=== PATIENT | male | born 1955 | race Caucasian/White ===

== ENCOUNTER → 2022-02-01 08:05 | Outpatient (BNVA) | payer OTHER, SELFPAY | PROVIDERS: PCP Physician Assistant; Visit Provider Psychiatry & Neurology Neurology | DX: M47.812 Spondylosis without myelopathy or radiculopathy, cervical region (principal); M47.816 Spondylosis without myelopathy or radiculopathy, lumbar region; R20.2 Paresthesia of skin; R26.9 Unspecified abnormalities of gait and mobility | CPT/HCPCS: 99202 ==

== ENCOUNTER 2022-03-09 11:45 | Outpatient (REF) | payer OTHER, SELFPAY ==
--- NOTE | ~2022-03-09 | XR_ITS ---
EXAMINATION: XR LUMBAR SPINE XR HIP BILATERAL WITH PELVIS CLINICAL INFORMATION: Sacroiliitis, spondylosis without myelopathy or radiculopathy, lumbar region. COMPARISON: None TECHNIQUE: Single view pelvis with 2 additional views of each hip. 7 views of the lumbosacral spine including obliques and flexion and extension views. FINDINGS: PELVIS AND HIPS: Mild degenerative changes are present in the hips with some minimal acetabular sclerosis superolaterally with some minimal osteophyte formation. No other hip joint abnormality is seen. The pelvis appears unremarkable aside from some minimal sclerotic change at the SI joints. Patient status post vasectomy. LUMBAR SPINE: Degenerative changes are present from L3 through L5. Posterior pedicular screws are present in L3 as well as L5 with disc spacers present at L3-L4 and L4-L5. There is no instability or subluxations with flexion or extension. No fractures are seen. Hardware appears intact. XR/XR hip BI w PEL1V IMPRESSION: 1. Mild degenerative changes in the hips. 2. Degenerative changes in the lumbosacral spine with postoperative changes as described above. No evidence of hardware failure. 3. Minimal sclerotic change SI joints.
--- NOTE | ~2022-03-09 | XR_ITS ---
EXAMINATION: XR LUMBAR SPINE XR HIP BILATERAL WITH PELVIS CLINICAL INFORMATION: Sacroiliitis, spondylosis without myelopathy or radiculopathy, lumbar region. COMPARISON: None TECHNIQUE: Single view pelvis with 2 additional views of each hip. 7 views of the lumbosacral spine including obliques and flexion and extension views. FINDINGS: PELVIS AND HIPS: Mild degenerative changes are present in the hips with some minimal acetabular sclerosis superolaterally with some minimal osteophyte formation. No other hip joint abnormality is seen. The pelvis appears unremarkable aside from some minimal sclerotic change at the SI joints. Patient status post vasectomy. LUMBAR SPINE: Degenerative changes are present from L3 through L5. Posterior pedicular screws are present in L3 as well as L5 with disc spacers present at L3-L4 and L4-L5. There is no instability or subluxations with flexion or extension. No fractures are seen. Hardware appears intact. XR/XR lumbar spine 6V w bending IMPRESSION: 1. Mild degenerative changes in the hips. 2. Degenerative changes in the lumbosacral spine with postoperative changes as described above. No evidence of hardware failure. 3. Minimal sclerotic change SI joints.
== END 2022-03-09 11:46 | disposition home or self-care (01) ==
LOC: HO.XRAY 11:45
PROVIDERS: Visit Provider Nurse Practitioner Family
DX: M96.1 Postlaminectomy syndrome, not elsewhere classified (principal); M25.551 Pain in right hip; M25.552 Pain in left hip; M46.1 Sacroiliitis, not elsewhere classified; M47.816 Spondylosis without myelopathy or radiculopathy, lumbar region; M54.16 Radiculopathy, lumbar region; M47.12 Other spondylosis with myelopathy, cervical region
CPT/HCPCS: 72114; 73521; 99202

== ENCOUNTER 2022-04-05 09:14 | Outpatient (REF) | payer OTHER, SELFPAY ==
--- NOTE | ~2022-04-05 | MR_ITS ---
EXAMINATION: MR LUMBAR SPINE WITHOUT CONTRAST CLINICAL INFORMATION: Spondylosis without myelopathy or radiculopathy. COMPARISON: Lumbar spine MRI 04/12/2020. TECHNIQUE: MRI of the lumbar spine was obtained using routine sequences without contrast. FINDINGS: There are postoperative findings related to instrumented fusion from L3 to L5 with transpedicular screws at L3 and L5 and paired stabilization rods. There is interbody devices at L3-L4 and L4-L5. The nonsurgical disc heights are preserved. No bone marrow edema is seen. There is a prominent hemangioma in the T11 vertebral body. The distal spinal cord appears normal. The conus medullaris terminates normally at the L1-L2 level. There is aneurysmal dilatation of the abdominal aorta which measures 3.5 cm. SPINAL LEVELS: L1-L2: No posterior disc abnormality. No spinal canal or neural foraminal stenosis. L2-L3: Progressive epidural lipomatosis in combination with disc bulging and facet arthropathy results in progressive moderate spinal canal stenosis with effacement of intrathecal CSF. Mild narrowing of the neural foramina without foraminal nerve root compression. L3-L4: Left hemilaminectomy changes with instrumented fusion. Interbody device extends into the epidural space resulting in deformation of the ventral aspect of the thecal sac and encroaches on the left subarticular zone but the appearance is stable compared with prior. Mild spinal canal stenosis. Osteophytic ridging narrows the bilateral neural foramina resulting in abutment of the bilateral exiting L3 nerve roots, mildly progressed on the right. L4-L5: Posterior decompression with instrumented fusion. No significant spinal canal stenosis. Osteophytic ridging moderately narrows the right neural foramen and abuts the exiting right L4 nerve root. No significant change. L5-S1: Disc bulging with epidural lipomatosis and severe facet arthropathy resulting in progressive moderate spinal canal stenosis. Severe left and moderate right neural foraminal stenosis with compression of the exiting left more than right L5 nerve roots, mildly progressed. MR/MR lumbar spine wo con IMPRESSION: 1. Postoperative findings related to instrumented fusion from L3 to L5. Stable appearance of interbody device at the L3-L4 level which extends into the left subarticular zone and abuts the left L4 nerve root. 2. At L2-L3 there is progressive epidural lipomatosis resulting in progressive moderate spinal canal stenosis with effacement of intrathecal CSF. 3. At L5-S1 there is progressive spondylosis resulting in progressive moderate spinal canal stenosis and severe left and moderate right neural foraminal stenosis with compression of the exiting left more than right L5 nerve roots. 4. Incidentally noted aneurysmal dilatation of the abdominal aorta measuring up to 3.5 cm. Aortic ultrasound recommended.
== END 2022-04-05 09:15 | disposition home or self-care (01) ==
LOC: HO.MRI 09:14
PROVIDERS: Visit Provider Psychiatry & Neurology Neurology
DX: M48.16 Ankylosing hyperostosis [Forestier], lumbar region (principal); M47.812 Spondylosis without myelopathy or radiculopathy, cervical region
CPT/HCPCS: 72148

== ENCOUNTER 2022-04-24 06:15 | Outpatient (REF) | payer OTHER, SELFPAY ==
--- NOTE | ~2022-04-24 | FL_ITS ---
EXAMINATION: XR FLUOROSCOPY WITH IMAGES CLINICAL INFORMATION: Radiculopathy lumbar region. COMPARISON: None. TECHNIQUE: Fluoroscopy Supervised By: Shraddha Blum NP Fluoroscopy Time: 0.3 minutes. Cumulative Dose: 13.0 mGy. DAP: 3.5 Gycm2. Images: 1. FINDINGS: There is a single fluoroscopy image of lateral sacrum revealing needle positioned in this posterior spinal canal at the S4 vertebra. Visualized bones are grossly unremarkable. The presacral and posterior sacral soft tissues are normal. FL/FL guidance in treatment room IMPRESSION: Fluoroscopy guidance was provided to referrer during pain management.
== END 2022-04-24 06:16 | disposition home or self-care (01) ==
LOC: CF 06:15
PROVIDERS: Visit Provider Anesthesiology
DX: M47.816 Spondylosis without myelopathy or radiculopathy, lumbar region (principal); M96.1 Postlaminectomy syndrome, not elsewhere classified; M46.1 Sacroiliitis, not elsewhere classified; M25.552 Pain in left hip; M25.551 Pain in right hip
CPT/HCPCS: 62323; J3301

== ENCOUNTER 2022-05-03 09:00 | Outpatient (RCR) | payer OTHER, MEDICARE, MEDICAID, SELFPAY ==
--- NOTE | 2022-02-21 10:31 | MHC.PT.EP ---
[facility] [place] Office [place] Office [place] Office [address] Mauricio Campos [address] [phone] F: [phone] F: [phone] F: [phone] F: [phone] Physical Therapy Plan of Care Date of Evaluation: Date of Surgery: Diagnosis: Lumbar and cervical spondylosis. Assessment: Pt is a 66 y/o male referred to PT for lumbar and cervical spondylosis who reports his lumbar symptoms are of a greater concern and presents with lumbar dysfunction resulting in decreased tolerance for standing, walking performing heavy HH chores, and lifting objects of weight secondary to decreased B LE strength, decreased core strength, gait abnormality, LE neuropathy, and pain. Pt is deemed an appropriate candidate to receive skilled PT services in order to address his physical impairments in order to improve his functional ability. Frequency and Duration: The patient will be seen 2 x / wk x 4 wks. Short Term Goals: Initiate lumbar stabilization home program. Immprove baseline pain to < 6/10; initial: 8/10. Jail Goals: I with home program. Improve Transverse abdominis strength from fair to at least good. Pt will report his pain limits him from walking long distances; initial: pain prevents him from walking even short distances. Treatment Plan: Modalities to reduce pain, spasms and effusion. Manual therapy to restore motion and function. Therapeutic exercise to improve strength and flexibility. Neuromuscular re-education for posture and balance. Therapeutic activities to return to functional activities of daily living. Electronically signed by: Mohinder Vázquez PT. Please sign and return to therapist. Thank you for your referral.
--- NOTE | 2022-05-03 13:38 | MHC.PT.DC ---
[facility] [place] Office [place] Office [place] Office [address] Mauricio Campos [address] [phone] F: [phone] F: [phone] F: [phone] F: [phone] Physical Therapy Discharge Report Diagnosis: Lumbar and cervical spondylosis. Date of Surgery: Date of Evaluation: 02/15/22 Date of Discharge: 05/03/22 Treatments to Date: 7 Cancellations to Date: No Shows to Date: Discharge Status: Improved Function Independent with HEP Discharge Summary: Jaya requested to attend his last apt after spinal injections and about 1 moth after his last therapy visit in order to review his program and he is obliged today. He reports the injections were painful though felt some initial improvement; reports at this time about a week later he has been sore and feels like he has not made improvement from this at this time; He has met many of his realistic therapeutic goals however. His basic HEP was reviewed and performed with some fatigue though was painless. He encouraged to continue his home program. Electronically signed by: Mohinder Vázquez PT. Please sign and return to therapist. Thank you for your referral.
== END 2022-05-03 13:36 | disposition home or self-care (01) ==
LOC: HO.PTCHIC 09:00
PROVIDERS: Visit Provider Psychiatry & Neurology Neurology
DX: M47.812 Spondylosis without myelopathy or radiculopathy, cervical region (principal); M47.816 Spondylosis without myelopathy or radiculopathy, lumbar region
CPT/HCPCS: 97110; 97112; 97162

== ENCOUNTER → 2022-05-28 08:43 | Outpatient (BNVA) | payer OTHER, SELFPAY | PROVIDERS: PCP Physician Assistant; Visit Provider Nurse Practitioner Family | DX: M46.1 Sacroiliitis, not elsewhere classified (principal); M47.816 Spondylosis without myelopathy or radiculopathy, lumbar region; M54.16 Radiculopathy, lumbar region; M96.1 Postlaminectomy syndrome, not elsewhere classified; M47.12 Other spondylosis with myelopathy, cervical region; R26.9 Unspecified abnormalities of gait and mobility | CPT/HCPCS: 99212 ==

== ENCOUNTER → 2022-07-26 14:47 | Outpatient (BNVA) | payer OTHER, SELFPAY | PROVIDERS: PCP Physician Assistant; Visit Provider Nurse Practitioner Family | DX: M96.1 Postlaminectomy syndrome, not elsewhere classified (principal); M46.1 Sacroiliitis, not elsewhere classified; M47.816 Spondylosis without myelopathy or radiculopathy, lumbar region; M54.16 Radiculopathy, lumbar region; G62.9 Polyneuropathy, unspecified | CPT/HCPCS: 99212 ==

== ENCOUNTER → 2022-08-23 14:36 | Outpatient (BNVA) | payer OTHER, SELFPAY | PROVIDERS: PCP Physician Assistant; Visit Provider Nurse Practitioner Family | DX: Z13.89 Encounter for screening for other disorder (principal) ==

== ENCOUNTER → 2022-09-04 11:06 | Outpatient (BNVA) | payer OTHER, SELFPAY | PROVIDERS: PCP Physician Assistant; Visit Provider Nurse Practitioner Family | DX: G89.4 Chronic pain syndrome (principal); M47.26 Other spondylosis with radiculopathy, lumbar region; M96.1 Postlaminectomy syndrome, not elsewhere classified; M47.812 Spondylosis without myelopathy or radiculopathy, cervical region; M46.1 Sacroiliitis, not elsewhere classified; M62.830 Muscle spasm of back | CPT/HCPCS: 99212 ==

== ENCOUNTER → 2022-10-19 09:24 | Outpatient (BNVA) | payer OTHER, SELFPAY | PROVIDERS: PCP Physician Assistant; Visit Provider Physician Assistant | DX: G89.4 Chronic pain syndrome (principal); M47.12 Other spondylosis with myelopathy, cervical region; M54.16 Radiculopathy, lumbar region | CPT/HCPCS: 99202 ==

== ENCOUNTER 2022-10-24 14:43 | Outpatient (REF) | payer OTHER, SELFPAY ==
--- NOTE | ~2022-10-24 | MR_ITS ---
EXAMINATION: MR CERVICAL SPINE WITHOUT CONTRAST CLINICAL INFORMATION: Spondylosis and myelopathy. COMPARISON: No relevant prior imaging. TECHNIQUE: MRI of the cervical spine was obtained using routine sequences without contrast. FINDINGS: There are chronic postoperative changes of an anterior spinal fusion with hardware extending from C3 to C7. Bridging bone completely fuses the C4-C6 vertebra. There is slight anterolisthesis of C7 on T1 that appears to be related to advanced facet degenerative changes at this level. Alignment is otherwise normal. Vertebral heights are preserved. There is disc degeneration at C2-C3 and C7-T1. There is a short segment of chronic myelomalacia involving the cervical cord at the level of C6-C7. Questionable short segment foci of intramedullary T2 signal intensity is also visualized at C4-C5, C5-C6, and C7-T1. The cervicomedullary junction is normal. Limited visualization of the posterior fossa reveals no abnormal finding. The occipital condyles and lateral C1 masses are intact.. There is degenerative arthrosis of the atlantodental joint. C1-C2 articular facets are unremarkable. At C2-C3 the annular contour is normal. No canal stenosis. Uncovertebral joint spurring and facet degenerative change causes mild left neuroforaminal encroachment. At C3-C4 there is a bulging disc. No canal stenosis. Moderate residual neuroforaminal encroachment. At C4-C5 there is no canal or neuroforaminal compromise. At C5-C6 there is no canal or neuroforaminal compromise. At C6-C7 there is a bulging disc. Mild canal stenosis. Uncovertebral joint spurring in conjunction with facet degenerative change causes moderate to severe residual bilateral neuroforaminal encroachment. At C7-T1 there is a pseudodisc bulge. Advanced bilateral facet degenerative change. Moderate canal stenosis. Moderate to severe bilateral neuroforaminal encroachment. Visualized soft tissues of the neck are normal. Vascular flow voids are maintained. MR/MR cervical spine wo con IMPRESSION: There are chronic postoperative changes of an anterior spinal fusion with hardware extending from C3 to C7. Bridging bone completely fuses the C4-C6 vertebra. There is junctional spondylosis below the fusion at the level of C7-T1 where there is slight anterolisthesis related to advanced facet degenerative changes at this level. Moderate canal stenosis at C7-T1. Mild residual canal stenosis at C6-C7. There is a short segment of chronic myelomalacia involving the cervical cord at the level of C6-C7. Questionable short segment foci of intramedullary signal abnormality at C4-C5, C5-C6, and C7-T1. Although there is no active cord compression at C7-T1, the intramedullary signal changes at this level raise the possibility of segmental instability. Additional flexion-extension radiographs of the cervical spine can be undertaken to better assess C7-T1 and to evaluate osseous union at C3-C4 and C6-C7. There are varying degrees of neuroforaminal encroachment related to uncovertebral joint spurring and facet degenerative change as described above.
== END 2022-10-24 14:44 | disposition home or self-care (01) ==
LOC: HO.MRI 14:43
PROVIDERS: PCP Physician Assistant; Visit Provider Physician Assistant
DX: M47.12 Other spondylosis with myelopathy, cervical region (principal)
CPT/HCPCS: 72141

== ENCOUNTER 2022-11-27 15:06 | Outpatient (AMB) | payer OTHER, SELFPAY ==
--- NOTE | 2022-11-27 16:05 | A.SPINEOV_ITS ---
Intake Intake Visit Reasons: follow up Intake Note: Mr. Julian is here to follow up regarding his MRI done @ [facility] [place]. Manager General Required: No Allergies cyclobenzaprine Allergy (Mild, Verified 09/04/22 11:17) Rash environmental allergies Allergy (Unknown, Verified 09/04/22 11:17) Unknown Assessment & Plan Assessment & Plan (1) Lumbar spondylosis: Code(s): M47.816 - Spondylosis without myelopathy or radiculopathy, lumbar region Plan Dear?colleague, On?11/27/2022?I saw?your patient?Jaya?Chris palacios?to?discuss?the?MRI?findings?of?cervical?spine?and?to?discuss?possible?lumb ar?fusion?surgery. He?was?previously?seen?by?Jose?Isidoro?p.a.?was?still?found?signs?of?cervical ?myelopathy.??I?revie wed?the?MRI?of?the?cervical?spine?that?shows?spinal?cord?damage?but?no?significa nt?ongoing?compression.??We?also?reviewed?his?MRI?of?the?lumbar?spine?in?detail? it?shows?facet?hyperintensity?L5-S1?with ?severe?hypertrophy?and?bilateral?L5?foraminal?stenosis.?The?patient?states?that ?he?suffered?from?severe?back?pain?that?radiates?to?the?outside?of?his?lower?leg s?and?into?his?right?foot.??I?showed?him ?the?imaging?with?the?L5?foraaminal?stenosis?and?told?that?his?radicular?symptom s?may?be?associated?with?this?feature.??The?severe?back?pain?could?be?facet?rela quiana.??From?excessive?stress?from?the?pre vious?fusion?he?underwent.??I?offered?him?an?anterior?lumbar?interbody?fusion?L5 -S1?with?an?anterior?plate?in?order?to?avoid?going?back?in?today?previous?surgic al?site.??He?wants?to?proceed.??He?is?aware?that the?chances?of?success?are?lower?than?normal?due?to?the?amount?of?previous?spine ?surgeries?he?already?underwent.??He?will?see??Vani, the access?surgeon?to?discuss?an?anterior?lumbar?in terbody?fusion.??He?is?going?to?bring?an?MRI?of?the?lumbar?spine?for?him?to?revi ewed?the?vasculature?in?the?L5-S1?region. Thank?you?for letting me take?care?of?your?patient.??I?spent?25?minutes?in?th is?consult?for?preparation,?review?of?imaging?and?discussing?plan?of?care. Bryant?Rosalinda??,?PhD Spine?Fellowship?Trained?Neurosurgeon Director,?[facility]?[place]? [facility]? Coding Level of Care Code Est Pt Level 3 (22357) Diagnoses Lumbar spondylosis M47.816
--- NOTE | 2022-11-27 16:05 | HO.SPINEOV ---
Intake Intake Visit Reasons: follow up Intake Note: Mr. Julian is here to follow up regarding his MRI done @ [facility] – [place]. Assistant Speech Language Pathologist Required: No Allergies cyclobenzaprine Allergy (Mild, Verified 09/04/22 11:17) Rash environmental allergies Allergy (Unknown, Verified 09/04/22 11:17) Unknown Assessment & Plan Assessment & Plan (1) Lumbar spondylosis: Code(s): M47.816 - Spondylosis without myelopathy or radiculopathy, lumbar region Plan Dear?colleague, On?11/27/2022?I saw?your patient?Jaya?Rochelle?to?discuss?the?MRI?findings?of?cervical?spine?and?to?discuss?possible?lumbar?fusion?surgery. He?was?previously?seen?by?Jose?Isidoro?p.a.?was?still?found?signs?of?cervical?myelopathy.??I?reviewed?the?MRI?of?the?cervical?spine?that?shows?spinal?cord?damage?but?no?significant?ongoing?compression.??We?also?reviewed?his?MRI?of?the?lumbar?spine ?in?detail?it?shows?facet?hyperintensity?L5-S1?with?severe?hypertrophy?and?bilateral?L5?foraminal?stenosis.?The?patient?states?that?he?suffered?from?severe?back?pain?that?radiates?to?the?outside?of?his?lower?legs?and?into?his?right?foot.??I?showed?hi m?the?imaging?with?the?L5?foraaminal?stenosis?and?told?that?his?radicular?symptoms?may?be?associated?with?this?feature.??The?severe?back?pain?could?be?facet?related.??From?excessive?stress?from?the?previous?fusion?he?underwent.??I?offered?him?an?ante rior?lumbar?interbody?fusion?L5-S1?with?an?anterior?plate?in?order?to?avoid?going?back?in?today?previous?surgical?site.??He?wants?to?proceed.??He?is?aware?that the?chances?of?success?are?lower?than?normal?due?to?the?amount?of?previous?spine?surgeries?he?already?underwent.??He?will?see??Vani, the access?surgeon?to?discuss?an?anterior?lumbar?interbody?fusion.??He?is?going?to?bring?an?MRI?of?the?lumbar?spine?for?him?to?reviewed?the?vasculature?in?the?L5-S1?region. Thank?you?for letting me take?care?of?your?patient.??I?spent?25?minutes?in?this?consult?for?preparation,?review?of?imaging?and?discussing?plan?of?care. Bryant?Rosalinda??,?PhD Spine?Fellowship?Trained?Neurosurgeon Director,?[facility]?[place]?[facility]? [facility]? Coding Level of Care Code Est Pt Level 3 (26926) Diagnoses Lumbar spondylosis M47.816
== END 2022-11-27 16:24 | disposition home or self-care (01) ==
PROVIDERS: PCP Physician Assistant; Visit Provider Neurological Surgery
DX: M47.816 Spondylosis without myelopathy or radiculopathy, lumbar region (principal)
CPT/HCPCS: 99213

== ENCOUNTER → 2022-11-27 15:06 | Outpatient (BNVA) | payer OTHER, SELFPAY | PROVIDERS: PCP Physician Assistant; Visit Provider Neurological Surgery | DX: M47.816 Spondylosis without myelopathy or radiculopathy, lumbar region (principal) | CPT/HCPCS: 99212 ==

== ENCOUNTER 2023-03-11 06:07 | Inpatient (IN) | payer MEDICARE, MEDICAID, SELFPAY ==
--- NOTE | 2023-02-27 | ECG_ITS ---
Test Reason : preop Blood Pressure : / mmHG Vent. Rate : 072 BPM Atrial Rate : 072 BPM P-R Int : 166 ms QRS Dur : 072 ms QT Int : 390 ms P-R-T Axes : 067 043 005 degrees QTc Int : 427 ms Normal sinus rhythm Normal ECG No previous ECGs available Referred By: Margarita Aragon Electronically Signed By:MACKENZIE REESE MD
[2023-02-27 12:04] VITALS: BP 134/78; PULSE 75; RESP 16; O2SAT 96; BMI 30.1
--- NOTE | 2023-02-27 13:12 | HO.ANESPROP2 ---
Documented by User: Margarita Aragon NP 02/27/23 13:29 HPI - Anesthesia Eval Consult details Narrative: 67yo M for L5-S1 Ant Lumbar Interbody Fusion amd Anterior Plate No recent illness No CP with housework. ANDREWS at baseline COPD at baseline. Albuterol rescue inhaler ~ 2-3 x weekly [facility] Active Problems Active Problems: All Active Problems (Updated 02/27/23 @ 12:39 by Thelma Valencia, RN) Chronic pain syndrome (Acute) Muscle spasm of back (Acute) Peripheral neuropathy (Acute) Aortic aneurysm (Acute) Failed back syndrome (Acute) Lumbar radiculopathy, chronic (Acute) Bilateral hip pain (Acute) Sacroiliitis (Acute) Gait disorder (Acute) Bilateral leg paresthesia (Acute) Cervical spondylosis with myelopathy (Acute) Cervical spondylosis (Acute) Lumbar spondylosis (Acute) Asthma (Acute) COPD (chronic obstructive pulmonary disease) (Acute) HTN (hypertension) (Acute) Heart disease (Acute) Past Medical History Medical History (Updated 02/27/23 @ 12:39 by Thelma Valencia, KATARZYNA) Depression Anxiety AAA (abdominal aortic aneurysm) without rupture Heart attack Hx of hydrocele Cervical spondylosis with myelopathy Cervical spondylosis Lumbar spondylosis Asthma COPD (chronic obstructive pulmonary disease) HTN (hypertension) Heart disease Family History Family History (Updated 02/27/23 @ 12:24 by Thelma Valencia, KATARZYNA) Mother COVID PONV (postoperative nausea and vomiting) Sister No problems noted. Sister No problems noted. Sister No problems noted. Brother Pulmonary fibrosis PONV (postoperative nausea and vomiting) Brother Pulmonary fibrosis PONV (postoperative nausea and vomiting) Daughter PONV (postoperative nausea and vomiting) Father PONV (postoperative nausea and vomiting) Other Dementia Diabetes mellitus, type II Disorder of thyroid Family history of problems with anesthesia: Yes (PONV in parents and brother) Surgical History Surgical History (Updated 02/27/23 @ 12:34 by Thelma Valencia RN) Hx of tonsillectomy Hx of colonoscopy Hx of vasectomy Hx of cervical spine surgery H/O surgical amputation of finger History of testicular surgery Hx of lumbosacral spine surgery History of Problems with Anesthesia: No Social History Social History (Updated 02/27/23 @ 13:05 by Thelma Valencia, KATARZYNA) Household Members: None Housing: House Are you a primary patient care director to a significant other at home: No Do you presently have visiting nurse or other home services: No Alcohol intake: current Alcohol intake frequency: holidays/special occasions only Patient Tobacco Use Status: Former Tobacco user Quit Date: 2016 Tobacco use type: Cigarette Smoked in Last 30 Days: No Patient Interested in Nicotine Replacement: No Patient Given Instructions on How to Stop Smoking: No Second Hand Smoke Exposure: No Use of substances other than those prescribed or required for medical reasons: No Substance Use Type: Marijuana Substance Use Frequency: Weekly Any prior treatment program specific to substance use: No Have you been hit, kicked, punched, or otherwise hurt by someone within the past year? If so, by whom?: No Do you feel safe in your current relationship?: Yes Is there a partner from a previous relationship who is making you feel unsafe now?: No Are you made to feel afraid or neglected: No Are you DNR?: No Advance Directives: No Advance Directives Information Provided: Yes Advance Directives on File: No Do you have thoughts of harming others: None Do you have a plan to hurt others: No Plan Recently lost weight without trying: No Eating poorly because of decreased appetite: No Nutrition Risks: No Nutritional Risk Poor oral hygiene: No Meds Allergies Allergy/AdvReac Type Severity Reaction Status Date / Time cyclobenzaprine Allergy Intermediate Rash, Verified 02/27/23 12:53 palpatations environmental allergies Allergy Intermediate SOB, Verified 02/27/23 12:02 watery eyes Home Medications Medication Instructions Recorded Confirmed Last Taken Type albuterol sulfate 1.25 mg/3 mL 1.25 mg inhalation QID PRN 02/01/22 02/27/23 03/10/23 History solution for nebulization Shortness Of Breath Or Wheezing aspirin 81 mg tablet,delayed 81 mg PO DAILY 02/01/22 02/26/23 03/04/23 History release (Adult Low Dose Aspirin) cetirizine 10 mg tablet 10 mg PO DAILY 02/01/22 02/26/23 Unknown History escitalopram oxalate 10 mg tablet 10 mg PO DAILY 02/01/22 02/26/23 03/11/23 History evolocumab 140 mg/mL subcutaneous 140 mg subcut Q2W 02/01/22 02/26/23 03/02/23 History pen injector (Zarina Marte) fluticasone propionate 50 1 - 2 spray intranasal DAILY PRN 02/01/22 02/27/23 03/11/23 History mcg/actuation nasal Allergy Symptoms spray,suspension hydroxyzine HCl 25 mg tablet 50 mg PO BEDTIME 02/01/22 02/26/23 03/10/23 History icosapent ethyl 1 gram capsule 2 g PO BID 02/01/22 02/26/23 03/10/23 History (Vascepa) metoprolol succinate 25 mg 25 mg PO DAILY 02/01/22 02/26/23 03/11/23 History tablet,extended release 24 hr nitroglycerin 0.4 mg sublingual 0.4 mg sublingual Q5M PRN Chest 02/01/22 02/26/23 Unknown History tablet Pain tamsulosin 0.4 mg capsule 0.4 mg PO DAILY@1700 02/01/22 02/26/23 03/10/23 History fluticasone furoate 100 1 ea inhalation DAILY 08/23/22 02/27/23 Unknown History mcg-vilanterol 25 mcg/dose inhalation powder (Breo Ellipta) montelukast 10 mg tablet 10 mg PO BEDTIME 08/23/22 02/26/23 03/10/23 History cholecalciferol (vitamin D3) 50 50 mcg PO DAILY 09/04/22 02/26/23 03/10/23 History mcg (2,000 unit) capsule albuterol sulfate 90 mcg/actuation 2 puff inhalation Q4-6H PRN 02/27/23 02/27/23 03/11/23 History aerosol inhaler Shortness Of Breath Or Wheezing umeclidinium 62.5 mcg/actuation 1 inh inhalation DAILY 02/27/23 02/27/23 03/10/23 History blister powder for inhalation (Incruse Ellipta) Exam Exam Date and Time: February 27, 2023 1312 Height,Weight and Vital Signs: Height 5 ft 9 in Weight 92.5 kg Last Vital Signs Pulse 75 02/27/23 12:04 Resp 16 02/27/23 12:04 BP 134/78 02/27/23 12:04 Pulse Ox 96 02/27/23 12:04 O2 Del Method Room Air 02/27/23 12:04 Airway Mallampati Class: I TM Dist: >3cm Neck ROM: Limited (s/p fusions x 4) Denture: Upper and Lower Heart: RRR Lungs: CTAB Assessment and Plan Assessment Anesthesia Assessment: Anesthesia Plan Discussed and PAT Visit Final Anesthetic Review Family History of Problems with Anesthesia: Yes (PONV in parents and brother) History of Problems with Anesthesia: No Documented by User: Mick Patel MD 03/11/23 16:21 HPI - Anesthesia Eval Consult details Narrative: 67yo M for L5-S1 Ant Lumbar Interbody Fusion amd Anterior Plate No recent illness No CP with housework. ANDREWS at baseline Aortic Aneurysm being followed by Vascular . CAD bein followed by cardiology ,as per cardiology optimized for the procedure COPD at baseline. Albuterol rescue inhaler ~ 2-3 x weekly [facility] Past Medical History Medical History (Updated 02/27/23 @ 12:39 by Thelma Valencia, KATARZYNA) Depression Anxiety AAA (abdominal aortic aneurysm) without rupture Heart attack Hx of hydrocele Cervical spondylosis with myelopathy Cervical spondylosis Lumbar spondylosis Asthma COPD (chronic obstructive pulmonary disease) HTN (hypertension) Heart disease Functional capacity: uses cane/walker Family History Family History (Updated 02/27/23 @ 12:24 by Thelma Valencia, KATARZYNA) Mother COVID PONV (postoperative nausea and vomiting) Sister No problems noted. Sister No problems noted. Sister No problems noted. Brother Pulmonary fibrosis PONV (postoperative nausea and vomiting) Brother Pulmonary fibrosis PONV (postoperative nausea and vomiting) Daughter PONV (postoperative nausea and vomiting) Father PONV (postoperative nausea and vomiting) Other Dementia Diabetes mellitus, type II Disorder of thyroid Surgical History Surgical History (Updated 02/27/23 @ 12:34 by Thelma Valencia, KATARZYNA) Hx of tonsillectomy Hx of colonoscopy Hx of vasectomy Hx of cervical spine surgery H/O surgical amputation of finger History of testicular surgery Hx of lumbosacral spine surgery Social History Social History (Updated 02/27/23 @ 13:05 by Thelma Valencia, KATARZYNA) Household Members: None Housing: House Are you a primary patient care director to a significant other at home: No Do you presently have visiting nurse or other home services: No Alcohol intake: current Alcohol intake frequency: holidays/special occasions only Patient Tobacco Use Status: Former Tobacco user Quit Date: 2016 Tobacco use type: Cigarette Smoked in Last 30 Days: No Patient Interested in Nicotine Replacement: No Patient Given Instructions on How to Stop Smoking: No Second Hand Smoke Exposure: No Use of substances other than those prescribed or required for medical reasons: No Substance Use Type: Marijuana Substance Use Frequency: Weekly Any prior treatment program specific to substance use: No Have you been hit, kicked, punched, or otherwise hurt by someone within the past year? If so, by whom?: No Do you feel safe in your current relationship?: Yes Is there a partner from a previous relationship who is making you feel unsafe now?: No Are you made to feel afraid or neglected: No Are you DNR?: No Advance Directives: No Advance Directives Information Provided: Yes Advance Directives on File: No Do you have thoughts of harming others: None Do you have a plan to hurt others: No Plan Recently lost weight without trying: No Eating poorly because of decreased appetite: No Nutrition Risks: No Nutritional Risk Poor oral hygiene: No Meds Allergies Allergy/AdvReac Type Severity Reaction Status Date / Time cyclobenzaprine Allergy Intermediate Rash, Verified 02/27/23 12:53 palpatations environmental allergies Allergy Intermediate SOB, Verified 02/27/23 12:02 watery eyes Home Medications Medication Instructions Recorded Confirmed Last Taken Type albuterol sulfate 1.25 mg/3 mL 1.25 mg inhalation QID PRN 02/01/22 02/27/23 03/10/23 History solution for nebulization Shortness Of Breath Or Wheezing aspirin 81 mg tablet,delayed 81 mg PO DAILY 02/01/22 02/26/23 03/04/23 History release (Adult Low Dose Aspirin) cetirizine 10 mg tablet 10 mg PO DAILY 02/01/22 02/26/23 Unknown History escitalopram oxalate 10 mg tablet 10 mg PO DAILY 02/01/22 02/26/23 03/11/23 History evolocumab 140 mg/mL subcutaneous 140 mg subcut Q2W 02/01/22 02/26/23 03/02/23 History pen injector (Repatha SureClick) fluticasone propionate 50 1 - 2 spray intranasal DAILY PRN 02/01/22 02/27/23 03/11/23 History mcg/actuation nasal Allergy Symptoms spray,suspension hydroxyzine HCl 25 mg tablet 50 mg PO BEDTIME 02/01/22 02/26/23 03/10/23 History icosapent ethyl 1 gram capsule 2 g PO BID 02/01/22 02/26/23 03/10/23 History (Vascepa) metoprolol succinate 25 mg 25 mg PO DAILY 02/01/22 02/26/23 03/11/23 History tablet,extended release 24 hr nitroglycerin 0.4 mg sublingual 0.4 mg sublingual Q5M PRN Chest 02/01/22 02/26/23 Unknown History tablet Pain tamsulosin 0.4 mg capsule 0.4 mg PO DAILY@1700 02/01/22 02/26/23 03/10/23 History fluticasone furoate 100 1 ea inhalation DAILY 08/23/22 02/27/23 Unknown History mcg-vilanterol 25 mcg/dose inhalation powder (Breo Ellipta) montelukast 10 mg tablet 10 mg PO BEDTIME 08/23/22 02/26/23 03/10/23 History cholecalciferol (vitamin D3) 50 50 mcg PO DAILY 09/04/22 02/26/23 03/10/23 History mcg (2,000 unit) capsule albuterol sulfate 90 mcg/actuation 2 puff inhalation Q4-6H PRN 02/27/23 02/27/23 03/11/23 History aerosol inhaler Shortness Of Breath Or Wheezing umeclidinium 62.5 mcg/actuation 1 inh inhalation DAILY 02/27/23 02/27/23 03/10/23 History blister powder for inhalation (Incruse Ellipta) Exam Airway Mallampati Class: IV Loose/Missing/Broken Teeth: Yes Assessment and Plan Assessment Anesthesia Assessment: Chart Reviewed Final Anesthetic Review NPO: Yes ASA Class: IV Final Preanesthetic Review: Meds/Allgs Chart Reviewed, Consent Obtained/Reviewed and Anes Risks/Benef Reviewed Patient Risk: Intermediate Procedure Risk: Intermediate Anesthetic Plan Anesthetic Plan: GA and Agree w/ Assess. and Plan Disposition: Standard PACU
[2023-02-27 14:41] LABS: Hematocrit 45.9 % (42.0-52.0); Hemoglobin 15.6 g/dl (14.0-18.0); Mean Corpuscular Hemoglobin 31.8 pg (27.0-33.0); Mean Corpuscular Volume 93.7 fL (80.0-98.0); Mean Platelet Volume 9.2 fL (9.4-12.4); Platelet Count 258 X10*3/uL (160-400); Red Cell Distribution Width 13.4 % (11.0-16.0); White Blood Count 11.9 X10*3/uL (4.8-10.8)
[2023-02-27 15:02] LABS: Anion Gap 17 (12-20); Blood Urea Nitrogen 19 mg/dL (9-16); Carbon Dioxide 24 mmol/L (22-29); Chloride 102 mmol/L (96-108); Creatinine Clr Calc Pharmacy 89.4; Estimated Glomerular Filt Rate > 60; Glucose Random 98 mg/dL (60-115); Potassium 4.2 mmol/L (3.3-5.1); Sodium 139 mmol/L (135-145)
[2023-03-11] VITALS (12 sets, daily range): BP systolic 108–140; BP diastolic 63–83; PULSE 63–77; RESP 13–18; TEMP 36.3–37.1; O2SAT 94–99; BMI 31.3
--- NOTE | ~2023-03-11 | XR_ITS ---
EXAMINATION: XR LUMBAR SPINE CLINICAL INFORMATION: Radiculopathy lumbar region. L5-S1 anterior lumbar interbody fusion postoperative. COMPARISON: Fluoroscopy in OR 03/11/2023. XR lumbar spine 03/09/2022. MRI lumbar spine 04/05/2022. TECHNIQUE: Single AP postoperative supine view of the lumbar spine. FINDINGS: Degenerative changes at the upper lumbar spine. Mild degenerative changes in the bilateral hips. Mild degenerative changes in the bilateral sacroiliac joints. Redemonstration posterior pedicular screws at L3 and L5 with disc spacers at L3-L4 and L4-L5. Hardware at L5-S1 compatible with given history of L5-S1 interbody fusion. XR/XR lumbar spine 1V IMPRESSION: Redemonstration posterior pedicular screws at L3 and L5 with disc spacers at L3-L4 and L4-L5. Hardware at L5-S1 compatible with given history of L5-S1 interbody fusion.
--- NOTE | ~2023-03-11 | FL_ITS ---
EXAMINATION: XR LUMBAR SPINE CLINICAL INFORMATION: Radiculopathy lumbar region. L5-S1 anterior lumbar interbody fusion postoperative. COMPARISON: Fluoroscopy in OR 03/11/2023. XR lumbar spine 03/09/2022. MRI lumbar spine 04/05/2022. TECHNIQUE: Single AP postoperative supine view of the lumbar spine. FINDINGS: Degenerative changes at the upper lumbar spine. Mild degenerative changes in the bilateral hips. Mild degenerative changes in the bilateral sacroiliac joints. Redemonstration posterior pedicular screws at L3 and L5 with disc spacers at L3-L4 and L4-L5. Hardware at L5-S1 compatible with given history of L5-S1 interbody fusion. FL/FL guidance in OR IMPRESSION: Redemonstration posterior pedicular screws at L3 and L5 with disc spacers at L3-L4 and L4-L5. Hardware at L5-S1 compatible with given history of L5-S1 interbody fusion.
[2023-03-11] MEDS: methocarbamoL 750 MG TABLET PO (06:40)
[2023-03-11] MEDS: Gabapentin 300 MG CAPSULE PO (06:40)
--- NOTE | 2023-03-11 07:12 | MHC.SHP ---
Pre-Procedural Eval Section A Date of Service: 03/11/23 The patient is an INPATIENT: No Changes since office visit: No Cold of Flu in the past 2 weeks, No New Medical Problems, No Changes in Medication and No Patient answered all questions The History & Physical has been completed within 30 days and I have reviewed it.: No Section B Chief Complaint: S/P 15-s1 ALIF Allergies: Allergies Allergy/AdvReac Type Severity Reaction Status Date / Time cyclobenzaprine Allergy Intermediate Rash, Verified 02/27/23 12:53 palpatations environmental allergies Allergy Intermediate SOB, Verified 02/27/23 12:02 watery eyes Review of Systems Sugical H&P ROS: Negative: Constitution, Cardiovascular, Respiratory, Neurological, Psychiatric, Hem-Onc, Allergic/Immunologic, Gastrointestinal, Genitourinary, Musculoskeletal, Integumentary, Endocrine and Eyes/Ears/Nose/Throat Exam Surgical H&P Exam: Not Evaluated: HEENT, Not Evaluated: Heart, Not Evaluated: Lungs, Not Evaluated: Extremities, Not Evaluated: Abdomen, Not Evaluated: Skin and Not Evaluated: Neurological Plan Diagnosis/Plan: Unchanged I have reviewed the history and physical and performed a pertinent physical examination on my patient. No changes have occurred unless specified. L5-S1 ALIF, with plating Time Spent With Patient Time: Total time managing care of this patient today _15___ minutes.
--- NOTE | 2023-03-11 08:26 | PHA.MEDREC ---
Pharmacy Consult ? Medication Reconciliation Pharmacy has completed the medication reconciliation. Reviewed med rec done by nursing
[2023-03-11] MEDS: 0.9 % Sodium Chloride 1,000 ML 75 ML IVCONT (12:39)
[2023-03-11] MEDS: Baclofen 10 MG TABLET PO ×3 (12:39→20:50)
[2023-03-11] MEDS: Acetaminophen 1,000 MG/100 ML PIGGYBACK 400 MG IV ×2 (13:28→19:38)
[2023-03-11] MEDS: ceFAZolin Sodium/Dextrose,Iso 2 GM/50 ML PIGGYBACK IV ×2 (14:00→20:49)
[2023-03-11] MEDS: oxyCODONE HCl Immed Release 5 MG TABLET 10 MG PO (14:23)
[2023-03-11] MEDS: oxyCODONE HCl Immed Release 5 MG TABLET PO (14:24)
--- NOTE | 2023-03-11 14:24 | P.OP_ITS ---
Operative Note Operative Note Date of Service: 03/11/23 Narrative: Procedure: Anterior exposure for Corpectomy and inter-body fusion L5-S1 The patient was brought to the operating room, positioned on the table supine and general anesthesia was administered. The abdomen was clipped and then prepped and draped in the usual sterile fashion. After timeout was done, incision was made in the infraumbilical area just to the left of the midline 6 cm long. It was brought through subcutaneous tissue and the left anterior rectus sheath in line with the skinincision . The pre- peritoneal plane was entered, peritoneum was bluntly dissected off and iliac artery pulse was felt. Self- retaining retractor with two deep blades was inserted and peritoneum protected with moist gauzes. Left internal iliac vein was identified and dissection was carried along the medial surface of the iliac vein up to the bifurcation. The middle sacral vessels were transected and L5-S1 disc space was bluntly and sharply dissected using bipolar cautery staying directly on the surface of the spine. The midline of the disk space was marked with C-arm image guide. Dr. Tellez then proceeded with the corpectomy and fusion, which will be dictated separately by him. After this was done, hemostasis was checked and was excellent. Left ureter was examined prior to closure and was intact. There was good left external iliac artery pulse. Diluted 0.5% Marcaine and Lidocaine was injected in the fascia and subcutaneous tissue. The incision was irrigated and closed by layers using a 2-0 Vicryl for transverse fascia, 0 Maxone for the external oblique, 3-0 Vicryl for subcutaneous tissue and 4-0 Monocryl for skin. Exo-fin glue was then applied.
--- NOTE | 2023-03-11 14:29 | W.PM.OPN ---
Operative Note Operative Note Date of Service: 03/11/23 Narrative: Preoperative Diagnosis: 1.) Lumbar degenerative disc disease L5-S1; lumbar radiculopathy and back pain Procedure: L5-S1 discectomy, arthrodesis and implantation cage through an anterior lumbar approach (ALIF) ; anterior instrumentation L5-S1; allograft Indication for Surgery Lumbar degenerative disc disease Consent Informed Consent was obtained for this operation. I have explained the nature, purpose and benefits of the operation. I have discussed the risks and benefit of the operation including possible complications or adverse events with patient/family. Alternative(s) were discussed with the patient with their relative benefits and risks as well as the consequences of not accepting the operation were included in obtaining consent. Surgeon: MICHELLE VALDIVIA MD, PHD Procedure Assisted By: FLORIDALMA LUDWIG MD and NEHAL Borja Description of Procedure This 67-year-old male had a previous L3-L5 fusion done at another institution. He presented with progressive low back pain and degenerative disc disease L5-S1. The patient was offered an anterior lumbar interbody fusion with anterior L5-S1 instrumentation. The procedure complications were explained. The patient was consented. The patient was brought to the operating room and endotracheally intubated. The patient was put in a supine position. Prep and drape was done followed by timeout. Dr. Ludwig, co-surgeon, provided the access to the L5-S1 disc space through an anterior approach. He was assisted by physician assistant superintendent for curriculum who performed manual retraction. He will dictate the approach in a separate operative note. When the L5-S1 disc space was exposed I took over the procedure. An annulotomy was done followed by a partial discectomy. Sequential trial implants were inserted and advanced towards the posterior wall of the disc space. I completed the discectomy and prepare the endplates. Then a 27 x 37.5 x 10 and 6 degree lordosis 4 web cage filled with allograft was inserted into the disc space. Anterior instrumentation was added to secure the implant. A 38 mm anterior plate was locked down with 2x30 mm screws in L5 and 2x25 mm screws in S1 The retractor was removed and hemostasis was done by Dr. Brumfield who closed the incision. All sponge and needle counts were correct. The patient was extubated and transported in stable condition to recovery room. Anesthesia: General Estimated Blood Loss (ml): 30 mL Duration of Surgery: 60 minutes Complications: None Postoperative Plan: Admit to inpatient for observation
[2023-03-11] MEDS: Gabapentin 600 MG TABLET PO ×2 (15:09→20:49)
[2023-03-11] MEDS: Ketorolac Tromethamine 15 MG/ML VIAL IVPUSH ×2 (15:45→21:27)
[2023-03-11] MEDS: Tamsulosin HCL 0.4 MG CAPSULE PO (15:46)
[2023-03-11] MEDS: hydrOXYzine HCL 50 MG TABLET PO (20:49)
[2023-03-11] MEDS: Docusate Sodium 100 MG CAPSULE PO (20:50)
[2023-03-11] MEDS: Montelukast Sodium 10 MG TABLET PO (20:50)
[2023-03-12] MEDS: 0.9 % Sodium Chloride 1,000 ML 75 ML IVCONT (01:06)
[2023-03-12] MEDS: oxyCODONE HCl Immed Release 5 MG TABLET 10 MG PO ×2 (01:15→07:06)
[2023-03-12] MEDS: Acetaminophen 1,000 MG/100 ML PIGGYBACK 400 MG IV ×2 (02:14→08:14)
[2023-03-12] MEDS: ceFAZolin Sodium/Dextrose,Iso 2 GM/50 ML PIGGYBACK IV (02:35)
[2023-03-12 03:16] VITALS: BP 110/58; PULSE 66; RESP 14; TEMP 36.1; O2SAT 95
[2023-03-12] MEDS: Ketorolac Tromethamine 15 MG/ML VIAL IVPUSH ×2 (04:00→10:24)
[2023-03-12] MEDS: Baclofen 10 MG TABLET PO ×2 (06:15→08:14)
[2023-03-12 07:09] VITALS: BP 112/69; PULSE 61; RESP 16; TEMP 36.2; O2SAT 96
[2023-03-12 07:33] VITALS: BP 112/69; PULSE 61; O2SAT 96
[2023-03-12] MEDS: Fluticasone/Vilanterol 100/25 BLST.W.DEV 1 PUFF INHALE (07:49)
[2023-03-12 07:53] VITALS: PULSE 73; RESP 18; O2SAT 98
[2023-03-12] MEDS: Docusate Sodium 100 MG CAPSULE PO (08:13)
[2023-03-12] MEDS: Gabapentin 600 MG TABLET PO (08:13)
[2023-03-12] MEDS: Cholecalciferol (Vitamin D3) 25 MCG TABLET 50 MCG PO (08:14)
[2023-03-12] MEDS: Escitalopram Oxalate 10 MG TABLET PO (08:14)
[2023-03-12] MEDS: Metoprolol Succinate ER 25 MG TAB.ER.24H PO (08:14)
[2023-03-12] MEDS: Loratadine 10 MG TABLET PO (08:14)
--- NOTE | 2023-03-12 08:45 | MHC.CM.PN ---
PATIENT IS FULLY INDEPENDENT WITH ADLS. HE USES A CANE AT BASELINE. NO HCP ON FILE AND HE IS WILLING TO COMPLETE ONE HERE NAMING HIS COUSIN, MARYBEL PATIENT FEELS HE IS DC TODAY HE DOES HAVE A RIDE. CM FOLLOWING FOR ANY DC NEEDS IMM 03/12 IN CHART
--- NOTE | 2023-03-12 09:24 | PM.DS ---
DS: Providers Provider Date of Service: 03/12/23 Date of admission: 03/11/23 06:07 Primary care physician: NEHAL Munoz DS: Summary Time Attestation Discharge coordination time: Less than 30 minutes Quality: Safe Use of Opioids Does Pt have an Active Cancer Diagnosis on the Problem List?: No Quality: Stroke Does the patient have a stroke diagnosis?: No Physical Exam Vital Signs: Vital Signs: Last Vital Signs Temp 97.2 F 03/12/23 07:09 Pulse 73 03/12/23 07:53 Resp 18 03/12/23 07:53 BP 112/69 03/12/23 07:33 Pulse Ox 96 03/12/23 07:33 O2 Del Method Room Air 03/12/23 07:09 O2 Flow Rate 2 03/11/23 15:16 BMI result Body Mass Index 31.3 Discharge Plan Discharge Anticipated Discharge Date/Time: 03/12/23 09:25 Patient Disposition: Home, Self-Care Discharge Diagnosis: S/P L5-S1 ALIF Referrals: Mony Pardo PA [Primary Care Provider] - 1 Week Discharge Medications: New oxycodone 5 mg tablet 5 mg PO Q6H PRN (Reason: severe pain) Qty: 40 0RF Rx Instructions: Partial Fill upon patient request. Continued methocarbamol 750 mg tablet 750 mg PO Q8H PRN (Reason: muscle spasm) 30 Days Qty: 90 5RF gabapentin 600 mg tablet 600 mg PO TID 30 Days Qty: 90 3RF baclofen 10 mg tablet 10 mg PO .q5xd Qty: 150 1RF Incruse Ellipta 62.5 mcg/actuation blister with device 1 inh inhalation DAILY albuterol sulfate 90 mcg/actuation HFA aerosol inhaler 2 puff INHALATION Q4-6H PRN (Reason: Shortness Of Breath Or Wheezing) albuterol sulfate 1.25 mg/3 mL solution for nebulization 1.25 mg inhalation QID PRN (Reason: Shortness Of Breath Or Wheezing) Repatha SureClick 140 mg/mL pen injector 140 mg subcut Q2W fluticasone propionate 50 mcg/actuation spray,suspension 1 - 2 spray intranasal DAILY PRN (Reason: Allergy Symptoms) escitalopram oxalate 10 mg tablet 10 mg PO DAILY hydroxyzine HCl 25 mg tablet 50 mg PO BEDTIME metoprolol succinate 25 mg tablet extended release 24 hr 25 mg PO DAILY cetirizine 10 mg tablet 10 mg PO DAILY tamsulosin 0.4 mg capsule 0.4 mg PO DAILY@1700 icosapent ethyl [Vascepa] 1 gram capsule 2 g PO BID aspirin [Adult Low Dose Aspirin] 81 mg tablet,delayed release (DR/EC) 81 mg PO DAILY nitroglycerin 0.4 mg tablet, sublingual 0.4 mg sublingual Q5M PRN (Reason: Chest Pain) Rx Instructions: do not exceed 3 doses per episode montelukast 10 mg tablet 10 mg PO BEDTIME fluticasone furoate-vilanterol [Breo Ellipta] 100-25 mcg/dose blister with device 1 ea inhalation DAILY cholecalciferol (vitamin D3) 50 mcg (2,000 unit) capsule 50 mcg PO DAILY Discharge Orders: Discharge Order (Routine); Ordered 03/12/23 Ordered By: Garrison Dior Diet: Advance to usual diet Activity on Discharge: As tolerated Stand Alone Forms: Patient Portal Discharge page Activity Restrictions/Additional Instructions: After your spinal surgery we ask you to observe the following restrictions/guidelines: Activity: With lumbar fusion surgery it is normal to have days in the first couple of weeks where you have increased leg pain. This usually lasts 1-2 days and self resolves with the continuation of medication. Attempt to stay mobile and continue activity as tolerated. It is normal to feel some discomfort as you increase your activity, but that will improve with time. We ask you avoid heavy lifting or activities that cause pain. As a general rule, 8lbs is a safe limit for lifting right after surgery. Walk as much as you feel comfortable but not to exhaustion. You will feel extra tired the first few days after surgery. Stay well hydrated. It is OK to walk up and down stairs You may return to driving when you are off narcotics (such as vicodin, oxycodone, dilaudid, etc), and you are back to normal functional capacity. If you have any concerns please check with office before driving. Return to work is specific to each patient and each surgery, so please speak with your doctor/PA at first follow up. Please bring paperwork such as FMLA at that time if you need it filled out. Medications: It is recommended that you take Tylenol 500 mg every 4 hours for the 1st week postoperatively, alongside ibuprofen 600 mg every 8 hours. We will give you a short supply of narcotics after surgery (usually one weeks worth). Please use this for breakthrough pain that is refractory to the Tylenol / ibuprofen. If you need more please call the office but do not use more than prescribed. You will need to give our office 48 hours notice if you need narcotics refilled and we do not fill narcotics on weekends or evenings. If you are on a narcotic, it is a good idea to take a stool softener such as colace or senna to avoid constipation If you take blood thinner such as aspirin, Plavix, Coumadin, Effient, Eliquis etc for conditions such as Afib, DVT, Pulmonary embolus, coronary disease, stents etc please speak with your surgeon about specific details as to when you can resume these medications. You can resume NSAIDs on post op day 1 (eg: Motrin, Naproxen, etc). Follow up: Please call the office, , after surgery to arrange a 3 week follow up for wound check. Wound Care: You may remove your dressing on the first day after surgery. You may leave open to air. Please do not remove the steri strips underneath. they will fall off on their own in one week. IT IS NORMAL FOR THE WOUND TO OOZE OR BE BLOODY FOR A FEW DAYS AFTER SURGERY. IF THIS HAPPENS JUST PLACE NEW DRESSING OVER IT TO AVOID STAINING CLOTHES. You may shower on post op day # 1 We ask that you do not let the water soak the wound. If it does get wet, just towel dry lightly. Please do not scrub your incision or place any type of chemical/ointment on the wound. No tub baths, pools or jacuzzis for one month. If you have any leaking or redness from your wound, or fevers, please call office Care Plan Goals: Return to normal activity as tolerated. Health Concerns: None. Plan of Treatment: F/U in clinic in 2-3 weeks. Assessment: POD: 1 Procedure: L5-S1 ALIF Patient reports he is up walking around is otherwise doing well. He feels his symptoms are much better than pre-operatively. He is voiding well, tolerating diet. He reports good pain control with current pain regimen. He feels ready to discharge home. Afebrile, vital signs stable. No neurological deficits. Anterior incision site is closed with single vertical steri-strip without signs of hematoma. No active sanguineous drainage. Area is dry. Plan: Patient meets criteria to be medically discharged home. He was seen at bedside with Dr. Tellez.
--- NOTE | 2023-03-12 09:34 | HO.NEURO.PN ---
Neurosurgery Operative Note Date of Service: 03/12/23 Narrative: POD: 1 Procedure: L5-S1 ALIF Patient reports he is up walking around is otherwise doing well. He feels his symptoms are much better than pre-operatively. He is voiding well, tolerating diet. He reports good pain control with current pain regimen. He feels ready to discharge home. Afebrile, vital signs stable. No neurological deficits. Anterior incision site is closed with single vertical steri-strip without signs of hematoma. No active sanguineous drainage. Area is dry. Plan: Patient meets criteria to be medically discharged home. He was seen at bedside with Dr. Tellez.
--- NOTE | 2023-03-12 10:27 | MHC.CM.PN ---
PATIENT IS DC HOME - NO SERVICES. NEW HCP UPLOADED INTO [facility], COPY PLACED IN CHART, AND ORIGINAL GIVEN TO PATIENT
--- NOTE | 2023-03-12 12:53 | HO.POSTANES ---
Post Anesthesia Evaluation Post Anesthesia Evaluation Date of Service: 03/12/23 Vital Signs: Vital Signs Temp Pulse Resp BP Pulse Ox O2 Del Method 03/12/23 07:53 73 18 03/12/23 07:33 61 112/69 96 03/12/23 07:09 97.2 F 61 16 112/69 96 Room Air 03/12/23 03:16 97 F 66 14 110/58 L 95 Room Air Anesthesia: General Endotracheal-GETA Mental Status: Awake Pain Control: Satisfactory Nausea/Vomiting: None Hydration: Adequate Anesthesia-Related Issues: No Anes. Related Issues
== END 2023-03-12 11:01 | disposition home or self-care (01) | DRG 460 ==
LOC: HO.SSSA 07:06 → HO.S3 10:17
PROVIDERS: Nurse Practitioner; Admitting Provider Neurological Surgery; PCP Physician Assistant; Visit Provider Neurological Surgery
PROC: 0SG30A0 Fusion of Lumbosacral Joint with Interbody Fusion Device, Anterior Approach, Anterior Column, Open Approach (ICD-10-PCS; principal; 2023-03-11 07:30)
DX: M54.16 Radiculopathy, lumbar region (principal); J44.9 Chronic obstructive pulmonary disease, unspecified; I10 Essential (primary) hypertension; Z87.891 Personal history of nicotine dependence; Z79.51 Long term (current) use of inhaled steroids; Z79.899 Other long term (current) drug therapy
CPT/HCPCS: 36415; 72020; 80048; 85027; 86850; 86900; 86901; 93005; 94640; 97162; C1713; J0131; J0690; J1100; J1170; J1885; J2250; J2704; J3010; L8699

== ENCOUNTER → 2023-03-11 06:07 | Outpatient (BNV) | payer MEDICARE, MEDICAID, SELFPAY | PROVIDERS: Admitting Provider Neurological Surgery; PCP Physician Assistant; Visit Provider Neurological Surgery | DX: M54.16 Radiculopathy, lumbar region (principal) | CPT/HCPCS: 20930; 22558; 22845; 22853; 99024; 99499 ==

== ENCOUNTER 2023-03-31 15:18 | Inpatient (IN) | payer MEDICARE, OTHER, SELFPAY ==
--- NOTE | ~2023-03-31 | CT_ITS ---
EXAMINATION: CT HEAD WITHOUT CONTRAST CLINICAL INFORMATION: Altered COMPARISON: None available. TECHNIQUE: Contiguous axial imaging was performed from the skull base to vertex without intravenous administration of contrast. This CT examination was performed using dose optimization techniques as appropriate, variously including the following: *Automated exposure control *Adjustment of mA and/or kV according to patient size (this includes techniques or standardized protocols for targeted exams where dose is matched to indication/reason for exam; i.e. extremities or head) *Use of iterative reconstruction technique DLP: 746 mGy-cm FINDINGS: There is no evidence of acute intracranial hemorrhage or territorial infarction. No abnormal mass-effect or midline shift is seen. Cody to white matter differentiation is well preserved. No extra-axial fluid collections are identified. The ventricles are normal in size. Mild volume loss is noted. The osseous structures and soft tissues are normal. The mastoid air cells and visualized portions of the paranasal sinuses are well-aerated. CT/CT head/brain wo IV con IMPRESSION: No acute intracranial pathology.
--- NOTE | ~2023-03-31 | CT_ITS ---
EXAMINATION: CT ABDOMEN AND PELVIS WITHOUT CONTRAST CLINICAL INFORMATION: Rule out AAA. COMPARISON: None available. TECHNIQUE: Multidetector volumetric imaging was performed from the superior aspect of the liver through the pubic symphysis. Sagittal and coronal reformatted images were obtained on the technologist's workstation. This CT examination was performed using dose optimization techniques as appropriate, variously including the following: *Automated exposure control *Adjustment of mA and/or kV according to patient size (this includes techniques or standardized protocols for targeted exams where dose is matched to indication/reason for exam; i.e. extremities or head) *Use of iterative reconstruction technique DLP: 627 mGy-cm FINDINGS: LUNG BASES: The lung bases are clear. The heart size is normal. Small hiatal hernia is noted. LIVER, GALLBLADDER, AND BILIARY TREE: The liver is normal in size, shape, and attenuation. No focal hepatic lesion or biliary ductal dilatation is present. There are amorphous appearing radiopaque gallstones without wall thickening or pericholecystic fluid collection. PANCREAS: Unremarkable. SPLEEN: Unremarkable. ADRENAL GLANDS: Unremarkable. KIDNEYS AND URETERS: The kidneys are normal in size, shape, and attenuation. No hydronephrosis, hydroureter, or calculi seen. There is mild bilateral perinephric stranding. BLADDER: Unremarkable. GASTROINTESTINAL TRACT: The small and large bowel are unremarkable. The appendix is unremarkable. ABDOMINAL WALL: No significant hernia is appreciated. LYMPH NODES: Normal. VASCULAR: There is a saccular aneurysm distal abdominal aorta measuring 3.5 x 2.9 cm axial image 42/2. Mild arthroscopic calcification is seen throughout abdominal aorta with normal caliber. PELVIC VISCERA: Unremarkable. OSSEOUS STRUCTURES: There is disc prosthesis at L3-L4 and L4-L5 stabilized bilateral pedicle screws and and posterior interconnecting rods. Also noted is L5-S1 disc bulge prosthesis stabilized with ventral plate and screws. No aggressive lytic or sclerotic process seen. CT/CT abdomen pelvis wo IV con IMPRESSION: Saccular aneurysm distal abdominal aorta as described above. Gallstones without wall thickening. Small hiatal hernia. Fleischner guidelines were followed.
--- NOTE | ~2023-03-31 | XR_ITS ---
EXAMINATION: XR CHEST CLINICAL INFORMATION: Weakness COMPARISON: Report of CT 08/06/22 indicates stable bilateral lung nodules TECHNIQUE: Frontal portable view of the chest was obtained. FINDINGS: Devices overlie the patient. Lordotic projection. Slight rotation to the left. There is calcification of the aorta. The cardiac size is within normal limits. No hilar mass. There are large lung volumes. No consolidation or major zone atelectasis. No pleural fluid or pneumothorax. Soft tissue calcifications around the right shoulder. Lower cervical instrumentation. XR/XR chest 1V IMPRESSION: No pneumonia or edema. Follow-up based upon previous CT.
[2023-03-31 15:26] VITALS: BP 141/96; PULSE 82; O2SAT 100
[2023-03-31 15:33] VITALS: BP 146/66; PULSE 78; RESP 22; TEMP 36.8; O2SAT 92; BMI 27.8
[2023-03-31 15:34] LABS: Glucose, Whole Blood 98 mg/dL (60-115)
[2023-03-31 15:45] VITALS: BP 125/105; RESP 22
--- NOTE | 2023-03-31 15:50 | PC.NURSE ---
Patient reports sudden onset mid back pain, patient with confusion unable to state what year it is or what hospital he is at
[2023-03-31] MEDS: fentaNYL citrate/PF 100 MCG/2 ML VIAL IVPUSH (16:29)
[2023-03-31] MEDS: ondansetron HCL 4 MG/2 ML VIAL IVPUSH (16:29)
--- NOTE | 2023-03-31 16:36 | ED_ITS ---
HPI - General Adult General Chief complaint: Altered Mental Status Stated complaint: BACK PAIN,AMS PER EMS Time Seen by Provider: 03/31/23 16:04 Source: patient, RN notes reviewed and old records reviewed Mode of arrival: EMS Limitations: altered mental status History of Present Illness HPI narrative: 67-year-old male with past medical history significant for chronic pain syndrome, history of aortic aneurysm, lumbar radiculopathy COPD, hypertension presents for evaluation of back pain. Of note, on 03/11/2023 the patient had L5-S1 diskectomy, arthrodesis and implantation cage through an anterior lumbar approach with Dr. Tellez He reports that his pain has been well managed up until about 1 hour prior to my evaluation He reports that he was not doing anything when the pain started The pain does not radiate and is located ?in the middle of my back. ? He states the pain is 10/10 He states he took 2 oxycodone earlier this morning that he was prescribed after surgery Denies any fevers or chills Denies any numbness, tingling, bladder or bowel incontinence Related Data Home Medications Medication Instructions Recorded Confirmed aspirin 81 mg tablet,delayed 81 mg PO DAILY 02/01/22 03/31/23 release (Adult Low Dose Aspirin) escitalopram oxalate 10 mg tablet 10 mg PO DAILY 02/01/22 03/31/23 evolocumab 140 mg/mL subcutaneous 140 mg subcut Q2W 02/01/22 03/31/23 pen injector (Zarina Marte) fluticasone propionate 50 1 - 2 spray intranasal DAILY PRN 02/01/22 03/31/23 mcg/actuation nasal Allergy Symptoms spray,suspension hydroxyzine HCl 25 mg tablet 50 mg PO BEDTIME PRN Anxiety 02/01/22 03/31/23 icosapent ethyl 1 gram capsule 2 g PO BID 02/01/22 03/31/23 (Vascepa) metoprolol succinate 25 mg 25 mg PO DAILY 02/01/22 03/31/23 tablet,extended release 24 hr nitroglycerin 0.4 mg sublingual 0.4 mg sublingual Q5M PRN Chest 02/01/22 03/31/23 tablet Pain tamsulosin 0.4 mg capsule 0.4 mg PO DAILY@1700 02/01/22 03/31/23 fluticasone furoate 100 1 ea inhalation DAILY 08/23/22 03/31/23 mcg-vilanterol 25 mcg/dose inhalation powder (Breo Ellipta) montelukast 10 mg tablet 10 mg PO BEDTIME 08/23/22 03/31/23 cholecalciferol (vitamin D3) 50 50 mcg PO DAILY 09/04/22 03/31/23 mcg (2,000 unit) capsule albuterol sulfate 90 mcg/actuation 2 puff inhalation Q6H PRN 02/27/23 03/31/23 aerosol inhaler Shortness Of Breath Or Wheezing umeclidinium 62.5 mcg/actuation 1 inh inhalation DAILY 02/27/23 03/31/23 blister powder for inhalation (Incruse Ellipta) albuterol sulfate 2.5 mg/3 mL 2.5 mg inhalation QID 03/31/23 03/31/23 (0.083 %) solution for nebulization baclofen 10 mg tablet 10 mg PO 5XD 03/31/23 03/31/23 Previous Rx's Medication Instructions Recorded methocarbamol 750 mg tablet 750 mg PO Q8H PRN muscle spasm 30 10/29/22 days #90 tabs gabapentin 600 mg tablet 600 mg PO TID pain 30 days #90 tabs 11/13/22 oxycodone 5 mg tablet 5 mg PO Q8H PRN severe pain (scale 03/28/23 score 7-10) #21 tabs Allergies Allergy/AdvReac Type Severity Reaction Status Date / Time cyclobenzaprine Allergy Intermediate Rash, Verified 03/31/23 15:37 palpatations environmental allergies Allergy Intermediate SOB, Verified 03/31/23 15:37 watery eyes Review of Systems 2 Constitutional: Constitutional: Denies chills and Denies fever(s) ENT: Denies vertigo, Denies dizziness and Denies sore throat Cardiovascular: Cardiovascular: Denies chest pain and Denies dyspnea Respiratory: Respiratory: Denies cough and Denies dyspnea Gastrointestinal: Gastrointestinal: Denies abdominal pain, Denies nausea and Denies vomiting Musculoskeletal: Musculoskeletal: Reports back pain, Denies arthralgias, Denies joint swelling, Denies muscle weakness, Denies numbness, Denies radiating pain into limb, Denies stiffness and Denies tingling Integumentary/Breasts: Skin/Breast: Denies rash Neurologic: Denies vertigo, Denies dizziness, Denies numbness and Denies tingling PMFSH Past Medical History Medical History (Updated 04/01/23 @ 01:48 by London Varghese) Depression Anxiety AAA (abdominal aortic aneurysm) without rupture Heart attack Hx of hydrocele Cervical spondylosis with myelopathy Cervical spondylosis Lumbar spondylosis Asthma COPD (chronic obstructive pulmonary disease) HTN (hypertension) Heart disease Surgical History Hx of tonsillectomy Hx of colonoscopy Hx of vasectomy Hx of cervical spine surgery H/O surgical amputation of finger History of testicular surgery Hx of lumbosacral spine surgery Family History Family History (Updated 02/27/23 @ 12:24 by Thelma Valencia, KATARZYNA) Mother COVID PONV (postoperative nausea and vomiting) Sister No problems noted. Sister No problems noted. Sister No problems noted. Brother Pulmonary fibrosis PONV (postoperative nausea and vomiting) Brother Pulmonary fibrosis PONV (postoperative nausea and vomiting) Daughter PONV (postoperative nausea and vomiting) Father PONV (postoperative nausea and vomiting) Other Dementia Diabetes mellitus, type II Disorder of thyroid Social History Social History (Updated 02/27/23 @ 13:05 by Thelma Valencia RN) Household Members: None Housing: House Are you a primary critical care nurse to a significant other at home: No Do you presently have visiting nurse or other home services: No Alcohol intake: never Comment: final count correct Patient Tobacco Use Status: Former Tobacco user Quit Date: 2016 Tobacco use type: Cigarette Smoked in Last 30 Days: No Second Hand Smoke Exposure: No Substance Use Type: Marijuana Advance Directives: No Advance Directives Information Provided: No service: No Physical Exam ED Vital Signs: Vital Signs - 24 hr 03/31/23 15:33 03/31/23 15:45 03/31/23 18:00 Temperature 98.2 F Pulse Rate 78 84 Respiratory Rate 22 H 22 H 18 Blood Pressure 146/66 H 125/105 H 134/69 Pulse Oximetry 92 Oxygen Delivery Method Room Air 03/31/23 22:07 Temperature 98.1 F Pulse Rate 72 Respiratory Rate 22 H Blood Pressure 105/76 Pulse Oximetry 95 Oxygen Delivery Method Room Air BMI result Body Mass Index 27.8 Const General: healthy appearing, comfortable, no acute distress, alert and awake Nutritional Appearance: well nourished Orientation/consciousness: patient oriented x3 HENMT Head: Yes normocephalic and Yes atraumatic Eyes Eyelids: Yes eyelids normal Conjunctivae: conjunctivae normal Sclerae: sclerae normal Corneas: corneas normal Pupils: Equal, round and reactive pupils present EOM: EOMs intact bilaterally Neck Neck: Yes full ROM Resp Effort & Inspection: normal respiratory effort, able to speak in complete sentences and not labored Cardio Rate: regular rate Rhythm: regular rhythm GI Inspection: No distended Palpation (GI): Soft to palpation, not firm, nontender, no guarding and not rigid Auscultation: normoactive bowel sounds Back/Spine/Pelvis Other: Non tender to palpation across the entire [place] and thoracic spine. Straight leg raise positive on left, negative on right Skin General skin exam: elasticity normal Neuro General: patient oriented x3 Cranial nerves: Yes Equal, round and reactive pupils present and Yes Bilaterally intact EOM present Cognition (Neuro): normal cognition Motor exam (neuro): 5/5 motor strength present throughout Extrem Other: Moving all extremities well without any obvious deformities Course Reevaluation(s) Reevaluation #1: Patient still seems somewhat confused, he complains of severe back pain is unable to lie flat for CT scan of brain. Plan for additional pain meds as well as Ativan 1 mg IV to attempt to get the patient comfortable for CT brain. Will also get a UA to rule out UTI. Time: 21:47 Medications Administered Discontinued Medications Generic Name Dose Route Start Last Admin Trade Name Rayrayq PRN Reason Stop Dose Admin Fentanyl 100 mcg 03/31/23 16:21 03/31/23 16:29 Fentanyl Citrate/Pf 100 Mcg/2 Ml Vial IVPUSH 03/31/23 16:22 100 mcg ONCE ONE Administration Protocol Haloperidol Lactate 2.5 mg 03/31/23 23:35 04/01/23 00:56 Haloperidol Lactate 5 Mg/Ml Vial IVPUSH 03/31/23 23:36 Not Given STAT STA Hydromorphone HCl 1 mg 03/31/23 18:36 03/31/23 18:59 Hydromorphone Hcl 1 Mg/Ml Syringe IVPUSH 03/31/23 18:37 1 mg ONCE ONE Administration Protocol Hydromorphone HCl 1 mg 03/31/23 21:46 03/31/23 22:17 Hydromorphone Hcl 1 Mg/Ml Syringe IVPUSH 03/31/23 21:47 1 mg ONCE ONE Administration Protocol Sodium Chloride 1,000 mls @ 999 mls/hr 03/31/23 18:45 03/31/23 22:01 Ns IV 03/31/23 19:45 Infused .Q1H1M ALICE Infusion Lorazepam 1 mg 03/31/23 21:46 03/31/23 22:17 Lorazepam 2 Mg/Ml Vial IVPUSH 03/31/23 21:47 1 mg STAT STA Administration Morphine Sulfate 4 mg 04/01/23 00:38 04/01/23 01:04 Morphine Sulfate 4 Mg/Ml Cartridge IVPUSH 04/01/23 00:39 4 mg ONCE ONE Administration Protocol Ondansetron HCl 4 mg 03/31/23 16:22 03/31/23 16:29 Ondansetron Hcl 4 Mg/2 Ml Vial IVPUSH 03/31/23 16:23 4 mg ONCE ONE Administration Medical Decision Making Medical Decision Making [facility] Narrative: 67-year-old male presents for evaluation of atraumatic back pain that started just prior to arrival. He is afebrile. His pain does not radiate, he denies any weakness, tingling, saddle paresthesias, no incontinence or retention. The patient did have recent back surgery [address] Tellez at this facility. Patient does have a history of a known AAA. The patient had a CT scan of the abdomen pelvis without contrast ordered prior to my evaluation as nursing staff asked the 1st available provider to evaluate the patient. The patient denies any abdominal pain, has no tenderness on exam. No palpable masses to the abdomen. Plan for labs, chest x-ray, UA, further workup as indicated Differential Diagnosis Differential Diagnoses: The differential diagnosis associated with the presentation includes Chronic back pain Spinal abscess less likely Hardware failure Lumbar radiculopathy AAA Admission/Observation Consideration of admission/observation: Escalation of care including admission/observation considered Patient has intractable back pain in the setting of recent back surgery. Lab Data [facility] Lab Attestation statement: I reviewed the patient's lab results. Mild leukocytosis to 13 point K. no significant left shift. ESR and CRP within normal limits. Therefore negative inflammatory markers. Patient has a mild anemia of 13.6 and hematocrit 39.2. No significant electrolyte abnormalities 03/31/23 16:37 03/31/23 16:37 Labs: Lab Results 03/31/23 03/31/23 Range/Units 15:31 16:37 WBC 13.0 H (4.8-10.8) X10*3/uL RBC 4.44 L (4.60-5.80) X10*6/uL Hgb 13.6 L (14.0-18.0) g/dl Hct 39.2 L (42.0-52.0) % MCV 88.3 (80.0-98.0) fL MCH 30.6 (27.0-33.0) pg MCHC 34.7 (31.0-36.0) g/dl RDW 13.2 (11.0-16.0) % Plt Count 368 D (160-400) X10*3/uL MPV 8.2 L (9.4-12.4) fL Immature Gran % (Auto) 0.5 H (0.0-0.4) % Neut % (Auto) 61.1 (45-73) % Lymph % (Auto) 22.8 (20-40) % [place] % (Auto) 15.0 H (2-11) % Eos % (Auto) 0.2 (0-4) % Baso % (Auto) 0.4 (0-2) % Lymph # (Auto) 3.0 (1.2-4.9) X10*3/uL [place] # (Auto) 2.0 H (0.1-1.2) X10*3/uL Eos # (Auto) 0.0 (0.0-0.4) X10*3/uL Baso # (Auto) 0.1 (0.0-0.2) X10*3/uL Abs Immat Gran (auto) 0.06 H (0.00-0.03) X10*3/uL Absolute Neuts (auto) 8.0 (2.0-8.3) x10*3/uL Absolute Nucleated RBC 0.000 (0.0-0.012) X10*3/uL Nucleated RBC % (auto) 0.0 (0.0-0.2) /100WBC Smear Tech's Comments VERIFIED ESR 10 (0-15) MM/HR Sodium 138 (135-145) mmol/L Potassium 4.2 (3.3-5.1) mmol/L Chloride 104 (96-108) mmol/L Carbon Dioxide 19 L (22-29) mmol/L Anion Gap 19 (12-20) BUN 39 H (9-16) mg/dL Creatinine 0.97 (0.5-1.4) mg/dL Estim Creat Clear Calc 80.0 Estimated GFR > 60 POC Glucose 98 (60-115) mg/dL Random Glucose 90 (60-115) mg/dL Lactic Acid 1.3 (0.5-2.0) mmol/L Calcium 9.7 (8.4-10.2) mg/dL Total Bilirubin 0.7 (0.0-1.0) mg/dL AST 49 H (5-37) U/L ALT 27 (0-40) U/L Alkaline Phosphatase 84 (39-117) U/L C-Reactive Protein 0.43 (< or = 0.50) mg/dL Total Protein 7.1 (6.5-8.0) g/dL Albumin 4.4 (3.5-5.0) g/dL Lipase 11 (8-78) U/L Discharge Plan Discharge Clinical Impression: Intractable back pain Patient Disposition: Admitted As Inpatient Prescriptions: No Action methocarbamol 750 mg tablet 750 mg PO Q8H PRN (Reason: muscle spasm) 30 Days Qty: 90 5RF gabapentin 600 mg tablet 600 mg PO TID 30 Days Qty: 90 3RF oxycodone 5 mg tablet 5 mg PO Q8H PRN (Reason: severe pain (scale score 7-10)) Qty: 21 0RF Rx Instructions: Partial Fill upon patient request. albuterol sulfate 2.5 mg /3 mL (0.083 %) solution for nebulization 2.5 mg inhalation QID baclofen 10 mg tablet 10 mg PO 5XD Incruse Ellipta 62.5 mcg/actuation blister with device 1 inh inhalation DAILY albuterol sulfate 90 mcg/actuation HFA aerosol inhaler 2 puff INHALATION Q6H PRN (Reason: Shortness Of Breath Or Wheezing) Repatha SureClick 140 mg/mL pen injector 140 mg subcut Q2W fluticasone propionate 50 mcg/actuation spray,suspension 1 - 2 spray intranasal DAILY PRN (Reason: Allergy Symptoms) escitalopram oxalate 10 mg tablet 10 mg PO DAILY hydroxyzine HCl 25 mg tablet 50 mg PO BEDTIME PRN (Reason: Anxiety) metoprolol succinate 25 mg tablet extended release 24 hr 25 mg PO DAILY tamsulosin 0.4 mg capsule 0.4 mg PO DAILY@1700 icosapent ethyl [Vascepa] 1 gram capsule 2 g PO BID aspirin [Adult Low Dose Aspirin] 81 mg tablet,delayed release (DR/EC) 81 mg PO DAILY nitroglycerin 0.4 mg tablet, sublingual 0.4 mg sublingual Q5M PRN (Reason: Chest Pain) Rx Instructions: do not exceed 3 doses per episode montelukast 10 mg tablet 10 mg PO BEDTIME fluticasone furoate-vilanterol [Breo Ellipta] 100-25 mcg/dose blister with device 1 ea inhalation DAILY cholecalciferol (vitamin D3) 50 mcg (2,000 unit) capsule 50 mcg PO DAILY
[2023-03-31 16:45] LABS: Basophils Absolute Auto 0.1 X10*3/uL (0.0-0.2); Basophils Percent Auto 0.4 % (0-2); Eosinophils Percent Auto 0.2 % (0-4); Hematocrit 39.2 % (42.0-52.0); Hemoglobin 13.6 g/dl (14.0-18.0); Imm Gran Abs Auto 0.06 X10*3/uL (0.00-0.03); Imm Gran Pct Auto 0.5 % (0.0-0.4); Lymphocytes Percent Auto 22.8 % (20-40); MANUAL DIFF FLAG SCAN; Mean Corpuscular HGB Conc 34.7 g/dl (31.0-36.0); Mean Corpuscular Hemoglobin 30.6 pg (27.0-33.0); Mean Corpuscular Volume 88.3 fL (80.0-98.0); Mean Platelet Volume 8.2 fL (9.4-12.4); Neutrophils Percent Auto 61.1 % (45-73); Platelet Count 368 X10*3/uL (160-400); Red Blood Count 4.44 X10*6/uL (4.60-5.80); Red Cell Distribution Width 13.2 % (11.0-16.0); SCAN SMEAR FLAG 1
--- NOTE | 2023-03-31 16:49 | PHA.MEDREC ---
Pharmacy Consult ? Medication Reconciliation Pharmacy has completed the medication reconciliation. Spoke to patient to confirm meds. Patient is somewhat poor historian, cannot remember when they last took meds and med names, but remembers indications and frequency.
[2023-03-31 16:59] LABS: Lactic Acid 1.3 mmol/L (0.5-2.0)
[2023-03-31 17:04] LABS: Alanine Aminotransferase 27 U/L (0-40); Albumin Level 4.4 g/dL (3.5-5.0); Alkaline Phosphatase 84 U/L (39-117); Anion Gap 19 (12-20); Aspartate Amino Transferase 49 U/L (5-37); Bilirubin Total 0.7 mg/dL (0.0-1.0); Blood Urea Nitrogen 39 mg/dL (9-16); C Reactive Protein 0.43 mg/dL (< or = 0.50); Calcium 9.7 mg/dL (8.4-10.2); Carbon Dioxide 19 mmol/L (22-29); Chloride 104 mmol/L (96-108); Estimated Glomerular Filt Rate > 60; Glucose Random 90 mg/dL (60-115); Lipase 11 U/L (8-78); Potassium 4.2 mmol/L (3.3-5.1); Sodium 138 mmol/L (135-145); Total Protein 7.1 g/dL (6.5-8.0)
[2023-03-31 17:14] LABS: SLIDE REVIEW VERIFIED
[2023-03-31 18:00] VITALS: BP 134/69; PULSE 84; RESP 18
[2023-03-31 18:05] LABS: Erythrocyte Sedimentation Rate 10 MM/HR (0-15)
[2023-03-31] MEDS: 0.9 % Sodium Chloride 1,000 ML 999 ML IV (18:59)
[2023-03-31] MEDS: HYDROmorphone HCl 1 MG/ML SYRINGE IVPUSH ×2 (18:59→22:17)
--- NOTE | 2023-03-31 19:22 | PC.NURSE ---
this rn assumed care of pt. pt a&ox4, respirations even and unlabored. pt reports that he is at [facility], reports that jessica is the president but is unable to state what year it is. pt refusing to put on hospital gown at this time, tele leads in place pt normal sinus on tele 73-. pt reporting 10/10 pain of the middle back, pt medicated per mar approximately 20 minutes ago. pt resting on side comfortably.
[2023-03-31 22:07] VITALS: BP 105/76; PULSE 72; RESP 22; TEMP 36.7; O2SAT 95
[2023-03-31] MEDS: LORazepam 2 MG/ML VIAL 1 MG IVPUSH (22:17)
--- NOTE | 2023-03-31 22:22 | PC.NURSE ---
pt repositioned in bed, medicated per mar.
[2023-04-01] VITALS (10 sets, daily range): BP systolic 115–168; BP diastolic 68–80; PULSE 70–80; RESP 15–20; TEMP 36.4–36.8; O2SAT 97–98
[2023-04-01] MEDS: Morphine Sulfate 4 MG/ML CARTRIDGE IVPUSH ×2 (01:04→18:08)
--- NOTE | 2023-04-01 02:49 | PC.NURSE ---
pt sleeping, respirations even and unlabored.
[2023-04-01] MEDS: Ketorolac Tromethamine 30 MG/ML VIAL IVPUSH ×3 (03:32→19:57)
--- NOTE | 2023-04-01 04:36 | P.HPHOSP_ITS ---
History of Present Illness Date of Service: 04/01/23 Attending physician on admission: Chase Quezada Chief Complaint: Low back pain x1 day Patient is a 67 year old white male with PMH of CAD, COPD, hypertension, chronic pain syndrome, aortic aneurysm, lumbar radiculopathy, s/p recent L5-S1 discectomy, arthrodesis and cage implant (03/11/2023 Dr. Tellez) who presents to the emergency room complaining of severe, 10/10, non-radiating pain in the mid-low back that started spontaneously about an hour prior to presentation. He reported that he was at rest when the pain started. He had mild pain yesterday morning for which he took 2 Oxycodones. He denies any associated numbness or tingling sensation and also denies any bowel incontinence. He states that he called EMS but on arrival to the ED, he was reportedly very confused but this has since resolved. His vital signs have remained stable during his ED stay. A CT-scan of the abdomen and pelvis done was unremarkable while blood work done revealed a mild leucocytosis of 13.1 k/mm3. He received a total of 2.5 mg of IV Hydromorphone, 100 mcg of Fentanyl, 4 mg of IV Morphine sulphate, 30 mg of IV Toradol and 2.5 mg of IV Haldol before he got some relief. When I saw him, he rated his pain at a 6/10 but it was exacerbated with movement. Admission was requested for continued pain control. Review of Systems 2 Review of Systems: Yes all other systems are reviewed and are negative [facility] Medical History Depression Anxiety AAA (abdominal aortic aneurysm) without rupture Heart attack Hx of hydrocele Cervical spondylosis with myelopathy Cervical spondylosis Lumbar spondylosis Asthma COPD (chronic obstructive pulmonary disease) HTN (hypertension) Heart disease Functional capacity: independent ambulation Family History Mother COVID PONV (postoperative nausea and vomiting) Sister No problems noted. Sister No problems noted. Sister No problems noted. Brother Pulmonary fibrosis PONV (postoperative nausea and vomiting) Brother Pulmonary fibrosis PONV (postoperative nausea and vomiting) Daughter PONV (postoperative nausea and vomiting) Father PONV (postoperative nausea and vomiting) Other Dementia Diabetes mellitus, type II Disorder of thyroid Surgical History Hx of tonsillectomy Hx of colonoscopy Hx of vasectomy Hx of cervical spine surgery H/O surgical amputation of finger History of testicular surgery Hx of lumbosacral spine surgery Social History Household Members: None Housing: House Are you a primary post acute care registered nurse to a significant other at home: No Do you presently have visiting nurse or other home services: No Alcohol intake: never Comment: final count correct Patient Tobacco Use Status: Former Tobacco user Quit Date: 2016 Tobacco use type: Cigarette Smoked in Last 30 Days: No Second Hand Smoke Exposure: No Substance Use Type: Marijuana Advance Directives: No Advance Directives Information Provided: No Nutrition Risks: No Nutritional Risk service: No Meds Allergies Allergy/AdvReac Type Severity Reaction Status Date / Time cyclobenzaprine Allergy Intermediate Rash, Verified 03/31/23 15:37 palpatations environmental allergies Allergy Intermediate SOB, Verified 03/31/23 15:37 watery eyes Active Medications: Home Medications Medication Instructions Recorded Confirmed Last Taken Type aspirin 81 mg tablet,delayed 81 mg PO DAILY 02/01/22 03/31/23 03/04/23 History release (Adult Low Dose Aspirin) escitalopram oxalate 10 mg tablet 10 mg PO DAILY 02/01/22 03/31/23 03/11/23 History evolocumab 140 mg/mL subcutaneous 140 mg subcut Q2W 02/01/22 03/31/23 03/02/23 History pen injector (Repdannie Marte) fluticasone propionate 50 1 - 2 spray intranasal DAILY PRN 02/01/22 03/31/23 03/11/23 History mcg/actuation nasal Allergy Symptoms spray,suspension hydroxyzine HCl 25 mg tablet 50 mg PO BEDTIME PRN Anxiety 02/01/22 03/31/23 03/10/23 History icosapent ethyl 1 gram capsule 2 g PO BID 02/01/22 03/31/23 03/10/23 History (Vascepa) metoprolol succinate 25 mg 25 mg PO DAILY 02/01/22 03/31/23 03/11/23 History tablet,extended release 24 hr nitroglycerin 0.4 mg sublingual 0.4 mg sublingual Q5M PRN Chest 02/01/22 03/31/23 Unknown History tablet Pain tamsulosin 0.4 mg capsule 0.4 mg PO DAILY@1700 02/01/22 03/31/23 03/10/23 History fluticasone furoate 100 1 ea inhalation DAILY 08/23/22 03/31/23 Unknown History mcg-vilanterol 25 mcg/dose inhalation powder (Breo Ellipta) montelukast 10 mg tablet 10 mg PO BEDTIME 08/23/22 03/31/23 03/10/23 History cholecalciferol (vitamin D3) 50 50 mcg PO DAILY 09/04/22 03/31/23 03/10/23 History mcg (2,000 unit) capsule albuterol sulfate 90 mcg/actuation 2 puff inhalation Q6H PRN 02/27/23 03/31/23 03/11/23 History aerosol inhaler Shortness Of Breath Or Wheezing umeclidinium 62.5 mcg/actuation 1 inh inhalation DAILY 02/27/23 03/31/23 03/10/23 History blister powder for inhalation (Incruse Ellipta) albuterol sulfate 2.5 mg/3 mL 2.5 mg inhalation QID 03/31/23 03/31/23 Unknown History (0.083 %) solution for nebulization baclofen 10 mg tablet 10 mg PO 5XD 03/31/23 03/31/23 Unknown History Physical Exam 2 Vital Signs and Narrative: Vital Signs: Last Vital Signs Temp 98.1 F 03/31/23 22:07 Pulse 72 03/31/23 22:07 Resp 22 H 03/31/23 22:07 BP 105/76 03/31/23 22:07 Pulse Ox 95 03/31/23 22:07 O2 Del Method Room Air 03/31/23 22:07 BMI result Body Mass Index 27.8 General: Well nourished WM in bed. Awake, alert and oriented x 4. No apparent distress Eyes: No pallor or jaundice. PERRLA, EOMI HENT: Moist oral mucus membranes. No oropharyngeal lesions. Neck: Supple. No cervical adenopathy. No JVD Cardiovascular: Regular rate and rhythm. Normal heart sounds. No murmurs, rubs or gallops. No JVD. No peripheral edema. Respiratory: Normal respiratory effort with no accessory muscle use. CTAB. Gastrointestinal: Abdomen is soft, non-tender, non-distended. NABS. No hepatosplenomegally Extremities: No edema or calf pain. Good peripheral pulses Skin: Warm/Dry. No rashes. No mottling. Capillary refill is < 2 seconds Neurological: AAOx4. Intact speech & cognition. Gait & balance not tested. CN II - XII grossly intact but not individually tested. No obvious motor or sensory deficits Hematologic: No bleeding. No ecchymosis. No swollen or tender lymph nodes. Psychiatric: Cooperative. Appropriate mood and affect . Results Labs 03/31/23 16:37 03/31/23 16:37 Labs: Laboratory Results - last 24 hr 03/31/23 03/31/23 15:31 16:37 MCV 88.3 MCH 30.6 MCHC 34.7 RDW 13.2 Plt Count 368 D MPV 8.2 L Immature Gran % (Auto) 0.5 H Neut % (Auto) 61.1 Lymph % (Auto) 22.8 Branch % (Auto) 15.0 H Eos % (Auto) 0.2 Baso % (Auto) 0.4 Lymph # (Auto) 3.0 Branch # (Auto) 2.0 H Eos # (Auto) 0.0 Baso # (Auto) 0.1 Abs Immat Gran (auto) 0.06 H Absolute Neuts (auto) 8.0 Absolute Nucleated RBC 0.000 Nucleated RBC % (auto) 0.0 Smear Tech's Comments VERIFIED ESR 10 Anion Gap 19 Estim Creat Clear Calc 80.0 Estimated GFR > 60 POC Glucose 98 Random Glucose 90 Lactic Acid 1.3 Calcium 9.7 Total Bilirubin 0.7 AST 49 H ALT 27 Alkaline Phosphatase 84 C-Reactive Protein 0.43 Total Protein 7.1 Albumin 4.4 Lipase 11 Imaging Radiologist's Impressions: Impressions Abdomen/Pelvis CT 03/31/23 16:00 IMPRESSION: Saccular aneurysm distal abdominal aorta as described above. Gallstones without wall thickening. Small hiatal hernia. Fleischner guidelines were followed. Chest X-Ray 03/31/23 17:00 IMPRESSION: No pneumonia or edema. Follow-up based upon previous CT. Head CT 04/01/23 00:40 IMPRESSION: No acute intracranial pathology. Assessment and Plan (1) Intractable back pain: Status: Acute (2) Muscle spasm of back: Status: Acute (3) COPD (chronic obstructive pulmonary disease): Status: Acute (4) HTN (hypertension): Status: Acute (5) Transient confusion: Status: Acute (6) CAD (coronary artery disease): Status: Acute Plan 67 year old white male with PMH of COPD, hypertension, chronic pain syndrome, aortic aneurysm, lumbar radiculopathy, s/p recent L5-S1 disckectomy, arthrodesis and cage implant (03/11/2023 Dr. Tellez) here with 1. Intractable low back pain - likely with muscle spasms - admit for pain control - also resume Baclofen for muscle relaxation - consult PT for evaluation 2. Transient episoe of confusion - he as reportedly confused when he first arrived in the ED - this has however resolved - continue to monitor 3.COPD - resume Breo Ellipta - resume PRN Albuterol Updrafts - resume Montelukast 4. CAD - asymptomatic - resume aspirin - resume PRN Nitroglycerine for CP 5. Hypertension - BP well ontroled - resume Metoprolol Total time managing care of this patient today: 55 minutes. Quality Stroke Does the patient have a stroke diagnosis?: No VTE Prior VTE?: No VTE Risk Level:: Medical - moderate - high VTE Device Contraindication: Treatment Not Indicated VTE Drug Contraindication: N/A - Med Ordered
--- NOTE | 2023-04-01 04:36 | PC.NURSE ---
pt urine obtained and sent to lab at this time.
[2023-04-01 04:41] LABS: Bacteria Urine None Seen (None Seen); Hyaline Casts Urine 0-2 /LPF (0-2); RBC Urine 0-2 /HPF (0-2); Squamous Epithelial Cell Urine 0-2 /HPF (0-2); WBC Urine 0-5 /HPF (0-5)
[2023-04-01 04:43] LABS: Appearance Urine Clear; Color Urine Yellow; Glucose Urine UA Negative (Negative); Leukocyte Esterase Urine Negative (Negative); Nitrite Urine Negative (Negative); Specific Gravity - Urine >= 1.030 (1.005-1.025); Urine Blood Negative (Negative); Urine Ketones 15 mg/dL (Negative); Urine Protein Trace mg/dL (Neg-Trace)
[2023-04-01 04:45] LABS: Amphetamine Screen Urine Not Detected (Not Detect); Barbiturates, Urine Not Detected (Not Detect); Benzodiazepines Screen Urine Not Detected (Not Detect); Cannabinoid Screen Urine POSITIVE (Not Detect); Cocaine Screen Urine Not Detected (Not Detect); Fentanyl, urine POSITIVE (Not Detect); Opiate Screen Urine POSITIVE (Not Detect); Phencyclidine Screen Urine POSITIVE (Not Detect)
[2023-04-01 06:04] LABS: MANUAL DIFF FLAG NO
[2023-04-01 06:22] LABS: Anion Gap 13 (12-20); Blood Urea Nitrogen 35 mg/dL (9-16); Calcium 8.8 mg/dL (8.4-10.2); Carbon Dioxide 23 mmol/L (22-29); Chloride 106 mmol/L (96-108); Creatinine Clr Calc Pharmacy 86.2; Estimated Glomerular Filt Rate > 60; Glucose Random 84 mg/dL (60-115); Potassium 3.9 mmol/L (3.3-5.1); Sodium 138 mmol/L (135-145)
[2023-04-01 06:26] LABS: Basophils Absolute Auto 0.1 X10*3/uL (0.0-0.2); Basophils Percent Auto 0.6 % (0-2); Eosinophils Absolute Auto 0.1 X10*3/uL (0.0-0.4); Eosinophils Percent Auto 1.3 % (0-4); Hematocrit 38.3 % (42.0-52.0); Hemoglobin 12.8 g/dl (14.0-18.0); Imm Gran Abs Auto 0.02 X10*3/uL (0.00-0.03); Imm Gran Pct Auto 0.2 % (0.0-0.4); Lymphocytes Absolute Auto 3.3 X10*3/uL (1.2-4.9); Lymphocytes Percent Auto 38.8 % (20-40); Mean Corpuscular HGB Conc 33.4 g/dl (31.0-36.0); Mean Corpuscular Hemoglobin 30.3 pg (27.0-33.0); Mean Corpuscular Volume 90.8 fL (80.0-98.0); Mean Platelet Volume 8.3 fL (9.4-12.4); Monocytes Absolute Auto 1.2 X10*3/uL (0.1-1.2); Monocytes Percent Auto 14.4 % (2-11); Neutrophils Absolute Auto 3.9 x10*3/uL (2.0-8.3); Neutrophils Percent Auto 44.7 % (45-73); Platelet Count 303 X10*3/uL (160-400); Red Blood Count 4.22 X10*6/uL (4.60-5.80); Red Cell Distribution Width 13.4 % (11.0-16.0); White Blood Count 8.6 X10*3/uL (4.8-10.8)
[2023-04-01] MEDS: oxyCODONE HCl Immed Release 5 MG TABLET PO ×2 (07:18→13:28)
--- NOTE | 2023-04-01 07:24 | PC.NURSE ---
aox4. calm, coop. chronic back pain continues- medicated per MAR. no respiratory distress.
[2023-04-01] MEDS: HYDROmorphone HCl 0.5 MG/0.5 ML SYRINGE IVPUSH ×2 (09:15→15:37)
[2023-04-01] MEDS: Enoxaparin Sodium 40 MG/0.4 ML SYRINGE SUBCUT (09:15)
[2023-04-01] MEDS: Docusate Sodium 100 MG CAPSULE PO ×2 (09:15→19:56)
--- NOTE | 2023-04-01 09:29 | PC.NURSE ---
reports back pain. no distress. readjusted in bed w pillow.
--- NOTE | 2023-04-01 10:00 | PC.NURSE ---
on o2 monitor in [place]jo. +o2 on ra/breathing well. appears to be in less pain- resting
--- NOTE | 2023-04-01 11:20 | PC.NURSE ---
requested inhaler. not in stock. changing to hospital brand- ok w pt as he prefers this instead of bringing from home.
[2023-04-01] MEDS: Acetaminophen 325 MG TABLET 650 MG PO (12:30)
[2023-04-01] MEDS: Baclofen 10 MG TABLET PO ×3 (13:28→19:56)
--- NOTE | 2023-04-01 13:31 | PC.NURSE ---
given lunch. no resp difficulty. breathing well. no confusion
--- NOTE | 2023-04-01 14:30 | HO.NEUROPN_ITS ---
Neurosurgery Operative Note Date of Service: 04/01/23 Narrative: This is a 67-year-old gentleman with history of chronic pain and failed back syndrome who underwent anterior lumbar interbody fusion with Dr. Tellez on 03/11/2023, who was doing well until yesterday morning when he awoke and had pain on the lower part of his right lumbar region, somewhere over the SI joint region. He took a few oxycodone, then ultimately came to the emergency room for evaluation. He does not have any tingling numbness or weakness down his legs. His preoperative symptoms of lumbar radiculopathy and back pain would doing excellent until yesterday morning. He was admitted for pain control by the [facility] team and Neurosurgery was consulted. The patient was due for his follow-up postop in the office tomorrow. On exam, he is lying comfortably in the stretcher in the hallway of the emergency room. He does get some spasm into his back with plantar flexion effort, but has no focal deficits. His lower abdominal incision is healing well with no signs of infection, no discharge or redness. CT scan of the abdomen done yesterday, the hardware from the anterior lumbar interbody fusion is in the same position was in the operating room, no evidence of subsidence or pseudoarthrosis. Impression: 67-year-old gentleman with history of chronic pain and failed back syndrome, status post anterior lumbar interbody fusion with plate at L5-S1 by Dr. Tellez on 03/11/2023, awoke yesterday morning with severe pain on the right side of his low back. He is neurologically intact. His wound looks fine. His postoperative CT looks excellent, the hardware is in the same position it was during surgery. At this time we have ruled out a postoperative complication, we will recommend treating him expectantly with pain medications, muscle relaxers as needed. He is on a baseline dose of baclofen and that may need to be increased. The pain may be coming from spasm, or SI joint irritation. At this time there is nothing surgically that needs to be done, he can follow up in our office in the next few weeks. All the following discuss with Dr. Osmar Chaudhry PA-C [facility]
--- NOTE | 2023-04-01 15:38 | PC.NURSE ---
jean claude lithopone charger bringing pt to overflow and states to this rn will be giving report and notifying last dose of pain med just given now. aox4. calm, coop. normal breathing rate
[2023-04-01] MEDS: 0.9 % Sodium Chloride Flush 3 ML SYRINGE IVFLUSH (18:09)
[2023-04-01] MEDS: Tamsulosin HCL 0.4 MG CAPSULE PO (19:56)
[2023-04-01] MEDS: oxyCODONE HCl Immed Release 5 MG TABLET 10 MG PO (19:56)
[2023-04-01] MEDS: Zolpidem Tartrate 5 MG TABLET PO (20:01)
[2023-04-02] MEDS: oxyCODONE HCl Immed Release 5 MG TABLET 10 MG PO ×3 (00:30→10:09)
[2023-04-02] MEDS: 0.9 % Sodium Chloride Flush 3 ML SYRINGE IVFLUSH ×2 (00:34→09:02)
[2023-04-02 01:40] VITALS: BP 136/78; PULSE 74; RESP 16; TEMP 36.7; O2SAT 97
[2023-04-02] MEDS: Morphine Sulfate 4 MG/ML CARTRIDGE IVPUSH ×2 (02:51→07:44)
--- NOTE | 2023-04-02 05:27 | PC.NURSE ---
Addendum entered by Jo Ann Lebronarnacion 04/02/23 05:46: Assumed care at 2300, not 1900. Original Note: assumed care of pt at 1900. Upon taking assignment, pt was noted to be sleeping. PT up periodically throughout shift requesting pain medications, crackers and gingerale. VSS, safety precautions in place. Plan of care on going
[2023-04-02] MEDS: Acetaminophen 325 MG TABLET 650 MG PO (05:38)
[2023-04-02] MEDS: Baclofen 10 MG TABLET PO ×2 (05:39→10:09)
--- NOTE | 2023-04-02 05:46 | PC.NURSE ---
PT medicated as per MAR
[2023-04-02] MEDS: Enoxaparin Sodium 40 MG/0.4 ML SYRINGE SUBCUT (07:45)
[2023-04-02] MEDS: Docusate Sodium 100 MG CAPSULE PO (07:45)
--- NOTE | 2023-04-02 07:50 | PC.NURSE ---
patients a&ox3, lungs diminished throughout, pt c/o nasal congestion due to it being dry in the unit, c/o 11/05 back pain- pt medicated per order, call barcenas within reach, will continue to monitor
[2023-04-02 07:55] VITALS: BP 132/88; PULSE 102; RESP 19; TEMP 36.2; O2SAT 99
[2023-04-02 08:44] VITALS: PULSE 83; RESP 18; O2SAT 97
[2023-04-02] MEDS: Albuterol Sulfate (0.083%) 2.5 MG/3 ML VIAL.NEB INHALE ×2 (08:44→11:15)
[2023-04-02] MEDS: Tiotropium Bromide 2.5 mcg 1 PUFF/2.5 MCG MIST.INHAL 2 PUFF INHALE (08:46)
--- NOTE | 2023-04-02 10:44 | PC.NURSE ---
patient a&ox3, pt oob sitting in chair per his request, dr hines spoke with the patient about discharging today at some point, pt aware, pt was medicated for pain, call barcenas within reach, will continue to monitor
[2023-04-02 11:15] VITALS: PULSE 77; RESP 18; O2SAT 98
--- NOTE | 2023-04-02 12:37 | MHC.CM.PN ---
pt lives alone and is indepedent he has a ride home when dcd dc plan home no servies
--- NOTE | 2023-04-02 13:50 | PM.DS ---
DS: Providers Provider Date of Service: 04/02/23 Date of admission: 04/01/23 02:05 Date of discharge: 04/02/23 Primary care physician: NEHAL Munoz Consults: 04/01/23 11:39 Consult to Neurosurgery Stat Consulting Provider: Bryant Tellez Reason for consultation: Procedure 03/12/23....intractable pain Has provider been notified: No DS: Diagnosis Discharge Diagnosis (1) Intractable back pain: Status: Resolved (2) Muscle spasm of back: Status: Resolved (3) COPD (chronic obstructive pulmonary disease): Status: Inactive (4) HTN (hypertension): Status: Inactive (5) Transient confusion: Status: Resolved (6) CAD (coronary artery disease): Status: Inactive DS: Summary Hospital Course Hospital Course: 67 year old white male with PMH of CAD, COPD, hypertension, chronic pain syndrome, aortic aneurysm, lumbar radiculopathy, s/p recent L5-S1 discectomy, arthrodesis and cage implant (03/11/2023 Dr. Tellez) who presents to the emergency room complaining of severe, 10/10, non-radiating pain in the mid-low back that started spontaneously about an hour prior to presentation. He reported that he was at rest when the pain started. He had mild pain yesterday morning for which he took 2 Oxycodones. He denies any associated numbness or tingling sensation and also denies any bowel incontinence. He states that he called EMS but on arrival to the ED, he was reportedly very confused but this has since resolved. His vital signs have remained stable during his ED stay. A CT-scan of the abdomen and pelvis done was unremarkable while blood work done revealed a mild leucocytosis of 13.1 k/mm3. He received a total of 2.5 mg of IV Hydromorphone, 100 mcg of Fentanyl, 4 mg of IV Morphine sulphate, 30 mg of IV Toradol and 2.5 mg of IV Haldol before he got some relief. When I saw him, he rated his pain at a 6/10 but it was exacerbated with movement. Admission was requested for continued pain control. Hospital course Patient was admitted and maintained on IV morphine for pain control. He was seen in consult by Neurosurgery and imaging was reviewed. Per neurosurgery all hardware was intact and there were no acute issues and they recommended patient be discharged home with pain meds. He will be discharged home with follow-up with neurosurgery as scheduled Time Attestation Discharge coordination time: Greater than 30 minutes Quality: Safe Use of Opioids Does Pt have an Active Cancer Diagnosis on the Problem List?: No Quality: Stroke Does the patient have a stroke diagnosis?: No Physical Exam Vital Signs: Vital Signs: Last Vital Signs Temp 97.1 F 04/02/23 07:55 Pulse 77 04/02/23 11:15 Resp 18 04/02/23 11:15 BP 132/88 04/02/23 07:55 Pulse Ox 99 04/02/23 07:55 O2 Del Method Room Air 04/02/23 07:55 BMI result Body Mass Index 27.8 Const: Other: Awake alert no acute distress Resp: Other: Clear to auscultation bilaterally no rales rhonchi or wheezes Cardio: Other: No S4; positive S1-S2; no S3 murmurs rubs or gallops Neuro: Other: Cranial nerves 2-12 grossly intact as tested. Motor is 5/5 all extremities. Sensation is intact. Extrem: Other: No edema bilaterally DS: Data Data Completed and Pending Completed studies during hospitalization [Text1]: Procedures Excision of Lumbosacral Disc, Open Approach (03/11/23) Fusion of Lumbosacral Joint with Interbody Fusion Device, Anterior Approach, Anterior Column, Open Approach (03/11/23) Insertion of Interspinous Process Spinal Stabilization Device into Lumbosacral Joint, Open Approach (03/11/23) Discharge Plan Discharge Anticipated Discharge Date/Time: 04/02/23 09:53 Patient Disposition: Home, Self-Care Discharge Diagnosis: For intractable back pain Referrals: Mony Pardo PA [Primary Care Provider] - 1 Week Discharge Medications: New oxycodone 10 mg tablet 10 mg PO Q6H MDD 30 PRN (Reason: pain) Qty: 20 0RF Rx Instructions: Partial Fill upon patient request. Continued methocarbamol 750 mg tablet 750 mg PO Q8H PRN (Reason: muscle spasm) 30 Days Qty: 90 5RF gabapentin 600 mg tablet 600 mg PO TID 30 Days Qty: 90 3RF oxycodone 5 mg tablet 5 mg PO Q8H PRN (Reason: severe pain (scale score 7-10)) Qty: 21 0RF Rx Instructions: Partial Fill upon patient request. albuterol sulfate 2.5 mg /3 mL (0.083 %) solution for nebulization 2.5 mg inhalation QID Incruse Ellipta 62.5 mcg/actuation blister with device 1 inh inhalation DAILY albuterol sulfate 90 mcg/actuation HFA aerosol inhaler 2 puff INHALATION Q6H PRN (Reason: Shortness Of Breath Or Wheezing) Repatha SureClick 140 mg/mL pen injector 140 mg subcut Q2W fluticasone propionate 50 mcg/actuation spray,suspension 1 - 2 spray intranasal DAILY PRN (Reason: Allergy Symptoms) escitalopram oxalate 10 mg tablet 10 mg PO DAILY hydroxyzine HCl 25 mg tablet 50 mg PO BEDTIME PRN (Reason: Anxiety) metoprolol succinate 25 mg tablet extended release 24 hr 25 mg PO DAILY tamsulosin 0.4 mg capsule 0.4 mg PO DAILY@1700 icosapent ethyl [Vascepa] 1 gram capsule 2 g PO BID aspirin [Adult Low Dose Aspirin] 81 mg tablet,delayed release (DR/EC) 81 mg PO DAILY nitroglycerin 0.4 mg tablet, sublingual 0.4 mg sublingual Q5M PRN (Reason: Chest Pain) Rx Instructions: do not exceed 3 doses per episode montelukast 10 mg tablet 10 mg PO BEDTIME fluticasone furoate-vilanterol [Breo Ellipta] 100-25 mcg/dose blister with device 1 ea inhalation DAILY cholecalciferol (vitamin D3) 50 mcg (2,000 unit) capsule 50 mcg PO DAILY No Action baclofen 10 mg tablet 10 mg PO 5XD 30 Days Qty: 150 3RF Tums PRN (Reason: Gastric Reflux) prednisone Patient Comments: I had a tele-visit with my PCP and she put me on prednisone, last dose was last week Discharge Orders: Discharge Order (Routine); Ordered 04/02/23 Ordered By: Lazaro Tyler Diet: Advance to usual diet Activity on Discharge: As tolerated Stand Alone Forms: Patient Portal Discharge page Care Plan Goals: Resume all previous meds Health Concerns: Oxycodone as ordered Plan of Treatment: Follow up with surgery as scheduled Assessment: see discharge summary Discharge Date/Time: 04/02/23 12:11
== END 2023-04-02 12:11 | disposition home or self-care (01) | DRG 552 ==
LOC: HO.ED 04-01 01:48 → HO.EDOVER 04-01 02:32
PROVIDERS: Physician Assistant; Admitting Provider Internal Medicine; Emergency Provider Internal Medicine; PCP Physician Assistant; Visit Provider Hospitalist
DX: M62.830 Muscle spasm of back (principal); J44.9 Chronic obstructive pulmonary disease, unspecified; I10 Essential (primary) hypertension; I25.10 Atherosclerotic heart disease of native coronary artery without angina pectoris; R41.82 Altered mental status, unspecified; Z98.1 Arthrodesis status; Z79.82 Long term (current) use of aspirin; Z79.51 Long term (current) use of inhaled steroids; Z79.899 Other long term (current) drug therapy
CPT/HCPCS: 36415; 70450; 71045; 74176; 80048; 80053; 80307; 81001; 82947; 83605; 83690; 85025; 85652; 86140; 94640; 97162; 99024; 99285; J1170; J1650; J1885; J2060; J2270; J2405; J3010

== ENCOUNTER → 2023-04-01 02:05 | Outpatient (BNV) | payer MEDICARE, OTHER, SELFPAY | PROVIDERS: Admitting Provider Internal Medicine; Emergency Provider Internal Medicine; PCP Physician Assistant; Visit Provider Physician Assistant | DX: Z48.89 Encounter for other specified surgical aftercare (principal) | CPT/HCPCS: 99024 ==

== ENCOUNTER → 2023-04-01 02:05 | Outpatient (BNV) | payer MEDICARE, MEDICAID, SELFPAY | PROVIDERS: Admitting Provider Internal Medicine; Emergency Provider Internal Medicine; Visit Provider Internal Medicine | DX: M54.9 Dorsalgia, unspecified (principal); M62.830 Muscle spasm of back; J44.9 Chronic obstructive pulmonary disease, unspecified; I10 Essential (primary) hypertension; R41.0 Disorientation, unspecified; I25.10 Atherosclerotic heart disease of native coronary artery without angina pectoris | CPT/HCPCS: 99223; 99239 ==

== ENCOUNTER 2023-04-07 21:18 | Emergency (ER) | payer MEDICARE, MEDICAID, SELFPAY ==
[2023-04-07 21:31] VITALS: BP 126/76; BP 130/80; PULSE 68; PULSE 74; RESP 16; TEMP 36.9; O2SAT 94; O2SAT 99; BMI 28.1
[2023-04-07 21:35] VITALS: BP 126/76; PULSE 68; RESP 16; TEMP 36.9; O2SAT 94
--- NOTE | 2023-04-07 21:42 | ED.BACK ---
HPI - Back Pain/Injury General Chief Complaint: Back Pain/Injury Stated Complaint: Pt states back surg month ago now having back pain Time Seen by Provider: 04/07/23 21:39 Source: patient Mode of arrival: EMS History of Present Illness HPI Narrative: 67-year-old male brought in by EMS he states that patient was able to walk to the stretcher, patient has complaints of pain on his left buttock/hip today. He denies any falls or traumatic injuries. Patient reports he has chronic numbness down his right leg. Patient reports he has been having difficulty ambulating but denies any incontinence problems. Related Data Home Medications Medication Instructions Recorded Confirmed aspirin 81 mg tablet,delayed 81 mg PO DAILY 02/01/22 03/31/23 release (Adult Low Dose Aspirin) escitalopram oxalate 10 mg tablet 10 mg PO DAILY 02/01/22 03/31/23 evolocumab 140 mg/mL subcutaneous 140 mg subcut Q2W 02/01/22 03/31/23 pen injector (Zarina Marte) fluticasone propionate 50 1 - 2 spray intranasal DAILY PRN 02/01/22 03/31/23 mcg/actuation nasal Allergy Symptoms spray,suspension hydroxyzine HCl 25 mg tablet 50 mg PO BEDTIME PRN Anxiety 02/01/22 03/31/23 icosapent ethyl 1 gram capsule 2 g PO BID 02/01/22 03/31/23 (Vascepa) metoprolol succinate 25 mg 25 mg PO DAILY 02/01/22 03/31/23 tablet,extended release 24 hr nitroglycerin 0.4 mg sublingual 0.4 mg sublingual Q5M PRN Chest 02/01/22 03/31/23 tablet Pain tamsulosin 0.4 mg capsule 0.4 mg PO DAILY@1700 02/01/22 03/31/23 fluticasone furoate 100 1 ea inhalation DAILY 08/23/22 03/31/23 mcg-vilanterol 25 mcg/dose inhalation powder (Breo Ellipta) montelukast 10 mg tablet 10 mg PO BEDTIME 08/23/22 03/31/23 cholecalciferol (vitamin D3) 50 50 mcg PO DAILY 09/04/22 03/31/23 mcg (2,000 unit) capsule albuterol sulfate 90 mcg/actuation 2 puff inhalation Q6H PRN 02/27/23 03/31/23 aerosol inhaler Shortness Of Breath Or Wheezing umeclidinium 62.5 mcg/actuation 1 inh inhalation DAILY 02/27/23 03/31/23 blister powder for inhalation (Incruse Ellipta) albuterol sulfate 2.5 mg/3 mL 2.5 mg inhalation QID 03/31/23 03/31/23 (0.083 %) solution for nebulization baclofen 10 mg tablet 10 mg PO 5XD 03/31/23 03/31/23 Previous Rx's Medication Instructions Recorded methocarbamol 750 mg tablet 750 mg PO Q8H PRN muscle spasm 30 10/29/22 days #90 tabs gabapentin 600 mg tablet 600 mg PO TID pain 30 days #90 tabs 11/13/22 oxycodone 5 mg tablet 5 mg PO Q8H PRN severe pain (scale 03/28/23 score 7-10) #21 tabs oxycodone 10 mg tablet 10 mg PO Q6H PRN pain #20 tabs 04/02/23 Allergies Allergy/AdvReac Type Severity Reaction Status Date / Time cyclobenzaprine Allergy Intermediate Rash, Verified 03/31/23 15:37 palpatations environmental allergies Allergy Intermediate SOB, Verified 03/31/23 15:37 watery eyes Review of Systems Review of Systems: Pertinent positives and negatives as stated in HPI [facility] Past Medical History Source: nursing notes reviewed Medical History Depression Anxiety AAA (abdominal aortic aneurysm) without rupture Heart attack Hx of hydrocele Cervical spondylosis with myelopathy Cervical spondylosis Lumbar spondylosis Asthma COPD (chronic obstructive pulmonary disease) HTN (hypertension) Heart disease Surgical History Hx of tonsillectomy Hx of colonoscopy Hx of vasectomy Hx of cervical spine surgery H/O surgical amputation of finger History of testicular surgery Hx of lumbosacral spine surgery Family History Family History Mother COVID PONV (postoperative nausea and vomiting) Sister No problems noted. Sister No problems noted. Sister No problems noted. Brother Pulmonary fibrosis PONV (postoperative nausea and vomiting) Brother Pulmonary fibrosis PONV (postoperative nausea and vomiting) Daughter PONV (postoperative nausea and vomiting) Father PONV (postoperative nausea and vomiting) Other Dementia Diabetes mellitus, type II Disorder of thyroid Social History Social History Household Members: None Housing: House Are you a primary behavioral health care manager to a significant other at home: No Do you presently have visiting nurse or other home services: No Alcohol intake: never Comment: final count correct Patient Tobacco Use Status: Former Tobacco user Quit Date: 2016 Tobacco use type: Cigarette Smoked in Last 30 Days: No Second Hand Smoke Exposure: No Use of substances other than those prescribed or required for medical reasons: Yes Substance Use Type: Marijuana Substance Use Frequency: Daily Advance Directives: Yes Advance Directives on File: Yes Advance Directives Date on File: 03/13/23 service: No Physical Exam Vital Signs: Vital Signs: Last Vital Signs Temp 98.4 F 04/07/23 21:35 Pulse 68 04/07/23 21:35 Resp 16 04/07/23 21:35 BP 126/76 04/07/23 21:35 Pulse Ox 94 04/07/23 21:35 O2 Del Method Room Air 04/07/23 21:35 BMI result Body Mass Index 28.1 VITAL SIGNS: Reviewed. GENERAL: Well developed, well nourished, in no acute distress. HEAD: Normocephalic/atraumatic EYES: PERRLA, EOMI EARS: Ext canals without abnormality NOSE: Nares patent bilateral OROPHARYNX: no oral lesions noted, posterior pharynx clear NECK: Supple, no adenopathy LUNGS: Normal breath sounds. No adventitious sounds or accessory muscle use. SpO2<94> CARDIOVASCULAR: Regular rate and rhythm without noted murmurs ABDOMEN: Soft, non-tender, non-distended with bowel sounds. BACK: no erythema or induration, suspect a component of muscle spasm MUSCULOSKELETAL: No tenderness, deformities, or effusions noted on gross inspection. EXTREMITIES: No cyanosis, clubbing or edema. SKIN: Inspection of the skin reveals no rashes NEUROLOGIC: Alert and oriented x 4. Strength and sensation to light touch were grossly intact x 4. Medications Administered Discontinued Medications Generic Name Dose Route Start Last Admin Trade Name Freq PRN Reason Stop Dose Admin Acetaminophen 975 mg 04/07/23 22:01 04/07/23 22:09 Acetaminophen 325 Mg Tablet PO 04/07/23 22:02 975 mg ONCE ONE Administration Ketorolac Tromethamine 15 mg 04/07/23 22:01 04/07/23 22:09 Ketorolac Tromethamine 15 Mg/Ml Vial IM 04/07/23 22:02 15 mg ONCE ONE Administration Lidocaine 1 patch 04/07/23 22:01 04/07/23 22:09 Lidocaine 4 % Patch Adh..Patch TRANSDERMA 04/07/23 22:02 1 patch ONCE ONE Administration Protocol Oxycodone HCl 5 mg 04/07/23 22:01 04/07/23 22:09 Oxycodone Hcl Immed Release 5 Mg Tablet PO 04/07/23 22:02 5 mg ONCE ONE Administration Medical Decision Making Medical Decision Making MDM Narrative: 67-year-old male with history and clinical presentation of presenting to the emergency room after his supply of oxycodone has run out. This is been ongoing since the end of February, patient was discharged on the 02 of April with a 5 day supply of oxycodone and is now returned on the . He was recently admitted, evaluated by Neurosurgery the time of his admission and noted that there were no acute findings to suggest hardware failure or acute difficulties secondary to the surgical intervention for his back. There is no evidence to suggest acute infectious etiology, cauda equina, there is no traumatic event, will need to speak to the patient regarding his opioid use. Will obtain basic labs but I do not find that this is a likely acute event. 0: I had a lengthy discussion with the patient regarding the risk associated with continue use of the oxycodone and no involvement in physical therapy, I reassured the patient that this was not an implication that he is a drug addict , but that it was my concern that he could not on to a dependence if we did not pursue other avenues. He states that he understands and agrees that he does not want this either. He also endorses that his neurologist is no longer available so I have offered a referral to our neurology department. I reviewed all investigations and hematologic indices are grossly stable and do not demonstrate a leukocytosis or left shift, there is a stable normocytic anemia and no thrombocytopenia. Chemistry indices are grossly within normal limits without demonstrated [place] and there is no electrolyte or liver enzyme derangements.Bladder scan is >200 but last void was several hours previously. At this time my interpretation is that patient is medically stable for discharge to home with instructions to follow-up with his primary care doctor to discuss referral for physical therapy, he has been provided with a referral for Neurology. Differential Diagnosis Differential Diagnoses: The differential diagnosis associated with the presentation includes Please see the discussion above Admission/Observation Consideration of admission/observation: Escalation of care including admission/observation considered Please see the discussion above Lab Data MDM Lab Attestation statement: I reviewed the patient's lab results. Please see the discussion above 04/07/23 21:53 04/07/23 21:53 Labs: Lab Results 04/07/23 Range/Units 21:53 WBC 6.2 (4.8-10.8) X10*3/uL RBC 4.43 L (4.60-5.80) X10*6/uL Hgb 13.5 L (14.0-18.0) g/dl Hct 39.3 L (42.0-52.0) % MCV 88.7 (80.0-98.0) fL MCH 30.5 (27.0-33.0) pg MCHC 34.4 (31.0-36.0) g/dl RDW 13.2 (11.0-16.0) % Plt Count 234 (160-400) X10*3/uL MPV 8.7 L (9.4-12.4) fL Immature Gran % (Auto) 0.3 (0.0-0.4) % Neut % (Auto) 39.4 L (45-73) % Lymph % (Auto) 38.3 (20-40) % Crawford % (Auto) 20.8 H (2-11) % Eos % (Auto) 1.0 (0-4) % Baso % (Auto) 0.2 (0-2) % Lymph # (Auto) 2.4 (1.2-4.9) X10*3/uL Crawford # (Auto) 1.3 H (0.1-1.2) X10*3/uL Eos # (Auto) 0.1 (0.0-0.4) X10*3/uL Baso # (Auto) 0.0 (0.0-0.2) X10*3/uL Abs Immat Gran (auto) 0.02 (0.00-0.03) X10*3/uL Absolute Neuts (auto) 2.5 (2.0-8.3) x10*3/uL Absolute Nucleated RBC 0.000 (0.0-0.012) X10*3/uL Nucleated RBC % (auto) 0.0 (0.0-0.2) /100WBC Smear Tech's Comments VERIFIED Sodium 139 (135-145) mmol/L Potassium 4.0 (3.3-5.1) mmol/L Chloride 103 (96-108) mmol/L Carbon Dioxide 22 (22-29) mmol/L Anion Gap 18 (12-20) BUN 18 H (9-16) mg/dL Creatinine 0.82 (0.5-1.4) mg/dL Estim Creat Clear Calc 95.0 Estimated GFR > 60 Random Glucose 93 (60-115) mg/dL Calcium 9.5 D (8.4-10.2) mg/dL Total Bilirubin 0.3 (0.0-1.0) mg/dL AST 34 (5-37) U/L ALT 31 (0-40) U/L Alkaline Phosphatase 74 (39-117) U/L Total Protein 6.9 (6.5-8.0) g/dL Albumin 4.2 (3.5-5.0) g/dL External Record Review External record reviewed: Inpatient record, Office record, Outpatient record and Prior outpatient labs Chronic Conditions Patient?s care impacted by: Hypertension and Other COPD, CAD Critical Care Time Critical Care Time Critical Care Time: Yes Total Critical Care Time: 30 Attestation: I personally attest to this time spent taking care of the patient. Discharge Plan Discharge Clinical Impression: Chronic back pain, Muscle spasm of back Patient Disposition: Home, Self-Care Instructions: Back Pain (ED), Muscle Spasm (ED) Additional Instructions: 1. Resume all home medications as prescribed. 2. Recommend a combination of [id number] analgesics to include ointments such as icy Hot, utilizing heat such as ThermaCare or heating pad. 3. We will be absolutely necessary for you to contact your primary care doctor in the morning to set up physical therapy. 4. You have been provided with a referral to our neurology group, the information is located below. Return to the ER for any acute worsening of your symptoms or change. Prescriptions: No Action methocarbamol 750 mg tablet 750 mg PO Q8H PRN (Reason: muscle spasm) 30 Days Qty: 90 5RF gabapentin 600 mg tablet 600 mg PO TID 30 Days Qty: 90 3RF oxycodone 5 mg tablet 5 mg PO Q8H PRN (Reason: severe pain (scale score 7-10)) Qty: 21 0RF Rx Instructions: Partial Fill upon patient request. albuterol sulfate 2.5 mg /3 mL (0.083 %) solution for nebulization 2.5 mg inhalation QID baclofen 10 mg tablet 10 mg PO 5XD oxycodone 10 mg tablet 10 mg PO Q6H MDD 30 PRN (Reason: pain) Qty: 20 0RF Rx Instructions: Partial Fill upon patient request. Incruse Ellipta 62.5 mcg/actuation blister with device 1 inh inhalation DAILY albuterol sulfate 90 mcg/actuation HFA aerosol inhaler 2 puff INHALATION Q6H PRN (Reason: Shortness Of Breath Or Wheezing) Repatha SureClick 140 mg/mL pen injector 140 mg subcut Q2W fluticasone propionate 50 mcg/actuation spray,suspension 1 - 2 spray intranasal DAILY PRN (Reason: Allergy Symptoms) escitalopram oxalate 10 mg tablet 10 mg PO DAILY hydroxyzine HCl 25 mg tablet 50 mg PO BEDTIME PRN (Reason: Anxiety) metoprolol succinate 25 mg tablet extended release 24 hr 25 mg PO DAILY tamsulosin 0.4 mg capsule 0.4 mg PO DAILY@1700 icosapent ethyl [Vascepa] 1 gram capsule 2 g PO BID aspirin [Adult Low Dose Aspirin] 81 mg tablet,delayed release (DR/EC) 81 mg PO DAILY nitroglycerin 0.4 mg tablet, sublingual 0.4 mg sublingual Q5M PRN (Reason: Chest Pain) Rx Instructions: do not exceed 3 doses per episode montelukast 10 mg tablet 10 mg PO BEDTIME fluticasone furoate-vilanterol [Breo Ellipta] 100-25 mcg/dose blister with device 1 ea inhalation DAILY cholecalciferol (vitamin D3) 50 mcg (2,000 unit) capsule 50 mcg PO DAILY Referrals: Mony Pardo PA [Physician Farm Owner Operator] - Lizeth Garvey MD [Physician] - Bryant Tellez MD, PhD [Physician] - Shraddha Blum FNP [Nurse Practitioner] -
[2023-04-07] MEDS: oxyCODONE HCl Immed Release 5 MG TABLET PO (22:09)
[2023-04-07] MEDS: Acetaminophen 325 MG TABLET 975 MG PO (22:09)
[2023-04-07] MEDS: Ketorolac Tromethamine 15 MG/ML VIAL IM (22:09)
[2023-04-07] MEDS: Lidocaine 4 % Patch ADH..PATCH 1 PATCH TRANSDERMA (22:09)
[2023-04-07 22:40] LABS: Alanine Aminotransferase 31 U/L (0-40); Albumin Level 4.2 g/dL (3.5-5.0); Alkaline Phosphatase 74 U/L (39-117); Anion Gap 18 (12-20); Aspartate Amino Transferase 34 U/L (5-37); Bilirubin Total 0.3 mg/dL (0.0-1.0); Blood Urea Nitrogen 18 mg/dL (9-16); Calcium 9.5 mg/dL (8.4-10.2); Carbon Dioxide 22 mmol/L (22-29); Chloride 103 mmol/L (96-108); Estimated Glomerular Filt Rate > 60; Glucose Random 93 mg/dL (60-115); Sodium 139 mmol/L (135-145); Total Protein 6.9 g/dL (6.5-8.0)
[2023-04-07 22:47] LABS: Basophils Percent Auto 0.2 % (0-2); Eosinophils Absolute Auto 0.1 X10*3/uL (0.0-0.4); Hematocrit 39.3 % (42.0-52.0); Hemoglobin 13.5 g/dl (14.0-18.0); Imm Gran Abs Auto 0.02 X10*3/uL (0.00-0.03); Imm Gran Pct Auto 0.3 % (0.0-0.4); Lymphocytes Absolute Auto 2.4 X10*3/uL (1.2-4.9); Lymphocytes Percent Auto 38.3 % (20-40); MANUAL DIFF FLAG SCAN; Mean Corpuscular HGB Conc 34.4 g/dl (31.0-36.0); Mean Corpuscular Hemoglobin 30.5 pg (27.0-33.0); Mean Corpuscular Volume 88.7 fL (80.0-98.0); Mean Platelet Volume 8.7 fL (9.4-12.4); Monocytes Absolute Auto 1.3 X10*3/uL (0.1-1.2); Monocytes Percent Auto 20.8 % (2-11); Neutrophils Absolute Auto 2.5 x10*3/uL (2.0-8.3); Neutrophils Percent Auto 39.4 % (45-73); Platelet Count 234 X10*3/uL (160-400); Red Blood Count 4.43 X10*6/uL (4.60-5.80); Red Cell Distribution Width 13.2 % (11.0-16.0); SCAN SMEAR FLAG 1; White Blood Count 6.2 X10*3/uL (4.8-10.8)
[2023-04-07 23:04] LABS: SLIDE REVIEW VERIFIED
== END 2023-04-08 00:24 | disposition home or self-care (01) ==
PROVIDERS: Emergency Provider Student in an Organized Health Care Education/Training Program
DX: G89.29 Other chronic pain (principal); M54.9 Dorsalgia, unspecified; M62.830 Muscle spasm of back; Z79.899 Other long term (current) drug therapy
CPT/HCPCS: 36415; 51798; 80053; 85025; 96372; 99284; 99285; J1885

== ENCOUNTER 2023-04-12 11:05 | Outpatient (REF) | payer MEDICARE, OTHER, SELFPAY | END 2023-04-12 11:06 | disposition home or self-care (01) | LOC: HO.HOSX 11:05 | PROVIDERS: Visit Provider Physician Assistant | DX: M96.1 Postlaminectomy syndrome, not elsewhere classified (principal) | CPT/HCPCS: 99212 ==

== ENCOUNTER 2023-04-12 11:05 | Outpatient (AMB) | payer MEDICARE, OTHER, SELFPAY ==
--- NOTE | 2023-04-12 11:27 | MHC.OFFVIS ---
Intake Intake Visit Reasons: ED follow up Emergency Manager Required: No Allergies cyclobenzaprine Allergy (Intermediate, Verified 03/31/23 15:37) Rash, palpatations environmental allergies Allergy (Intermediate, Verified 03/31/23 15:37) SOB, watery eyes PFSH Medical History Depression Anxiety AAA (abdominal aortic aneurysm) without rupture Heart attack Hx of hydrocele Cervical spondylosis with myelopathy Cervical spondylosis Lumbar spondylosis Asthma COPD (chronic obstructive pulmonary disease) HTN (hypertension) Heart disease Surgical History Hx of tonsillectomy Hx of colonoscopy Hx of vasectomy Hx of cervical spine surgery H/O surgical amputation of finger History of testicular surgery Hx of lumbosacral spine surgery Family History Mother COVID PONV (postoperative nausea and vomiting) Sister No problems noted. Sister No problems noted. Sister No problems noted. Brother Pulmonary fibrosis PONV (postoperative nausea and vomiting) Brother Pulmonary fibrosis PONV (postoperative nausea and vomiting) Daughter PONV (postoperative nausea and vomiting) Father PONV (postoperative nausea and vomiting) Other Dementia Diabetes mellitus, type II Disorder of thyroid Social History Household Members: None Housing: House Are you a primary home care assistant to a significant other at home: No Do you presently have visiting nurse or other home services: No Alcohol intake: never Comment: final count correct Patient Tobacco Use Status: Former Tobacco user Quit Date: 2016 Tobacco use type: Cigarette Second Hand Smoke Exposure: No Substance Use Type: Marijuana Advance Directives Date on File: 03/13/23 service: No Assessment & Plan Assessment & Plan (1) Failed back syndrome: Code(s): M96.1 - Postlaminectomy syndrome, not elsewhere classified Plan Mr Byrd is one month out from his ALIF with plating at L5-S1. He was recently in ED for flare up of radiculopathy in left leg. He was kept there for few days in the emergency room treated with pain medicines and ultimately went home. He tells me that the pain in his left leg seems to have calmed down a bit. I had placed a referral for an L5 block and consultation for possible spinal cord stimulator and right now he wants to just see how things go and let the dust settle more from surgery. I think this is a completely reasonable option but I think at some point he is going to have to have the discussion about spinal cord stimulator. We discussed expectations, and I told him it may take up to 3-4 months to know how he is going to feel after surgery. I would like to see him back in 4-6 weeks with a set of x-rays. Jose Tellez MD, PhD [facility] Orders: Orders XR lumbar spine 4V min Today M96.1 - Postlaminectomy syndrome, not elsewhere classified Coding Level of Care Code Global (94578) Diagnoses Failed back syndrome M96.1
== END 2023-04-12 12:47 | disposition home or self-care (01) ==
PROVIDERS: Visit Provider Physician Assistant
DX: M96.1 Postlaminectomy syndrome, not elsewhere classified (principal)
CPT/HCPCS: 99024

== ENCOUNTER 2023-05-07 13:12 | Outpatient (REF) | payer OTHER, SELFPAY ==
--- NOTE | ~2023-05-07 | CT_ITS ---
CT LUMBAR SPINE WITHOUT CONTRAST CLINICAL INFORMATION: Lumbar region radiculopathy. COMPARISON: Abdominal CT 03/31/2023. TECHNIQUE: Multidetector CT acquisition of the lumbar spine is obtained without contrast. This CT examination was performed using dose optimization techniques as appropriate, variously including the following: *Automated exposure control *Adjustment of mA and/or kV according to patient size (this includes techniques or standardized protocols for targeted exams where dose is matched to indication/reason for exam; i.e. extremities or head) *Use of iterative reconstruction technique FINDINGS: here is new significant lucency surrounding the S1 vertebral body screws and to a lesser extent the L5 vertebral body screws compatible with hardware loosening associated with anterior displacement of the inferior aspect of the L5-S1 vertebral body plate and screw construct. There is an associated displaced fracture of the S1 endplate anteriorly that is newly displaced when compared to 03/31/[address] There is partial anterior displacement of the L5-S1 interbody cage when compared to the prior CT study. Bilateral transpedicular screws with vertical connecting rods and interbody graft at the L2-L5 levels. The posterior construct is intact and there is no evidence of loosening at these levels. Solid posterolateral bone fusion mass at the L2-L5 levels. Leftward convex scoliotic curvature of the lower lumbar spine with the apex at L4. Nonsurgical disc volumes are preserved. There is bilateral perinephric stranding. There is extensive aortoiliac atherosclerotic calcification. Infrarenal abdominal aortic aneurysm measuring 3.4 cm in size just proximal to the iliac bifurcation. At L1-L2, there is a slight annular disc bulge and there is mild bilateral facet arthropathy without central canal stenosis nor significant foraminal stenosis. At L2-L3, there is a diffuse annular disc bulge and there is bilateral facet arthropathy, ligamentum flavum thickening, and epidural lipomatosis likely resulting in moderate thecal sac effacement. Left subarticular zone stenosis with probable mass effect on the traversing left L3 nerve root. There is mild bilateral foraminal encroachment at this level. At L3-L4, there are postoperative changes following posterior instrumented lumbar interbody fusion and left hemilaminectomy. The central canal is not well assessed due to artifact from the surgical hardware. Osteophytic ridging and facet arthropathy result in narrowing of the subarticular zones bilaterally as well as moderate thecal sac effacement. Osteophytic ridging and facet arthropathy also result in moderate to severe right and moderate left foraminal stenosis. At L4-L5, there are postoperative changes following laminectomy and posterior instrumented lumbar interbody fusion. Central canal not diagnostically assessed due to artifact from the surgical hardware. Osteophytic ridging and facet arthropathy result in moderate right and mild left foraminal stenosis. At L5-S1, there are postoperative changes following anterior instrumented lumbar interbody fusion. Hardware failure findings discussed above. There is new paravertebral swelling at L5-S1 that can be correlated for clinical signs of infection. There are right hemilaminectomy changes. Epidural lipomatosis moderately effaces the thecal sac. Disc osteophyte and facet arthropathy result in severe bilateral foraminal stenosis with compression of the exiting L5 nerve roots bilaterally. CT/CT lumbar spine wo IV con IMPRESSION: - There are redemonstrated postoperative changes following anterior instrumented lumbar interbody fusion at L5-S1 with evidence of new hardware failure. There is new significant lucency surrounding the S1 vertebral body screws and to a lesser extent the L5 vertebral body screws compatible with hardware loosening which is associated with anterior displacement of the inferior aspect of the L5-S1 vertebral body plate and screw construct. There is an associated displaced fracture of the S1 endplate anteriorly that is newly displaced when compared to 03/31/[address] There is partial anterior displacement of the L5-S1 interbody cage when compared to the prior CT study. There is new paravertebral swelling at L5-S1 that can be correlated for clinical signs of infection. - There are also postoperative changes following posterior instrumented lumbar interbody fusion at L2-L5. There is solid interbody bone fusion mass and there is solid posterolateral bone fusion mass at the L2-L5 levels. - At L5-S1, spondylitic changes result in severe bilateral foraminal stenosis with compression of the exiting L5 nerve roots bilaterally. - At the postoperative L3-L4 level, osteophytic ridging and facet arthropathy result in narrowing of the subarticular zones bilaterally, moderate central canal stenosis, as well as moderate to severe right and moderate left foraminal stenosis. - At the junctional L2-L3 level, spondylitic changes and epidural lipomatosis results in suspected moderate thecal sac effacement and left subarticular zone stenosis with potential mass effect on the traversing left L3 nerve root. - Infrarenal abdominal aortic aneurysm measuring 3.4 cm in size just proximal to the iliac bifurcation. Recommend followup every 3 years. Reference: J Am Leo Radiol 2013; 10 (10): 789-794.
== END 2023-05-07 13:13 | disposition home or self-care (01) ==
LOC: HO.CT 13:12
PROVIDERS: Visit Provider Physician Assistant
DX: M54.16 Radiculopathy, lumbar region (principal)
CPT/HCPCS: 72131

== ENCOUNTER 2023-05-31 11:30 | Outpatient (AMB) | payer OTHER, SELFPAY ==
[2023-05-31 11:30] VITALS: BMI 28.1
--- NOTE | 2023-05-31 11:30 | A.OFFVIS_ITS ---
Intake Vital Signs 05/31/23 11:30 Height 5 ft 9 in Weight 190 lb BMI 28.1 Intake Visit Reasons: Follow up medication Telephone Information Clerk Required: No Allergies cyclobenzaprine Allergy (Intermediate, Verified 05/31/23 11:31) Rash, palpatations environmental allergies Allergy (Intermediate, Verified 05/31/23 11:31) SOB, watery eyes HPI HPI Comments History of Present Illness Details Patient presents today via telehealth encounter for follow up and medication refill for baclofen and gabapentin. Patient reports he underwent L5- S1 ALIF on 03/11/[address] Tellez. He also had previous L3-L5 fusion done at another institution. Patient reports ongoing post-op pain since back surgery in February. Patient reports progressive and worsening walking instability and has been holding his breath while walking due to significant pain. He reports being prescribed oxycodone post-operatively that only allowed him to sleep through the night. However, his pain during the day has been unbearable. He reports using a walker since back surgery and feels unsteady. Reports bilateral leg pain with associated numbness, tingling and significant cramping. Patient reports he has been taking baclofen, alternating it with methocarbamol at times and gabapentin with continued symptoms. He went to ER in March 2023 for significant low back pain. Patient reports he completed lumbar spine CT scan last month and is s cheduled to undergo revision of lumbar fusion on 07/08/23. CT scan lumbar spine results are noted below. Patient denies any fever, weight loss, dizziness, shortness of breaths, bladder or bowel dysfunction or saddle anesthesia. Past Procedures: 04/24/22: Caudal ABDULLAHI with catheter-10% p ain relief PRIOR: Patient is a pleasant 66 years old male with a history of failed back syndrome of cervical and lumbar spine, presenting today evaluation for worsening chronic back pain. Patient reports previous 3 cervical and 7 lumbar surgeries with ongoing residual pain that limits his daily activities, functioning, mobility, sleep and quality of life. Denies recent trauma, injury or falls. He attributes his chronic pain due to a work-related accident in 1996 when he slipped on s tairs at work. This is the Workers Comp case. He is followed and referred to us by neurology for cervical myelopathy, spastic paraparesis, lumbosacral spine disease with L5-S1 radicular pain, worsening balance and gait with bilateral lower leg paresthesias. Patient reports his back pain is axial that spreads across his lower back and radiates into his bilateral lower extremities in thighs posteriorly and laterally in the calves and dorsum of feet, worse on the left. Pain is described as constant aching, burning, shooting, tingling, spreading, radiating, and tiring. Patient rates his pain at 8/10 at this time. Patient reports he tolerates about 100 feet before he needs to rest. Pain and spasticity increases with walking, standing or lying supine. No significant pain with sitting. Patient has completed physical therapy about 4 years ago with temporary symptoms improvement. Currently, he is managing his pain and spasticity with baclofen, carisoprodol, clonazepam, and gabapentin with partial relief. Patient denies any fever, malaise, weight changes, dizziness, visual disturbances, bowel or bladder incontinence or saddle anesthesia. Patient reports weakness in lower extremities, particularly the left side. He ambulates with antalgic gait with the use of cane. Patient scuffs his feet when walking. Previous lumbar spine MRI lumbar spine in 03/2020 showed multilevel lumbar spine deg disc disease and surgical decompression fusion. Cervical spine MRI 08/2020 noted for stable degenerative disc disease , moderate central canal stenosis at C6-7 without change and chronic cervical myelopathy C5-C6 with spastic paraparesis. Patient has received injections through [facility] in the past. He considered baclofen pump in the past but has denied it more recently. Patient is not interested in neuromodulation with the SCS trial but will consider therapeutic injections to alleviate his radicular pain. [facility] Medical History Mild heartburn Hiatal hernia CAD (coronary artery disease) Depression Anxiety AAA (abdominal aortic aneurysm) without rupture Heart attack Hx of hydrocele Cervical spondylosis with myelopathy Cervical spondylosis Lumbar spondylosis Asthma COPD (chronic obstructive pulmonary disease) HTN (hypertension) Heart disease Surgical History Hx of cardiac catheterization History of lumbar spinal fusion (~03/12/23) Hx of tonsillectomy Hx of colonoscopy Hx of vasectomy Hx of cervical spine surgery H/O surgical amputation of finger History of testicular surgery Hx of lumbosacral spine surgery Family History Mother COVID PONV (postoperative nausea and vomiting) Sister No problems noted. Sister No problems noted. Sister No problems noted. Brother Pulmonary fibrosis PONV (postoperative nausea and vomiting) Brother Pulmonary fibrosis PONV (postoperative nausea and vomiting) Daughter PONV (postoperative nausea and vomiting) Father PONV (postoperative nausea and vomiting) Other Dementia Diabetes mellitus, type II Disorder of thyroid Social History Household Members: None Housing: House Are you a primary home health care worker to a significant other at home: No Do you presently have visiting nurse or other home services: No Alcohol intake: never Comment: final count correct Patient Tobacco Use Status: Former Tobacco user Quit Date: 2016 Tobacco use type: Cigarette Years Smoked: 30 Second Hand Smoke Exposure: No Substance Use Type: Marijuana Advance Directives Date on File: 03/13/23 service: No Review of Systems Const All systems reviewed & are unremarkable except as noted in HPI and below ENT Reports Normal hearing present Neuro Reports Normal hearing present and Denies confusion Psych Denies confusion Physical Exam Vital Signs: BMI result Body Mass Index 28.1 Const General: cooperative, alert and awake; No confusion Orientation/consciousness: patient oriented x3 and No confusion Resp Effort & Inspection: able to speak in complete sentences, no audible wheezes and no cough Neuro General: patient oriented x3 and No confusion Cranial nerves: Yes Normal hearing present Cognition (Neuro): normal cognition Psych Mental Status: mental status grossly normal Speech and movement: Clear speech present Affect: normal affect Attitude: cooperative Thought process: Normal thought process present Thought content: Normal thought content present and No Depressive thoughts present Insight: Good insight present (Psych) Judgement: Good judgement present (Psych) Results Reviewed Results Reviewed: CT LUMBAR SPINE WITHOUT CONTRAST 05/07/23 CLINICAL INFORMATION: Lumbar region radiculopathy. COMPARISON: Abdominal CT 03/31/2023. TECHNIQUE: Multidetector CT acquisition of the lumbar spine is obtained without contrast. This CT examination was performed using dose optimization techniques as appropriate, variously including the following: *Automated exposure control *Adjustment of mA and/or kV according to patient size (this includes techniques or standardized protocols for targeted exams where dose is matched to indication/reason for exam; i.e. extremities or head) *Use of iterative reconstruction technique FINDINGS: here is new significant lucency surrounding the S1 vertebral body screws and to a lesser extent the L5 vertebral body screws compatible with hardware loosening associated with anterior displacement of the inferior aspect of the L5-S1 vertebral body plate and screw construct. There is an associated displaced fracture of the S1 endplate anteriorly that is newly displaced when compared to 03/31/[address] There is partial anterior displacement of the L5-S1 interbody cage when compared to the prior CT study. Bilateral transpedicular screws with vertical connecting rods and interbody graft at the L2-L5 levels. The posterior construct is intact and there is no evidence of loosening at these levels. Solid posterolateral bone fusion mass at the L2-L5 levels. Leftward convex scoliotic curvature of the lower lumbar spine with the apex at L4. Nonsurgical disc volumes are preserved. There is bilateral perinephric stranding. There is extensive aortoiliac atherosclerotic calcification. Infrarenal abdominal aortic aneurysm measuring 3.4 cm in size just proximal to the iliac bifurcation. At L1-L2, there is a slight annular disc bulge and there is mild bilateral facet arthropathy without central canal stenosis nor significant foraminal stenosis. At L2-L3, there is a diffuse annular disc bulge and there is bilateral facet arthropathy, ligamentum flavum thickening, and epidural lipomatosis likely resulting in moderate thecal sac effacement. Left subarticular zone stenosis with probable mass effect on the traversing left L3 nerve root. There is mild bilateral foraminal encroachment at this level. At L3-L4, there are postoperative changes following posterior instrumented lumbar interbody fusion and left hemilaminectomy. The central canal is not well assessed due to artifact from the surgical hardware. Osteophytic ridging and facet arthropathy result in narrowing of the subarticular zones bilaterally as well as moderate thecal sac effacement. Osteophytic ridging and facet arthropathy also result in moderate to severe right and moderate left foraminal stenosis. At L4-L5, there are postoperative changes following laminectomy and posterior instrumented lumbar interbody fusion. Central canal not diagnostically assessed due to artifact from the surgical hardware. Osteophytic ridging and facet arthropathy result in moderate right and mild left foraminal stenosis. At L5-S1, there are postoperative changes following anterior instrumented lumbar interbody fusion. Hardware failure findings discussed above. There is new paravertebral swelling at L5-S1 that can be correlated for clinical signs of infection. There are right hemilaminectomy changes. Epidural lipomatosis moderately effaces the thecal sac. Disc osteophyte and facet arthropathy result in severe bilateral foraminal stenosis with compression of the exiting L5 nerve roots bilaterally. IMPRESSION: - There are redemonstrated postoperative changes following anterior instrumented lumbar interbody fusion at L5-S1 with evidence of new hardware failure. There is new significant lucency surrounding the S1 vertebral body screws and to a lesser extent the L5 vertebral body screws compatible with hardware loosening which is associated with anterior displacement of the inferior aspect of the L5-S1 vertebral body plate and screw construct. There is an associated displaced fracture of the S1 endplate anteriorly that is newly displaced when compared to 03/31/[address] There is partial anterior displacement of the L5-S1 interbody cage when compared to the prior CT study. There is new paravertebral swelling at L5-S1 that can be correlated for clinical signs of infection. - There are also postoperative changes following posterior instrumented lumbar interbody fusion at L2-L5. There is solid interbody bone fusion mass and there is solid posterolateral bone fusion mass at the L2-L5 levels. - At L5-S1, spondylitic changes result in severe bilateral foraminal stenosis with compression of the exiting L5 nerve roots bilaterally. - At the postoperative L3-L4 level, osteophytic ridging and facet arthropathy result in narrowing of the subarticular zones bilaterally, moderate central canal stenosis, as well as moderate to severe right and moderate left foraminal stenosis. - At the junctional L2-L3 level, spondylitic changes and epidural lipomatosis results in suspected moderate thecal sac effacement and left subarticular zone stenosis with potential mass effect on the traversing left L3 nerve root. - Infrarenal abdominal aortic aneurysm measuring 3.4 cm in size just proximal to the iliac bifurcation. Recommend followup every 3 years. Reference: J Am Leo Radiol 2013; 10 (10): 789-794. Assessment & Plan Assessment & Plan (1) Failed back syndrome: Code(s): M96.1 - Postlaminectomy syndrome, not elsewhere classified (2) Lumbar spondylosis: Code(s): M47.816 - Spondylosis without myelopathy or radiculopathy, lumbar region (3) Lumbar radiculopathy, chronic: Code(s): M54.16 - Radiculopathy, lumbar region (4) Muscle spasm of back: Code(s): M62.830 - Muscle spasm of back Plan 1. Refill provided for baclofen and gabapentin for muscle spasms and chronic pain syndrome. Patient reports this was well tolerated without any adverse or side effects. 2. Patient has upcoming repeat back surgery with Dr. Tellez on 07/08/23. He is trying to reach out to [facility] if the surgical date can be moved to this month. Patient is aware to call if pain worsens or if he develops any red flag symptoms to seek emergent care. Patient denies any cauda equina syndrome symptoms at this time.?All questions and concerns have been answered and patient agreed with the plan. Follow up as needed. I hereby testify that I spent 13 minutes in conversation with this patient as well as with planning and coordinating care for this patient and organizing this note. Medications: Refilled baclofen 10 mg PO 5XD 30 days 150 tabs 3RF G89.4 - Chronic pain syndrome, M62.830 - Muscle spasm of back gabapentin 600 mg PO TID 30 days 90 tabs 3RF pain M47.812 - Spondylosis without myelopathy or radiculopathy, cervical region, M47.816 - Spondylosis without myelopathy or radiculopathy, lumbar region, M54.16 - Radiculopathy, lumbar region, M96.1 - Postlaminectomy syndrome, not elsewhere classified Telehealth Telehealth Location of provider rendering services: practice address Location of patient: address on file Patient Identification confirmed using: Name, : Yes Telehealth method: voice only Patient verbally consented to treatment: Yes Patient verbally consented to billing insurance company: Yes Patient informed of any privacy concerns related to visit: Yes Minutes spent on Phone/Video with Pt.: 13 Coding Level of Care Code Tele Est Pt Level 3 (56507) Diagnoses Failed back syndrome M96.1 Lumbar spondylosis M47.816 Lumbar radiculopathy, chronic M54.16 Muscle spasm of back M62.830
== END 2023-05-31 11:37 | disposition home or self-care (01) ==
LOC: HO.PMC 11:30
PROVIDERS: Visit Provider Nurse Practitioner Family
DX: M96.1 Postlaminectomy syndrome, not elsewhere classified (principal); M47.816 Spondylosis without myelopathy or radiculopathy, lumbar region; M54.16 Radiculopathy, lumbar region; M62.830 Muscle spasm of back
CPT/HCPCS: 99442

== ENCOUNTER → 2023-05-31 11:30 | Outpatient (BNVA) | payer OTHER, SELFPAY | PROVIDERS: Visit Provider Nurse Practitioner Family ==

== ENCOUNTER 2023-07-08 08:29 | Inpatient (IN) | payer OTHER, SELFPAY ==
[2023-05-16 11:14] VITALS: BMI 27.3
--- NOTE | 2023-05-17 12:14 | P.CONAN_ITS ---
HPI - Anesthesia Eval Consult details Narrative: Rescheduled d/t insurance issue 68yo M for L5-S1 Revise Ant Cerv Disc w/ Fusion (Removal of old Posterior instrumentation,insertion of New instrumentation s/p L5-S1 Ant Lumbar Interbody Fusion amd Anterior Plate 02/2023 with GA-ETT 7.5 Aortic Aneurysm being followed by Vascular . 3.1x3.7 05/2022 by US. CAD/Ischemic CMP being followed by cardiology. Cleared 02/2023 (prior to ALIF) and recommends continuing aspirin. COPD at baseline. Albuterol rescue inhaler ~ 2-3 x weekly Phone PAT only d/t patient pain. Able to perform > 4 mets without symptoms per cardiology and prior PAT. [facility] Active Problems Active Problems: All Active Problems (Updated 05/16/23 @ 11:20 by Thelma Valencia RN) Chronic pain syndrome (Acute) Peripheral neuropathy (Acute) Aortic aneurysm (Acute) Failed back syndrome (Acute) Lumbar radiculopathy, chronic (Acute) Bilateral hip pain (Acute) Sacroiliitis (Acute) Gait disorder (Acute) Bilateral leg paresthesia (Acute) Cervical spondylosis with myelopathy (Acute) Cervical spondylosis (Acute) Lumbar spondylosis (Acute) Asthma (Acute) Heart disease (Acute) Past Medical History Medical History Mild heartburn Hiatal hernia CAD (coronary artery disease) Depression Anxiety AAA (abdominal aortic aneurysm) without rupture Heart attack Hx of hydrocele Cervical spondylosis with myelopathy Cervical spondylosis Lumbar spondylosis Asthma COPD (chronic obstructive pulmonary disease) HTN (hypertension) Heart disease Family History Family History Mother COVID PONV (postoperative nausea and vomiting) Sister No problems noted. Sister No problems noted. Sister No problems noted. Brother Pulmonary fibrosis PONV (postoperative nausea and vomiting) Brother Pulmonary fibrosis PONV (postoperative nausea and vomiting) Daughter PONV (postoperative nausea and vomiting) Father PONV (postoperative nausea and vomiting) Other Dementia Diabetes mellitus, type II Disorder of thyroid Family history of problems with anesthesia: Yes (PONV in parents and brother) Surgical History Surgical History Hx of cardiac catheterization History of lumbar spinal fusion (~03/12/23) Hx of tonsillectomy Hx of colonoscopy Hx of vasectomy Hx of cervical spine surgery H/O surgical amputation of finger History of testicular surgery Hx of lumbosacral spine surgery History of Problems with Anesthesia: No Social History Social History Household Members: None Housing: House Are you a primary respiratory care instructor to a significant other at home: No Do you presently have visiting nurse or other home services: No Alcohol intake: never Comment: final count correct Patient Tobacco Use Status: Former Tobacco user Quit Date: 2016 Tobacco use type: Cigarette Years Smoked: 30 Second Hand Smoke Exposure: No Substance Use Type: Marijuana Advance Directives Date on File: 03/13/23 service: No Meds Allergies Allergy/AdvReac Type Severity Reaction Status Date / Time cyclobenzaprine Allergy Intermediate Rash, Verified 05/31/23 11:31 palpatations environmental allergies Allergy Intermediate SOB, Verified 05/31/23 11:31 watery eyes Home Medications Medication Instructions Recorded Confirmed Last Taken Type aspirin 81 mg tablet,delayed 81 mg PO DAILY 02/01/22 05/16/23 03/04/23 History release (Adult Low Dose Aspirin) escitalopram oxalate 10 mg tablet 10 mg PO DAILY 02/01/22 05/16/23 03/11/23 History evolocumab 140 mg/mL subcutaneous 140 mg subcut Q2W 02/01/22 05/16/23 03/02/23 History pen injector (Zarina Marte) fluticasone propionate 50 1 - 2 spray intranasal DAILY PRN 02/01/22 05/16/23 03/11/23 History mcg/actuation nasal Allergy Symptoms spray,suspension hydroxyzine HCl 25 mg tablet 50 mg PO BEDTIME PRN Anxiety 02/01/22 05/16/23 03/10/23 History icosapent ethyl 1 gram capsule 2 g PO BID 02/01/22 05/16/23 03/10/23 History (Vascepa) metoprolol succinate 25 mg 25 mg PO DAILY 02/01/22 05/16/23 03/11/23 History tablet,extended release 24 hr nitroglycerin 0.4 mg sublingual 0.4 mg sublingual Q5M PRN Chest 02/01/22 05/16/23 Unknown History tablet Pain tamsulosin 0.4 mg capsule 0.4 mg PO DAILY@1700 02/01/22 05/16/23 03/10/23 History fluticasone furoate 100 1 ea inhalation DAILY 08/23/22 05/16/23 Unknown History mcg-vilanterol 25 mcg/dose inhalation powder (Breo Ellipta) montelukast 10 mg tablet 10 mg PO BEDTIME 08/23/22 05/16/23 03/10/23 History cholecalciferol (vitamin D3) 50 50 mcg PO DAILY 09/04/22 05/16/23 03/10/23 History mcg (2,000 unit) capsule albuterol sulfate 90 mcg/actuation 2 puff inhalation Q6H PRN 02/27/23 05/16/23 03/11/23 History aerosol inhaler Shortness Of Breath Or Wheezing umeclidinium 62.5 mcg/actuation 1 inh inhalation DAILY 02/27/23 05/16/23 03/10/23 History blister powder for inhalation (Incruse Ellipta) albuterol sulfate 2.5 mg/3 mL 2.5 mg inhalation QID 03/31/23 05/16/23 Unknown History (0.083 %) solution for nebulization Tums PRN Gastric Reflux 05/16/23 Unknown History prednisone 05/16/23 05/09/23 History budesonide-formoterol HFA 160 2 puff inhalation BID 05/31/23 Unknown History mcg-4.5 mcg/actuation aerosol inhaler cetirizine 10 mg tablet 10 mg PO DAILY 05/31/23 Unknown History Exam Height,Weight and Vital Signs: Height 5 ft 9 in Weight 83.915 kg Pertinent Lab Results Pertinent Lab Results: Laboratory Tests 04/07/23 21:53 WBC 6.2 Hgb 13.5 L Hct 39.3 L Plt Count 234 Sodium 139 Potassium 4.0 Chloride 103 Carbon Dioxide 22 BUN 18 H Creatinine 0.82 Narrative Narrative: EKG 03/2023 SR with SA with short ID Possible inf infarct, age undetermined. Assessment and Plan Assessment Anesthesia Assessment: Chart Reviewed Final Anesthetic Review Family History of Problems with Anesthesia: Yes (PONV in parents and brother) History of Problems with Anesthesia: No
[2023-06-25 15:17] VITALS: BMI 28.1
[2023-07-08] VITALS (7 sets, daily range): BP systolic 99–112; BP diastolic 50–65; PULSE 71–81; RESP 16–24; TEMP 36.3–37.3; O2SAT 93–97; BMI 27.9
--- NOTE | ~2023-07-08 | XR_ITS ---
EXAMINATION: XR LUMBOSACRAL SPINE CLINICAL INFORMATION: L5-S1 ALIF COMPARISON: CT lumbar spine dated 05/07/2023. Radiographs lumbar spine of 03/11/2023. Fluoroscopic in OR images of 03/11/2023. TECHNIQUE: Single AP supine portable view of the lumbar spine. FINDINGS: Degenerative changes in the imaged lower thoracic and upper lumbar spine. Redemonstration of bilateral rods and pedicular screws at L3 and L5 with disc spacers at L3-L4 and L4-L5. Hardware at L5-S1 characteristics of anterior interbody fusion. XR/XR lumbar spine 1V IMPRESSION: Redemonstration of bilateral rods and pedicular screws at L3 and L5 with disc spacers at L3-L4 and L4-L5. Hardware at L5-S1 characteristic of anterior interbody fusion.
--- NOTE | ~2023-07-08 | FL_ITS ---
EXAMINATION: XR FLUOROSCOPY WITH IMAGES CLINICAL INFORMATION: Fluoroscopic guidance in OR. Radiculopathy lumbar region. Status post instrumented lumbar interbody fusion at L2-L5 characterize on CT lumbar spine of 05/07/2023. COMPARISON: CT lumbar spine 05/07/2023. Radiographs lumbar spine 03/11/2023. TECHNIQUE: Fluoroscopy Supervised By: Dr. Tellez. Fluoroscopy Time: 14:38. Cumulative Dose: 27.0 mGy. DAP: 21.426 Gycm2. Images: 4. FINDINGS: Radiologist was not in attendance at the time of the exam. Images were later provided. 2 images demonstrate surgical hardware and clips for anterior interbody fusion. FL/FL guidance in OR IMPRESSION: Fluoroscopy provided for intraoperative guidance. Please refer to operative report by the supervising physician for more detailed evaluation.
--- NOTE | 2023-07-08 07:08 | MHC.SHP ---
Pre-Procedural Eval Section A - 24 Hr Update-Section A only Date of Service: 07/08/23 The patient is an INPATIENT: No Changes since office visit: No Cold of Flu in the past 2 weeks, No New Medical Problems, No Changes in Medication and No Patient answered all questions The patient has been examined within 24 hours of the surgical procedure. The History & Physical has been completed within 30 days and I have reviewed it.: No Section B - Complete if H&P > 30 days Chief Complaint: Postlaminectomy syndrome, not elsewhere classified Allergies: Allergies Allergy/AdvReac Type Severity Reaction Status Date / Time environmental allergies Allergy Intermediate SOB, Verified 05/31/23 11:31 watery eyes cyclobenzaprine AdvReac Intermediate palpatation Verified 06/25/23 15:16 s Review of Systems Sugical H&P ROS: Negative: Constitution, Cardiovascular, Respiratory, Neurological, Psychiatric, Hem-Onc, Allergic/Immunologic, Gastrointestinal, Genitourinary, Musculoskeletal, Integumentary, Endocrine and Eyes/Ears/Nose/Throat Exam Surgical H&P Exam: Not Evaluated: HEENT, Not Evaluated: Heart, Not Evaluated: Lungs, Not Evaluated: Extremities, Not Evaluated: Abdomen, Not Evaluated: Skin and Not Evaluated: Neurological Plan Diagnosis/Plan: Unchanged Revision L5-S1 anterior lumbar interbody fusion with pedicle screws, removal of previsous posterior instrumentation Time Spent With Patient Time: Total time managing care of this patient today __6__ minutes.
[2023-07-08] MEDS: methocarbamoL 750 MG TABLET PO (09:16)
[2023-07-08] MEDS: Gabapentin 300 MG CAPSULE PO (09:16)
[2023-07-08] MEDS: Lactated Ringers 1,000 ML 100 ML IVCONT (09:17)
--- NOTE | 2023-07-08 09:18 | PHA.MEDREC ---
Pharmacy Consult ? Medication Reconciliation Pharmacy has reviewed the medication reconciliation completed by nursing.
--- NOTE | 2023-07-08 11:30 | HO.ANESPROP2 ---
Documented by User: Margarita Aragon NP 07/04/23 12:37 HPI - Anesthesia Eval Consult details Narrative: 68yo M for L5-S1 Revise Ant Cerv Disc w/ Fusion (Removal of old Posterior instrumentation,insertion of New instrumentation s/p L5-S1 Ant Lumbar Interbody Fusion amd Anterior Plate 02/2023 with GA-ETT 7.5 Aortic Aneurysm being followed by Vascular . 3.1x3.7 05/2022 by US. CAD/Ischemic CMP being followed by cardiology. Cleared 02/2023 (prior to ALIF) and recommends continuing aspirin. COPD at baseline. Albuterol rescue inhaler ~ 2-3 x weekly Phone PAT only d/t patient pain. Able to perform > 4 mets without symptoms per cardiology and prior PAT. [facility] Active Problems Active Problems: All Active Problems (Updated 05/16/23 @ 11:20 by Thelma Valencia RN) Chronic pain syndrome (Acute) Peripheral neuropathy (Acute) Aortic aneurysm (Acute) Failed back syndrome (Acute) Lumbar radiculopathy, chronic (Acute) Bilateral hip pain (Acute) Sacroiliitis (Acute) Gait disorder (Acute) Bilateral leg paresthesia (Acute) Cervical spondylosis with myelopathy (Acute) Cervical spondylosis (Acute) Lumbar spondylosis (Acute) Asthma (Acute) Heart disease (Acute) Past Medical History Medical History Mild heartburn Hiatal hernia CAD (coronary artery disease) Depression Anxiety AAA (abdominal aortic aneurysm) without rupture Heart attack Hx of hydrocele Cervical spondylosis with myelopathy Cervical spondylosis Lumbar spondylosis Asthma COPD (chronic obstructive pulmonary disease) HTN (hypertension) Heart disease Family History Family History Mother COVID PONV (postoperative nausea and vomiting) Sister No problems noted. Sister No problems noted. Sister No problems noted. Brother Pulmonary fibrosis PONV (postoperative nausea and vomiting) Brother Pulmonary fibrosis PONV (postoperative nausea and vomiting) Daughter PONV (postoperative nausea and vomiting) Father PONV (postoperative nausea and vomiting) Other Dementia Diabetes mellitus, type II Disorder of thyroid Family history of problems with anesthesia: Yes (PONV in parents and brother) Surgical History Surgical History Hx of cardiac catheterization History of lumbar spinal fusion (~03/12/23) Hx of tonsillectomy Hx of colonoscopy Hx of vasectomy Hx of cervical spine surgery H/O surgical amputation of finger History of testicular surgery Hx of lumbosacral spine surgery History of Problems with Anesthesia: No Social History Social History Household Members: None Housing: House Are you a primary personal care home administrator to a significant other at home: No Do you presently have visiting nurse or other home services: No Alcohol intake: never Comment: final count correct Patient Tobacco Use Status: Former Tobacco user Quit Date: 2016 Tobacco use type: Cigarette Years Smoked: 30 Second Hand Smoke Exposure: No Use of substances other than those prescribed or required for medical reasons: Yes Substance Use Type: Marijuana Substance Use Frequency: Weekly Have you been hit, kicked, punched, or otherwise hurt by someone within the past year? If so, by whom?: No Are you DNR?: No Advance Directives: Yes Advance Directives Information Provided: No Advance Directives on File: Yes Advance Directives Date on File: 03/13/23 Recently lost weight without trying: No How much weight loss: 2-13 pounds Eating poorly because of decreased appetite: Yes Nutrition screen score: 2 Nutrition Risks: No Nutritional Risk service: No Meds Allergies Allergy/AdvReac Type Severity Reaction Status Date / Time environmental allergies Allergy Intermediate SOB, Verified 05/31/23 11:31 watery eyes cyclobenzaprine AdvReac Intermediate palpatation Verified 06/25/23 15:16 s Home Medications Medication Instructions Recorded Confirmed Last Taken Type aspirin 81 mg tablet,delayed 81 mg PO DAILY 02/01/22 07/08/23 07/01/23 History release (Adult Low Dose Aspirin) escitalopram oxalate 10 mg tablet 10 mg PO DAILY 02/01/22 07/08/23 07/08/23 History evolocumab 140 mg/mL subcutaneous 140 mg subcut Q2W 02/01/22 07/08/23 06/24/23 History pen injector (Zarina Marte) fluticasone propionate 50 1 - 2 spray intranasal DAILY PRN 02/01/22 07/08/23 03/11/23 History mcg/actuation nasal Allergy Symptoms spray,suspension hydroxyzine HCl 25 mg tablet 50 mg PO BEDTIME PRN Anxiety 02/01/22 07/08/23 03/10/23 History icosapent ethyl 1 gram capsule 2 g PO BID 02/01/22 07/08/23 03/10/23 History (Vascepa) metoprolol succinate 25 mg 25 mg PO DAILY 02/01/22 07/08/23 07/08/23 History tablet,extended release 24 hr nitroglycerin 0.4 mg sublingual 0.4 mg sublingual Q5M PRN Chest 02/01/22 07/08/23 Unknown History tablet Pain tamsulosin 0.4 mg capsule 0.4 mg PO DAILY@1700 02/01/22 07/08/23 03/10/23 History fluticasone furoate 100 1 ea inhalation DAILY 08/23/22 07/08/23 Unknown History mcg-vilanterol 25 mcg/dose inhalation powder (Breo Ellipta) montelukast 10 mg tablet 10 mg PO BEDTIME 08/23/22 07/08/23 07/08/23 History cholecalciferol (vitamin D3) 50 50 mcg PO DAILY 09/04/22 07/08/23 03/10/23 History mcg (2,000 unit) capsule albuterol sulfate 90 mcg/actuation 2 puff inhalation Q6H PRN 02/27/23 07/08/23 07/08/23 History aerosol inhaler Shortness Of Breath Or Wheezing umeclidinium 62.5 mcg/actuation 1 inh inhalation DAILY 02/27/23 07/08/23 07/08/23 History blister powder for inhalation (Incruse Ellipta) albuterol sulfate 2.5 mg/3 mL 2.5 mg inhalation QID 03/31/23 05/16/23 Unknown History (0.083 %) solution for nebulization budesonide-formoterol HFA 160 1 puff inhalation BID 05/31/23 07/08/23 07/08/23 History mcg-4.5 mcg/actuation aerosol inhaler cetirizine 10 mg tablet 10 mg PO DAILY 05/31/23 07/08/23 Unknown History Exam Exam Date and Time: February 27, 2023 1312 Height,Weight and Vital Signs: Height 5 ft 9 in Weight 86.183 kg Pertinent Lab Results Pertinent Lab Results: Laboratory Tests 04/07/23 21:53 WBC 6.2 Hgb 13.5 L Hct 39.3 L Plt Count 234 Sodium 139 Potassium 4.0 Chloride 103 Carbon Dioxide 22 BUN 18 H Creatinine 0.82 Narrative Narrative: EKG 03/2023 SR with SA with short AR Possible inf infarct, age undetermined. Airway Mallampati Class: IV TM Dist: >3cm Neck ROM: Limited (s/p fusions x 4) Denture: Upper and Lower Loose/Missing/Broken Teeth: Yes Assessment and Plan Assessment Anesthesia Assessment: Chart Reviewed Final Anesthetic Review Family History of Problems with Anesthesia: Yes (PONV in parents and brother) History of Problems with Anesthesia: No Documented by User: Dary Campos DO 07/08/23 11:37 HPI - Anesthesia Eval Consult details Narrative: 68yo M for L5-S1 Revise Ant Cerv Disc w/ Fusion (Removal of old Posterior instrumentation,insertion of New instrumentation s/p L5-S1 Ant Lumbar Interbody Fusion amd Anterior Plate 02/2023 with GA-ETT 7.5 Aortic Aneurysm being followed by Vascular . 3.1x3.7 05/2022 by US. CAD/Ischemic CMP being followed by cardiology. Cleared 02/2023 (prior to ALIF) and recommends continuing aspirin. COPD at baseline. Albuterol rescue inhaler ~ 2-3 x weekly Able to perform > 4 mets without symptoms per cardiology and prior PAT. [facility] Past Medical History Medical History Mild heartburn Hiatal hernia CAD (coronary artery disease) Depression Anxiety AAA (abdominal aortic aneurysm) without rupture Heart attack Hx of hydrocele Cervical spondylosis with myelopathy Cervical spondylosis Lumbar spondylosis Asthma COPD (chronic obstructive pulmonary disease) HTN (hypertension) Heart disease Family History Family History Mother COVID PONV (postoperative nausea and vomiting) Sister No problems noted. Sister No problems noted. Sister No problems noted. Brother Pulmonary fibrosis PONV (postoperative nausea and vomiting) Brother Pulmonary fibrosis PONV (postoperative nausea and vomiting) Daughter PONV (postoperative nausea and vomiting) Father PONV (postoperative nausea and vomiting) Other Dementia Diabetes mellitus, type II Disorder of thyroid Family history of problems with anesthesia: Yes Surgical History Surgical History Hx of cardiac catheterization History of lumbar spinal fusion (~03/12/23) Hx of tonsillectomy Hx of colonoscopy Hx of vasectomy Hx of cervical spine surgery H/O surgical amputation of finger History of testicular surgery Hx of lumbosacral spine surgery History of Problems with Anesthesia: No Social History Social History Household Members: None Housing: House Are you a primary personal care home administrator to a significant other at home: No Do you presently have visiting nurse or other home services: No Alcohol intake: never Comment: final count correct Patient Tobacco Use Status: Former Tobacco user Quit Date: 2016 Tobacco use type: Cigarette Years Smoked: 30 Second Hand Smoke Exposure: No Use of substances other than those prescribed or required for medical reasons: Yes Substance Use Type: Marijuana Substance Use Frequency: Weekly Have you been hit, kicked, punched, or otherwise hurt by someone within the past year? If so, by whom?: No Are you DNR?: No Advance Directives: Yes Advance Directives Information Provided: No Advance Directives on File: Yes Advance Directives Date on File: 03/13/23 Recently lost weight without trying: No How much weight loss: 2-13 pounds Eating poorly because of decreased appetite: Yes Nutrition screen score: 2 Nutrition Risks: No Nutritional Risk service: No Meds Allergies Allergy/AdvReac Type Severity Reaction Status Date / Time environmental allergies Allergy Intermediate SOB, Verified 05/31/23 11:31 watery eyes cyclobenzaprine AdvReac Intermediate palpatation Verified 06/25/23 15:16 s Home Medications Medication Instructions Recorded Confirmed Last Taken Type aspirin 81 mg tablet,delayed 81 mg PO DAILY 02/01/22 07/08/23 07/01/23 History release (Adult Low Dose Aspirin) escitalopram oxalate 10 mg tablet 10 mg PO DAILY 02/01/22 07/08/23 07/08/23 History evolocumab 140 mg/mL subcutaneous 140 mg subcut Q2W 02/01/22 07/08/23 06/24/23 History pen injector (Zarina Marte) fluticasone propionate 50 1 - 2 spray intranasal DAILY PRN 02/01/22 07/08/23 03/11/23 History mcg/actuation nasal Allergy Symptoms spray,suspension hydroxyzine HCl 25 mg tablet 50 mg PO BEDTIME PRN Anxiety 02/01/22 07/08/23 03/10/23 History icosapent ethyl 1 gram capsule 2 g PO BID 02/01/22 07/08/23 03/10/23 History (Vascepa) metoprolol succinate 25 mg 25 mg PO DAILY 02/01/22 07/08/23 07/08/23 History tablet,extended release 24 hr nitroglycerin 0.4 mg sublingual 0.4 mg sublingual Q5M PRN Chest 02/01/22 07/08/23 Unknown History tablet Pain tamsulosin 0.4 mg capsule 0.4 mg PO DAILY@1700 02/01/22 07/08/23 03/10/23 History fluticasone furoate 100 1 ea inhalation DAILY 08/23/22 07/08/23 Unknown History mcg-vilanterol 25 mcg/dose inhalation powder (Breo Ellipta) montelukast 10 mg tablet 10 mg PO BEDTIME 08/23/22 07/08/23 07/08/23 History cholecalciferol (vitamin D3) 50 50 mcg PO DAILY 09/04/22 07/08/23 03/10/23 History mcg (2,000 unit) capsule albuterol sulfate 90 mcg/actuation 2 puff inhalation Q6H PRN 02/27/23 07/08/23 07/08/23 History aerosol inhaler Shortness Of Breath Or Wheezing umeclidinium 62.5 mcg/actuation 1 inh inhalation DAILY 02/27/23 07/08/23 07/08/23 History blister powder for inhalation (Incruse Ellipta) albuterol sulfate 2.5 mg/3 mL 2.5 mg inhalation QID 03/31/23 05/16/23 Unknown History (0.083 %) solution for nebulization budesonide-formoterol HFA 160 1 puff inhalation BID 05/31/23 07/08/2324 History mcg-4.5 mcg/actuation aerosol inhaler cetirizine 10 mg tablet 10 mg PO DAILY 05/31/23 07/08/23 Unknown History Exam Exam Date and Time: July 08, 2023 1130 Height,Weight and Vital Signs: Height 5 ft 9 in Weight 86.183 kg Height 5 ft 9 in Weight 85.729 kg Vital Signs Temperature 97.3 F 07/08/23 08:48 Pulse Rate 71 07/08/23 08:48 Respiratory Rate 20 07/08/23 08:48 Pulse Oximetry 97 07/08/23 08:48 Oxygen Delivery Method Room Air 07/08/23 08:48 Temperature 97.3 F 07/08/23 08:48 Pulse Rate 71 07/08/23 08:48 Respiratory Rate 20 07/08/23 08:48 Pulse Oximetry 97 07/08/23 08:48 Oxygen Delivery Method Room Air 07/08/23 08:48 Airway Mallampati Class: III TM Dist: >3cm Neck ROM: Limited (history of cervical fusion) Denture: Upper and Lower Heart: S1S2 Lungs: CTAB Assessment and Plan Assessment Anesthesia Assessment: Anesthesia Plan Discussed and Chart Reviewed Final Anesthetic Review Family History of Problems with Anesthesia: Yes History of Problems with Anesthesia: No NPO: Yes ASA Class: III Final Preanesthetic Review: No Changes in Pt Med Stat, Meds/Allgs Chart Reviewed, Consent Obtained/Reviewed and Anes Risks/Benef Reviewed Patient Risk: Intermediate Procedure Risk: Intermediate Anesthetic Plan Anesthetic Plan: GA and Agree w/ Assess. and Plan Disposition: Standard PACU
--- NOTE | 2023-07-08 15:16 | W.PM.OPN ---
Operative Note Operative Note Date of Service: 07/08/23 Narrative: Procedure: Anterior exposure for Revision of inter-body fusion L5-S1 The patient was brought to the operating room, positioned on the table supine and general anesthesia was administered. The abdomen was clipped and then prepped and draped in the usual sterile fashion. After timeout was done, incision was made in the infra-umbilical area on the midline 8 cm long. It was brought through subcutaneous tissue and through the midline in line with the skin incision . After some dissection the peritoneum was entered. Bladder was found to be very distended and Cruz catheter was placed leaving the field sterile. Robbnis Self-retaining retractor with deep blades was inserted and peritoneum protected with moist gauzes.Sigmoid colon was mobilized medially and peritoneal attachment divided. Tissues were very friable due to significant inflammation around the plate and dissection was quite difficult. Plate position was identified on X-ray and tissues were opened at the inferior aspect of the plate and dissected off it superiorly. Upper aspect of the plate could not be safely dissected due to induration around the left iliac vein would not allow retraction. Dr. Tellez then proceeded with the manipulation of the cager and fixation, which will be dictated separately by him. After this was done, hemostasis was checked and was good. Thrombin was used. There was good left external iliac artery pulse. Diluted 0.5% Marcaine and Lidocaine was injected in the fascia and subcutaneous tissue. The incision was irrigated and closed by layers using a 0 Maxone for the midline, 3-0 Vicryl for subcutaneous tissue and 4-0 Monocryl for skin. Exo-fin glue was then applied.
--- NOTE | 2023-07-08 17:07 | P.OP_ITS ---
Operative Note Operative Note Date of Service: 07/08/23 Narrative: Preoperative Diagnosis: 1.) Anterior plate failure L5-S1; dislocation L5-S1 cage; revision anterior lumbar interbody fusion Procedure: Exposure L5-S1 segment, anterior, trans peritoneal; expose her previous L5-S1 anterior plate and cage; repositioning L5-S1 cage; additional anterior instrumentation L5-S1; removal L3-L5 posterior instrumentation followed by insertion of L5-S1 posterior instrumentation with pedicle screws; posterolateral fusion L5-S1; allograft Indication for Surgery Lumbar degenerative disc disease Consent Informed Consent was obtained for this operation. I have explained the nature, purpose and benefits of the operation. I have discussed the risks and benefit of the operation including possible complications or adverse events with patient/family. Alternative(s) were discussed with the patient with their relative benefits and risks as well as the consequences of not accepting the operation were included in obtaining consent. Surgeon: MICHELLE VALDIVIA MD, PHD Procedure Assisted By: FLORIDALMA LUDWIG MD and amy Borja Description of Procedure This 68-year-old male underwent an anterior interbody fusion approximately 2 months ago. Postoperative in imaging reviewed anterior hardware failure with progressive anterior luxation of the L5-S1 anterior plate and migration of the L5-S1 cage anteriorly. The patient was offered a revision anterior lumbar interbody fusion with anterior L5-S1 instrumentation and addition of posterior instrumentation L5-S1 and fusion. The procedure complications were explained. The patient was consented. The patient was brought to the operating room and endotracheally intubated. The patient was put in a supine position. Prep and drape was done followed by timeout. Dr. Ludwig, co-surgeon, provided the access to the L5-S1 disc space through an anterior, peritoneal approach. He was assisted by physician nurses medical assistants phlebotomists who performed manual retraction. He will dictate the approach in a separate operative note. He was able to expose the L5-S1 plate partially due to an inability to mobilize the venous structures due to fibrous tissue. I was able to maneuver two tamps lateral from the plate and in this way I was able to return the L5-S1 cage into its original position flush to the posterior wall of the L5 and S1 vertebral bodies. I was also able to add anterior instrumentation in the form of a 27 mm screw into the L5 vertebral b juan. The retractor was removed and hemostasis was done by Dr. Brumfield who closed the incision. This marked first part of the procedure. Accordingly the patient was turned prone on the Patricio spine table and 2 C arms were installed for fluoroscopy. Prep and drape was done followed by a second timeout. The previous paramedian incisions were opened to expose the L3-L5 posterior instrumentation. The locking caps are removed as well as bilateral rods. The left L5 pedicle screw was broken and therefore was only partially removed. The other L5 screw and bilateral L3 screws could be removed without difficulties. The L4 pedicle had no instrumentation. A 7.5 x 50 mm screw was placed in the right L5 pedicle. A 6.5 x 50 mm screw was placed in the left L5 pedicle, avoiding in the remainder of the previous placed pedicle screw. Then a 6.5 x 40 me screw was inserted in the right S1 pedicle and a 7.5 x 40 mm screw left S1 pedicle. The pedicle screws were connected with a 40 mm reginaldo. The posterolateral gutter was decorticated and a mixture of allograft was laid down in the posterolateral gutter to complete the L5-S1 posterolateral fusion. Hemostasis was done. The paramedian incisions were closed with an 0 Vicryl to fascia and 3-0 Vicryl to subdermal layer. Steri-Strips were used to approximate the incision. An OpSite with Tegaderm was used to cover the incisions. All sponge and needle counts were correct. The patient was extubated and transported in stable condition to recovery room. Anesthesia: General Estimated Blood Loss (ml): 400 mL Duration of Surgery: 4 hrs Complications: None Postoperative Plan: Admit to inpatient for observation
[2023-07-08] MEDS: Ketorolac Tromethamine 15 MG/ML VIAL IVPUSH (18:36)
[2023-07-08] MEDS: Acetaminophen 1,000 MG/100 ML PIGGYBACK 400 MG IV (18:36)
[2023-07-08] MEDS: oxyCODONE HCl Immed Release 5 MG TABLET 10 MG PO ×2 (18:36→22:16)
[2023-07-08] MEDS: 0.9 % Sodium Chloride 1,000 ML 75 ML IVCONT (18:36)
[2023-07-08] MEDS: Baclofen 10 MG TABLET PO ×2 (18:47→22:16)
[2023-07-08] MEDS: Docusate Sodium 100 MG CAPSULE PO (22:16)
[2023-07-08] MEDS: Gabapentin 600 MG TABLET PO (22:16)
[2023-07-08] MEDS: Montelukast Sodium 10 MG TABLET PO (22:16)
[2023-07-08] MEDS: ceFAZolin Sodium/Dextrose,Iso 2 GM/50 ML PIGGYBACK IV (22:17)
[2023-07-09 00:01] VITALS: BP 107/68; PULSE 65; RESP 16; TEMP 37.7; O2SAT 97
[2023-07-09] MEDS: Ketorolac Tromethamine 15 MG/ML VIAL IVPUSH ×3 (00:06→12:48)
[2023-07-09] MEDS: Acetaminophen 1,000 MG/100 ML PIGGYBACK 400 MG IV ×3 (00:09→12:47)
[2023-07-09 00:39] VITALS: RESP 18
[2023-07-09] MEDS: ceFAZolin Sodium/Dextrose,Iso 2 GM/50 ML PIGGYBACK IV ×2 (03:54→11:07)
[2023-07-09 04:00] VITALS: BP 105/56; PULSE 64; RESP 16; TEMP 36.4; O2SAT 96
[2023-07-09] MEDS: oxyCODONE HCl Immed Release 5 MG TABLET 10 MG PO ×2 (04:04→09:16)
[2023-07-09] MEDS: Baclofen 10 MG TABLET PO ×2 (06:12→11:07)
[2023-07-09 07:17] VITALS: BP 99/55; PULSE 65; RESP 18; TEMP 36.3; O2SAT 96
--- NOTE | 2023-07-09 07:43 | HO.NEURO.PN ---
Neurosurgery Operative Note Date of Service: 07/09/23 Narrative: Postop day 1. L5-S1 revision of anterior lumbar interbody fusion, with revision of posterior instrumentation and placement pedicle screws at L5-S1 Patient resting comfortably overnight, denies any significant back pain. Denies any radicular pain down the legs, still has the burning on the top of his feet which he has had for years. Denies any abdominal pain, he has been tolerating clear liquids okay. He has not passing any gas. He still has Cruz catheter in place. He was able to get up and walk around the hallways last night. Afebrile, vital signs stable Physical exam: Patient is awake alert oriented resting comfortably in bed, he has full strength of bilateral lower extremities. Abdomen is obese, mildly distended but nontender. He has bowel sounds, no rebound tenderness or guarding. He has a midline abdominal incision which is clean and dry, closed with Steri-Strips which is intact. Back dressings have some staining on them, no signs of active bleeding. Impression: Postop day 1. L5-S1 revision of anterior lumbar interbody fusion with revision of posterior instrumentation placement of pedicle screws at L5-S1, clinically surprisingly doing very well in terms of his pain control. He has already been up walking around. He has been tolerating clear liquids. We will advance him to regular diet. We will discontinue his Cruz catheter today as well. We did make him aware that he had 1.2 L of urine in his bladder at the time of the Cruz placement intraoperatively and that he is high risk for urinary retention. He is already on Flomax. He does have a urologist. We will check postvoid residuals and if he is consistently retaining, we will replace the Cruz and have him follow up with Urology for a voiding trial in 7-10 days. We will see how it goes later today to see if he is ready for discharge. Patient seen at bedside with Dr. Tellez.
[2023-07-09 07:45] VITALS: PULSE 74; RESP 18; O2SAT 98
[2023-07-09] MEDS: Fluticasone/Vilanterol 200/25 BLST.W.DEV 1 PUFF INHALE (07:45)
[2023-07-09] MEDS: Tiotropium Bromide 2.5 mcg 1 PUFF/2.5 MCG MIST.INHAL 2 PUFF INHALE (07:45)
--- NOTE | 2023-07-09 07:59 | PC.NURSE ---
Cruz catheter removed at 0755. Unit intact upon removal. Bladder scanned for 15mL. Patient tolerated well. Due to void by 1355. Zulma-care provided.
[2023-07-09] MEDS: Docusate Sodium 100 MG CAPSULE PO (08:43)
[2023-07-09] MEDS: Cholecalciferol (Vitamin D3) 25 MCG TABLET 50 MCG PO (08:43)
[2023-07-09] MEDS: Metoprolol Succinate ER 25 MG TAB.ER.24H PO (08:43)
[2023-07-09] MEDS: Escitalopram Oxalate 10 MG TABLET PO (08:43)
[2023-07-09] MEDS: Gabapentin 600 MG TABLET PO (08:43)
[2023-07-09] MEDS: Loratadine 10 MG TABLET PO (08:43)
--- NOTE | 2023-07-09 10:30 | MHC.CM.PN ---
Addendum entered by Valarie Lindo RN 07/09/23 13:29: Patient is medically cleared for dc home self care. Original Note: IMM DELIVERED. PATIENT IS FROM HOME ALONE. INDEPENDENT W/ ADL'S. AMBULATES W/ WALKER. DENIES USE OF ANY SERVICES. PCP NEHAL Velasco + HCP ON FILE, COUSIN CARISSA IS AGENT, VERIFIED W/ PATIENT DP: PT REC HOME, OUTPATIENT PT. PATIENT'S COUSIN TO TRANSPORT HOME. CM WILL CONTINUE TO FOLLOW.
--- NOTE | 2023-07-09 12:34 | PC.NURSE ---
Addendum entered by Ayan Clemens RN 07/09/23 12:43: Correction- patient voided for 200mL, not 100mL, of clear yellow urine with a PVR of 196mL. Original Note: Patient was due to void by 1400 post kaplan removal. At 1200- patient voided for 100mL of clear yellow urine. PVR 196mL. Patient denied pain with voiding and reports feeling at his baseline. Provider Jose Chaudhry notified.
--- NOTE | 2023-07-09 13:16 | P.DS_ITS ---
DS: Providers Provider Date of Service: 07/08/23 Date of admission: 07/08/23 08:29 Date of discharge: 07/09/23 Primary care physician: Unknown Physician Admitting clinician: Bryant Tellez DS: Diagnosis Discharge Diagnosis (1) Lumbar radiculopathy, chronic: Status: Acute DS: Summary Time Attestation Discharge Coordination Time (in mins): 10 Quality: Safe Use of Opioids Does Pt have an Active Cancer Diagnosis on the Problem List?: No Quality: Stroke Does the patient have a stroke diagnosis?: No Physical Exam Vital Signs: Vital Signs: Last Vital Signs Temp 97.4 F 07/09/23 07:17 Pulse 74 07/09/23 07:45 Resp 18 07/09/23 07:45 BP 99/55 L 07/09/23 07:17 Pulse Ox 96 07/09/23 07:17 O2 Del Method Room Air 07/09/23 07:17 O2 Flow Rate 2 07/08/23 18:28 BMI result Body Mass Index 27.9 DS: Data Data Completed and Pending Completed studies during hospitalization [Text1]: Procedures Excision of Lumbosacral Disc, Open Approach (03/11/23) Fusion of Lumbosacral Joint with Interbody Fusion Device, Anterior Approach, Anterior Column, Open Approach (03/11/23) Insertion of Interspinous Process Spinal Stabilization Device into Lumbosacral Joint, Open Approach (03/11/23) Discharge Plan Discharge Anticipated Discharge Date/Time: 07/09/23 13:17 Patient Disposition: Home, Self-Care Discharge Diagnosis: s/p revision of L5-S1 fusion Referrals: Physician,Unknown J [Primary Care Provider] - 1 Week Discharge Medications: New docusate sodium [Colace] 100 mg capsule 100 mg PO BID Qty: 20 0RF oxycodone 5 mg tablet See Rx Instructions .ROUTE .COMPLEX PRN (Reason: pain) Qty: 40 0RF Rx Instructions: 1-2 tabs po q 4 hours prn pain; Partial Fill upon patient request. ibuprofen 600 mg tablet 600 mg PO TID Qty: 60 0RF Continued methocarbamol 750 mg tablet 750 mg PO Q8H PRN (Reason: muscle spasm) 30 Days Qty: 90 5RF albuterol sulfate 2.5 mg /3 mL (0.083 %) solution for nebulization 2.5 mg inhalation QID Incruse Ellipta 62.5 mcg/actuation blister with device 1 inh inhalation DAILY albuterol sulfate 90 mcg/actuation HFA aerosol inhaler 2 puff INHALATION Q6H PRN (Reason: Shortness Of Breath Or Wheezing) Repatha SureClick 140 mg/mL pen injector 140 mg subcut Q2W fluticasone propionate 50 mcg/actuation spray,suspension 1 - 2 spray intranasal DAILY PRN (Reason: Allergy Symptoms) escitalopram oxalate 10 mg tablet 10 mg PO DAILY hydroxyzine HCl 25 mg tablet 50 mg PO BEDTIME PRN (Reason: Anxiety) metoprolol succinate 25 mg tablet extended release 24 hr 25 mg PO DAILY tamsulosin 0.4 mg capsule 0.4 mg PO DAILY@1700 icosapent ethyl [Vascepa] 1 gram capsule 2 g PO BID aspirin [Adult Low Dose Aspirin] 81 mg tablet,delayed release (DR/EC) 81 mg PO DAILY nitroglycerin 0.4 mg tablet, sublingual 0.4 mg sublingual Q5M PRN (Reason: Chest Pain) Rx Instructions: do not exceed 3 doses per episode montelukast 10 mg tablet 10 mg PO BEDTIME fluticasone furoate-vilanterol [Breo Ellipta] 100-25 mcg/dose blister with device 1 ea inhalation DAILY cetirizine 10 mg tablet 10 mg PO DAILY budesonide-formoterol 160-4.5 mcg/actuation HFA aerosol inhaler 1 puff inhalation BID baclofen 10 mg tablet 10 mg PO 5XD 30 Days Qty: 150 3RF gabapentin 600 mg tablet 600 mg PO TID 30 Days Qty: 90 3RF cholecalciferol (vitamin D3) 50 mcg (2,000 unit) capsule 50 mcg PO DAILY Discharge Orders: Discharge Order (Routine); Ordered 07/09/23 Ordered By: Jose Chaudhry Diet: Advance to usual diet Activity on Discharge: As tolerated Stand Alone Forms: Patient Portal Discharge page Activity Restrictions/Additional Instructions: After your spinal surgery we ask you to observe the following rest rictions/guidelines: Activity: It is normal to feel some discomfort as you increase your activity, but that will improve with time. We ask you avoid heavy lifting or acitivities that cause pain. As a general rule, 8lbs is a safe limit for lifting right after surgery. Walk as much as you feel comfortable but not to exhaustion. You will feel extra tired the first few days after surgery. Stay well hydrated. It is OK to walk up and down stairs You may return to driving when you are off narcotics (such as vicodin, oxycodone, dilaudid, etc), and you are back to normal functional capacity. If you have any concerns please check with office before driving. Return to work is specific to each patient and each surgery, so please speak with your doctor/PA at first follow up. Please bring paperwork such as FMLA at that time if you need it filled out. Medications: For optimum pain control, it is best to start with a combination of 500 mg of Tylenol every 4 hours with 600 mg of Motrin every 8 hours, and use narcotics as needed in between for breakthrough pain. We will give you a short supply of narcotics after surgery (usually one weeks worth). If you need more please call the office but do not use more than prescribed. You will need to give our office 48 hours notice if you need narcoti cs refilled and we do not fill narcotics on weekends or evenings. If you are on a narcotic, it is a good idea to take a stool softener such as colace or senna to avoid constipation If you take blood thinner such as aspirin, Plavix, Coumadin, Effient, Eliquis etc for conditions such as Afib, DVT, Pulmonary embolus, coronary disease, stents etc please speak with your surgeon about specific details as to when you can resume these medications. You can resume NSAIDs on post op day 1 (eg: Motrin, Naproxen, etc). Follow up: Please call the office, , after surgery to arrange a 3 we ek follow up for wound check. Wound Care: You may remove your dressing on the first day after surgery. ?You may ?leave open to air. Please do not remove the steri strips underneath. they will fall off on their own in one week. IT IS NORMAL FOR THE WOUND TO OOZE OR BE BLOODY FOR A FEW DAYS AFTER SURGERY. ?IF THIS HAPPENS JUST PLACE NEW DRESSING OVER IT TO AVOID STAINING CLOTHES. You may shower on post op day # 1 We ask that you do not let the water soak the wound. If it does get wet, just towel dry lightly. Please do not scrub your incision or place any type of chemical/ointment on the wound. No tub baths, pools or jacuzzis for one month. If you have any leaking or redness from your wound, or fevers, please call office Care Plan Goals: Discharge home Health Concerns: None Plan of Treatment: Discharge home Assessment: Stable
--- NOTE | 2023-07-09 14:29 | HO.POSTANES ---
Post Anesthesia Evaluation Post Anesthesia Evaluation Date of Service: 07/09/23 Vital Signs: Vital Signs Temp Pulse Resp BP Pulse Ox O2 Del Method 07/09/23 07:45 74 18 07/09/23 07:17 97.4 F 65 18 99/55 L 96 Room Air 07/09/23 04:00 97.6 F 64 16 105/56 L 96 Room Air Anesthesia: General Endotracheal-GETA Mental Status: Awake Pain Control: Satisfactory Nausea/Vomiting: None Hydration: Adequate Anesthesia-Related Issues: No Anes. Related Issues
== END 2023-07-09 14:47 | disposition home or self-care (01) | DRG 460 ==
LOC: HO.SSSA 08:35 → HO.S3 18:03
PROVIDERS: Neurological Surgery; Admitting Provider Physician Assistant; PCP Physician Assistant; Visit Provider Physician Assistant
PROC: 0SG30A0 Fusion of Lumbosacral Joint with Interbody Fusion Device, Anterior Approach, Anterior Column, Open Approach (ICD-10-PCS; principal; 2023-07-08 10:40)
DX: T84.296A Other mechanical complication of internal fixation device of vertebrae, initial encounter (principal); M96.1 Postlaminectomy syndrome, not elsewhere classified; I25.10 Atherosclerotic heart disease of native coronary artery without angina pectoris; J44.9 Chronic obstructive pulmonary disease, unspecified; Z79.51 Long term (current) use of inhaled steroids; Z79.82 Long term (current) use of aspirin; Z79.899 Other long term (current) drug therapy
CPT/HCPCS: 72020; 86850; 86900; 86901; 94640; 97161; C1713; C1758; J0131; J0690; J1170; J1885; J2250; J2704; J3010; L8699

== ENCOUNTER → 2023-07-08 08:29 | Outpatient (BNV) | payer OTHER, SELFPAY | PROVIDERS: Admitting Provider Physician Assistant; Visit Provider Surgery | DX: T84.226A Displacement of internal fixation device of vertebrae, initial encounter (principal); T84.296A Other mechanical complication of internal fixation device of vertebrae, initial encounter; M96.1 Postlaminectomy syndrome, not elsewhere classified | CPT/HCPCS: 20930; 22558; 22612; 22840; 22853; 99024; 99499 ==

== ENCOUNTER 2023-07-31 13:50 | Outpatient (AMB) | payer OTHER, SELFPAY ==
--- NOTE | 2023-07-31 13:56 | A.SPINEOV_ITS ---
Intake Intake Visit Reasons: 1st post op Intake Note: Mr. Byrd is here today for 1st post-op. 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 To recap he recently had a revision surgery of his L5-S1 ALIF in which the anterior plate was removed and posterior instrumentation was placed. He reports he is very satisfied with the surgery and feels much better than he did after his last surgery. He is up, walking around with a cane, and completing the majority of his ADLs. He reports that he no longer suffers from his left-sided shooting radiculopathy. He still reports mild pain, with good relief with pain medication. No new neurologic deficits. Patient is able to ambulate well with assistance of a cane, rises from a seated position without difficulty. Incision sites are closed, well healing, with no signs of drainage. We will follow-up with the patient in 6 weeks for his 2nd postoperative visit. At that time we will get x-rays to review with the patient. I refilled his oxycodone during this visit. Garrison Tellez MD,PhD [facility] Medications: Refilled oxycodone 5 mg PO Q4-6H PRN 30 tabs 0RF severe pain (scale score 7-10) Coding Level of Care Code Global (57189) Diagnoses Lumbago M54.50
== END 2023-07-31 14:09 | disposition home or self-care (01) ==
PROVIDERS: PCP Physician Assistant; Visit Provider Physician Assistant
DX: M54.50 Low back pain, unspecified (principal)
CPT/HCPCS: 99024

== ENCOUNTER → 2023-07-31 13:50 | Outpatient (BNVA) | payer OTHER, SELFPAY | PROVIDERS: PCP Physician Assistant; Visit Provider Physician Assistant | DX: Z47.89 Encounter for other orthopedic aftercare (principal); M54.50 Low back pain, unspecified; Z98.890 Other specified postprocedural states | CPT/HCPCS: 99212 ==

== ENCOUNTER 2023-09-11 15:20 | Outpatient (REF) | payer OTHER, SELFPAY | END 2023-09-11 15:21 | disposition home or self-care (01) | LOC: HO.HOSX 15:20 | PROVIDERS: Visit Provider Physician Assistant | DX: Z13.89 Encounter for screening for other disorder (principal) ==

== ENCOUNTER 2023-09-12 08:33 | Outpatient (AMB) | payer OTHER, SELFPAY ==
--- NOTE | 2023-09-12 08:55 | HO.SPINEOV ---
Intake Visit Reasons: 2ndpost op with Xrays Intake Note: Mr. Byrd is here today for his 2nd post-op appointment with x-rays. 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 He continues to heal well from his surgery and makes steady but slow progress. He continues to report resolution of his lumbar radiculopathy. He did say he is upset with his progress thus far and feels he should be much farther along in his healing. I encouraged him that he is doing well given that he had to lumbar surgeries in the past few months. He does still have quite a bit of tenderness in his low back, and states that it feels like his muscles cramp up at times. We discussed how this is likely a result of postoperative inflammation/healing, as he had a subsequent revision surgery after his initial lumbar fusion. He was encouraged to continue completing basic ADLs and walking every day. This is the best thing he can do for his postoperative healing at this time. No new neurologic deficits. Patient is able to ambulate well with assistance of a cane, rises from a seated position without difficulty. Anterior and posterior incision sites are well healed. We will follow-up with the patient in 2 months for a subsequent follow-up visit to ensure that he continues to heal well. At that time we will get x-rays again to review with the patient. We discussed the possibility of starting physical therapy after his next follow-up if he continues to feel as though he has not healing at a satisfactory pace. Garrison Tellez MD,PhD [facility] Orders: Orders XR lumbar spine 4V min Today Z98.1 - Arthrodesis status Coding Level of Care Code Global (81087) Diagnoses S/P spinal fusion Z98.1
== END 2023-09-12 09:20 | disposition home or self-care (01) ==
PROVIDERS: PCP Physician Assistant; Visit Provider Physician Assistant
DX: Z98.1 Arthrodesis status (principal)
CPT/HCPCS: 99024

== ENCOUNTER → 2023-09-12 08:33 | Outpatient (BNVA) | payer OTHER, SELFPAY | PROVIDERS: PCP Physician Assistant; Visit Provider Physician Assistant | DX: Z98.1 Arthrodesis status (principal) ==

== ENCOUNTER 2023-09-12 08:34 | Outpatient (REF) | payer OTHER, SELFPAY ==
--- NOTE | ~2023-09-12 | XR_ITS ---
EXAMINATION: XR LUMBOSACRAL SPINE WITH FLEXION AND EXTENSION VIEWS CLINICAL INFORMATION: Arthrodesis status COMPARISON: Lumbar spine 07/08/2023 TECHNIQUE: Standing AP and lateral views of the lumbar spine. Standing Lateral flexion and extension views. FINDINGS: The bones are diffusely demineralized. There are posterior rods and screws with adjoining fusion rods at L5-S1. There is an anterior plate and screws seen at L5-S1. Disc spacers are seen at L3-L4, L4-L5 L5 and L5-S1. Hardware appears intact. There is degenerative disc disease at L2-L3, L3-L4 and L4-L5. There is multilevel degenerative facet joint disease. Calcification of the lower abdominal aorta without evidence of aneurysmal dilatation. XR/XR lumbar spine 4V min IMPRESSION: Posterior fusion at L5-S1 and anterior fusion at L5-S1. Hardware appears intact.
== END 2023-09-12 08:35 | disposition home or self-care (01) ==
LOC: HO.HOSX 08:34
PROVIDERS: Visit Provider Physician Assistant
DX: Z48.89 Encounter for other specified surgical aftercare (principal); Z98.1 Arthrodesis status
CPT/HCPCS: 72110; 99212

== ENCOUNTER 2023-11-14 08:18 | Outpatient (REF) | payer OTHER, SELFPAY ==
--- NOTE | ~2023-11-14 | XR_ITS ---
EXAMINATION: XR LUMBOSACRAL SPINE WITH OBLIQUES CLINICAL INFORMATION: Arthrodesis COMPARISON: 09/12/2023 TECHNIQUE: AP and lateral views of the lumbar spine. Flexion and extension views. FINDINGS: Patient is status post posterior and anterior fusion at the level of L5-S1 with interbody spacer in stable position. 2 other spacers seen with stable position of marker seen at the level of L4-L5 and L3-L4. There is straightening of lumbar lordosis with narrowing of L5 L4, L4 L3, L3 L2. There is no instability on flexion or extension views and hardware in good position. XR/XR lumbar spine 4V min IMPRESSION: No interval change
== END 2023-11-14 08:19 | disposition home or self-care (01) ==
LOC: HO.HOSX 08:18
PROVIDERS: PCP Physician Assistant; Visit Provider Physician Assistant
DX: Z98.1 Arthrodesis status (principal)
CPT/HCPCS: 72110

== ENCOUNTER 2023-11-14 08:18 | Outpatient (AMB) | payer OTHER, SELFPAY ==
--- NOTE | 2023-11-14 08:49 | A.SPINEOV_ITS ---
Intake Visit Reasons: 2 month follow up with xrays Intake Note: Mr. 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 He has about 4 months out from surgery and continues to report low back pain and cramping in his bilateral legs. He also has some shooting pains down to his left lateral calf. In addition to this, he states he gets sharp pains in his left leg when placing full weight on his left foot. This has caused him to begin walking on the side of his foot versus the sole. His x-rays appear stable to previous imaging. I will review the x-rays with Dr. Tellez today, but do not suspect any changes. Due to his continued pain and protracted postoperative healing course I would like to send him for a specified course of physical therapy. In the order I specifically requested no excessive heavy lifting or bending/twisting. I would like him to engage with a physical therapist for gentle range of motion/stretching/walking. After this is completed, it would be good for him to follow-up with Dr. Tellez No new neurological deficits, the patient ambulates with the assistance of a cane. He is well-appearing, but does elicit pain with ambulation. A physical therapy order was placed for Jaya. He will follow up in the clinic with Dr. Tellez after this to discuss his symptoms. Garrison Tellez MD,PhD [facility] Orders: Orders XR lumbar spine 4V min Today Z98.1 - Arthrodesis status PT Evaluation and Treatment Today Z98.1 - Arthrodesis status Coding Level of Care Code Global (62626) Diagnoses S/P spinal fusion Z98.1
== END 2023-11-14 09:35 | disposition home or self-care (01) ==
PROVIDERS: PCP Physician Assistant; Visit Provider Physician Assistant
DX: Z98.1 Arthrodesis status (principal)
CPT/HCPCS: 99213

== ENCOUNTER 2024-01-09 09:00 | Outpatient (RCR) | payer OTHER, SELFPAY ==
--- NOTE | 2023-12-02 11:11 | MHC.PT.EP ---
[facility] [place] Office [place] Office [place] Office [address] Mauricio Campos [address] [phone] F: [phone] F: [phone] F: [phone] F: [phone] Physical Therapy Plan of Care Date of Evaluation: 12/02/23 Date of Surgery: 07/08/23 Diagnosis: arthrodesis status S/p spinal fusion Assessment: 68 y/o male s/p L5-S1 revision of anterior lumbar interbody fusion with revision of posterior instrumentation placement of pedicle screws at L5-S1 on 07/08/23. He has a long hx of chronic neck and back pain with 11 surgeries since ?1995 with fusion of C3-5 and L3-S1. Most recent surgery was a revision from lumbar fusion 02/2023. PMH also significant for AAA (monitoring), MA 2017, COPD, cervical myelopathy. Currently he reports pain and difficulty with everything such as standing, sitting, walking, stairs, chores, dressing, sleeping and mowing the lawn. 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 States compliance with precautions - no lifting > gallon of milk, avoid bending, no twisting and avoid quick movements. REcommend PT 2x/week for 6 weeks to address impairments, implement HEP and optimize functional mobility. Examination shows decreased lumbar and hip AROM, decrease B LE and core strength, poor pelvic stability, impaired balance, decreased sensation R LE, 7 beats of clonus, and impaired gait pattern. Educated pt on pain cycle and management, back precautions from surgery, pacing, and recommend pt look into mental health therapist (he is adamantly against a therapist). Frequency and Duration: The patient will be seen 2x/week for 5 weeks Short Term Goals: 3 weeks I with HEP Pt will reports 25% decrease in pain with ADL's (12/06) I with log rolling without cues Inspector And Clerk Goals: 6 weeks I with HEP and self management of sx Pt will be able to ambulate > 15 minutes with pain < 4/10 and use of cane Pt will be able to wash dishes with pain < 3/10 Treatment Plan: Modalities to reduce pain, spasms and effusion. Manual therapy to restore motion and function. Therapeutic exercise to improve strength and flexibility. Neuromuscular re-education for posture and balance. Therapeutic activities to return to functional activities of daily living. Electronically signed by: Carolina Ashton PT Please sign and return to therapist. Thank you for your referral.
--- NOTE | 2024-02-03 09:29 | MHC.PT.DC ---
[facility] [place] Office [place] Office [place] Office [address] Mauricio Campos [address] [phone] F: [phone] F: [phone] F: [phone] F: [phone] Physical Therapy Discharge Report Diagnosis: arthrodesis status S/p spinal fusion Date of Surgery: 07/08/23 Date of Evaluation: 12/02/23 Date of Discharge: 02/03/24 Treatments to Date: 10 Cancellations to Date: 0 No Shows to Date: 0 Discharge Status: Independent with HEP Recommend MD Follow-up Discharge Summary: Pt has made some progress in regards to functional mobility able to walk and stand for slightly longer periods. He continues with back and leg pain however and will f/u with surgeon. Educated pt on performing HEP and avoiding complete bed rest when his back is flared up, instead to perform smaller range of mat exercises to tolerance to assess if this helps decrase pain and stiffness. D/c at this time and pt to f/u with surgeon Electronically signed by: Carolina Ashton PT Please sign and return to therapist. Thank you for your referral.
== END 2024-02-03 09:29 | disposition home or self-care (01) ==
LOC: HO.PTCHIC 09:00
PROVIDERS: PCP Physician Assistant; Visit Provider Physician Assistant
DX: Z98.1 Arthrodesis status (principal)
CPT/HCPCS: 97110; 97140; 97163

== ENCOUNTER 2024-01-10 14:24 | Outpatient (AMB) | payer OTHER, SELFPAY ==
--- NOTE | 2024-01-10 14:40 | HO.SPINEOV ---
Intake Visit Reasons: f/up after PT Intake Note: Mr. Byrd is here today to F/u after PT. 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 He is status post anterior lumbar interbody fusion L5-S1 and a revision surgery where posterior instrumentation was added. The initial surgery was approximately 10 months ago. He states that he is still having pain radiating into the bilateral legs in an L5 dermatome. The symptoms occur with walking and standing. Sitting down or laying alleviates his symptoms. He ambulates with a cane in a flexed antalgic position with short steps. There are no neurological deficits on individual testing of the muscles. This patient remains suffering from neurogenic claudication most likely from ongoing L5 foraminal stenosis. I would like to obtain a CT of the lumbar spine to assess the L5 foramina. He will make a new appointment with me after the CT scan is done. I spent 20 minutes in his consult to review imaging and discussing plan of care. Bryant Tellez MD, PhD Spine Fellowship Trained Neurosurgeon Director, [facility] Orders: Orders CT lumbar spine wo IV con Today R29.818 - Other symptoms and signs involving the nervous system, Z98.1 - Arthrodesis status Coding Level of Care Code Est Pt Level 3 (13378) Diagnoses S/P spinal fusion Z98.1 Neurogenic claudication R29.818
== END 2024-01-10 15:33 | disposition home or self-care (01) ==
PROVIDERS: PCP Physician Assistant; Visit Provider Neurological Surgery
DX: Z98.1 Arthrodesis status (principal); R29.818 Other symptoms and signs involving the nervous system
CPT/HCPCS: 99213

== ENCOUNTER → 2024-01-10 14:24 | Outpatient (BNVA) | payer OTHER, SELFPAY | PROVIDERS: PCP Physician Assistant; Visit Provider Neurological Surgery | DX: R29.818 Other symptoms and signs involving the nervous system (principal); Z98.1 Arthrodesis status | CPT/HCPCS: 99212 ==

== ENCOUNTER 2024-02-03 07:23 | Outpatient (REF) | payer OTHER, SELFPAY ==
--- NOTE | ~2024-02-03 | CT_ITS ---
EXAMINATION: CT LUMBAR SPINE WITHOUT CONTRAST CLINICAL INFORMATION: Neurogenic claudication, spinal fusion. COMPARISON: CT dated May 07, 2023. TECHNIQUE: Contiguous axial images through the lumbar spine from T12 to S1 using 2 mm collimation with bone and soft tissue algorithm. Sagittal and coronal reformatted images acquired. This CT examination was performed using dose optimization techniques as appropriate, variously including the following: *Automated exposure control *Adjustment of mA and/or kV according to patient size (this includes techniques or standardized protocols for targeted exams where dose is matched to indication/reason for exam; i.e. extremities or head) *Use of iterative reconstruction technique DLP; 642 mGy-cm FINDINGS: Submitted for interpretation on March 10, 2024. Left rib-bearing vertebra labeled T12. Status post anterior fusion with the metallic screws and a plate at L5-S1. Status post posterior fusion with transpedicular screws at L5 and S1 bilaterally. Status post intervertebral disc spacer placement at L5-S1 which remains within the vertebral bodies margins. Transpedicles lucency at L3 likely related to prior hardware. Posterior Marginal osteophyte formation and syndesmophyte formation at L3-4 Intervertebral disc spacers at L3-4 and L4-5 likely extending beyond the posterior margins of the vertebral bodies and into the central spinal canal. No acute fracture. No gross listhesis. Multilevel marginal osteophyte formation and endplate sclerosis and decreased intervertebral disc from L2-3 to L4-5. T12-L1: No central spinal canal stenosis. L1-2: Broad-based disc bulging. Facet joint hypertrophy. No central spinal canal stenosis. L2-3: Broad-based disc bulging. Facet joint and ligamentum flavum hypertrophy. Reduced AP diameter of the central spinal canal and the neural foramina. L3-4: Left hemilaminectomy. Posterior marginal osteophyte formation and protrusion of the intervertebral disc spacer. L4-5: Left hemilaminectomy. Protrusion posteriorly of the intervertebral disc spacer. L5-S1: Bilateral neuroforamina narrowing/stenosis on a multifactorial basis. Unable to evaluate the central spinal canal. Mixed plaques throughout the abdominal aorta wall. There is a 3.8 cm diameter of the distal abdominal aorta at the bifurcation. CT/CT lumbar spine wo IV con IMPRESSION: Status post correction of the position of the intervertebral disc spacer at L5-S1. Posterior migration of the intervertebral disc spacers at L3-4 and L4-5 levels, unchanged. Multilevel lumbar spondylosis more conspicuous at L2-3 and L4-4-5 levels. 3.8 cm saccular aneurysm, distal abdominal aorta. Electronically signed by: Des Gomez MD 03/10/2024 03:04 PM SU[facility]
== END 2024-02-03 07:24 | disposition home or self-care (01) ==
LOC: HO.CT 07:23
PROVIDERS: PCP Physician Assistant; Visit Provider Neurological Surgery
DX: R29.818 Other symptoms and signs involving the nervous system (principal); Z98.1 Arthrodesis status
CPT/HCPCS: 72131

== ENCOUNTER → 2024-02-03 07:26 | Outpatient (BNV) | payer OTHER, SELFPAY | PROVIDERS: PCP Physician Assistant; Visit Provider Radiology Diagnostic Radiology | DX: M48.062 Spinal stenosis, lumbar region with neurogenic claudication (principal) | CPT/HCPCS: 72131 ==

== ENCOUNTER 2024-02-07 13:33 | Outpatient (AMB) | payer OTHER, SELFPAY ==
--- NOTE | 2024-02-07 13:40 | HO.SPINEOV ---
Intake Visit Reasons: CT results Intake Note: Mr. Byrd is here today to F/u on his CT results. CT done at [facility] Resident Care Manager Required: No Allergies environmental allergies Allergy (Intermediate, Verified 02/07/24 14:04) SOB, watery eyes cyclobenzaprine Adverse Reaction (Intermediate, Verified 02/07/24 14:04) palpatations Assessment & Plan Assessment & Plan (1) Failed back syndrome: Code(s): M96.1 - Postlaminectomy syndrome, not elsewhere classified Category: Medical Plan Dear colleague, On 02/07/2024, I saw for follow-up Shabbir Byrd. He continues to complain of pain that starts on the left side of his back and then radiates down both legs with the right side is more affected than the left side to the outside of his lower legs. I repeat imaging to see if he had ongoing L5 foraminal stenosis explaining his symptoms. The CT scan was reviewed by myself and I do not see significant L5 foraminal stenosis. I diagnosed him with failed back syndrome and I will refer him to pain management to see if he is a candidate for spinal cord stimulator. I spent 20 minutes in his consult to review imaging and to discuss plan of care. Bryant Tellez MD, PhD Spine Fellowship Trained Neurosurgeon Director, [facility] Orders: Referrals Pain Management Referral M96.1 - Postlaminectomy syndrome, not elsewhere classified Coding Level of Care Code Est Pt Level 3 (72611) Diagnoses Failed back syndrome M96.1
== END 2024-02-07 14:46 | disposition home or self-care (01) ==
PROVIDERS: PCP Physician Assistant; Visit Provider Neurological Surgery
DX: M96.1 Postlaminectomy syndrome, not elsewhere classified (principal)
CPT/HCPCS: 99213

== ENCOUNTER → 2024-02-07 13:33 | Outpatient (BNVA) | payer OTHER, SELFPAY | PROVIDERS: PCP Physician Assistant; Visit Provider Neurological Surgery | DX: M96.1 Postlaminectomy syndrome, not elsewhere classified (principal) | CPT/HCPCS: 99212 ==

== ENCOUNTER → 2024-02-24 09:13 | Outpatient (BNVA) | payer OTHER, SELFPAY | PROVIDERS: PCP Physician Assistant; Visit Provider Nurse Practitioner Family | DX: M54.16 Radiculopathy, lumbar region (principal); M96.1 Postlaminectomy syndrome, not elsewhere classified; G89.4 Chronic pain syndrome; Z98.1 Arthrodesis status | CPT/HCPCS: 99212 ==

== ENCOUNTER 2024-02-24 11:58 | Outpatient (AMB) | payer OTHER, SELFPAY ==
--- NOTE | 2024-02-24 09:15 | MHC.OFFVIS ---
Vital Signs 02/24/24 09:25 Height 5 ft 9 in Weight 190 lb BMI 28.1 BP 129/80 Blood Pressure Location Lt brachial Position Sitting Pulse 71 Pulse Source Pulse Oximeter Pulse Oximetry (%) 98 Oxygen Delivery Method Room Air Intake Visit Reasons: Postlaminectomy syndrome Intake Note: Pain today while sitting 06/08, walking/standing 12/06. 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 He was referred to us by Dr. Tellez for potential SCS trial and implant. Patient reports significant frustration towards previous back surgeries and most recent lumbar fusion in June [address] Tellez. He is upset with recent diagnosis of failed back syndrome. Back pain starts on his left side of the lower back with radiation into his lower back and into his lower extremities, worse on the left than right. Patient reports minimal to no pain while he sitting, resting or laying down but significant increase in pain with walking, standing or getting up from sitting to standing. He reports minimal benefit with methocarbamol, baclofen, gabapentin. Neuromodulation with SCS or ITDD trials vs implants has been previously discussed with patient in 2021 and 2022 which patient declined at that time. The trialed and failed therapy has been reviewed again with the patient. Discussed the risks, consequences, alternatives, and benefits of various treatment options were discussed with the patient in great detail. Upon Psychology clearance discussion, patient became very upset and aggressive during the visit and was frustrated why he would need to undergo Behavioral evaluation as well as status of the order itself. We also discussed Caudal ABDULLAHI injection with catheter while awaiting SCS trial. Denies any recent cough, cold, infection, fever or other significant changes in medical history since last office visit. [facility] Dr. Tellez 02/07/24: On 02/07/2024, I saw for follow-up Shabbir Byrd. He continues to complain of pain that starts on the left side of his back and then radiates down both legs with the right side is more affected than the left side to the outside of his lower legs. I repeat imaging to see if he had ongoing L5 foraminal stenosis explaining his symptoms. The CT scan was reviewed by myself and I do not see significant L5 foraminal stenosis. I diagnosed him with failed back syndrome and I will refer him to pain management to see if he is a candidate for spinal cord stimulator. PRIOR: Patient presents today via telehealth encounter for follow up and medication refill for baclofen and gabapentin. Patient reports he underwent L5-S1 ALIF on 03/11/[address] Tellez. He also had previous L3-L5 fusion done at another institution. Patient reports ongoing post-op pain since back surgery in February. Patient reports progressive and worsening walking instability and has been holding his breath while walking due to significant pain. He reports being prescribed oxycodone post-operatively that only allowed him to sleep through the night. However, his pain during the day has been unbearable. He reports using a walker since back surgery and feels unsteady. Reports bilateral leg pain with associated numbness, tingling and significant cramping. Patient reports he has been taking baclofen, alternating it with methocarbamol at times and gabapentin with continued symptoms. He went to ER in March 2023 for significant low back pain. Patient reports he completed lumbar spine CT scan last month and is scheduled to undergo revision of lumbar fusion on 07/08/23. CT scan lumbar spine results are noted below. Patient denies any fever, weight loss, dizziness, shortness of breaths, bladder or bowel dysfunction or saddle anesthesia. 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 Patient reports previous 3 cervical and 7 lumbar surgeries with ongoing residual pain that limits his daily activities, functioning, mobility, sleep and quality of life. Denies recent trauma, injury or falls. He attributes his chronic pain due to a work-related accident in 1996 when he slipped on stairs at work. This is the Workers Comp case. He is followed and referred to us by neurology for cervical myelopathy, spastic paraparesis, lumbosacral spine disease with L5-S1 radicular pain, worsening balance and gait with bilateral lower leg paresthesias. Patient reports his back pain is axial that spreads across his lower back and radiates into his bilateral lower extremities in thighs posteriorly and laterally in the calves and dorsum of feet, worse on the left. Pain is described as constant aching, burning, shooting, tingling, spreading, radiating, and tiring. Patient rates his pain at 8/10 at this time. Patient reports he tolerates about 100 feet before he needs to rest. Pain and spasticity increases with walking, standing or lying supine. No significant pain with sitting. Patient has completed physical therapy about 4 years ago with temporary symptoms improvement. Currently, he is managing his pain and spasticity with baclofen, carisoprodol, clonazepam, and gabapentin with partial relief. Patient denies any fever, malaise, weight changes, dizziness, visual disturbances, bowel or bladder incontinence or saddle anesthesia. Patient reports weakness in lower extremities, particularly the left side. He ambulates with antalgic gait with the use of cane. Patient scuffs his feet when walking. Previous lumbar spine MRI lumbar spine in 03/2020 showed multilevel lumbar spine deg disc disease and surgical decompression fusion. Cervical spine MRI 08/2020 noted for stable degenerative disc disease , moderate central canal stenosis at C6-7 without change and chronic cervical myelopathy C5-C6 with spastic paraparesis. Patient has received injections through [facility] in the past. He considered baclofen pump in the past but has denied it more recently. Patient is not interested in neuromodulation with the SCS trial but will consider therapeutic injections to alleviate his radicular pain. [facility] Medical History Mild heartburn Hiatal hernia CAD (coronary artery disease) Depression Anxiety AAA (abdominal aortic aneurysm) without rupture Heart attack Hx of hydrocele Cervical spondylosis with myelopathy Cervical spondylosis Lumbar spondylosis Asthma COPD (chronic obstructive pulmonary disease) HTN (hypertension) Heart disease Surgical History Hx of cardiac catheterization History of lumbar spinal fusion (~03/12/23) Hx of tonsillectomy Hx of colonoscopy Hx of vasectomy Hx of cervical spine surgery H/O surgical amputation of finger History of testicular surgery Hx of lumbosacral spine surgery Family History Mother COVID PONV (postoperative nausea and vomiting) Sister No problems noted. Sister No problems noted. Sister No problems noted. Brother Pulmonary fibrosis PONV (postoperative nausea and vomiting) Brother Pulmonary fibrosis PONV (postoperative nausea and vomiting) Daughter PONV (postoperative nausea and vomiting) Father PONV (postoperative nausea and vomiting) Other Dementia Diabetes mellitus, type II Disorder of thyroid Social History Household Members: None Housing: Apartment Are you a primary pet caretaker to a significant other at home: No Do you presently have visiting nurse or other home services: No Alcohol intake: never Comment: final count correct Patient Tobacco Use Status: Former Tobacco user Tobacco use type: Cigarette Years Smoked: 30 Second Hand Smoke Exposure: No Substance Use Type: Marijuana Advance Directives Date on File: 03/13/23 service: No Review of Systems Const All systems reviewed & are unremarkable except as noted in HPI and below Physical Exam Vital Signs: Last Vital Signs Pulse 71 02/24/24 09:25 BP 129/80 02/24/24 09:25 Pulse Ox 98 02/24/24 09:25 Oxygen Delivery Method Room Air 02/24/24 09:25 BMI result Body Mass Index 28.1 General: Appears afebrile. Alert and oriented. Mood and affect appropriate. Follows and participates in conversation appropriately. Respiratory effort is unlabored. Able to transition from sit to stand with assistance of cane. Ambulates with bilaterally normal heel strike and toe off. Back/Spine/Pelvis Back: back tenderness Cervical Spine: cervical ROM normal, cervical muscular tenderness and No Cervical spine tenderness Thoracic/Lumbar Spine: Thoracic/lumbar spine scar(s), Lasegue's sign positive on the left and diffuse, pain with thoraco-lumbar ROM, paraspinal muscle tenderness, thoraco-lumbar ROM limited, thoraco-lumbar spasm, No thoracic spinal tenderness, lumbar spinal tenderness at L4 and at L5 and straight leg raise positive left at 60 degrees Pelvis: buttock tenderness on the left Sacroiliac joints: bilaterally tender to palpation Psych Appearance: grossly normal Speech and movement: Clear speech present and Pressured speech present Affect: Hostile affect present and Irritable affect present Attitude: cooperative, Belligerent attititude/behavior present and Refuses to answer (attititude/behavior) Thought process: Normal thought process present and Circumstantial thought process present Thought content: suicidality, no hallucinations and No Depressive thoughts present Insight: Good insight present (Psych) Judgement: Good judgement present (Psych) Results Reviewed Results Reviewed: CT LUMBAR SPINE WITHOUT CONTRAST 05/07/23 CLINICAL INFORMATION: Lumbar region radiculopathy. COMPARISON: Abdominal CT 03/31/2023. TECHNIQUE: Multidetector CT acquisition of the lumbar spine is obtained without contrast. This CT examination was performed using dose optimization techniques as appropriate, variously including the following: *Automated exposure control *Adjustment of mA and/or kV according to patient size (this includes techniques or standardized protocols for targeted exams where dose is matched to indication/reason for exam; i.e. extremities or head) *Use of iterative reconstruction technique FINDINGS: here is new significant lucency surrounding the S1 vertebral body screws and to a lesser extent the L5 vertebral body screws compatible with hardware loosening associated with anterior displacement of the inferior aspect of the L5-S1 vertebral body plate and screw construct. There is an associated displaced fracture of the S1 endplate anteriorly that is newly displaced when compared to 03/31/[address] There is partial anterior displacement of the L5-S1 interbody cage when compared to the prior CT study. Bilateral transpedicular screws with vertical connecting rods and interbody graft at the L2-L5 levels. The posterior construct is intact and there is no evidence of loosening at these levels. Solid posterolateral bone fusion mass at the L2-L5 levels. Leftward convex scoliotic curvature of the lower lumbar spine with the apex at L4. Nonsurgical disc volumes are preserved. There is bilateral perinephric stranding. There is extensive aortoiliac atherosclerotic calcification. Infrarenal abdominal aortic aneurysm measuring 3.4 cm in size just proximal to the iliac bifurcation. At L1-L2, there is a slight annular disc bulge and there is mild bilateral facet arthropathy without central canal stenosis nor significant foraminal stenosis. At L2-L3, there is a diffuse annular disc bulge and there is bilateral facet arthropathy, ligamentum flavum thickening, and epidural lipomatosis likely resulting in moderate thecal sac effacement. Left subarticular zone stenosis with probable mass effect on the traversing left L3 nerve root. There is mild bilateral foraminal encroachment at this level. At L3-L4, there are postoperative changes following posterior instrumented lumbar interbody fusion and left hemilaminectomy. The central canal is not well assessed due to artifact from the surgical hardware. Osteophytic ridging and facet arthropathy result in narrowing of the subarticular zones bilaterally as well as moderate thecal sac effacement. Osteophytic ridging and facet arthropathy also result in moderate to severe right and moderate left foraminal stenosis. At L4-L5, there are postoperative changes following laminectomy and posterior instrumented lumbar interbody fusion. Central canal not diagnostically assessed due to artifact from the surgical hardware. Osteophytic ridging and facet arthropathy result in moderate right and mild left foraminal stenosis. At L5-S1, there are postoperative changes following anterior instrumented lumbar interbody fusion. Hardware failure findings discussed above. There is new paravertebral swelling at L5-S1 that can be correlated for clinical signs of infection. There are right hemilaminectomy changes. Epidural lipomatosis moderately effaces the thecal sac. Disc osteophyte and facet arthropathy result in severe bilateral foraminal stenosis with compression of the exiting L5 nerve roots bilaterally. IMPRESSION: - There are redemonstrated postoperative changes following anterior instrumented lumbar interbody fusion at L5-S1 with evidence of new hardware failure. There is new significant lucency surrounding the S1 vertebral body screws and to a lesser extent the L5 vertebral body screws compatible with hardware loosening which is associated with anterior displacement of the inferior aspect of the L5-S1 vertebral body plate and screw construct. There is an associated displaced fracture of the S1 endplate anteriorly that is newly displaced when compared to 03/31/[address] There is partial anterior displacement of the L5-S1 interbody cage when compared to the prior CT study. There is new paravertebral swelling at L5-S1 that can be correlated for clinical signs of infection. - There are also postoperative changes following posterior instrumented lumbar interbody fusion at L2-L5. There is solid interbody bone fusion mass and there is solid posterolateral bone fusion mass at the L2-L5 levels. - At L5-S1, spondylitic changes result in severe bilateral foraminal stenosis with compression of the exiting L5 nerve roots bilaterally. - At the postoperative L3-L4 level, osteophytic ridging and facet arthropathy result in narrowing of the subarticular zones bilaterally, moderate central canal stenosis, as well as moderate to severe right and moderate left foraminal stenosis. - At the junctional L2-L3 level, spondylitic changes and epidural lipomatosis results in suspected moderate thecal sac effacement and left subarticular zone stenosis with potential mass effect on the traversing left L3 nerve root. - Infrarenal abdominal aortic aneurysm measuring 3.4 cm in size just proximal to the iliac bifurcation. Recommend followup every 3 years. Reference: J Am Leo Radiol 2013; 10 (10): 789-794. XR LUMBOSACRAL SPINE WITH OBLIQUES 02/07/24 CLINICAL INFORMATION: Arthrodesis COMPARISON: 09/12/2023 FINDINGS: Patient is status post posterior and anterior fusion at the level of L5-S1 with interbody spacer in stable position. 2 other spacers seen with stable position of marker seen at the level of L4-L5 and L3-L4. There is straightening of lumbar lordosis with narrowing of L5 L4, L4 L3, L3 L2. There is no instability on flexion or extension views and hardware in good position. IMPRESSION: No interval change Assessment & Plan Assessment & Plan (1) Lumbar radiculopathy, chronic: Code(s): M54.16 - Radiculopathy, lumbar region Category: Medical (2) Failed back syndrome: Code(s): M96.1 - Postlaminectomy syndrome, not elsewhere classified Category: Medical (3) Chronic pain syndrome: Code(s): G89.4 - Chronic pain syndrome Category: Medical (4) S/P spinal fusion: Code(s): Z98.1 - Arthrodesis status Category: Surgical Plan Placed referral for psychology clearance in anticipation of SCS trial. Extensive discussion regarding the risks and benefits of SCS trial and implant procedures and all questions were answered. However, patient became very frustrated and hostile re: Behavioral evaluation as initial step in the process. He then became very aggressive regarding Behavioral evaluation status order and was told that it was placed with urgency. We also discussed Caudal ABDULLAHI with catheter under sedation and fluoroscopy. Patient will reach out to our office if he is interested to undergo both neuromodulation with SCS trial and therapeutic injection. Follow up as needed. Orders: Referrals Behavioral Health Referral G89.4 - Chronic pain syndrome, M54.16 - Radiculopathy, lumbar region, M96.1 - Postlaminectomy syndrome, not elsewhere classified, Z98.1 - Arthrodesis status Coding Level of Care Code Est Pt Level 3 (04110) Complex EM visit Add On G2211 Diagnoses Lumbar radiculopathy, chronic M54.16 Failed back syndrome M96.1 Chronic pain syndrome G89.4 S/P spinal fusion Z98.1
[2024-02-24 09:25] VITALS: BP 129/80; PULSE 71; O2SAT 98; BMI 28.1
== END 2024-02-24 11:59 | disposition home or self-care (01) ==
PROVIDERS: PCP Physician Assistant; Visit Provider Nurse Practitioner Family
DX: M54.16 Radiculopathy, lumbar region (principal); M96.1 Postlaminectomy syndrome, not elsewhere classified; G89.4 Chronic pain syndrome; Z98.1 Arthrodesis status
CPT/HCPCS: 99213; G2211

== ENCOUNTER 2024-03-02 11:25 | Outpatient (AMB) | payer OTHER, SELFPAY ==
--- NOTE | 2024-03-02 11:32 | MHC.OFFVIS ---
Vital Signs 03/02/24 11:37 Height 5 ft 9 in Weight 190 lb BMI 28.1 BP 126/78 Blood Pressure Location Lt brachial Position Sitting Respiration 16 Pulse 88 Pulse Source Pulse Oximeter Pulse Oximetry (%) 98 Oxygen Delivery Method Room Air Intake Visit Reasons: 2nd opinion Allergies environmental allergies Allergy (Intermediate, Verified 03/02/24 11:37) SOB, watery eyes cyclobenzaprine Adverse Reaction (Intermediate, Verified 03/02/24 11:37) palpatations Medication List - Last Reconciled 03/02/24 by Janae Dumont LPN albuterol sulfate 90 mcg/actuation 2 puffs inhalation Q6H PRN albuterol sulfate 2.5 mg inhalation QID aspirin (Adult Low Dose Aspirin) 81 mg PO DAILY baclofen 10 mg PO 5XD 30 days budesonide-formoterol 160-4.5 mcg/actuation 1 puff inhalation BID cetirizine 10 mg PO DAILY cholecalciferol (vitamin D3) 50 mcg PO DAILY docusate sodium (Colace) 100 mg PO BID escitalopram oxalate 10 mg PO DAILY evolocumab (Repatha SureClick) 140 mg subcut Q2W fluticasone furoate-vilanterol 100-25 mcg/dose (Breo Ellipta) 1 ea inhalation DAILY fluticasone propionate 50 mcg/actuation 1 - 2 sprays intranasal DAILY PRN gabapentin 600 mg PO TID 30 days hydroxyzine HCl 50 mg PO BEDTIME PRN ibuprofen 600 mg PO TID icosapent ethyl (Vascepa) 2 grams PO BID magnesium citrate (Citrate of Magnesia oral) 150 mL PO DAILY methocarbamol 750 mg PO Q8H PRN metoprolol succinate ER 25 mg PO DAILY montelukast 10 mg PO BEDTIME nitroglycerin 0.4 mg sublingual Q5M PRN tamsulosin 0.4 mg PO DAILY@1700 umeclidinium 62.5 mcg/actuation (Incruse Ellipta) 1 inh inhalation DAILY HPI HPI 2nd opinion: Details: 68-year-old male who presents today to the office for discussion of second option. He reports chronic low back pain due to failed back syndrome. He was referred by Dr. Tellez for potential SCS trial and implant. He reports significant frustration towards previous back surgeries and most recent lumbar fusion in June [address] Tellez. His pain starts on his left side of the lower back with radiation into his lower back and into his lower extremities, worse on the left than right. He reports bilateral calves pain and burning sensation in his foot. He describes his pain as an aching aggravating in nature. He reports minimal to no pain while he sitting, resting or laying down but significant increase in pain with walking, standing or getting up from sitting to standing. He reports minimal benefit with methocarbamol, baclofen, gabapentin. Treatment options including neuromodulation with SCS or ITDD trials vs implants has been previously discussed with patient in 2021 and 2022, which patient declined at that time. He has received Caudal ABDULLAHI with catheter on 04/24/[address] Yuen that provided about 10% relief. Shraddha recommended spinal cord stimulator but he still has some concerns and questions about the procedure. He has not received a call from [facility] for psychology clearance. He is currently on aspirin. [facility] Medical History Mild heartburn Hiatal hernia CAD (coronary artery disease) Depression Anxiety AAA (abdominal aortic aneurysm) without rupture Heart attack Hx of hydrocele Cervical spondylosis with myelopathy Cervical spondylosis Lumbar spondylosis Asthma COPD (chronic obstructive pulmonary disease) HTN (hypertension) Heart disease Surgical History Hx of cardiac catheterization History of lumbar spinal fusion (~03/12/23) Hx of tonsillectomy Hx of colonoscopy Hx of vasectomy Hx of cervical spine surgery H/O surgical amputation of finger History of testicular surgery Hx of lumbosacral spine surgery Family History Mother COVID PONV (postoperative nausea and vomiting) Sister No problems noted. Sister No problems noted. Sister No problems noted. Brother Pulmonary fibrosis PONV (postoperative nausea and vomiting) Brother Pulmonary fibrosis PONV (postoperative nausea and vomiting) Daughter PONV (postoperative nausea and vomiting) Father PONV (postoperative nausea and vomiting) Other Dementia Diabetes mellitus, type II Disorder of thyroid Social History Household Members: None Housing: Apartment Are you a primary caregiver assisted living to a significant other at home: No Do you presently have visiting nurse or other home services: No Alcohol intake: never Comment: final count correct Patient Tobacco Use Status: Former Tobacco user Tobacco use type: Cigarette Years Smoked: 30 Second Hand Smoke Exposure: No Substance Use Type: Marijuana Advance Directives Date on File: 03/13/23 service: No Review of Systems Const All systems reviewed & are unremarkable except as noted in HPI and below Physical Exam Vital Signs: Last Vital Signs Pulse 88 03/02/24 11:37 Resp 16 03/02/24 11:37 BP 126/78 03/02/24 11:37 Pulse Ox 98 03/02/24 11:37 Oxygen Delivery Method Room Air 03/02/24 11:37 BMI result Body Mass Index 28.1 General: Appears afebrile. Alert and oriented. Mood and affect appropriate. Follows and participates in conversation appropriately. Respiratory effort is unlabored. Able to transition from sit to stand unassisted. Ambulates with bilaterally normal heel strike and toe off. Results Reviewed Results Reviewed: No imaging is available for review. Assessment & Plan Assessment & Plan (1) Neurogenic claudication: Code(s): R29.818 - Other symptoms and signs involving the nervous system Category: Medical (2) Failed back syndrome: Code(s): M96.1 - Postlaminectomy syndrome, not elsewhere classified Category: Medical Plan I had a long discussion with the patient and went over the risks and benefits of a spinal cord stimulator as well as an intrathecal drug delivery pump. He has components of nociceptive as well as neuropathic pain, so he is a reasonable candidate for either kind of therapy. For now, we decided to proceed with a trial of spinal cord stimulator device as a first step and see how much relief he gets from that. If he does not get sufficient relief from the spinal cord stimulator trial, then we can potentially plan for an ITP trial. I will place a referral for psychology clearance. Once we have received psychology clearance, we will plan for a trial of a spinal cord stimulator with a BSc device. The patient will receive a call from [facility] for the psychology assessment. We will request authorization for a spinal cord stimulator trial with a BSc device once his psychology evaluation is completed. The patient expressed understanding and is on board with a plan. Scribed for Dr. Young by Axel Toure bacteriologist medical, on 03/02/2024. I, Dr. Young, have personally reviewed and agree with the information entered by the scribe. Coding Level of Care Code Est Pt Level 4 (59063) Diagnoses Neurogenic claudication R29.818 Failed back syndrome M96.1
[2024-03-02 11:37] VITALS: BP 126/78; PULSE 88; RESP 16; O2SAT 98; BMI 28.1
== END 2024-03-02 13:15 | disposition home or self-care (01) ==
LOC: HO.PMC 11:25
PROVIDERS: PCP Physician Assistant; Visit Provider Internal Medicine
DX: R29.818 Other symptoms and signs involving the nervous system (principal); M96.1 Postlaminectomy syndrome, not elsewhere classified
CPT/HCPCS: 99214

== ENCOUNTER → 2024-03-02 11:25 | Outpatient (BNVA) | payer OTHER, SELFPAY | PROVIDERS: PCP Physician Assistant; Visit Provider Internal Medicine | DX: M96.1 Postlaminectomy syndrome, not elsewhere classified (principal); R29.818 Other symptoms and signs involving the nervous system | CPT/HCPCS: 99212 ==

== ENCOUNTER → 2024-06-10 11:22 | Outpatient (BNV) | payer OTHER, SELFPAY | PROVIDERS: PCP Physician Assistant; Visit Provider Internal Medicine | DX: M96.1 Postlaminectomy syndrome, not elsewhere classified (principal) | CPT/HCPCS: 63650 ==

== ENCOUNTER → 2024-06-10 11:22 | Outpatient (BNV) | payer OTHER, SELFPAY | PROVIDERS: PCP Physician Assistant; Visit Provider Internal Medicine | DX: M96.1 Postlaminectomy syndrome, not elsewhere classified (principal) | CPT/HCPCS: 99232; 99239 ==

== ENCOUNTER 2024-06-10 16:12 | Outpatient (BNV) | payer OTHER, SELFPAY | END 2024-06-11 14:55 | PROVIDERS: Admitting Provider Internal Medicine; PCP Physician Assistant; Visit Provider Radiology Diagnostic Radiology | DX: M96.1 Postlaminectomy syndrome, not elsewhere classified (principal); M54.16 Radiculopathy, lumbar region; R22.42 Localized swelling, mass and lump, left lower limb | CPT/HCPCS: 72158; 93971 ==

== ENCOUNTER 2024-06-10 16:12 | Observation (INO) | payer OTHER, SELFPAY ==
[2024-06-08 09:01] VITALS: BMI 28.1
--- NOTE | 2024-06-09 11:48 | HO.ANESPROP2 ---
Documented by User: Margarita Aragon NP 06/09/24 11:54 HPI - Anesthesia Eval Consult details Narrative: 69yo M for Spinal Cord Stimulation Trial s/p ALIF 06/2023 with GA-ETT 7.5 Cardiac optimized. Follows [facility] for CAD/Ischemic CMP: recommends continuing aspirin. Aortic Aneurysm being followed by Vascular, stable at yearly visit 10/2023. 3.4 on duplex, 3.7 on CTA COPD at baseline. Albuterol rescue inhaler ~ 2-3 x weekly PMFSH Active Problems Active Problems: All Active Problems Neurogenic claudication (Acute) S/P spinal fusion (Acute) Lumbago (Acute) Chronic pain syndrome (Acute) Peripheral neuropathy (Acute) Aortic aneurysm (Acute) Failed back syndrome (Acute) Lumbar radiculopathy, chronic (Acute) Bilateral hip pain (Acute) Sacroiliitis (Acute) Gait disorder (Acute) Bilateral leg paresthesia (Acute) Cervical spondylosis with myelopathy (Acute) Cervical spondylosis (Acute) Lumbar spondylosis (Acute) Asthma (Acute) Heart disease (Acute) Past Medical History Medical History Mild heartburn Hiatal hernia CAD (coronary artery disease) Depression Anxiety AAA (abdominal aortic aneurysm) without rupture Heart attack Hx of hydrocele Cervical spondylosis with myelopathy Cervical spondylosis Lumbar spondylosis Asthma COPD (chronic obstructive pulmonary disease) HTN (hypertension) Heart disease Family History Family History Mother COVID PONV (postoperative nausea and vomiting) Sister No problems noted. Sister No problems noted. Sister No problems noted. Brother Pulmonary fibrosis PONV (postoperative nausea and vomiting) Brother Pulmonary fibrosis PONV (postoperative nausea and vomiting) Daughter PONV (postoperative nausea and vomiting) Father PONV (postoperative nausea and vomiting) Other Dementia Diabetes mellitus, type II Disorder of thyroid Family history of problems with anesthesia: Yes Surgical History Surgical History Hx of cardiac catheterization History of lumbar spinal fusion (~03/12/23) Hx of tonsillectomy Hx of colonoscopy Hx of vasectomy Hx of cervical spine surgery H/O surgical amputation of finger History of testicular surgery Hx of lumbosacral spine surgery History of Problems with Anesthesia: No Social History Social History Household Members: None Housing: Apartment Are you a primary health care technician to a significant other at home: No Do you presently have visiting nurse or other home services: No Alcohol intake: never Comment: final count correct Patient Tobacco Use Status: Former Tobacco user Tobacco use type: Cigarette Years Smoked: 30 Second Hand Smoke Exposure: No Use of substances other than those prescribed or required for medical reasons: Yes Substance Use Type: Marijuana Substance Use Frequency: Daily Have you been hit, kicked, punched, or otherwise hurt by someone within the past year? If so, by whom?: No Advance Directives: No Advance Directives Information Provided: Yes Advance Directives Date on File: 03/13/23 Recently lost weight without trying: No service: No Meds Allergies Allergy/AdvReac Type Severity Reaction Status Date / Time environmental allergies Allergy Intermediate SOB, Verified 03/02/24 11:37 watery eyes cyclobenzaprine AdvReac Intermediate palpatation Verified 03/02/24 11:37 s Home Medications ?Medication ?Instructions ?Recorded ?Confirmed ?Last Taken ?Type aspirin 81 mg tablet,delayed 81 mg PO DAILY 02/01/22 03/02/24 07/01/23 History release (Adult Low Dose Aspirin) escitalopram oxalate 10 mg tablet 10 mg PO DAILY 02/01/22 03/02/24 07/08/23 History evolocumab 140 mg/mL subcutaneous 140 mg subcut Q2W 02/01/22 03/02/24 06/24/23 History pen injector (Zarina Marte) fluticasone propionate 50 1 - 2 spray intranasal DAILY PRN 02/01/22 03/02/24 03/11/23 History mcg/actuation nasal Allergy Symptoms spray,suspension hydroxyzine HCl 25 mg tablet 50 mg PO BEDTIME PRN Anxiety 02/01/22 03/02/24 03/10/23 History icosapent ethyl 1 gram capsule 2 g PO BID 02/01/22 03/02/24 03/10/23 History (Vascepa) metoprolol succinate 25 mg 25 mg PO DAILY 02/01/22 03/02/24 06/10/24 History tablet,extended release 24 hr nitroglycerin 0.4 mg sublingual 0.4 mg sublingual Q5M PRN Chest 02/01/22 03/02/24 Unknown History tablet Pain tamsulosin 0.4 mg capsule 0.4 mg PO DAILY@1700 02/01/22 03/02/24 03/10/23 History fluticasone furoate 100 1 ea inhalation DAILY 08/23/22 03/02/24 06/10/24 History mcg-vilanterol 25 mcg/dose inhalation powder (Breo Ellipta) montelukast 10 mg tablet 10 mg PO BEDTIME 08/23/22 03/02/24 07/08/23 History cholecalciferol (vitamin D3) 50 50 mcg PO DAILY 09/04/22 03/02/24 03/10/23 History mcg (2,000 unit) capsule albuterol sulfate 90 mcg/actuation 2 puff inhalation Q6H PRN 02/27/23 03/02/24 06/10/24 History aerosol inhaler Shortness Of Breath Or Wheezing umeclidinium 62.5 mcg/actuation 1 inh inhalation DAILY 02/27/23 03/02/24 07/08/23 History blister powder for inhalation (Incruse Ellipta) albuterol sulfate 2.5 mg/3 mL 2.5 mg inhalation QID 03/31/23 03/02/24 Unknown History (0.083 %) solution for nebulization budesonide-formoterol HFA 160 1 puff inhalation BID 05/31/23 03/02/24 07/08/23 History mcg-4.5 mcg/actuation aerosol inhaler cetirizine 10 mg tablet 10 mg PO DAILY 05/31/23 03/02/24 06/10/24 History Exam Height,Weight and Vital Signs: Height 5 ft 9 in Weight 86.183 kg Narrative Narrative: EKG 04/2024 NSR @ 61 Possible inferior infarct (cited before Apr 2016) Assessment and Plan Assessment Anesthesia Assessment: Chart Reviewed Final Anesthetic Review Family History of Problems with Anesthesia: Yes History of Problems with Anesthesia: No Documented by User: May Cox MD 06/10/24 13:31 [facility] Past Medical History Medical History Mild heartburn Hiatal hernia CAD (coronary artery disease) Depression Anxiety AAA (abdominal aortic aneurysm) without rupture Heart attack Hx of hydrocele Cervical spondylosis with myelopathy Cervical spondylosis Lumbar spondylosis Asthma COPD (chronic obstructive pulmonary disease) HTN (hypertension) Heart disease Family History Family History Mother COVID PONV (postoperative nausea and vomiting) Sister No problems noted. Sister No problems noted. Sister No problems noted. Brother Pulmonary fibrosis PONV (postoperative nausea and vomiting) Brother Pulmonary fibrosis PONV (postoperative nausea and vomiting) Daughter PONV (postoperative nausea and vomiting) Father PONV (postoperative nausea and vomiting) Other Dementia Diabetes mellitus, type II Disorder of thyroid Surgical History Surgical History Hx of cardiac catheterization History of lumbar spinal fusion (~03/12/23) Hx of tonsillectomy Hx of colonoscopy Hx of vasectomy Hx of cervical spine surgery H/O surgical amputation of finger History of testicular surgery Hx of lumbosacral spine surgery Social History Social History Household Members: None Housing: Apartment Are you a primary health care technician to a significant other at home: No Do you presently have visiting nurse or other home services: No Alcohol intake: never Comment: final count correct Patient Tobacco Use Status: Former Tobacco user Tobacco use type: Cigarette Years Smoked: 30 Second Hand Smoke Exposure: No Use of substances other than those prescribed or required for medical reasons: Yes Substance Use Type: Marijuana Substance Use Frequency: Daily Have you been hit, kicked, punched, or otherwise hurt by someone within the past year? If so, by whom?: No Advance Directives: No Advance Directives Information Provided: Yes Advance Directives Date on File: 03/13/23 Recently lost weight without trying: No service: No Meds Allergies Allergy/AdvReac Type Severity Reaction Status Date / Time environmental allergies Allergy Intermediate SOB, Verified 03/02/24 11:37 watery eyes cyclobenzaprine AdvReac Intermediate palpatation Verified 03/02/24 11:37 s Home Medications ?Medication ?Instructions ?Recorded ?Confirmed ?Last Taken ?Type aspirin 81 mg tablet,delayed 81 mg PO DAILY 02/01/22 03/02/24 07/01/23 History release (Adult Low Dose Aspirin) escitalopram oxalate 10 mg tablet 10 mg PO DAILY 02/01/22 03/02/24 07/08/23 History evolocumab 140 mg/mL subcutaneous 140 mg subcut Q2W 02/01/22 03/02/24 06/24/23 History pen injector (Zarina Marte) fluticasone propionate 50 1 - 2 spray intranasal DAILY PRN 02/01/22 03/02/24 03/11/23 History mcg/actuation nasal Allergy Symptoms spray,suspension hydroxyzine HCl 25 mg tablet 50 mg PO BEDTIME PRN Anxiety 02/01/22 03/02/24 03/10/23 History icosapent ethyl 1 gram capsule 2 g PO BID 02/01/22 03/02/24 03/10/23 History (Vascepa) metoprolol succinate 25 mg 25 mg PO DAILY 02/01/22 03/02/24 06/10/24 History tablet,extended release 24 hr nitroglycerin 0.4 mg sublingual 0.4 mg sublingual Q5M PRN Chest 02/01/22 03/02/24 Unknown History tablet Pain tamsulosin 0.4 mg capsule 0.4 mg PO DAILY@1700 02/01/22 03/02/24 03/10/23 History fluticasone furoate 100 1 ea inhalation DAILY 08/23/22 03/02/24 06/10/24 History mcg-vilanterol 25 mcg/dose inhalation powder (Breo Ellipta) montelukast 10 mg tablet 10 mg PO BEDTIME 08/23/22 03/02/24 07/08/23 History cholecalciferol (vitamin D3) 50 50 mcg PO DAILY 09/04/22 03/02/24 03/10/23 History mcg (2,000 unit) capsule albuterol sulfate 90 mcg/actuation 2 puff inhalation Q6H PRN 02/27/23 03/02/24 06/10/24 History aerosol inhaler Shortness Of Breath Or Wheezing umeclidinium 62.5 mcg/actuation 1 inh inhalation DAILY 02/27/23 03/02/24 07/08/23 History blister powder for inhalation (Incruse Ellipta) albuterol sulfate 2.5 mg/3 mL 2.5 mg inhalation QID 03/31/23 03/02/24 Unknown History (0.083 %) solution for nebulization budesonide-formoterol HFA 160 1 puff inhalation BID 05/31/23 03/02/24 07/08/23 History mcg-4.5 mcg/actuation aerosol inhaler cetirizine 10 mg tablet 10 mg PO DAILY 05/31/23 03/02/24 06/10/24 History Exam Airway Mallampati Class: II TM Dist: >3cm Neck ROM: Full Denture: Upper and Lower Heart: rrr Lungs: cta Assessment and Plan Assessment Anesthesia Assessment: Anesthesia Plan Discussed Final Anesthetic Review NPO: Yes ASA Class: III Final Preanesthetic Review: No Changes in Pt Med Stat, Meds/Allgs Chart Reviewed and Consent Obtained/Reviewed Patient Risk: Intermediate Procedure Risk: Low Anesthetic Plan Anesthetic Plan: MAC: Disposition: Standard PACU
--- NOTE | ~2024-06-10 | US_ITS ---
EXAMINATION: US TRIPLEX LOWER EXTREMITY, LEFT CLINICAL INFORMATION: Swelling left lower extremity. COMPARISON: None available. TECHNIQUE: Color-flow triplex imaging with spectral analysis and compression Doppler were performed on the left lower extremity. FINDINGS: Respiratory variation, normal compression and augmented flow are noted throughout the left lower extremity. The visualized common femoral vein, superficial femoral vein, profunda femoral vein, popliteal vein and midcalf peroneal and posterior tibial venous segments show no evidence of deep venous thrombosis. There is no Arevalo's cyst. US/US venous duplex LE LT IMPRESSION: No evidence of deep venous thrombosis involving the left lower extremity. Electronically signed by: Valentino Leahy MD 06/11/2024 05:06 PM [facility]
--- NOTE | ~2024-06-10 | FL_ITS ---
EXAMINATION: FL GUIDANCE ONLY HISTORY: spinal cord stim trial COMPARISON: None available. TECHNIQUE: Fluoroscopy time: 46.6 seconds. Cumulative Dose: 71.503 mGy. DAP: 12.0, 0.9 mGym2 Images: 2. FINDINGS: AP and lateral spot films of the thoracic spine demonstrate a neural stimulator in place. FL/FL guidance in OR IMPRESSION: Fluoroscopy during procedure. Please see procedure report for additional information. Electronically signed by: Willian Hunter MD 06/10/2024 03:32 PM [facility]
--- NOTE | ~2024-06-10 | MR_ITS ---
EXAMINATION: MR LUMBAR SPINE WITH AND WITHOUT CONTRAST CLINICAL INFORMATION: Left lower extremity radicular pain. COMPARISON: No prior MRI. CT lumbar 02/03/2024. TECHNIQUE: Multiplanar multisequence MR imaging of the lumbar spine was done before and after the administration 9 mL IV Gadavist IV contrast. Examination was performed on a 1.5 Kari Siemens magnet, utilizing standard sequences. FINDINGS: CORONAL ALIGNMENT: -Normal. SAGITTAL ALIGNMENT: - Mild straightening of the normal lordosis. -There is a 3 mm degenerative retrolisthesis of L2 on L3. -There is a minimal degenerative anterolisthesis of L3 on L4. -Sagittal alignment otherwise normal. LUMBOSACRAL JUNCTION: -Normal. There are 5 [id number] lumbar-type vertebral bodies. VERTEBRAL BODIES/BONE MARROW: -There has been both anterior and posterior instrumented fusion of L5-S1 with associated discectomy and placement of disc prosthesis. Right hemilaminectomy and medial facetectomy at L5-S1. Hardware creates localized susceptibility artifact immediately obscuring adjacent soft tissue and bone. -Left hemilaminotomy and medial facetectomy L3-4 with placement of disc prosthesis. -Right hemilaminectomy and medial facetectomy at L4-5 with placement of disc prosthesis. -No acute compression fractures or abnormal infiltrating bone marrow signal. -Edematous type endplate changes are present at L2-3, and profound fatty type endplate changes at L4-5. 9-there are scattered Schmorl's nodes within the endplates spanning L2-L5. -There is a hemangioma within T11. DISCS: -Partial bony fusion of L4-5 with discectomy and disc prosthesis. -Severe loss of disc height and signal with disc prosthesis at L3-4. -Cannot evaluate L5-S1. -Moderate to severe disc degeneration L2-3 with loss of height and signal. SPINAL CANAL: -There is a combination of congenital spinal canal narrowing throughout the lumbar region, dorsal epidural lipomatosis, and spondylosis severely narrowing the central canal spanning L2-S1. See below. CONUS MEDULLARIS: -Terminates at L1-L2. Morphology and signal is normal. -The distal cord demonstrates minimal thinning at T11-T12 without evidence of impingement. INTRADURAL NERVE ROOTS: - Difficult to evaluate due to multilevel severe stenoses as discussed below. No abnormal enhancement of the nerve roots. -Enhancing granulation tissue/scar is present within the laminectomy and medial facetectomy defects. -In addition there is smooth dural thickening and enhancement centrally spanning the L4-5 region and extending to S1. Axial Disc Space Images: T11-T12: There is a shallow diffuse disc bulge present with a superimposed right lateral shallow extrusion of disc material. There are mild to moderate hypertrophic degenerative facet changes with mild posterior ligamentous thickening/infolding. There is mild central canal narrowing with preserved CSF space surrounding the cord. Minimal cord thinning at this level. No abnormal cord signal. Mild bilateral subarticular recess stenosis, and mild to moderate left greater than right neural foraminal stenosis. T12-L1: Minimal shallow concentric disc bulge. Dorsal and lateral epidural lipomatosis. Mild hypertrophic facet changes bilaterally. Mild central canal narrowing, and minimal bilateral neural foraminal narrowing. L1-L2: No significant disc bulge. Dorsal and lateral epidural lipomatosis. Mild to moderate hypertrophic degenerative facet changes. There is mild central canal stenosis, mild bilateral subarticular recess stenosis, and mild bilateral neural foraminal stenosis. L2-L3: Diffuse concentric disc osteophytic bulge, most prominent left lateral foramen and lateral to foramen. Dorsal and lateral epidural lipomatosis, prominent. Moderate hypertrophic degenerative facet changes with posterior ligamentous thickening/infolding. There are facet joint effusions. Combination of findings is resulting in severe central canal stenosis, central nerve root crowding, moderate to severe bilateral subarticular recess stenosis, and moderate bilateral neural foraminal stenosis. L3-L4: Surgical changes. There is a disc osteophytic ridge complex, of which the central aspect appears to encompass a portion of the disc graft. (Series 9, image 24). Prominent dorsal and less prominent lateral epidural lipomatosis. Facet hypertrophy and arthritic change, with superimposed incorporated facet bone grafting. Combination of findings is resulting in moderate to severe central canal stenosis, moderate to severe subarticular recess stenosis, and moderate to severe bilateral neural foraminal encroachment. There is contact and mild mass effect upon both exiting L3 roots. L4-L5: Discectomy and fusion at this level with postoperative changes. Dorsal and mild lateral epidural lipomatosis. No significant disc bulging. Right greater than left hypertrophic facet changes with evidence of prior bone grafting. Moderate to severe central canal stenosis, moderate to severe bilateral subarticular recess stenosis, severe right and moderate to severe left neural foraminal encroachment. Impingement of the left exiting L4 root. L5-S1: Diffuse disc osteophytic ridge complex, partially obscured by susceptibility artifact. Severe facet degeneration bilaterally with facet joint effusions. Prior right hemilaminotomy. Left dorsal, mild ventral, and minimal lateral epidural lipomatosis. Ventral dural thickening/enhancement. Enhancement in the laminotomy defect. Severe central canal stenosis despite decompression, with contribution from epidural lipomatosis. The thecal sac is been reduced to 4.6 mm AP diameter. Severe bilateral subarticular recess stenosis, and moderate to severe right greater than left neural foraminal stenosis. Evaluation of the foramina is limited due to susceptibility artifact although there does appear to be contact and mass effect upon both exiting L5 roots. IMAGED SI JOINTS: -Mild to moderate degenerative arthritis. PARAVERTEBRAL AND INCLUDED EXTRASPINAL SOFT TISSUES: -There is an infrarenal aortic aneurysm measuring 3.7 cm in maximal diameter. There is heavy atheromatous plaque of the aorta and iliac arteries. -There are small parapelvic cysts in both kidneys. There is nonspecific bilateral perirenal stranding. -There is atrophy of the right greater than left paraspinous musculature at L5 and below. MR/MR lumbar spine wo/w con IMPRESSION: 1. Complex examination. Advanced, severe spondylosis with extensive postoperative changes at L3-4, L4-5, and more significantly L5-S1. 2. A combination of epidural lipomatosis, spondylosis, and congenital canal narrowing result in severe central canal stenosis at L2-3 and L5-S1, and moderate to severe central canal stenosis at L3-4 and L4-5.. 3. Multilevel moderate/severe foraminal stenoses as discussed, most notable L3-4 through L5-S1. 4. Please refer to the body of the report for detailed findings, as well as ancillary findings. Electronically signed by: Valentino Leahy MD 06/11/2024 04:34 PM [facility]
[2024-06-10 12:37] VITALS: BP 120/76; PULSE 62; RESP 16; TEMP 36.6; O2SAT 96; BMI 28.5
[2024-06-10] MEDS: Lactated Ringers 1,000 ML 100 ML IVCONT ×2 (12:43→18:14)
--- OUTSIDE RECORDS SUMMARY | 2024-06-10 13:19 | XMS_ITS | Clinical Summary ---
Author Organization [facility], Address [address] [place] [address] Phone Care Team Providers Care Driver Messenger Name Role Phone Unavailable Primary Care Provider Unavailabl e Allergies No known active allergies Medications albuterol HFA (PROVENTIL HFA;VENTOLIN HFA) 108 (90 Base) MCG/ACT inhaler TAKE 2 PUFFS BY MOUTH EVERY 4 TO 6 HOURS NEEDED 3 Active Breo Ellipta 100-25 MCG/ACT aerosol powder INHALE 1 PUFF BY INHALATION ROUTE EVERY DAY AT THE SAME TIME EACH DAY 3 Active baclofen (LIORESAL) 10 MG tablet Take 10 mg by mouth 5 (five) times a day 3 Active cetirizine (ZyrTEC) 10 MG tablet Take 10 mg by mouth 1 (one) time each day 3 Active cholecalciferol (VITAMIN D-3) 50 MCG (2000 UT) capsule Take by mouth 1 (one) time each day 3 Active escitalopram (LEXAPRO) 10 MG tablet Take 10 mg by mouth 1 (one) time each day 3 Active Repatha SureClick 140 MG/ML solution auto-injector INJECT 1 ML INTO THE ABDOMEN,THIGH, OR UPPER ARM EVERY 14 DAYS. 3 Active gabapentin (NEURONTIN) 600 MG tablet Take 600 mg by mouth in the morning and 600 mg at noon and 600 mg in the evening. 3 Active hydrOXYzine (ATARAX) 25 MG tablet TAKE 2 TABLETS BY MOUTH AT BEDTIME NEEDED FOR ANXIETY (INSOMNIA). 3 Active methocarbamol (ROBAXIN) 750 MG tablet TAKE 1 TABLET BY MOUTH EVERY 8 HOURS NEEDED FOR MUSCLE SPASM FOR 30 DAYS 3 Active tamsulosin (FLOMAX) 0.4 MG 24 hr capsule TAKE 1 CAPSULE BY MOUTH EVERY DAY . TAKE 1/2 HOUR AFTER LAST MEAL OF THE DAY 3 Active metoprolol succinate XL (TOPROL XL) 25 MG 24 hr tablet Take 25 mg by mouth 1 (one) time each day 3 Active Active Problems Problem Noted Date Diagnosed Date Chronic obstructive pulmonary disease 02/25/2023 Myocardial infarction 02/25/2023 Hypertension 02/25/2023 Chronic back pain 02/25/2023 Social History Tobacco Use Types Packs/Day Years Used Date Smoking Tobacco: Never Assessed Alcohol Use Standard Drinks/Week Comments Not Currently 0 (1 standard drink = 0.6 oz pur e alcohol) Sex and Gender Information Value Date Recorded Sex Assigned at Not on file Legal Sex Male 1:20 PM EDT Gender Identity Not on file Sexual Orientation Not on file Plan of Treatment Health Maintenance Due Date Last Done Comments Colorectal Cancer Screening: Annual FOBT 2004 Colorectal Cancer Screening: Colonoscopy 2004 Colorectal Cancer Screening: Sigmoidoscopy 2004 Pneumococcal Vaccine: 65+ Ye ars (1 of 1 - PCV) 2020 Influenza Vaccine (#1) 2023 Hepatitis B Vaccine Aged Out No longe r eligible based on patient's age to complete this topic Insurance JENNY PERKINS
--- OUTSIDE RECORDS SUMMARY | 2024-06-10 13:19 | XMS_ITS | Encounter Summary ---
Author Organization [facility] Address [address] [place] [address] Care Team Providers Care Can Cleaner Name Role Phone Mony Pardo Primary Care Provider + Reason for Visit * Reason Onset Date Comments Medical Records 06/08/2024 Encounter Details Date Type Department Care Team (Late st Contact Info) Description 06/08/2024 Telephone [facility] Cardiology [facility] [address] [place] [address] Mony Pardo PA [address] [place] [address] Medical Records Social History Tobacco Use Types Packs/Day Years Used Date Smoking Tobacco: Former Cigarettes Q uit: 04/29/2015 Smokeless Tobacco: Never Alcohol Use Standard Drinks/Week Comments Yes 0 (1 standard drink = 0.6 oz pur e alcohol) occasional Sex and Gender Information Value Date Recorded Sex Assigned at Not on file Legal Sex Male 6:51 PM EST Gender Identity Not on file Sexual Orientation Not on file documented as of this encounter Progress Notes * Leilani Hernandez - 06/08/2024 4:09 PM EST Faxed 05/22/2024 Office Note and EKG to [facility] [place] [facility] Att: Nadja at [phone] for 06/10/2024 surg. documented in this encounter Plan of Treatment Upcoming Encounters Date Type Department Care Team (Late st Contact Info) Description 09/28/2024 8:30 AM EDT Ancillary Procedure [facility] - [facility] [address] [facility] [address] [place] [address] 11/05/2024 10:30 AM EDT Office Visit Vascular Surgery - [place] [address] [facility] [address] [place] [address] Eunice Price PA [address] [facility] [address] [place] [address] documented as of this encounter Visit Diagnoses Not on filedocumented in this encounter Care Teams Can Cleaner Relationship Specialty Start Date End Date Mony Pardo PA [address] [place] [address] PCP - General Primary Care 05/22/24 documented as of this encounter
--- OUTSIDE RECORDS SUMMARY | 2024-06-10 13:19 | XMS_ITS | Encounter Summary ---
Author Organization [facility] Address [address] [place] [address] Care Team Providers Care Receiving Lead Name Role Phone Mony Pardo Primary Care Provider + Reason for Visit * Reason Onset Date Comments DME 05/15/2024 Mattress Encounter Details Date Type Department Care Team (Late st Contact Info) Description 05/15/2024 Telephone Internal Medicine - [place] [address] [place] [phone] Mony Pardo PA [address] [place] [address] DME (Mattress ) Social History Tobacco Use Types Packs/Day Years [...] as of this encounter Progress Notes * Vanesa Loo MA - 05/22/2024 1:17 PM EST The DME order for the mattress is currently being worked on with [employer]. No need to re-fax * Viry Brown - 05/15/2024 4:02 PM EST Fax number for cca [phone] Again as patient did not receive his new matress. documented in this encounter Plan of Treatment Upcoming Encounters Date Type Department Care Team (Late st Contact Info) Description 09/28/2024 8:30 AM EDT Ancillary Procedure [facility] - [facility] [address] [facility] [address] [place] [address] 11/05/2024 10:30 AM EDT Office Visit Vascular Surgery - [place] [address] [facility] [address] [place] [address] Eunice Price PA [address] [facility] [address] [place] [address] documented as of this encounter Visit Diagnoses Not on filedocumented in this encounter Care Teams Receiving Lead Relationship Specialty Start Date End Date Mony Pardo PA [address] [place] [address] PCP - General Primary Care 05/22/24 documented as of this encounter
--- OUTSIDE RECORDS SUMMARY | 2024-06-10 13:19 | XMS_ITS | Clinical Summary ---
Author Organization [address] [facility] Address [address] [place] [address] Phone Care Team Providers Care Software Specialist Name Role Phone Mony Pardo Primary Care Provider + Allergies Active Allergy Reactions Criticality Noted Date Comments Other 04/13/2024 Pollen Medications hydrOXYzine HCL (ATARAX) 25 mg tabletIndicatio ns:Insomnia due to other mental disorder (CODE) TAKE 2 TABLETS BY MOUTH AT BEDTIME NEEDED FOR ANXIETY (INSOMNIA). 180 tablet 1 4 Active evolocumab (Repatha SureClick) 140 mg/mL pen injector injection INJECT 1 ML INTO THE ABDOMEN,THIGH, OR UPPER ARM EVERY 14 DAYS. 4 Active icosapent ethyL (Vascepa) 1 gram capsule TAKE 2 CAPSULES BY MOUTH TWICE A DAY 4 Active methylPREDNISol one (MEDROL) 4 mg tablet Medrol dose pack as directed 4 Active albuterol HFA (PROAIR HFA ; PROVENTIL HFA ; VENTOLIN HFA) 90 mcg/actuation inhaler INHALE 2 PUFFS BY MOUTH EVERY 4 HOURS NEEDED COUGH/ WHEEZING/ SHORTNESS OF BREATH 3 Active gabapentin (NEURONTIN) 600 mg tablet TAKE 1 TABLET BY MOUTH THREE TIMES A DAY 3 Active montelukast (SINGULAIR) 10 mg tablet TAKE 1 TABLET BY MOUTH EVERY DAY AT NIGHT 3 Active umeclidinium (Incruse Ellipta) 62.5 mcg/actuation inhalation INHALE 1 PUFF BY INHALATION ROUTE EVERY DAY AT THE SAME TIME EACH DAY 3 Active fluticasone furoate-vilante roL (Breo Ellipta) 100-25 mcg/dose inhaler INHALE 1 PUFF BY INHALATION ROUTE EVERY DAY AT THE SAME TIME EACH DAY 3 Active cholecalciferol (VITAMIN D-3) 50 mcg (2,000 unit) capsule Take 1 Capsule by mouth daily. 3 Active cetirizine (ZyrTEC) 10 mg tablet Take 10 mg by mouth daily. 2 Active tiotropium (Spiriva with HandiHaler) 18 mcg per inhalation capsule INHALE 1 CAPSULE VIA HANDIHALER ONCE DAILY AT THE SAME TIME EVERY DAY 2 Active albuterol 2.5 mg /3 mL (0.083 %) nebulizer solution TAKE 1 VIAL BY NEBULIZATION EVERY 4 HOURS NEEDED FOR WHEEZING, SHORTNESS OF BREATH OR COUGH 2 Active fluticasone propionate (FLONASE) 50 mcg/actuation nasal spray SPRAY 2 SPRAYS INTO EACH NOSTRIL EVERY DAY 1 Active baclofen (LIORESAL) 10 mg tablet Take 1 tablet by mouth [address] AVILA 0 Active aspirin 81 mg EC tablet Take 81 mg by mouth daily. 7 Active tamsulosin (FLOMAX) 0.4 mg 24 hr capsule Take 0.4 mg by mouth. 4 Active metoprolol succinate (TOPROL-XL) 25 mg 24 hr tablet TAKE 1 TABLET BY MOUTH EVERY DAY 90 tablet 1 4 Active escitalopram (LEXAPRO) 10 mg tabletIndicatio ns:Anxiety disorder, unspecified Take 1 tablet (10 mg total) by mouth 1 (one) time each day. 90 tablet 1 4 Active tiZANidine (ZANAFLEX) 2 mg capsule Take 1 capsule (2 mg total) by mouth 3 (three) times a day. Active Active Problems Problem Noted Date Diagnosed Date AAA (abdominal aortic aneurysm) without rupture 02/04/2023 Assessment & Plan (05/22/2024 10:12 AM EST): Orders: ECG 12 lead Prediabetes 06/13/2022 Vitamin D insufficiency 06/10/2022 Anxiety and depression 09/15/2021 Hypertension 10/28/2017 Overview (04/06/2024): Last Assessment & Plan: Blood pressure well controlled on current medical regimen of beta-jose. Continue to follow. Assessment & Plan (05/22/2024 10:12 AM EST): Hyperlipidemia 10/28/2017 Overview (04/06/2024): Last Assessment & Plan: The patient is intolerant of statins given elevated CPK is at baseline. Despite being off of statin therapy, his CPKs remain elevated. He has never been evaluated by rheumatology. We will update his fasting lipid profile, including direct LDL, and obtain LFTs and CPK. If CPK remains elevated, can consider referral to rheumatology for ongoing evaluation. He will continue his PCSK9 inhibitor as well as Vascepa. Further recommendations based on clinical course. 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 His shortness of breath remains unchanged. His LVEF has recovered on his most recent nuclear stress test. For now, continue ongoing medical therapy with aspirin, beta-jose, and cholesterol management. He will let me know if he has any changes in his current condition. ED (erectile dysfunction) 09/07/2016 Asthma 02/03/2016 Allergic rhinitis 02/01/2014 Lumbosacral spondylosis 05/05/2009 Overview (04/06/2024): And cervical DDD (degenerative disc disease), cervical 2009 Overview (04/06/2024): And lumbar Encounters Date Type Department Care Team Description 06/08/2024 Telephone [facility] [address] [place] [address] [address] [place] [address] Mony Pardo PA Medical Records 05/22/2024 9:20 AM EST Office Visit [facility] [address] [place] [phone] Joe Shaw MD Coronary artery disease involving craig coronary artery of craig heart without angina pectoris (Primary Dx); Primary hypertension; Mixed hyperlipidemia 05/22/2024 Telephone [facility] - [facility] [address] [facility] [address] [place] [phone] Joe Shaw MD hold aspirin 05/15/2024 Telephone Internal Medicine - [place] [address] [facility] [address] [place] [phone] Mony Pardo PA DME (Mattress ) 04/06/2024 Telephone Internal Medicine [facility] [address] [facility] [address] [place] [phone] Mony Pardo PA Request For Order(s) (Requesting a size simental - mattress/4 prong cane) from Last 3 Months Immunizations Name Administration Dates Next Due Influenza Quadravalent, MDCK , 0.5ml, preservative free (Flucelvax) 6mo and older 03/11/2020 Influenza trivalent, 0.5mL (Fluad) 65yo and olde r 02/12/2023,03/17/2021 Pfizer SARS-CoV-2 COVID-19, mRNA, LNP-S, preservative free 09/06/2020,08/16/2020 Pneumococcal conjugate 13 va lent (Prevnar 13, PCV13) 2mo and older 03/11/2020 Surgical History Surgery Date Site/Laterality Comments OTHER SURGICAL HISTORY 09/25/2018 Right PROCEDURE: AK EXC HYDROCELE SPRMATIC CORD UNI SPX; COMMENT: Dr. Tan NECK SURGERY PROCEDURE: HISTORICAL NECK SURGERY; COMMENT: fusion C3-4 and C6-7 BACK SURGERY PROCEDURE: HISTORICAL BACK SURGERY; COMMENT: lumbar discectomy 1992 x2, lumbar x 3 [id number], lumbar fusion 2015 Medical History Medical History Date Comments Allergic rhinitis 02/01/2014 DX:Allergic rh initis Asthma 02/03/2016 DX:Asthma CAD (coronary artery disease) 10/28/2017 DX :CAD (coronary artery disease) DDD (degenerative disc disea se), cervical 05/05/2009 DX:DDD (degenerative disc di sease), cervical; COMMENT: And lumbar ED (erectile dysfunction) 09/07/2016 DX:ED (erectile dysfunction) Hyperlipidemia 10/28/2017 DX:Hyperlipidemi a Hypertension 10/28/2017 DX:Hypertension Lumbosacral spondylosis 05/05/2009 DX:Lumbo sacral spondylosis; COMMENT: And cervical Anxiety and depression DX:Anxiet y and depression Vitamin D insufficiency DX:Vitam in D insufficiency Prediabetes DX:Prediabetes Family History Medical History Relation Name Comments Prostate cancer Father Alzheimer's disease Mother Relation Name Status Comments Father (Age 60's) Mother (Age 91) covid Social History Tobacco Use Types Packs/Day Years [...] on file Sexual Orientation Not on file Obstetrics History Last Filed Vital Signs Vital Sign Reading Time Taken Comments Blood Pressure 110/80 05/22/2024 9:17 AM EST Pulse 61 05/22/2024 9:17 AM EST Temperature - - Respiratory Rate - - Oxygen Saturation 97% 05/22/2024 9:17 AM EST Inhaled Oxygen Concentration - - Weight 88.5 kg (195 lb) 05/22/2024 9:17 AM EST Height 175.3 cm (5' 9 ) 11/04/2023 10:55 AM EDT Body Mass Index 28.8 11/04/2023 10:55 AM EDT Plan of Treatment Upcoming Encounters Date Type Department Care Team (Late st Contact Info) Description 09/28/2024 8:30 AM EDT Ancillary Procedure [facility] [address] [facility] [address] [place] [address] 11/05/2024 10:30 AM EDT Office Visit Vascular Surgery - [place] [address] [place] [phone] Eunice Price PA [address] [place] [address] Health Maintenance Due Date Last Done Comments DTaP,Tdap,and Td Vaccines (1 - Tdap) 1974 RSV Immunization Patients 60+ Years Old (1 - Risk 60-74 years 1-dose series) 2015 Colorectal Cancer Screening: Colonoscopy 04/07/2022 Depression Screening 04/07/2022 Falls Risk Assessment 04/07/2022 Hepatitis C Screening 04/07/2022 Medicare Annual Wellness Visit 04/07/2022 Social Influencers of Health Screening 04/07/2022 Hypertension/CHF/CAD Annual BMP Blood Test 06/06/2023 06/06/2022 Cholesterol Screening (Lipid Panel) 12/08/2028 12/09/2023, 12/09/2023 Zoster Vaccines Completed 08/24/2021, 03/29/2021 COVID-19 Vaccine Completed 05/22/2024, 10/2021, 03/29/2021, Additional history exists Influenza Vaccine Completed 05/22/2024, , 03/05/2022, Additional history exists Pneumococcal Vaccine: 50+ Years Completed 05/22/2024, 03/11/2020 HIB Vaccines Aged Out No longer eligi ble based on patient's age to complete this topic HPV Vaccines Aged Out No longer eligi ble based on patient's age to complete this topic Hepatitis A Vaccines Aged Out No long er eligible based on patient's age to complete this topic Hepatitis B Vaccines Aged Out No long er eligible based on patient's age to complete this topic IPV Vaccines Aged Out No longer eligi ble based on patient's age to complete this topic MMR Vaccines Aged Out No longer eligi ble based on patient's age to complete this topic Meningococcal ACWY Vaccine Aged Out N o longer eligible based on patient's age to complete this topic Meningococcal B Vacine Aged Out No lo nger eligible based on patient's age to complete this topic RSV Immunization Patients Under 20 months Aged Out No longer eligible based on patient's age to complete this topic Varicella Vaccines Aged Out No longer eligible based on patient's age to complete this topic Procedures Procedure Name Priority Date/Time Associated Diagnosis Comments ECG 12-LEAD Routine 05/22/2024 9:24 AM EST Coronary artery disease involving craig coronary artery of craig heart without angina pectoris LIPID PANEL Routine 12/09/2023 ANNUAL BMP BLOOD TEST Routine 06/06/2022 from Last 3 Months or Most Recently Relevant to Health Maintenance Results * ECG 12 lead (05/22/2024 9:24 AM EST) Ventricular Rate ECG 61 BPM GEMUSE Atrial Rate 61 BPM GEMUSE P-R Interval 182 ms GEMUSE QRS Duration 86 ms GEMUSE Q-T Interval 412 ms GEMUSE QTc 414 ms GEMUSE P Wave [place] 68 degrees GEMUSE R [place] 73 degrees GEMUSE T [place] -26 degrees GEMUSE ECG Interpretation Normal sinus rhythm Possible Inferior infarct (cited on or before 18-MAY-2016) Abnormal ECG When compared with ECG of 27-FEB-2021 12:21, Inverted T waves have replaced nonspecific T wave abnormality in Inferior leads Confirmed by MD Colin, Joe ([id number]) on 05/22/2024 9:29:49 AM GEMUSE 05/22/2024 9:24 AM EST 05/22/2024 9:29 AM EST us Joe Shaw MD ECG ORDERABLES Final Res ult GEMUSE * (ABNORMAL) Lipid panel (12/09/2023) LDL/HDL Ratio 3 0 - 4 Triglycerides 162(A) 0 - 150 mg/dL Cholesterol 133 0 - 200 mg/dL HDL 52 >=40 mg/dL LDL Cholesterol 49 0 - 100 mg/dL Blood Venous blood specimen / Unknown Historical Provider LAB BLOOD ORDERABLES Marylou l Result * Annual BMP Blood Test (06/06/2022) Annual BMP Blood Test Abstracted Historical Provider HEALTH MAINTENANCE Final Result from Last 3 Months or Most Recently Relevant to Health Maintenance Insurance [employer] MED[employer] Member Subscriber Plan / Payer (Ef fective 2023-Present) Name:Jaya Byrd Relation to Subscriber:Self Name:Jaya Byrd Payer ID:[id number] Group ID:[id number] Type:Not on file Address: [place] [address] [address] [id number] Care Teams Software Specialist Relationship Specialty Start Date End Date Mony Pardo PA [address] [place] [address] PCP - General Primary Care 05/22/24
--- OUTSIDE RECORDS SUMMARY | 2024-06-10 13:19 | XMS_ITS | Encounter Summary ---
Author Organization [facility] [employer] Address [address] [place] [address] Care Team Providers Care Environmental Field Technician Name Role Phone Mony Pardo Primary Care Provider + Reason for Visit * Reason Onset Date Comments hold aspirin 05/22/2024 Encounter Details Date Type Department Care Team (Late st Contact Info) Description 05/22/2024 Telephone [facility] - [facility] [address] [facility] [address] [place] [phone] Joe Shaw MD [address] [facility] [address] [place] [address] hold aspirin Social History Tobacco Use Types Packs/Day Years [...] as of this encounter Progress Notes * Carolann Shea RN - 05/27/2024 4:01 PM EST Noted. * Olga Hines RN - 05/27/2024 4:00 PM EST Confirmation received * Olga Hines RN - 05/27/2024 3:54 PM EST Called Pinky and informed her of the below message from Jhon Saldaña. I faxed this encounter to her ([phone]). Awaiting confirmation. * Lindsey Saldaña NP - 05/27/2024 2:51 PM EST Reviewed with Dr. Shaw. It is not ideal for this patient to be off of aspirin and ideally we wouldprefer if he could continue this as long as the bleeding risk is acceptable. * Carolann Shea RN - 05/22/2024 1:47 PM EST Spoke with Pinky from [facility]. Patient scheduled for Spinal chord stimulator trial 06/10/24. Asking if ok to hold ASA 7 days prior to 06/10 procedure? * Candida Martinez - 05/22/2024 1:12 PM EST Pinky from [facility] called. She would like to know if it is ok for the patient to hold aspirin before his injection and for how long. She states this was discussed during his appointment today. Please call her back at [phone]. documented in this encounter Plan of Treatment Upcoming Encounters Date Type Department Care Team (Late st Contact Info) Description 09/28/2024 8:30 AM EDT Ancillary Procedure [facility] - [address] [place] [address] 11/05/2024 10:30 AM EDT Office Visit Vascular Surgery - [place] [address] [place] [address] Eunice Price PA [address] [facility] [address] [place] [address] documented as of this encounter Visit Diagnoses Not on filedocumented in this encounter Care Teams Environmental Field Technician Relationship Specialty Start Date End Date Mony Pardo PA [address] [place] [address] PCP - General Primary Care 05/22/24 documented as of this encounter
--- OUTSIDE RECORDS SUMMARY | 2024-06-10 13:19 | XMS_ITS | Encounter Summary ---
Author Organization [employer] Address [address] [place] [address] Care Team Providers Care Sandfill Operator Name Role Phone Mony Pardo Primary Care Provider + Reason for Visit * Reason Comments Follow-up Pain management [facility] pain [facility] Encounter Details Date Type Department Care Team (Late st Contact Info) Description 05/22/2024 9:20 AM EST Office Visit [facility] [address] [place] [id number] Joe Shaw MD [address] [place] [address] Coronary artery disease involving hoopa coronary artery of hoopa heart without angina pectoris (Primary Dx); Primary hypertension; Mixed hyperlipidemia Social History Tobacco Use Types Packs/Day Years [...] on file documented as of this encounter Last Filed Vital Signs Vital Sign Reading Time Taken Comments Blood Pressure 110/80 05/22/2024 9:17 AM EST Pulse 61 05/22/2024 9:17 AM EST Temperature - - Respiratory Rate - - Oxygen Saturation 97% 05/22/2024 9:17 AM EST Inhaled Oxygen Concentration - - Weight 88.5 kg (195 lb) 05/22/2024 9:17 AM EST Height - - Body Mass Index 28.8 11/04/2023 10:55 AM EDT documented in this encounter Progress Notes * Joe Shaw MD - 05/22/2024 9:20 AM ESTAssociated Problem(s): AAA (abdominal aortic aneurysm) without rupture (CMS/HCC) Orders: ECG 12 lead * Joe Shaw MD - 05/22/2024 9:20 AM ESTAssociated Problem(s): Hypertension * Joe Shaw MD - 05/22/2024 9:20 AM ESTAssociated Problem(s): Hyperlipidemia * Joe Shaw MD - 05/22/2024 9:20 AM EST Images from the original note were not included. [facility] Cardiology Follow-up Note PCP: NEHAL Martines HPI: Jaya Byrd is a 69 y.o. old male with cardiac risk factors of hypertension, hyperlipidemia with statin intolerance, prior smoking with COPD, sedentary lifestyle, and age. He has known coronaryartery disease with cardiac catheterization in April 2016 showing left main 20%, proximal LAD 25%, left circumflex with luminal irregularities, culprit lesion proximal RCA 100% percent stenosis, with ischemic cardiomyopathy and LVEF at that time 40-45% with inferior wall akinesis and inferior septal wall hypokinesis. He had a subsequent dobutamine stress echocardiogram in October 2016 showed no evidence of ischemia and improvement in his LVEF and mid and apical inferior wall suggestive of continued viability. However, given that he had no anginal symptoms revascularization was deferred to the complexity of the RCA lesion medical therapy continued. He had an updated pharmacologic Nuclear stress test in 09/2019 showing continued fixed inferior defect with normal LVEF. Of note, he has chronically elevated CPK of unclear etiology and all of his cardiac medications have been withdrawn that can cause CPK elevation. Pt presents today for preoperative evaluation. He denies any new anginal type symptoms. Denies worsening SOB, orthopnea PND or LE edema. Functional capacity is reduced due to back pain. ACTIVE MEDICATIONS: Outpatient Medications Marked as Taking for the 05/22/24 encounter (Office Visit) with Joe Rodriguez MD Medication Sig Dispense Refill albuterol 2.5 mg /3 mL (0.083 %) nebulizer solution TAKE 1 VIAL BY NEBULIZATION EVERY 4 HOURS NEEDED FOR WHEEZING, SHORTNESS OF BREATH OR COUGH albuterol HFA (PROAIR HFA ; PROVENTIL HFA ; VENTOLIN HFA) 90 mcg/actuation inhaler INHALE 2 PUFFS BY MOUTH EVERY 4 HOURS NEEDED COUGH/ WHEEZING/ SHORTNESS OF BREATH aspirin 81 mg EC tablet Take 81 mg by mouth daily. baclofen (LIORESAL) 10 mg tablet Take 1 tablet by mouth [address] AVILA cetirizine (ZyrTEC) 10 mg tablet Take 10 mg by mouth daily. escitalopram (LEXAPRO) 10 mg tablet Take 1 tablet (10 mg total) by mouth 1 (one) time each day. 90 tablet 1 evolocumab (Repatha SureClick) 140 mg/mL pen injector injection INJECT 1 ML INTO THE ABDOMEN,THIGH,OR UPPER ARM EVERY 14 DAYS. fluticasone furoate-vilanteroL (Breo Ellipta) 100-25 mcg/dose inhaler INHALE 1 PUFF BY INHALATION ROUTE EVERY DAY AT THE SAME TIME EACH DAY fluticasone propionate (FLONASE) 50 mcg/actuation nasal spray SPRAY 2 SPRAYS INTO EACH NOSTRIL EVERY DAY gabapentin (NEURONTIN) 600 mg tablet TAKE 1 TABLET BY MOUTH THREE TIMES A DAY hydrOXYzine HCL (ATARAX) 25 mg tablet TAKE 2 TABLETS BY MOUTH AT BEDTIME NEEDED FOR ANXIETY (INSOMNIA). 180 tablet 1 icosapent ethyL (Vascepa) 1 gram capsule TAKE 2 CAPSULES BY MOUTH TWICE A DAY metoprolol succinate (TOPROL-XL) 25 mg 24 hr tablet TAKE 1 TABLET BY MOUTH EVERY DAY 90 tablet 1 montelukast (SINGULAIR) 10 mg tablet TAKE 1 TABLET BY MOUTH EVERY DAY AT NIGHT tamsulosin (FLOMAX) 0.4 mg 24 hr capsule Take 0.4 mg by mouth. tiotropium (Spiriva with HandiHaler) 18 mcg per inhalation capsule INHALE 1 CAPSULE VIA HANDIHALER ONCE DAILY AT THE SAME TIME EVERY DAY tiZANidine (ZANAFLEX) 2 mg capsule Take 1 capsule (2 mg total) by mouth 3 (three) times a day. umeclidinium (Incruse Ellipta) 62.5 mcg/actuation inhalation INHALE 1 PUFF BY INHALATION ROUTE EVERY DAY AT THE SAME TIME EACH DAY PAST MEDICAL HISTORY: Patient Active Problem List Diagnosis Vitamin D insufficiency Prediabetes Lumbosacral spondylosis Hypertension Hyperlipidemia ED (erectile dysfunction) DDD (degenerative disc disease), cervical CAD (coronary artery disease) Asthma Anxiety and depression Allergic rhinitis AAA (abdominal aortic aneurysm) without rupture (CMS/HCC) ALLERGIES: Allergies Allergen Reactions Other Pollen FAMILY HISTORY: Family History Problem Relation Name Age of Onset Alzheimer's disease Mother Prostate cancer Father SOCIAL HISTORY: Social History Tobacco Use Smoking status: Former Current packs/day: 0.00 Types: Cigarettes Quit date: 04/29/2015 Years since quittin.0 Smokeless tobacco: Never Substance Use Topics Alcohol use: Yes Comment: occasional PHYSICAL EXAM: Vitals: 05/22/24 0917 BP: 110/80 Pulse: 61 SpO2: 97% Weight: 88.5 kg (195 lb) Gen: Stated age, well nourished, sitting up NAD HEENT: MMM no LAD, no JVD Pulm: non-labored, CTAB, no wheezing Heart: RRR, no m/g/r Abd: Soft NT/ND, +BS, no tenderness Extrem: no c/c/e, no ulcers on LE Skin: no rashes Vasc: 2+ RP no carotid bruit Neuro: Alert oriented x 3, UE strength symmetric intact Psych: Mood good, Affect congruent EKG: Encounter Date: 05/22/24 ECG 12 lead Result Value Ventricular Rate ECG 61 Atrial Rate 61 P-R Interval 182 QRS Duration 86 Q-T Interval 412 QTc 414 P Wave Grace 68 R Grace 73 T Grace -26 ECG Interpretation Normal sinus rhythm Possible Inferior infarct (cited on or before 18-MAY-2016) Abnormal ECG When compared with ECG of 27-FEB-2021 12:21, Inverted T waves have replaced nonspecific T wave abnormality in Inferior leads Confirmed by MD Shaw Christopher ([id number]) on 05/22/2024 9:29:49 AM *Note: Due to a large number of results and/or encounters for the requested time period, some results have not been displayed. A complete set of results can be found in Results Review. TESTING: No results found for: NA , K , CL , CO2 , GLUCOSE , BUN , CREATININE , CALCIUM , PROT , ALBUMIN , BILITOT , AST , ALT , URICACID , PHOS , MG , ALKPHOS , CKTOTAL , EGFR , No results found for: WBC , HGB , HCT , MCV , PLT , and Lab Results Component Value Date CHOL 133 12/09/2023 Lab Results Component Value Date HDL 52 12/09/2023 No results found for: LDLCALC Lab Results Component Value Date TRIG 162 (A) 12/09/2023 No results found for: CHOLHDL ASSESSMENT/PLAN: Assessment & Plan Coronary artery disease involving hoopa coronary artery of hoopa heart without angina pectoris Orders: ECG 12 lead Primary hypertension Mixed hyperlipidemia CAD No RCA occulusion without symptoms. I doubt additional cardiac testing in absence of new symptoms would appreciably reduce his perioperative DC/CA risk. I would continue medical management with BP control. I would try to keep on ASA if possible in stacia-op setting unless bleed risk is prohibitive/life threatening in which case a 5 day hold is reasonable. LDL at goal BP at goal. HTN Contine current medications HLP LDL at goal. Trig a little high though has minimal effect on coronary risk. Continue PCSK9 inhibitor. I have applied the code G2211 to this patient???s visit as the primary provider managing CAD leading to the work up, and management associated with the medical care of this patient. This patient???s serious and complex medical conditions require continued management and coordination through my office. I have reviewed all information as it pertains to the management of this patient for final approval. The [facility] team will continue to co-manage this patient following the plan of care as established by my initial visit and as per AHA guidelines for ongoing management and surveillance of above listed conditions. This will include medication titration, initiation of appropriate medications and further t itration, and diagnostic studies to manage this disease process. documented in this encounter Plan of Treatment Upcoming Encounters Date Type Department Care Team (Late st Contact Info) Description 09/28/2024 8:30 AM EDT Ancillary Procedure [facility] - [address] [place] [address] 11/05/2024 10:30 AM EDT Office Visit [facility] - [place] [address] [place] [address] Eunice Price PA [address] [place] [address] documented as of this encounter Procedures Procedure Name Priority Date/Time Associated Diagnosis Comments ECG 12-LEAD Routine 05/22/2024 9:24 AM EST Coronary artery disease involving hoopa coronary artery of hoopa heart without angina pectoris documented in this encounter Results * ECG 12 lead (05/22/2024 9:24 AM EST) Ventricular Rate ECG 61 BPM GEMUSE Atrial Rate 61 BPM GEMUSE P-R Interval 182 ms GEMUSE QRS Duration 86 ms GEMUSE Q-T Interval 412 ms GEMUSE QTc 414 ms GEMUSE P Wave Grace 68 degrees GEMUSE R Grace 73 degrees GEMUSE T Grace -26 degrees GEMUSE ECG Interpretation Normal sinus [...] MD ECG ORDERABLES Final Res ult GEMUSE documented in this encounter Visit Diagnoses Diagnosis Coronary artery disease involving hoopa coronary artery of hoopa heart without angina pectoris- Primary Primary hypertension Unspecified essential hypertension Mixed hyperlipidemia documented in this encounter Historical Medications * This list may reflect changes made after this encounter. tiZANidine (ZANAFLEX) 2 mg capsule Take 1 capsule (2 mg total) by mouth 3 (three) times a day. added in this encounter Care Teams Sandfill Operator Relationship Specialty Start Date End Date Mony Pardo PA [address] [place] [address] PCP - General Primary Care 05/22/24 documented as of this encounter
--- NOTE | 2024-06-10 13:23 | MHC.SHP ---
Pre-Procedural Eval Section A - 24 Hr Update-Section A only Date of Service: 06/10/24 The patient is an INPATIENT: No Changes since office visit: Yes Patient answered all questions The patient has been examined within 24 hours of the surgical procedure. The History & Physical has been completed within 30 days and I have reviewed it.: No Section B - Complete if H&P > 30 days Chief Complaint: Postlaminectomy syndrome, not elsewhere classified Relevant Family History (Specify if Yes): No Relevant Social History: None Present Medications: see Short Stay Collaborative assessment Medical History: No relevant PMH History of Previous Operations: No relevant previous surgery Allergies: Allergies Allergy/AdvReac Type Severity Reaction Status Date / Time environmental allergies Allergy Intermediate SOB, Verified 03/02/24 11:37 watery eyes cyclobenzaprine AdvReac Intermediate palpatation Verified 03/02/24 11:37 s Review of Systems Sugical H&P ROS: Negative: Constitution, Cardiovascular and Respiratory Exam Surgical H&P Exam: Normal: HEENT, Normal: Heart and Normal: Lungs Plan Diagnosis/Plan: Unchanged I have reviewed the history and physical and performed a pertinent physical examination on my patient. No changes have occurred unless specified. Time Spent With Patient Time: Total time managing care of this patient today ____ minutes.
[2024-06-10] MEDS: ceFAZolin Sodium/Dextrose,Iso 2 GM/50 ML PIGGYBACK IV (13:45)
[2024-06-10 14:11] VITALS: BP 131/81; PULSE 67; RESP 18; TEMP 37; O2SAT 95
[2024-06-10 14:20] LABS: MRSA Nasal PCR NEGATIVE (Negative); SA Nasal PCR POSITIVE (Negative)
[2024-06-10 15:10] VITALS: BP 118/72; PULSE 75; RESP 16; TEMP 36.6; O2SAT 97
--- NOTE | 2024-06-10 15:18 | PM.OP ---
Brief Operative Note Date of Service: 06/10/24 Pre-op diagnosis: Post-laminectomy syndrome Post-op diagnosis: same Procedure: Lumbar spinal cord stimulation trial Implants: Gregory scientific SCS trial leads Surgeon: Armin Young MD Anesthesia: MAC Was an Christian Education Director used for this Procedure?: No Estimated blood loss (mL): 10 Pathology: none sent Condition: stable Disposition: floor
[2024-06-10 15:25] VITALS: BP 114/71; PULSE 71; RESP 20; TEMP 36.8; O2SAT 97
--- NOTE | 2024-06-10 16:08 | W.PM.OPN ---
Operative Note Operative Note Date of Service: 06/10/24 Narrative: Preprocedure note: Postlaminectomy syndrome (failed back syndrome) Postprocedure note: Same Procedure: Percutaneous Spinal Cord Stimulator Trial, Lumbar After obtaining written consent, pre-procedure blood pressure and heart rate were recorded and are in the nursing record for review. A peripheral IV was started. Antibiotics, cefazolin 2 gram, were given intraoperatively. The patient was placed in a prone position.? The patient was sedated by the anesthesiologist. The thoracolumbar area was widely prepped with ChloraPrep, allowed to dry and draped in sterile fashion. Fluoroscopy was used to identify the target interlaminar spaces and appropriate needle insertion sites. The skin and subcutaneous tissue was anesthetized with 0.5% lidocaine. Two separate 14 gauge Epimed epidural needles were then advanced from these points in a paramedian approach to the epidural space opening at T12/L1 interspace, where loss of resistance was found using air. No paresthesias were elicited with needle placement. No CSF or heme was present upon needle placement. A guide wire was then used to confirm placement into the epidural space at each level under live fluoroscopy. The 1x8 stimulator lead wires were then threaded to the top of T7 in the midline position under live fluoroscopy. The leads advanced midline.? The Epimed needles were then completely removed under live fluoroscopy. The stimulator wires were then secured with steristrip, gauze and tegaderm for skin dressing. In the PACU, the patient complained of a new, left, acute radicular pain in his left lateral calf and left foot. A reliable cause could not be correlated based on the intra-operative events and reported symptoms. Differentials included right L5 nerve root irriration due to epidural needle placement or due to prone positioning last an hour. Patient stated he was unable to go home since he lives alone and requested hospitalization. A call was placed to the hospitalist service, report was given. Single dose of IV methylprednisone 125mg was given in PACU as well as PO gabapentin 1200mg. Decision was made to revisit his status in 24 hours and assess the need for either continuing with trial or consider aborting the trial in anticipation of MRI. Time Out: Immediately prior to the procedure, the following was verbally confirmed that there is a signed consent form and that the correct patient, planned procedure, site and side are consistent with documentation and that necessary equipment and/or blood products are available prior to the start of the case. Complications: New left radicular pain post-operatively EBL: 10 cc
[2024-06-10] MEDS: methylPREDNISolone Sod Succ 125 MG/2 ML VIAL IVPUSH (16:15)
[2024-06-10] MEDS: Gabapentin 400 MG CAPSULE 1200 MG PO (16:15)
--- NOTE | 2024-06-10 16:16 | P.HPHOSP_ITS ---
History of Present Illness Date of Service: 06/10/24 Chief Complaint: back pain 69M PMH CAD, COPD, hypertension, chronic pain syndrome, aortic aneurysm, failed back syndrome, mood disorder presented for elective stimulator lead placement and postprocedure was having significant radicular pain. Reports he is unable to go home. Denies urinary retention or fecal incontinence no significant weakness. Review of Systems Review of Systems: Yes all other systems are reviewed and are negative [facility] Medical History Mild heartburn Hiatal hernia CAD (coronary artery disease) Depression Anxiety AAA (abdominal aortic aneurysm) without rupture Heart attack Hx of hydrocele Cervical spondylosis with myelopathy Cervical spondylosis Lumbar spondylosis Asthma COPD (chronic obstructive pulmonary disease) HTN (hypertension) Heart disease Family History Mother COVID PONV (postoperative nausea and vomiting) Sister No problems noted. Sister No problems noted. Sister No problems noted. Brother Pulmonary fibrosis PONV (postoperative nausea and vomiting) Brother Pulmonary fibrosis PONV (postoperative nausea and vomiting) Daughter PONV (postoperative nausea and vomiting) Father PONV (postoperative nausea and vomiting) Other Dementia Diabetes mellitus, type II Disorder of thyroid Surgical History Hx of cardiac catheterization History of lumbar spinal fusion (~03/12/23) Hx of tonsillectomy Hx of colonoscopy Hx of vasectomy Hx of cervical spine surgery H/O surgical amputation of finger History of testicular surgery Hx of lumbosacral spine surgery Social History Household Members: None Housing: Apartment Are you a primary healthcare applications analyst to a significant other at home: No Do you presently have visiting nurse or other home services: No Alcohol intake: never Comment: final count correct Patient Tobacco Use Status: Former Tobacco user Tobacco use type: Cigarette Years Smoked: 30 Second Hand Smoke Exposure: No Use of substances other than those prescribed or required for medical reasons: Yes Substance Use Type: Marijuana Substance Use Frequency: Daily Have you been hit, kicked, punched, or otherwise hurt by someone within the past year? If so, by whom?: No Advance Directives: No Advance Directives Information Provided: Yes Advance Directives Date on File: 03/13/23 Recently lost weight without trying: No service: No Meds Allergies Allergy/AdvReac Type Severity Reaction Status Date / Time environmental allergies Allergy Intermediate SOB, Verified 03/02/24 11:37 watery eyes cyclobenzaprine AdvReac Intermediate palpatation Verified 03/02/24 11:37 s Active Medications: Current Medications Acetaminophen (Acetaminophen 325 Mg Tablet) 650 mg PO Q6H PRN PRN Reason: Pain, Mild 1-3,fever,headache Albuterol Sulfate (Albuterol Sulfate (0.083%) 2.5 Mg/3 Ml Vial.Neb) 2.5 mg INHALE ONCE PRN PRN Reason: Shortness of Breath/Wheezing Aspirin (Aspirin Enteric Coated 81 Mg Tablet.Dr) 81 mg PO DAILY ALICE Baclofen (Baclofen 10 Mg Tablet) 10 mg PO TID ALICE Calcium Carbonate (Calcium Carbonate 750 Mg Tab.Chew) 750 mg PO Q4H PRN PRN Reason: Heartburn Enoxaparin Sodium (Enoxaparin Sodium 40 Mg/0.4 Ml Syringe) 40 mg SUBCUT Q24H [facility] Escitalopram Oxalate (Escitalopram Oxalate 10 Mg Tablet) 10 mg PO DAILY [facility] Gabapentin (Gabapentin 400 Mg Capsule) 1,200 mg PO ONCE ONE Stop: 06/10/24 16:05 Gabapentin (Gabapentin 600 Mg Tablet) 600 mg PO TID [facility] Lactated Ringer's (Lr) 1,000 mls @ 100 mls/hr IVCONT .Q10H ALICE Last Admin: 06/10/24 12:43 Dose: 100 mls/hr Magnesium Hydroxide (Milk Of Magnesia 30 Ml Oral.Susp) 30 ml PO DAILY PRN PRN Reason: Constipation Melatonin (Melatonin 3 Mg Tablet) 6 mg PO BEDTIME PRN PRN Reason: Insomnia Methylprednisolone Sodium Succinate (Methylprednisolone Sod Succ 125 Mg/2 Ml Vial) 125 mg IVPUSH ONCE ONE Stop: 06/10/24 16:04 Metoprolol Succinate (Metoprolol Succinate Er 25 Mg Tab.Er.24h) 25 mg PO DAILY [facility]; Protocol Montelukast Sodium (Montelukast Sodium 10 Mg Tablet) 10 mg PO BEDTIME ALICE Naloxone HCl (Naloxone Hcl 0.4 Mg/Ml Vial) 0.04 mg IVPUSH Q5M PRN PRN Reason: Excessive sedation or RR < 8 Sodium Chloride (0.9 % Sodium Chloride Flush 3 Ml Syringe) 3 ml IVFLUSH QSHIFT ALICE Tiotropium [place] (Tiotropium [place] 2.5 Mcg 1 Puff/2.5 Mcg Mist.Inhal) 2 puff INHALE RDAILY [facility] Tizanidine HCl (Tizanidine Hcl 4 Mg Tablet) 2 mg PO TID [facility] Home Medications ?Medication ?Instructions ?Recorded ?Confirmed ?Last Taken ?Type aspirin 81 mg tablet,delayed 81 mg PO DAILY 02/01/22 03/02/24 07/01/23 History release (Adult Low Dose Aspirin) escitalopram oxalate 10 mg tablet 10 mg PO DAILY 02/01/22 03/02/24 07/08/23 History evolocumab 140 mg/mL subcutaneous 140 mg subcut Q2W 02/01/22 03/02/24 06/24/23 History pen injector (Zarina Marte) fluticasone propionate 50 1 - 2 spray intranasal DAILY PRN 02/01/22 03/02/24 03/11/23 History mcg/actuation nasal Allergy Symptoms spray,suspension hydroxyzine HCl 25 mg tablet 50 mg PO BEDTIME PRN Anxiety 02/01/22 03/02/24 03/10/23 History icosapent ethyl 1 gram capsule 2 g PO BID 02/01/22 03/02/24 03/10/23 History (Vascepa) metoprolol succinate 25 mg 25 mg PO DAILY 02/01/22 03/02/24 06/10/24 History tablet,extended release 24 hr nitroglycerin 0.4 mg sublingual 0.4 mg sublingual Q5M PRN Chest 02/01/22 03/02/24 Unknown History tablet Pain tamsulosin 0.4 mg capsule 0.4 mg PO DAILY@1700 02/01/22 03/02/24 03/10/23 History fluticasone furoate 100 1 ea inhalation DAILY 08/23/22 03/02/24 06/10/24 History mcg-vilanterol 25 mcg/dose inhalation powder (Breo Ellipta) montelukast 10 mg tablet 10 mg PO BEDTIME 08/23/22 03/02/24 07/08/23 History cholecalciferol (vitamin D3) 50 50 mcg PO DAILY 09/04/22 03/02/24 03/10/23 History mcg (2,000 unit) capsule albuterol sulfate 90 mcg/actuation 2 puff inhalation Q6H PRN 02/27/23 03/02/24 06/10/24 History aerosol inhaler Shortness Of Breath Or Wheezing umeclidinium 62.5 mcg/actuation 1 inh inhalation DAILY 02/27/23 03/02/24 07/08/23 History blister powder for inhalation (Incruse Ellipta) albuterol sulfate 2.5 mg/3 mL 2.5 mg inhalation QID 03/31/23 03/02/24 Unknown History (0.083 %) solution for nebulization budesonide-formoterol HFA 160 1 puff inhalation BID 05/31/23 03/02/24 07/08/23 History mcg-4.5 mcg/actuation aerosol inhaler cetirizine 10 mg tablet 10 mg PO DAILY 05/31/23 03/02/24 06/10/24 History Physical Exam Vital Signs and Narrative: Vital Signs: Last Vital Signs Temp 98.3 F 06/10/24 15:25 Pulse 71 06/10/24 15:25 Resp 20 06/10/24 15:25 BP 114/71 06/10/24 15:25 Pulse Ox 97 06/10/24 15:25 O2 Del Method Room Air 06/10/24 15:25 BMI result Body Mass Index 28.5 General: AO X 3, in discomfort Resp: CTA bilateral, no accessory muscles used CVS: S1,S2,RRR GI: soft, non tender, non distended Psych: appropriate affect, appropriate insight Results Labs Labs: Laboratory Results - last 24 hr 06/10/24 12:29 Nasal Screen MRSA (PCR) NEGATIVE Nasal S. aureus Screen POSITIVE A Nasal MRSA/S.aureus Interp SEE NOTE Imaging Radiologist's Impressions: Impressions Guidance Fluoroscopy 06/10/24 13:50 IMPRESSION: Fluoroscopy during procedure. Please see procedure report for additional information. Electronically signed by: Willian Hunter MD 06/10/2024 03:32 PM EST Assessment and Plan (1) Failed back syndrome: Status: Acute Plan 69M PMH CAD, COPD, hypertension, chronic pain syndrome, aortic aneurysm, failed back syndrome, mood disorder presented for elective stimulator lead placement and postprocedure was having significant radicular pain Intractable back pain Dilaudid as needed Continue gabapentin, baclofen, tizanidine Coronary artery disease Continue aspirin COPD Continue inhalers Hypertension Continue metoprolol DVT prophylaxis with Lovenox Full Code Quality Stroke Does the patient have a stroke diagnosis?: No VTE Prior VTE?: No VTE Risk Level:: Medical - moderate - high VTE Device Contraindication: Treatment Not Indicated VTE Drug Contraindication: N/A - Med Ordered
--- NOTE | 2024-06-10 18:18 | PC.NURSE ---
patient refuses bed alarms and camera,encouraged to ask for help
--- NOTE | 2024-06-10 18:33 | PC.NURSE ---
need order for vitals ,Dr. Aparicio notified
[2024-06-10 19:45] VITALS: BP 124/73; PULSE 68; RESP 18; TEMP 36.8
--- NOTE | 2024-06-10 19:59 | PHA.MEDREC ---
Pharmacy Consult ? Medication Reconciliation Pharmacy has completed the medication reconciliation.
--- NOTE | 2024-06-10 19:59 | PHA.MEDREC ---
Addendum entered by Brad Aparicio 06/10/24 20:02: reviewed Original Note: Pharmacy Consult ? Medication Reconciliation Pharmacy has completed the medication reconciliation. Spoke with patient and confirmed his medications. He confirmed the Repatha injection every 2 weeks and confirmed he last got it this past Monday 06/05. He confirmed he took his morning medications this morning.
[2024-06-10] MEDS: TiZANidine HCL 4 MG TABLET 2 MG PO (20:14)
[2024-06-10] MEDS: Baclofen 10 MG TABLET PO (20:14)
[2024-06-10] MEDS: Gabapentin 600 MG TABLET PO (20:15)
[2024-06-10] MEDS: Montelukast Sodium 10 MG TABLET PO (20:16)
[2024-06-10] MEDS: Tamsulosin HCL 0.4 MG CAPSULE PO (20:43)
[2024-06-10] MEDS: Melatonin 3 MG TABLET 6 MG PO (20:49)
[2024-06-11] MEDS: HYDROmorphone HCl 0.5 MG/0.5 ML SYRINGE IVPUSH ×6 (00:27→21:12)
[2024-06-11] MEDS: Calcium Carbonate 750 MG TAB.CHEW PO (01:41)
[2024-06-11 03:27] VITALS: BP 121/56; PULSE 70; RESP 18; TEMP 36.1; O2SAT 95
[2024-06-11] MEDS: Lactated Ringers 1,000 ML 100 ML IVCONT ×2 (03:31→14:08)
[2024-06-11 06:25] LABS: Hematocrit 40.2 % (42.0-52.0); Hemoglobin 13.9 g/dl (14.0-18.0); Mean Corpuscular HGB Conc 34.6 g/dl (31.0-36.0); Mean Corpuscular Hemoglobin 31.7 pg (27.0-33.0); Mean Corpuscular Volume 91.8 fL (80.0-98.0); Mean Platelet Volume 8.9 fL (9.4-12.4); Platelet Count 225 X10*3/uL (160-400); Red Blood Count 4.38 X10*6/uL (4.60-5.80); Red Cell Distribution Width 13.7 % (11.0-16.0); White Blood Count 11.8 X10*3/uL (4.8-10.8)
[2024-06-11 06:44] LABS: Anion Gap 14 (12-20); Blood Urea Nitrogen 20 mg/dL (9-16); Calcium 8.9 mg/dL (8.4-10.2); Carbon Dioxide 24 mmol/L (22-29); Chloride 104 mmol/L (96-108); Creatinine Clr Calc Pharmacy 83.9; Estimated Glomerular Filt Rate > 60; Glucose Random 130 mg/dL (60-115); Potassium 4.8 mmol/L (3.3-5.1); Sodium 137 mmol/L (135-145)
[2024-06-11 07:32] VITALS: BP 111/62; PULSE 61; RESP 18; TEMP 36.9; O2SAT 96
[2024-06-11] MEDS: Baclofen 10 MG TABLET PO ×3 (08:14→21:11)
[2024-06-11] MEDS: TiZANidine HCL 4 MG TABLET 2 MG PO ×3 (08:15→21:11)
[2024-06-11] MEDS: Gabapentin 600 MG TABLET PO ×3 (08:15→21:10)
[2024-06-11] MEDS: Aspirin Enteric Coated 81 MG TABLET.DR PO (08:16)
[2024-06-11] MEDS: Escitalopram Oxalate 10 MG TABLET PO (08:17)
[2024-06-11] MEDS: Metoprolol Succinate ER 25 MG TAB.ER.24H PO (08:17)
--- NOTE | 2024-06-11 08:35 | P.PNIM_ITS ---
Subjective Subjective Date of Service: 06/11/24 Interval History: allodynia over left lateral lower leg and foot Physical Exam 2 Vital Signs: Vital Signs: Last Vital Signs Temp 98.4 F 06/11/24 07:32 Pulse 61 06/11/24 07:32 Resp 18 06/11/24 07:32 BP 111/62 06/11/24 07:32 Pulse Ox 96 06/11/24 07:32 O2 Del Method Room Air 06/11/24 07:32 BMI result Body Mass Index 28.5 General: AO X 3, no acute distress Resp: CTA bilateral, no accessory muscles used CVS: S1,S2,RRR GI: soft, non tender, non distended Psych: appropriate affect, appropriate insight Objective Data Active Medications Acetaminophen (Acetaminophen 325 Mg Tablet) 650 mg PO Q6H PRN PRN Reason: Pain, Mild 1-3,fever,headache Albuterol Sulfate (Albuterol Sulfate (0.083%) 2.5 Mg/3 Ml Vial.Neb) 2.5 mg INHALE ONCE PRN PRN Reason: Shortness of Breath/Wheezing Aspirin (Aspirin Enteric Coated 81 Mg Tablet.) 81 mg PO DAILY [facility] Last Admin: 06/11/24 08:16 Dose: 81 mg Documented By: JOSE Baclofen (Baclofen 10 Mg Tablet) 10 mg PO TID [facility] Last Admin: 06/11/24 08:14 Dose: 10 mg Documented By: JOSE Calcium Carbonate (Calcium Carbonate 750 Mg Tab.Chew) 750 mg PO Q4H PRN PRN Reason: Heartburn Last Admin: 06/11/24 01:41 Dose: 750 mg Documented By: TYSON Enoxaparin Sodium (Enoxaparin Sodium 40 Mg/0.4 Ml Syringe) 40 mg SUBCUT Q24H [facility] Escitalopram Oxalate (Escitalopram Oxalate 10 Mg Tablet) 10 mg PO DAILY [facility] Last Admin: 06/11/24 08:17 Dose: 10 mg Documented By: JOSE Gabapentin (Gabapentin 600 Mg Tablet) 600 mg PO TID [facility] Last Admin: 06/11/24 08:15 Dose: 600 mg Documented By: JOSE Hydromorphone HCl (Hydromorphone Hcl 0.5 Mg/0.5 Ml Syringe) 0.5 mg IVPUSH Q3H PRN; Protocol PRN Reason: Pain, Severe (Pain Scale 7-10) Last Admin: 06/11/24 06:31 Dose: 0.5 mg Documented By: TYSON Lactated Ringer's (Lr) 1,000 mls @ 100 mls/hr IVCONT .Q10H [facility] Last Admin: 06/11/24 08:18 Dose: Not Given Documented By: JOSE Non-Admin Reason: IV Running Magnesium Hydroxide (Milk Of Magnesia 30 Ml Oral.Susp) 30 ml PO DAILY PRN PRN Reason: Constipation Melatonin (Melatonin 3 Mg Tablet) 6 mg PO BEDTIME PRN PRN Reason: Insomnia Last Admin: 06/10/24 20:49 Dose: 6 mg Documented By: TYSON Metoprolol Succinate (Metoprolol Succinate Er 25 Mg Tab.Er.24h) 25 mg PO DAILY [facility]; Protocol Last Admin: 06/11/24 08:17 Dose: 25 mg Documented By: JOSE Montelukast Sodium (Montelukast Sodium 10 Mg Tablet) 10 mg PO BEDTIME [facility] Last Admin: 06/10/24 20:16 Dose: 10 mg Documented By: TYSON Naloxone HCl (Naloxone Hcl 0.4 Mg/Ml Vial) 0.04 mg IVPUSH Q5M PRN PRN Reason: Excessive sedation or RR < 8 Sodium Chloride (0.9 % Sodium Chloride Flush 3 Ml Syringe) 3 ml IVFLUSH QSHIFT [facility] Last Admin: 06/11/24 08:09 Dose: Not Given Documented By: JOSE Non-Admin Reason: IV Running Tamsulosin HCl (Tamsulosin Hcl 0.4 Mg Capsule) 0.4 mg PO BEDTIME [facility] Last Admin: 06/10/24 20:43 Dose: 0.4 mg Documented By: TYSON Tiotropium [place] (Tiotropium [place] 2.5 Mcg 1 Puff/2.5 Mcg Mist.Inhal) 2 puff INHALE RDAILY [facility] Last Admin: 06/11/24 07:50 Dose: Not Given Documented By: CASEY Non-Admin Reason: pharmacy called for med Tizanidine HCl (Tizanidine Hcl 4 Mg Tablet) 2 mg PO TID [facility] Last Admin: 06/11/24 08:15 Dose: 2 mg Documented By: JOSE Labs 06/11/24 05:49 06/11/24 05:49 Labs: Laboratory Results - last 24 hr 06/10/24 06/11/24 12:29 05:49 MCV 91.8 MCH 31.7 MCHC 34.6 RDW 13.7 Plt Count 225 MPV 8.9 L Absolute Nucleated RBC 0.000 Nucleated RBC % (auto) 0.0 Anion Gap 14 Estim Creat Clear Calc 83.9 Estimated GFR > 60 Random Glucose 130 H Calcium 8.9 D Nasal Screen MRSA (PCR) NEGATIVE Nasal S. aureus Screen POSITIVE A Nasal MRSA/S.aureus Interp SEE NOTE Assessment and Plan (1) Failed back syndrome: Status: Acute Plan 69M PMH CAD, COPD, hypertension, chronic pain syndrome, aortic aneurysm, failed back syndrome, mood disorder presented for elective stimulator lead placement and postprocedure was having significant radicular pain Intractable back pain Dilaudid as needed Continue gabapentin, baclofen, tizanidine follow up anasthesia Coronary artery disease Continue aspirin COPD Continue inhalers Hypertension Continue metoprolol DVT prophylaxis with Lovenox Full Code reason for continued hospitalization: pain control Quality Stroke Does the patient have a stroke diagnosis?: No VTE Prior VTE?: No VTE Risk Level:: Medical - moderate - high VTE Device Contraindication: Treatment Not Indicated VTE Drug Contraindication: N/A - Med Ordered
--- NOTE | 2024-06-11 08:39 | PC.NURSE ---
Patient frustrated about swelling and pain in his left foot,has questions about meds from home Dr. Aparicio notified
--- NOTE | 2024-06-11 10:32 | HO.POSTANES ---
Post Anesthesia Evaluation Post Anesthesia Evaluation Date of Service: 06/11/24 Vital Signs: Vital Signs Temp Pulse Resp BP Pulse Ox O2 Del Method 06/11/24 07:32 98.4 F 61 18 111/62 96 Room Air 06/11/24 03:27 96.9 F 70 18 121/56 L 95 Room Air Anesthesia: TIVA Mental Status: Awake Pain Control: Satisfactory Nausea/Vomiting: None Hydration: Adequate Anesthesia-Related Issues: No Anes. Related Issues
--- NOTE | 2024-06-11 11:25 | PM.ANESCN ---
History of Present Illness Consult details Consult date: 06/11/24 Reason for consult: other Requesting physician: Odilon Aparicio Narrative: 69-year-old male with post-laminectomy syndrome status post lumbar spinal cord stimulator trial leads placement on 06/10/2024 with T12/L1 epidural access with uneventful bilateral epidural lead placement and SCS mapping/programming. In the PACU the patient reported new onset left lower extremity acute, radicular painful spasms. He was admitted for further monitoring. Today he reports an improvement in the intensity and frequency of the painful spasms and attributes this to treatment with IV hydromorphone. He continues to have left radicular pain. He does have new onset bilateral foot swelling, left significantly more pronounced compared to the right foot. He endorses pain with weight-bearing in the left foot. He denies any lower back pain, saddle anesthesia, worsening lower extremity weakness (compared to his baseline), loss of bladder control. He has not had a bowel movement yet since being hospitalized. He endorses adequate paresthesia sensation from SCS device stimulation. [facility] Past Medical History Medical History Mild heartburn Hiatal hernia CAD (coronary artery disease) Depression Anxiety AAA (abdominal aortic aneurysm) without rupture Heart attack Hx of hydrocele Cervical spondylosis with myelopathy Cervical spondylosis Lumbar spondylosis Asthma COPD (chronic obstructive pulmonary disease) HTN (hypertension) Heart disease Family History Family History Mother COVID PONV (postoperative nausea and vomiting) Sister No problems noted. Sister No problems noted. Sister No problems noted. Brother Pulmonary fibrosis PONV (postoperative nausea and vomiting) Brother Pulmonary fibrosis PONV (postoperative nausea and vomiting) Daughter PONV (postoperative nausea and vomiting) Father PONV (postoperative nausea and vomiting) Other Dementia Diabetes mellitus, type II Disorder of thyroid Surgical History Surgical History Hx of cardiac catheterization History of lumbar spinal fusion (~03/12/23) Hx of tonsillectomy Hx of colonoscopy Hx of vasectomy Hx of cervical spine surgery H/O surgical amputation of finger History of testicular surgery Hx of lumbosacral spine surgery Social History Social History Household Members: None Housing: House Are you a primary care manager to a significant other at home: No Do you presently have visiting nurse or other home services: No Alcohol intake: never Comment: pt refuses alarms Patient Tobacco Use Status: Former Tobacco user Tobacco use type: Cigarette Years Smoked: 30 Second Hand Smoke Exposure: No Use of substances other than those prescribed or required for medical reasons: Yes Substance Use Type: Marijuana Substance Use Frequency: Daily Last Used Substance: Hours (ago) Last Used Substance Other:: last night Currently Displaying Signs/Symptoms of Drug Intoxication Withdrawal: No Any prior treatment program specific to substance use: No Have you been hit, kicked, punched, or otherwise hurt by someone within the past year? If so, by whom?: No Do you feel safe in your current relationship?: No Current Relationship Is there a partner from a previous relationship who is making you feel unsafe now?: No Are you made to feel afraid or neglected: No Cultural Healthcare Practices: congregation Advance Directives: No Advance Directives Information Provided: Yes Advance Directives Date on File: 03/13/23 Do you have a plan to hurt others: No Plan Recently lost weight without trying: No Nutrition Risks: No Nutritional Risk service: No Meds Allergies Allergy/AdvReac Type Severity Reaction Status Date / Time environmental allergies Allergy Intermediate SOB, Verified 03/02/24 11:37 watery eyes cyclobenzaprine AdvReac Intermediate palpatation Verified 03/02/24 11:37 s Active Medications: Current Medications Acetaminophen (Acetaminophen 325 Mg Tablet) 650 mg PO Q6H PRN PRN Reason: Pain, Mild 1-3,fever,headache Albuterol Sulfate (Albuterol Sulfate (0.083%) 2.5 Mg/3 Ml Vial.Neb) 2.5 mg INHALE ONCE PRN PRN Reason: Shortness of Breath/Wheezing Albuterol Sulfate (Albuterol Sulfate 90 Mcg 8 Gm Inhaler) 2 puff INHALE Q6H PRN PRN Reason: Shortness Of Breath Or Wheezing Aspirin (Aspirin Enteric Coated 81 Mg Tablet.) 81 mg PO DAILY [facility] Last Admin: 06/11/24 08:16 Dose: 81 mg Baclofen (Baclofen 10 Mg Tablet) 10 mg PO TID [facility] Last Admin: 06/11/24 08:14 Dose: 10 mg Calcium Carbonate (Calcium Carbonate 750 Mg Tab.Chew) 750 mg PO Q4H PRN PRN Reason: Heartburn Last Admin: 06/11/24 01:41 Dose: 750 mg Enoxaparin Sodium (Enoxaparin Sodium 40 Mg/0.4 Ml Syringe) 40 mg SUBCUT Q24H [facility] Last Admin: 06/11/24 10:18 Dose: Not Given Escitalopram Oxalate (Escitalopram Oxalate 10 Mg Tablet) 10 mg PO DAILY [facility] Last Admin: 06/11/24 08:17 Dose: 10 mg Fluticasone/Vilanterol (Fluticasone/Vilanterol 200/25 Blst.W.Dev) 1 puff INHALE RDAILY [facility] Gabapentin (Gabapentin 600 Mg Tablet) 600 mg PO TID [facility] Last Admin: 06/11/24 08:15 Dose: 600 mg Hydromorphone HCl (Hydromorphone Hcl 0.5 Mg/0.5 Ml Syringe) 0.5 mg IVPUSH Q3H PRN; Protocol PRN Reason: Pain, Severe (Pain Scale 7-10) Last Admin: 06/11/24 06:31 Dose: 0.5 mg Hydroxyzine HCl (Hydroxyzine Hcl 50 Mg Tablet) 50 mg PO BEDTIME PRN PRN Reason: Anxiety Lactated Ringer's (Lr) 1,000 mls @ 100 mls/hr IVCONT .Q10H [facility] Last Admin: 06/11/24 08:18 Dose: Not Given Loratadine (Loratadine 10 Mg Tablet) 10 mg PO DAILY [facility] Magnesium Hydroxide (Milk Of Magnesia 30 Ml Oral.Susp) 30 ml PO DAILY PRN PRN Reason: Constipation Melatonin (Melatonin 3 Mg Tablet) 6 mg PO BEDTIME PRN PRN Reason: Insomnia Last Admin: 06/10/24 20:49 Dose: 6 mg Metoprolol Succinate (Metoprolol Succinate Er 25 Mg Tab.Er.24h) 25 mg PO DAILY [facility]; Protocol Last Admin: 06/11/24 08:17 Dose: 25 mg Montelukast Sodium (Montelukast Sodium 10 Mg Tablet) 10 mg PO BEDTIME [facility] Last Admin: 06/10/24 20:16 Dose: 10 mg Naloxone HCl (Naloxone Hcl 0.4 Mg/Ml Vial) 0.04 mg IVPUSH Q5M PRN PRN Reason: Excessive sedation or RR < 8 Non-Formulary Medication (Icosapent Ethyl [Vascepa]) 2 gm PO BID [facility] Sodium Chloride (0.9 % Sodium Chloride Flush 3 Ml Syringe) 3 ml IVFLUSH QSHIFT [facility] Last Admin: 06/11/24 08:09 Dose: Not Given Tamsulosin HCl (Tamsulosin Hcl 0.4 Mg Capsule) 0.4 mg PO BEDTIME [facility] Last Admin: 06/10/24 20:43 Dose: 0.4 mg Tiotropium [place] (Tiotropium [place] 2.5 Mcg 1 Puff/2.5 Mcg Mist.Inhal) 2 puff INHALE RDAILY [facility] Last Admin: 06/11/24 07:50 Dose: Not Given Tizanidine HCl (Tizanidine Hcl 4 Mg Tablet) 2 mg PO TID [facility] Last Admin: 06/11/24 08:15 Dose: 2 mg Home Medications ?Medication ?Instructions ?Recorded ?Confirmed ?Last Taken ?Type aspirin 81 mg tablet,delayed 81 mg PO DAILY 02/01/22 06/10/24 06/10/24 History release (Adult Low Dose Aspirin) escitalopram oxalate 10 mg tablet 10 mg PO DAILY 02/01/22 06/10/24 06/10/24 History evolocumab 140 mg/mL subcutaneous 140 mg subcut Q2W 02/01/22 06/10/24 06/05/24 History pen injector (Zarina Marte) fluticasone propionate 50 1 - 2 spray intranasal DAILY PRN 02/01/22 06/10/24 06/10/24 History mcg/actuation nasal Allergy Symptoms spray,suspension hydroxyzine HCl 25 mg tablet 50 mg PO BEDTIME PRN Anxiety 02/01/22 06/10/24 06/10/24 History icosapent ethyl 1 gram capsule 2 g PO BID 02/01/22 06/10/24 06/10/24 History (Vascepa) metoprolol succinate 25 mg 25 mg PO DAILY 02/01/22 06/10/24 06/10/24 History tablet,extended release 24 hr nitroglycerin 0.4 mg sublingual 0.4 mg sublingual Q5M PRN Chest 02/01/22 06/10/24 06/10/24 History tablet Pain tamsulosin 0.4 mg capsule 0.4 mg PO DAILY@1700 02/01/22 06/10/24 06/10/24 History fluticasone furoate 100 1 ea inhalation DAILY 08/23/22 06/10/24 06/10/24 History mcg-vilanterol 25 mcg/dose inhalation powder (Breo Ellipta) montelukast 10 mg tablet 10 mg PO BEDTIME 08/23/22 06/10/24 06/10/24 History albuterol sulfate 90 mcg/actuation 2 puff inhalation Q6H PRN 02/27/23 06/10/24 06/10/24 History aerosol inhaler Shortness Of Breath Or Wheezing albuterol sulfate 2.5 mg/3 mL 2.5 mg inhalation QID 03/31/23 06/10/24 06/10/24 History (0.083 %) solution for nebulization budesonide-formoterol HFA 160 1 puff inhalation BID 05/31/23 06/10/24 06/10/24 History mcg-4.5 mcg/actuation aerosol inhaler cetirizine 10 mg tablet 10 mg PO DAILY 05/31/23 06/10/24 06/10/24 History melatonin 1 mg-magnesium citrate 1 tab PO DAILY 06/10/24 06/10/24 06/10/24 History 71.5 mg tablet,delayed release Physical Exam Vital Signs: Vital Signs: Last Vital Signs Temp 98.4 F 06/11/24 07:32 Pulse 61 06/11/24 07:32 Resp 18 06/11/24 07:32 BP 111/62 06/11/24 07:32 Pulse Ox 96 06/11/24 07:32 O2 Del Method Room Air 06/11/24 07:32 BMI result Body Mass Index 28.5 On exam today: Appears afebrile. Alert and oriented. Mood and affect appropriate. Follows and participates in conversation appropriately. Respiratory effort is unlabored. Nonpitting left foot edema up to mid hernández area. 1+ edema in the right foot, no edema in the right hernández. Allodynia on the left foot. Shocking electrical sensation with weight-bearing on the left foot. No tenderness to palpation in the lumbar paraspinal musculature. Results Labs 06/11/24 05:49 06/11/24 05:49 Labs: Abnormal lab results 06/10/24 06/11/24 Range/Units 12:29 05:49 WBC 11.8 H (4.8-10.8) X10*3/uL RBC 4.38 L (4.60-5.80) X10*6/uL Hgb 13.9 L (14.0-18.0) g/dl Hct 40.2 L (42.0-52.0) % MPV 8.9 L (9.4-12.4) fL BUN 20 H (9-16) mg/dL Random Glucose 130 H (60-115) mg/dL Nasal S. aureus Screen POSITIVE A (Negative) Short CBC 06/11/24 Range/Units 05:49 WBC 11.8 H (4.8-10.8) X10*3/uL Hgb 13.9 L (14.0-18.0) g/dl Hct 40.2 L (42.0-52.0) % Plt Count 225 (160-400) X10*3/uL BMP 06/11/24 05:49 Sodium 137 Potassium 4.8 Chloride 104 Carbon Dioxide 24 BUN 20 H Creatinine 0.91 Calcium 8.9 D All other labs normal. Assessment and Plan (1) Post laminectomy syndrome: Status: Acute Plan 69-year-old male with a history of post-laminectomy syndrome with baseline lumbar radiculopathy, peripheral neuropathy, lower extremity weakness following prior spinal surgery, with acute new left-sided radicular symptoms associated with bilateral foot swelling following epidural access with tuohy needle and lead placement for SCS trial. I removed his epidural leads with tips intact. Leads were removed without encountering resistance. Concerns at this time include potential epidural hematoma, spinal nerve/spinal cord impingement or injury and DVT. His exam is reassuring from a strength and saddle anesthesia standpoint. However the new onset swelling and severe radicular pain are concerning that will need to be investigated for a cause before he can be safely discharged. Recommend MRI of the lumbar spine starting at T11, with and without contrast as a next step. May consider Doppler or D-dimer testing to rule out lower extremity DVT. Total time managing care of this patient today: 30 minutes. Procedures Date of Service Date of Service: 06/11/24
[2024-06-11] MEDS: gadobutroL 10 ML VIAL IVPUSH (15:39)
[2024-06-11 16:00] VITALS: BP 109/53; PULSE 68; RESP 20; TEMP 36.6; O2SAT 95
--- NOTE | 2024-06-11 16:01 | MHC.CM.PN ---
Addendum entered by Kathryn Bush 06/12/24 08:53: PT REPORTS HE LIVES ALONE AND IS INDEPENDENT WITH CARE HE USES A CANE AT BASELINE, BUT HAS BEEN USING A WALKER RECENTLY HE HAS A HCP ON FILE HE CONFIRMS IS ACCURATE PCP: KAM HERNANDEZ OBSERVATION NOTICE DELIVERED DCP: HOME TODAY WITH NO SERVICES PT WILL ARRANGE TRANSPORT Original Note: CM ATTEMPTED TO SEE PT WHO WAS OFF UNIT CM TO REVISIT
[2024-06-11 19:03] VITALS: BP 117/60; PULSE 74; RESP 15; TEMP 37.1; O2SAT 95
[2024-06-11] MEDS: Tamsulosin HCL 0.4 MG CAPSULE PO (21:11)
[2024-06-11] MEDS: Montelukast Sodium 10 MG TABLET PO (21:11)
[2024-06-11] MEDS: Melatonin 3 MG TABLET 6 MG PO (21:12)
[2024-06-12] MEDS: HYDROmorphone HCl 0.5 MG/0.5 ML SYRINGE IVPUSH ×2 (00:42→03:43)
[2024-06-12] MEDS: Lactated Ringers 1,000 ML 100 ML IVCONT (00:43)
[2024-06-12 03:20] VITALS: BP 128/71; PULSE 61; RESP 20; TEMP 36.2; O2SAT 97
[2024-06-12 07:05] VITALS: BP 121/64; PULSE 56; RESP 16; TEMP 36.6; O2SAT 96
[2024-06-12] MEDS: Metoprolol Succinate ER 25 MG TAB.ER.24H PO (07:48)
[2024-06-12] MEDS: Enoxaparin Sodium 40 MG/0.4 ML SYRINGE SUBCUT (07:48)
[2024-06-12] MEDS: Loratadine 10 MG TABLET PO (07:48)
[2024-06-12] MEDS: Escitalopram Oxalate 10 MG TABLET PO (07:49)
[2024-06-12] MEDS: Aspirin Enteric Coated 81 MG TABLET.DR PO (07:49)
[2024-06-12] MEDS: 0.9 % Sodium Chloride Flush 3 ML SYRINGE IVFLUSH (07:49)
[2024-06-12] MEDS: TiZANidine HCL 4 MG TABLET 2 MG PO (07:49)
[2024-06-12] MEDS: Gabapentin 600 MG TABLET PO (07:49)
[2024-06-12] MEDS: Baclofen 10 MG TABLET PO (07:49)
[2024-06-12] MEDS: oxyCODONE HCl Immed Release 5 MG TABLET PO ×2 (07:49→11:35)
[2024-06-12] MEDS: Fluticasone/Vilanterol 200/25 BLST.W.DEV 1 PUFF INHALE (08:33)
[2024-06-12 08:35] VITALS: PULSE 87; RESP 18; O2SAT 96
--- NOTE | 2024-06-12 08:42 | PM.DS ---
DS: Providers Provider Date of Service: 06/12/24 Date of admission: 06/10/24 16:12 Date of discharge: 06/12/24 Primary care physician: NEHAL Munoz DS: Diagnosis Discharge Diagnosis (1) Post laminectomy syndrome: Status: Acute DS: Summary Hospital Course Hospital Course: from initial hpi: 69M PMH CAD, COPD, hypertension, chronic pain syndrome, aortic aneurysm, failed back syndrome, mood disorder presented for elective stimulator lead placement and postprocedure was having significant radicular pain. Reports he is unable to go home. Denies urinary retention or fecal incontinence no significant weakness. hospital course: Patient was admitted for intractable back pain. He was given as needed Dilaudid. Also treated with gabapentin, baclofen, tizanidine. Lead was removed. Symptoms improved. MRI with multiple complex findings can be followed up outpatient. For left lower extremity edema had Doppler which was negative for clot. For coronary artery disease was continued on aspirin, for COPD continued on inhalers. For hypertension continued on metoprolol. Patient's pain is now controlled and will be discharged home. Time Attestation Discharge Coordination Time (in mins): 34 Quality: Safe Use of Opioids Does Pt have an Active Cancer Diagnosis on the Problem List?: No Quality: Stroke Does the patient have a stroke diagnosis?: No Physical Exam Vital Signs: Vital Signs: Last Vital Signs Temp 97.8 F 06/12/24 07:05 Pulse 87 06/12/24 08:35 Resp 18 06/12/24 08:35 BP 121/64 06/12/24 07:05 Pulse Ox 96 06/12/24 07:05 O2 Del Method Room Air 06/12/24 07:05 BMI result Body Mass Index 28.5 General: AO X 3, no acute distress Resp: CTA bilateral, no accessory muscles used CVS: S1,S2,RRR GI: soft, non tender, non distended Neuro: motor grossly intact, alert Psych: appropriate affect, appropriate insight DS: Data Data Completed and Pending Completed studies during hospitalization [Text1]: Procedures Excision of Lumbosacral Disc, Open Approach (03/11/23) Fusion of Lumbosacral Joint with Interbody Fusion Device, Anterior Approach, Anterior Column, Open Approach (07/08/23) Insertion of Interspinous Process Spinal Stabilization Device into Lumbosacral Joint, Open Approach (07/08/23) Removal of Internal Fixation Device from Lumbar Vertebra, Open Approach (07/08/23) Discharge Plan Discharge Anticipated Discharge Date/Time: 06/12/24 08:40 Patient Disposition: Home, Self-Care Discharge Diagnosis: failed back syndrome Referrals: Mony Pardo PA [Primary Care Provider] - 1 Week Armin Young MD [Physician] - 1 Week Discharge Medications: New oxycodone 5 mg tablet 5 mg PO Q8H PRN (Reason: pain (scale score 7-10)) Qty: 15 0RF Rx Instructions: Partial Fill upon patient request. Continued gabapentin 600 mg tablet 600 mg PO TID 30 Days Qty: 90 6RF baclofen 10 mg tablet 10 mg PO 5XD 30 Days Qty: 150 3RF tizanidine 2 mg capsule 2 mg PO TID PRN (Reason: muscle spasticity) Qty: 90 3RF albuterol sulfate 2.5 mg /3 mL (0.083 %) solution for nebulization 2.5 mg inhalation QID albuterol sulfate 90 mcg/actuation HFA aerosol inhaler 2 puff INHALATION Q6H PRN (Reason: Shortness Of Breath Or Wheezing) melatonin-magnesium citrate 1-71.5 mg Tablet,Delayed Release (Dr/Ec) 1 tab PO DAILY Repatha SureClick 140 mg/mL pen injector 140 mg subcut Q2W fluticasone propionate 50 mcg/actuation spray,suspension 1 - 2 spray intranasal DAILY PRN (Reason: Allergy Symptoms) escitalopram oxalate 10 mg tablet 10 mg PO DAILY hydroxyzine HCl 25 mg tablet 50 mg PO BEDTIME PRN (Reason: Anxiety) metoprolol succinate 25 mg tablet extended release 24 hr 25 mg PO DAILY tamsulosin 0.4 mg capsule 0.4 mg PO DAILY@1700 icosapent ethyl [Vascepa] 1 gram capsule 2 g PO BID aspirin [Adult Low Dose Aspirin] 81 mg tablet,delayed release (DR/EC) 81 mg PO DAILY nitroglycerin 0.4 mg tablet, sublingual 0.4 mg sublingual Q5M PRN (Reason: Chest Pain) Rx Instructions: do not exceed 3 doses per episode montelukast 10 mg tablet 10 mg PO BEDTIME fluticasone furoate-vilanterol [Breo Ellipta] 100-25 mcg/dose blister with device 1 ea inhalation DAILY cetirizine 10 mg tablet 10 mg PO DAILY budesonide-formoterol 160-4.5 mcg/actuation HFA aerosol inhaler 1 puff inhalation BID Discharge Orders: Discharge Order (Routine); Ordered 06/12/24 Ordered By: Odilon Aparicio Diet: Advance to usual diet Activity on Discharge: As tolerated Stand Alone Forms: Patient Portal Discharge page Print Language: Hebrew Care Plan Goals: recovery Health Concerns: back pain Plan of Treatment: follow up with pain management Assessment: see above
[2024-06-12] MEDS: Tiotropium Bromide 2.5 mcg 1 PUFF/2.5 MCG MIST.INHAL 2 PUFF INHALE (11:00)
[2024-06-12 11:34] VITALS: BP 132/76; PULSE 63; RESP 18; TEMP 36.4; O2SAT 98
== END 2024-06-12 11:39 | disposition home or self-care (01) ==
LOC: HO.EDOVER 16:39 → HO.S3 16:52
PROVIDERS: Internal Medicine; Registered Nurse Emergency; Admitting Provider Internal Medicine; PCP Physician Assistant; Visit Provider Internal Medicine
PROC: (CPT 63650; principal; 2024-06-10 13:40)
DX: M96.1 Postlaminectomy syndrome, not elsewhere classified (principal); M79.662 Pain in left lower leg; I10 Essential (primary) hypertension; J44.9 Chronic obstructive pulmonary disease, unspecified; F39 Unspecified mood [affective] disorder; I25.10 Atherosclerotic heart disease of native coronary artery without angina pectoris; G89.4 Chronic pain syndrome; M79.89 Other specified soft tissue disorders; Z79.899 Other long term (current) drug therapy
CPT/HCPCS: 63650; 36415; 72158; 80048; 85027; 87640; 87641; 93971; 96361; 96365; 96366; 96372; 96375; 96376; 99221; A9585; C1897; J0690; J1171; J1650; J2003; J2250; J2405; J2704; J2919; J3010; J7120

== ENCOUNTER 2024-06-19 10:50 | Outpatient (AMB) | payer OTHER, SELFPAY ==
--- NOTE | 2024-06-19 11:05 | A.OFFVIS_ITS ---
Vital Signs 06/19/24 11:07 Height 5 ft 9 in Weight 195 lb BMI 28.8 BP 116/76 Blood Pressure Location Lt brachial Position Sitting Respiration 18 Pulse 71 Pulse Source Pulse Oximeter Pulse Oximetry (%) 93 Oxygen Delivery Method Room Air Intake Visit Reasons: S/p [employer] SCS Trial Apple Checker Required: No Allergies environmental allergies Allergy (Intermediate, Verified 06/19/24 11:08) SOB, watery eyes cyclobenzaprine Adverse Reaction (Intermediate, Verified 06/19/24 11:08) palpatations Medication List - Last Reconciled 06/19/24 by Janae Dumont LPN albuterol sulfate 90 mcg/actuation 2 puffs inhalation Q6H PRN albuterol sulfate 2.5 mg inhalation QID aspirin (Adult Low Dose Aspirin) 81 mg PO DAILY baclofen 10 mg PO 5XD 30 days budesonide-formoterol 160-4.5 mcg/actuation 1 puff inhalation BID cetirizine 10 mg PO DAILY escitalopram oxalate 10 mg PO DAILY evolocumab (Repatha Rosanna) 140 mg subcut Q2W fluticasone furoate-vilanterol 100-25 mcg/dose (Breo Ellipta) 1 ea inhalation DAILY fluticasone propionate 50 mcg/actuation 1 - 2 sprays intranasal DAILY PRN gabapentin 600 mg PO TID 30 days hydroxyzine HCl 50 mg PO BEDTIME PRN icosapent ethyl (Vascepa) 2 grams PO BID metoprolol succinate ER 25 mg PO DAILY montelukast 10 mg PO BEDTIME nitroglycerin 0.4 mg sublingual Q5M PRN tamsulosin 0.4 mg PO DAILY@1700 tizanidine 2 mg PO TID PRN HPI HPI S/p [employer] SCS Trial: Details: History of Present Illness The patient is a 69-year-old male presenting with neuropathic left-sided symptoms post-attempted trial of spinal stimulator. The symptoms commenced after the procedure aimed at pain management via a [employer] stimulator lead insertion at T12-L1 level. Following the procedure, he developed painful swelling at the base of his foot which radiated to the toes, accompanied by pain ascending the leg to the buttock. Despite some reduction in swelling and pain severity, continuous discomfort persists. There were no distinct imaging abnormalities found post-procedure that could explain the symptomology. The patient recalled less discomfort in his right lower back during the stimulator's trial period. He has since stopped all analgesics recently and reported stability in symptoms with slow improvement. Guidance has been provided to him regarding movement exercises to aid recovery, and physical therapy is planned. Pain Description - Onset: Post-procedural - Quality: Sharp, radiating - Location: Base of foot pads to toes, radiating up leg to gluteal region - Exacerbating factors: Ambulation - Relieving factors: Range of motion exercises - Interference: Reduced mobility Physical Exam - Musculoskeletal- Left foot shows decreased swelling, remains swollen but less painful upon palpation. Results - Imaging: Imaging studies showed no new changes; detailed results not discussed explicitly. Pain Management - Affect: The patient appears increasingly engaged in addressing his symptoms but demonstrates awareness of persistent discomfort. - Analgesia: Last dose of pain medication taken before consultation. - Adverse Effects: None reported. - Activities of Daily Living: Discomfort continues to interfere with mobility. - Aberrant Drug Related Behaviors: None noted. [facility] Medical History Mild heartburn Hiatal hernia CAD (coronary artery disease) Depression Anxiety AAA (abdominal aortic aneurysm) without rupture Heart attack Hx of hydrocele Cervical spondylosis with myelopathy Cervical spondylosis Lumbar spondylosis Asthma COPD (chronic obstructive pulmonary disease) HTN (hypertension) Heart disease Surgical History Hx of cardiac catheterization History of lumbar spinal fusion (~03/12/23) Hx of tonsillectomy Hx of colonoscopy Hx of vasectomy Hx of cervical spine surgery H/O surgical amputation of finger History of testicular surgery Hx of lumbosacral spine surgery Family History Mother COVID PONV (postoperative nausea and vomiting) Sister No problems noted. Sister No problems noted. Sister No problems noted. Brother Pulmonary fibrosis PONV (postoperative nausea and vomiting) Brother Pulmonary fibrosis PONV (postoperative nausea and vomiting) Daughter PONV (postoperative nausea and vomiting) Father PONV (postoperative nausea and vomiting) Other Dementia Diabetes mellitus, type II Disorder of thyroid Social History Household Members: None Housing: House Are you a primary healthcare science specialist to a significant other at home: No Do you presently have visiting nurse or other home services: No Alcohol intake: never Comment: refused bed alarm Patient Tobacco Use Status: Former Tobacco user Tobacco use type: Cigarette Years Smoked: 30 Second Hand Smoke Exposure: No Substance Use Type: Marijuana Advance Directives Date on File: 03/13/23 service: No Physical Exam Vital Signs: Last Vital Signs Pulse 71 06/19/24 11:07 Resp 18 06/19/24 11:07 BP 116/76 06/19/24 11:07 Pulse Ox 93 06/19/24 11:07 Oxygen Delivery Method Room Air 06/19/24 11:07 BMI result Body Mass Index 28.8 Assessment & Plan Assessment & Plan (1) Lumbar radiculopathy, chronic: Code(s): M54.16 - Radiculopathy, lumbar region Category: Medical (2) Complex regional pain syndrome i of left lower limb: Code(s): G90.522 - Complex regional pain syndrome I of left lower limb Category: Medical (3) Post laminectomy syndrome: Code(s): M96.1 - Postlaminectomy syndrome, not elsewhere classified Category: Medical Plan Plan Patient was informed and verbally consented to the use of an ambient scribe for clinic note documentation during this visit. 1. Neuropathic Pain Engagement in physical therapy for symptom management. Daily physical therapy and exercises are to be conducted to support nerve recovery and symptom management. Routine tracking of symptom progression is necessary. 2. Post-Procedural Swelling Continued encouragement of physical exercises to aid in swelling reduction. Follow-up in six weeks to reassess swelling and progression. Discussion Notes During the consultation, I reviewed the patient's neuropathic symptoms and swelling post-spinal stimulator trial. We discussed the probable diagnosis and the decision to delay a second stimulator attempt until symptoms resolve. The patient agreed to begin physical therapy, recognizing its potential benefits in symptom management and maintaining mobility. We conversed about the necessity of routine exercises to avoid chronic issues. Patient Instructions - Begin physical therapy as scheduled. - Engage in regular foot and leg exercises, including toe wiggling and stretching. - Monitor any changes in swelling or pain. - Schedule a follow-up appointment in six weeks. - Reach out if symptoms worsen or do not continue to improve. - Follow-up with local therapy center rather than the hospital if more convenient. Orders: Orders PT Evaluation and Treatment 06/19/24 G90.522 - Complex regional pain syndrome I of left lower limb, M54.16 - Radiculopathy, lumbar region Coding Level of Care Code Est Pt Level 3 (36688) Diagnoses Lumbar radiculopathy, chronic M54.16 Complex regional pain syndrome i of left lower limb G90.522 Post laminectomy syndrome M96.1
[2024-06-19 11:07] VITALS: BP 116/76; PULSE 71; RESP 18; O2SAT 93; BMI 28.8
--- OUTSIDE RECORDS SUMMARY | 2024-06-19 11:54 | XMS_ITS | Clinical Summary ---
Author Organization 175 [facility] Address [address] [place] [address] Phone Care Team Providers Care Differential Specialist Name Role Phone Mony Pardo Primary [...] Type Department Care Team Description 06/08/2024 Telephone [facility] Cardiology [facility] [address] [place] [address] Dr [phone] Mony Pardo PA Medical Records 05/22/2024 9:20 AM EST Office Visit [facility] - [address] [phone] Joe Shaw MD Coronary artery disease involving [place] coronary artery of [place] heart without angina pectoris (Primary Dx); Primary hypertension; Mixed hyperlipidemia 05/22/2024 Telephone [facility] - [facility] [address] [facility] [phone] Joe Shaw MD hold aspirin 05/15/2024 Telephone Internal Medicine - [place] [address] [facility] [address] [phone] Mony Pardo PA DME (Mattress ) 04/06/2024 Telephone Internal Medicine [facility] [address] [facility] [address] [phone] Mony Pardo PA Request For Order(s) (Requesting [...] Comments OTHER SURGICAL HISTORY 09/25/2018 Right PROCEDURE: HI EXC HYDROCELE SPRMATIC CORD UNI SPX; COMMENT: Dr. Tan NECK SURGERY PROCEDURE: HISTORICAL NECK SURGERY; COMMENT: fusion C3-4 and C6-7 BACK SURGERY PROCEDURE: HISTORICAL BACK SURGERY; COMMENT: lumbar discectomy 1992 x2, lumbar x 3 [id number], lumbar fusion 2015 Medical History Medical History [...] Description 09/28/2024 8:30 AM EDT Ancillary Procedure [facility] - [facility] [address] [phone] 11/05/2024 10:30 AM EDT Office Visit V[facility] - [place] [address] [phone] Eunice Price PA [address] [place] [address] Health Maintenance Due Date Last Done Comments [...] 9:24 AM EST Coronary artery disease involving [place] coronary artery of [place] heart without angina pectoris LIPID PANEL Routine [...] GEMUSE QTc 414 ms GEMUSE P Wave [place] 68 degrees GEMUSE R [place] 73 degrees GEMUSE T [place] -26 degrees GEMUSE ECG Interpretation Normal sinus [...] ID:[id number] Group ID:[id number] Type:Not on file Address: [place] [address] [address] [address] Care Teams Differential Specialist Relationship Specialty Start Date End Date Mony Pardo PA [address] [place] [address] PCP - General Primary Care 05/22/24
--- OUTSIDE RECORDS SUMMARY | 2024-06-19 11:54 | XMS_ITS | Encounter Summary ---
Author Organization [facility] Address [address] [place] [address] Care Team Providers Care Instructional Specialist Name Role Phone Mony Pardo Primary Care Provider + Reason for Visit * Reason Onset Date Comments DME 05/15/2024 Mattress Encounter Details Date Type Department Care Team (Late st Contact Info) Description 05/15/2024 Telephone Internal Medicine - [place] [address] [facility] [address] [place] [phone] Mony Pardo PA [address] [facility] [address] [address] [place] [address] DME (Mattress ) Social History Tobacco Use [...] mattress is currently being worked on with [employer]. No need to re-fax * Viry Brown - 05/15/2024 4:02 PM EST Fax number for cca [phone] Again as patient did not receive his new matress. documented in this encounter Plan of Treatment Upcoming Encounters Date Type Department Care Team (Late st Contact Info) Description 09/28/2024 8:30 AM EDT Ancillary Procedure [facility] - [facility] 101 [address] [facility] 101 [place] [address] 11/05/2024 10:30 AM EDT Office Visit Vascular Surgery - [place] 300 [facility] 210 [place] [phone] Eunice Price PA 300 [facility] [address] [place] [address] documented as of this encounter Visit Diagnoses Not on filedocumented in this encounter Care Teams Instructional Specialist Relationship Specialty Start Date End Date Mony Pardo PA [address] [place] [address] PCP - General Primary Care 05/22/24 documented as of this encounter
--- OUTSIDE RECORDS SUMMARY | 2024-06-19 11:54 | XMS_ITS | Encounter Summary ---
Author Organization [employer] Address [address] [place] [address] Care Team Providers Care Clothing Pattern Preparer Name Role Phone Mony Pardo Primary Care Provider + Reason for Visit * Reason Comments Follow-up Pain management Spin al Stimulator TBD [facility] Encounter Details Date Type Department Care Team (Late st Contact Info) Description 05/22/2024 9:20 AM EST Office Visit [facility] - [facility] [address] [facility] [address] [place] [phone] Joe Shaw MD [address] [place] [address] Coronary artery disease involving [place] coronary artery of [place] heart without angina pectoris (Primary Dx); Primary [...] from the original note were not included. [facility] Cardiology Follow-up Note PCP: [...] Q-T Interval 412 QTc 414 P Wave [place] 68 R Dight[place] 73 T Dighton -26 ECG Interpretation Normal sinus rhythm Possible [...] Assessment & Plan Coronary artery disease involving [place] coronary artery of [place] heart without angina pectoris Orders: ECG 12 lead Primary hypertension Mixed hyperlipidemia CAD No RCA occulusion without symptoms. I doubt additional cardiac testing in absence of new symptoms would appreciably reduce his perioperative LA/CA risk. I would continue medical management with [...] Description 09/28/2024 8:30 AM EDT Ancillary Procedure [facility] - [address] [place] [address] 11/05/2024 10:30 AM EDT Office Visit Vascular Surgery - [place] [address] [place] [address] Eunice Price PA [address] [place] [address] documented as of this encounter Procedures Procedure Name Priority Date/Time Associated Diagnosis Comments ECG 12-LEAD Routine 05/22/2024 9:24 AM EST Coronary artery disease involving [place] coronary artery of [place] heart without angina pectoris documented in this encounter Results * ECG 12 lead (05/22/2024 9:24 AM EST) Ventricular Rate ECG 61 BPM GEMUSE Atrial Rate 61 BPM GEMUSE P-R Interval 182 ms GEMUSE QRS Duration 86 ms GEMUSE Q-T Interval 412 ms GEMUSE QTc 414 ms GEMUSE P Wave [place] 68 degrees GEMUSE R [place] 73 degrees GEMUSE T [place]ight[place] -26 degrees GEMUSE ECG Interpretation Normal sinus [...] Visit Diagnoses Diagnosis Coronary artery disease involving [place] coronary artery of [place] heart without angina pectoris- Primary Primary hypertension Unspecified essential hypertension Mixed hyperlipidemia documented in this encounter Historical Medications * This list may reflect changes made after this encounter. tiZANidine (ZANAFLEX) 2 mg capsule Take 1 capsule (2 mg total) by mouth 3 (three) times a day. added in this encounter Care Teams Clothing Pattern Preparer Relationship Specialty Start Date End Date Mony Pardo PA [address] [place] [address] PCP - General Primary Care 05/22/24 documented as of this encounter
--- OUTSIDE RECORDS SUMMARY | 2024-06-19 11:54 | XMS_ITS | Encounter Summary ---
Author Organization [facility] Address [address] [place] [address] Care Team Providers Care Cloth Napping Supervisor Name Role Phone Mony Pardo Primary Care Provider + Reason for Visit * Reason Onset Date Comments Medical Records 06/08/2024 Encounter Details Date Type Department Care Team (Late st Contact Info) Description 06/08/2024 Telephone [facility]iology [facility] [address] [place] [address] Mony Pardo PA [address] [place] [address] Medical Records Social History Tobacco Use Types [...] 05/22/2024 Office Note and EKG to Candice [place] Stay Att: Nadja at [phone] for 06/10/2024 surg. documented in this encounter Plan of Treatment Upcoming Encounters Date Type Department Care Team (Late st Contact Info) Description 09/28/2024 8:30 AM EDT Ancillary Procedure [facility] - [facility] [address] [facility] 101 [place] [address] 11/05/2024 10:30 AM EDT Office Visit Vascular Surgery - [place] 300 [facility] 210 [place] [address] Eunice Price PA 300 [facility] [address] [place] [address] documented as of this encounter Visit Diagnoses Not on filedocumented in this encounter Care Teams Cloth Napping Supervisor Relationship Specialty Start Date End Date Mony Pardo PA [address] [place] [address] PCP - General Primary Care 05/22/24 documented as of this encounter
--- OUTSIDE RECORDS SUMMARY | 2024-06-19 11:54 | XMS_ITS | Clinical Summary ---
Author Organization [facility], Address [address] [place] [address] Phone Care Team Providers Care Director Of Annual Giving Name Role Phone Unavailable Primary Care Provider [...]
--- OUTSIDE RECORDS SUMMARY | 2024-06-19 11:54 | XMS_ITS | Encounter Summary ---
Author Organization [employer] Address [address] [place] [address] Care Team Providers Care Tubing Mill Operator Name Role Phone Mony Pardo Primary Care Provider + Reason for Visit * Reason Onset Date Comments hold aspirin 05/22/2024 Encounter Details Date Type Department Care Team (Late st Contact Info) Description 05/22/2024 Telephone [facility] Associates - [facility] [address] [facility] 154 [place] [phone] Joe Shaw MD 300 [facility] 154 [place] [address] hold aspirin Social History Tobacco Use Types [...] Saldaña. I faxed this encounter to her ([phone]). Awaiting confirmation. * Lindsey Saldaña NP - 05/27/2024 2:51 PM EST Reviewed with Dr. Shaw. It is not ideal for this patient to be off of aspirin and ideally we wouldprefer if he could continue this as long as the bleeding risk is acceptable. * Carolann Shea RN - 05/22/2024 1:47 PM EST Spoke with Pinky from [facility]. Patient scheduled for Spinal chord stimulator trial 06/10/24. Asking if ok to hold ASA 7 days prior to 06/10 procedure? * Candida Martinez - 05/22/2024 1:12 PM EST Pinky from [facility] called. She would like to know if it is ok for the patient to hold aspirin before his injection and for how long. She states this was discussed during his appointment today. Please call her back at [phone]. documented in this encounter Plan of Treatment Upcoming Encounters Date Type Department Care Team (Late st Contact Info) Description 09/28/2024 8:30 AM EDT Ancillary Procedure [facility] - [address] [place] [address] 11/05/2024 10:30 AM EDT Office Visit Vascular Surgery - [place] [address] [place] [address] Eunice Price PA [facility] [address] [place] [address] documented as of this encounter Visit Diagnoses Not on filedocumented in this encounter Care Teams Tubing Mill Operator Relationship Specialty Start Date End Date Mony Pardo PA [address] [place] [address] PCP - General Primary Care 05/22/24 documented as of this encounter
== END 2024-06-19 11:22 | disposition home or self-care (01) ==
PROVIDERS: PCP Physician Assistant; Visit Provider Internal Medicine
DX: M54.16 Radiculopathy, lumbar region (principal); G90.522 Complex regional pain syndrome I of left lower limb; M96.1 Postlaminectomy syndrome, not elsewhere classified
CPT/HCPCS: 99024

== ENCOUNTER → 2024-06-19 10:50 | Outpatient (BNVA) | payer OTHER, SELFPAY | PROVIDERS: PCP Physician Assistant; Visit Provider Internal Medicine | DX: M54.16 Radiculopathy, lumbar region (principal); G90.522 Complex regional pain syndrome I of left lower limb; M96.1 Postlaminectomy syndrome, not elsewhere classified | CPT/HCPCS: 99212 ==

== ENCOUNTER 2024-07-16 09:43 | Outpatient (RCR) | payer OTHER, SELFPAY ==
--- NOTE | 2024-07-16 11:14 | MHC.PT.EP ---
[facility] [place] Office [place] Office [place] Office [address] Mauricio Campos [address] [phone] F: [phone] F: [phone] F: [phone] F: [phone] Physical Therapy Plan of Care Date of Evaluation: 07/16/24 Date of Surgery: Diagnosis: lumbar radiculopathy, pain syndrome in lower left limb. Assessment: Patient is a 69 year old R handed male who presents with s/s consistent with lumbar radiculopathy, pain syndrome in lower left limb. He does not work and is fairly sedentary during the day. Patient past medical history includes AAA, failed back surgeries, AL, and cervical fusion among other comorbidities. Current impairments include pain, posture, flexibility, sensation, ROM, strength, activity tolerance and functional mobility. Functional limitations include decreased ability to perform all functional activities. Patient is motivated with good rehab potential. Skilled PT will address impairments and functional limitations in order to achieve goals. Frequency and Duration: The patient will be seen 2x/week for 5 weeks Short Term Goals: I with HEP - 2 weeks AROM rotation 50% and pain free - 3 weeks HS 90/90 lacking < 30 b/l - 3 weeks Custodial Goals: LE strength 4/5 grossly - 5 weeks SLB > 10 seconds b/l - 5 weeks Oswestry 80% or better - 5 weeks Treatment Plan: Modalities to reduce pain, spasms and effusion. Manual therapy to restore motion and function. Therapeutic exercise to improve strength and flexibility. Neuromuscular re-education for posture and balance. Therapeutic activities to return to functional activities of daily living. Electronically signed by: Jorge Kumar, PT Please sign and return to therapist. Thank you for your referral.
--- NOTE | 2024-11-06 08:11 | MHC.PT.DC ---
[facility] Office [place] Office [place] Office [address] Mauricio Campos [address] [phone] F: [phone] F: [phone] F: [phone] F: [phone] Physical Therapy Discharge Report Diagnosis: lumbar radiculopathy, pain syndrome in lower left limb. Date of Surgery: Date of Evaluation: 07/16/24 Date of Discharge: Treatments to Date: 1 Cancellations to Date: No Shows to Date: Discharge Status: Patient Elected to Stop Discharge Summary: Patient is a 69 year old R handed male who presents with s/s consistent with lumbar radiculopathy, pain syndrome in lower left limb. He does not work and is fairly sedentary during the day. Patient past medical history includes AAA, failed back surgeries, ND, and cervical fusion among other comorbidities. Current impairments include pain, posture, flexibility, sensation, ROM, strength, activity tolerance and functional mobility. Functional limitations include decreased ability to perform all functional activities. Patient is motivated with good rehab potential. Skilled PT will address impairments and functional limitations in order to achieve goals. Electronically signed by: Jorge Kumar, PT Please sign and return to therapist. Thank you for your referral.
== END 2024-11-06 08:11 | disposition home or self-care (01) ==
LOC: HO.PTCHIC 09:43
PROVIDERS: PCP Physician Assistant; Visit Provider Internal Medicine
DX: M54.16 Radiculopathy, lumbar region (principal); G90.522 Complex regional pain syndrome I of left lower limb
CPT/HCPCS: 97162; 97163

== ENCOUNTER 2024-07-31 10:42 | Outpatient (AMB) | payer OTHER, SELFPAY ==
[2024-07-31 10:53] VITALS: BP 155/75; PULSE 86; RESP 16; O2SAT 96; BMI 28.6
--- NOTE | 2024-07-31 10:53 | A.OFFVIS_ITS ---
Vital Signs 07/31/24 10:53 Height 5 ft 9 in Weight 194 lb BMI 28.6 BP 155/75 H Blood Pressure Location Lt brachial Position Sitting Respiration 16 Pulse 86 Pulse Source Pulse Oximeter Pulse Oximetry (%) 96 Oxygen Delivery Method Room Air Intake Visit Reasons: 6 week Follow Up Ecological Modeler Required: No Allergies environmental allergies Allergy (Intermediate, Verified 07/31/24 10:54) SOB, watery eyes cyclobenzaprine Adverse Reaction (Intermediate, Verified 07/31/24 10:54) palpatations Medication List - Last Reconciled 07/31/24 by Janae Dumont LPN albuterol sulfate 90 mcg/actuation 2 puffs inhalation Q6H PRN albuterol sulfate 2.5 mg inhalation QID aspirin (Adult Low Dose Aspirin) 81 mg PO DAILY baclofen 10 mg PO 5XD 30 days budesonide-formoterol 160-4.5 mcg/actuation 1 puff inhalation BID cetirizine 10 mg PO DAILY escitalopram oxalate 10 mg PO DAILY evolocumab (Repatha SureSumeetick) 140 mg subcut Q2W fluticasone furoate-vilanterol 100-25 mcg/dose (Breo Ellipta) 1 ea inhalation DAILY fluticasone propionate 50 mcg/actuation 1 - 2 sprays intranasal DAILY PRN gabapentin 600 mg PO TID 30 days hydroxyzine HCl 50 mg PO BEDTIME PRN icosapent ethyl (Vascepa) 2 grams PO BID metoprolol succinate ER 25 mg PO DAILY montelukast 10 mg PO BEDTIME nitroglycerin 0.4 mg sublingual Q5M PRN tamsulosin 0.4 mg PO DAILY@1700 tizanidine 2 mg PO TID PRN HPI HPI 6 week Follow Up: Details: History of Present Illness The patient is a 69 year old male presenting with follow-up of right leg neuropathy and consideration of spinal cord stimulator trial. Previously, the patient experienced left leg neuropathic symptoms following an initial spinal cord stimulator trial, which led to an overnight hospital admission due to immobility concerns. Imaging studies at that time were inconclusive for a definitive cause. Since the complication, symptoms in the left leg have resolved, but right leg issues persist and remain significant. He describes the right leg pain as having a cold sensation, with burning, tingling, and aching qualities, worsening over time. The patient has explored magnesium as a potential self-treatment but expresses caution about its limits. Additionally, he used aspirin, finding it offered some, albeit temporary, relief. His current aim is to attempt another spinal cord stimulator trial focused solely on the right leg. Pain Description - Onset and Timing: Persistent right leg pain, worsening over time, with initial events starting around prior spinal cord stimulator trial. - Quality and Character: Cold sensation, burning, tingling, and aching in the right leg. - Location: Primarily localized to the right leg. - Exacerbating Factors: Lack of treatment efficacy leading to progressive worsening. - Relieving Factors: Aspirin provides minor relief; magnesium was considered under exploratory circumstances. - Functional Interference: The pain interferes with daily lifestyle, mobility, and overall wellbeing. Physical Exam - Musculoskeletal- Right leg is warm to touch. Pain Management - Affect: Neuropathy affecting sleep and quality of life. - Analgesia: Aspirin offered temporary relief; magnesium considered as potential supplement. - Activities of Daily Living: Pain significantly limits mobility. - Aberrant Drug Related Behaviors: None reported. [facility] Medical History Mild heartburn Hiatal hernia CAD (coronary artery disease) Depression Anxiety AAA (abdominal aortic aneurysm) without rupture Heart attack Hx of hydrocele Cervical spondylosis with myelopathy Cervical spondylosis Lumbar spondylosis Asthma COPD (chronic obstructive pulmonary disease) HTN (hypertension) Heart disease Surgical History Hx of cardiac catheterization History of lumbar spinal fusion (~03/12/23) Hx of tonsillectomy Hx of colonoscopy Hx of vasectomy Hx of cervical spine surgery H/O surgical amputation of finger History of testicular surgery Hx of lumbosacral spine surgery Family History Mother COVID PONV (postoperative nausea and vomiting) Sister No problems noted. Sister No problems noted. Sister No problems noted. Brother Pulmonary fibrosis PONV (postoperative nausea and vomiting) Brother Pulmonary fibrosis PONV (postoperative nausea and vomiting) Daughter PONV (postoperative nausea and vomiting) Father PONV (postoperative nausea and vomiting) Other Dementia Diabetes mellitus, type II Disorder of thyroid Social History Household Members: None Housing: House Are you a primary child care centre manager to a significant other at home: No Do you presently have visiting nurse or other home services: No Alcohol intake: never Comment: refused bed alarm Patient Tobacco Use Status: Former Tobacco user Tobacco use type: Cigarette Years Smoked: 30 Second Hand Smoke Exposure: No Substance Use Type: Marijuana Advance Directives Date on File: 03/13/23 service: No Physical Exam Vital Signs: Last Vital Signs Pulse 86 07/31/24 10:53 Resp 16 07/31/24 10:53 BP 155/75 H 07/31/24 10:53 Pulse Ox 96 07/31/24 10:53 Oxygen Delivery Method Room Air 07/31/24 10:53 BMI result Body Mass Index 28.6 Assessment & Plan Assessment & Plan (1) Post laminectomy syndrome: Code(s): M96.1 - Postlaminectomy syndrome, not elsewhere classified Category: Medical (2) Chronic pain syndrome: Code(s): G89.4 - Chronic pain syndrome Category: Medical Plan Plan The plan is to conduct a repeat spinal cord stimulator trial, limited to the ri ght leg to mitigate previous complications noted in the left leg during the last attempted trial. The trial focuses on determining the treatment?s impact on the patient's right leg pain over the course of one week. If successful, a full implantation with bilateral leads can be considered. Coordination with psychology for pre-trial assessment and obtaining necessary insurance approvals are prioritized in the plan. Billing complications due to anesthesia charges from the previous procedure were highlighted, and the patient is encouraged to resolve these with insurance. Patient education regarding the process and potential outcomes of the trial was discussed to maintain well-informed consent. Patient was informed and verbally consented to the use of an ambient scribe for clinic note documentation during this visit. Discussion Notes I discussed the plan for a repeat spinal cord stimulator (SCS) trial focusing only on the right side to prevent the complications observed with previous bila teral attempts. I explained that the trial will be conducted for a week with close monitoring of symptom alleviation on the right side before advancing to re-implantation discussions and dual lead placement. I emphasized the importance of gaining approval from the insurance and confirmed the necessity of a pre- trial psychological evaluation. We reviewed potential procedural risks, anticipated benefits, and the patient agreed to the proposed management plan. Additionally, I advised the patient to address billing discrepancies with anesthesia through appropriate insurance channels for previous procedure-related expenses. Patient Instructions - Proceed with the plan for a right-sided spinal cord stimulator trial after necessary approvals. - Attend the recommended pre-trial psychological evaluation. - Monitor right leg symptoms and report any changes or concerns immediately. - Resolve anesthesiologist billing issues with your insurance provider. - Continue using aspirin for pain management, adhering to dosage recommendations. Coding Level of Care Code Est Pt Level 3 (60455) Diagnoses Post laminectomy syndrome M96.1 Chronic pain syndrome G89.4
--- OUTSIDE RECORDS SUMMARY | 2024-07-31 12:16 | XMS_ITS | Clinical Summary ---
Author Organization [address] [facility] Address [address] [place] [address] Phone Care Team Providers [employer] Name Role Phone Mony Pardo Primary Care Provider + Allergies Active Allergy Reactions Criticality Noted Date Comments Other 04/13/2024 Pollen Medications hydrOXYzine HCL (ATARAX) 25 mg tabletIndicati ons:Insomnia due to other mental disorder (CODE) TAKE 2 TABLETS BY MOUTH AT BEDTIME NEEDED FOR ANXIETY (INSOMNIA). 180 tablet 1 03/25/20 24 Active evolocumab (Repatha SureClick) 140 mg/mL pen injector injection INJECT 1 ML INTO THE ABDOMEN,THIGH, OR UPPER ARM EVERY 14 DAYS. 12/31/19 24 Active methylPREDNISo lone (MEDROL) 4 mg tablet Medrol dose pack as directed 05/02/19 24 Active albuterol HFA (PROAIR HFA ; PROVENTIL HFA ; VENTOLIN HFA) 90 mcg/actuation inhaler INHALE 2 PUFFS BY MOUTH EVERY 4 HOURS NEEDED COUGH/ WHEEZING/ SHORTNESS OF BREATH 04/09/20 23 Active gabapentin (NEURONTIN) 600 mg tablet TAKE 1 TABLET BY MOUTH THREE TIMES A DAY 10/17/19 23 Active montelukast (SINGULAIR) 10 mg tablet TAKE 1 TABLET BY MOUTH EVERY DAY AT NIGHT 08/22/19 23 Active umeclidinium (Incruse Ellipta) 62.5 mcg/actuation inhalation INHALE 1 PUFF BY INHALATION ROUTE EVERY DAY AT THE SAME TIME EACH DAY 09/27/19 23 Active fluticasone furoate-vilant Heather (Breo Ellipta) 100-25 mcg/dose inhaler INHALE 1 PUFF BY INHALATION ROUTE EVERY DAY AT THE SAME TIME EACH DAY 07/22/19 23 Active cholecalcifero l (VITAMIN D-3) 50 mcg (2,000 unit) capsule Take 1 Capsule by mouth daily. 06/13/19 23 Active cetirizine (ZyrTEC) 10 mg tablet Take 10 mg by mouth daily. 12/22/19 22 Active tiotropium (Spiriva with HandiHaler) 18 mcg per inhalation capsule INHALE 1 CAPSULE VIA HANDIHALER ONCE DAILY AT THE SAME TIME EVERY DAY 09/28/19 22 Active albuterol 2.5 mg /3 mL (0.083 %) nebulizer solution TAKE 1 VIAL BY NEBULIZATION EVERY 4 HOURS NEEDED FOR WHEEZING, SHORTNESS OF BREATH OR COUGH 07/16/19 22 Active fluticasone propionate (FLONASE) 50 mcg/actuation nasal spray SPRAY 2 SPRAYS INTO EACH NOSTRIL EVERY DAY 03/17/20 21 Active baclofen (LIORESAL) 10 mg tablet Take 1 tablet by mouth [address] AVILA 08/26/19 20 Active aspirin 81 mg EC tablet Take 81 mg by mouth daily. 05/25/19 17 Active tamsulosin (FLOMAX) 0.4 mg 24 hr capsule Take 0.4 mg by mouth. 06/24/19 14 Active metoprolol succinate (TOPROL-XL) 25 mg 24 hr tablet TAKE 1 TABLET BY MOUTH EVERY DAY 90 tablet 1 04/21/20 24 Active escitalopram (LEXAPRO) 10 mg tabletIndicati ons:Anxiety disorder, unspecified Take 1 tablet (10 mg total) by mouth 1 (one) time each day. 90 tablet 1 04/21/20 24 Active tiZANidine (ZANAFLEX) 2 mg capsule Take 1 capsule (2 mg total) by mouth 3 (three) times a day. Active Vascepa 1 gram capsule TAKE 2 CAPSULES BY MOUTH TWICE A DAY 360 capsule 2 07/24/19 25 Active icosapent ethyL (Vascepa) 1 gram capsule TAKE 2 CAPSULES BY MOUTH TWICE A DAY 05/07/19 24 025 Discontinued Active Problems Problem Noted Date Diagnosed Date [...] Type Department Care Team Description 06/08/[address] [facility] Cardiology [facility] [address] [facility] [address] [place] [phone] Mony Pardo PA Medical Records 05/22/2024 9:20 AM EST Office Visit [facility] [address] [facility] [address] [place] [address] Joe Shaw MD Coronary artery disease involving [place] coronary artery of [place] heart without angina pectoris (Primary Dx); Primary hypertension; Mixed hyperlipidemia 05/22/2024 Telephone [facility] [address] [facility] [address] [place] [address] Joe Shaw MD hold aspirin 05/15/2024 Telephone Internal Medicine - [place] [address] [place] [address] Mony Pardo PA DME (Mattress ) from Last 3 Months Immunizations Name Administration [...] PROCEDURE: HISTORICAL BACK SURGERY; COMMENT: lumbar discectomy 1993 x2, lumbar x 3 [id number], lumbar fusion 2015 Medical History Medical History [...] Description 09/28/2024 8:30 AM EDT Ancillary Procedure [facility] [address] [facility] [address] [place] [address] 11/05/2024 10:30 AM EDT Office Visit Vascular Surgery - [place] [address] [facility] [address] [place] [phone] Eunice Price PA [address] [facility] [address] [place] [address] Health Maintenance Due Date Last Done Comments DTaP,Tdap,and Td Vaccines (1 - Tdap) 1974 RSV Immunization Adult Patients (1 - Risk 60-74 years 1-dose series) [...] 9:24 AM EST Coronary artery disease involving [place] coronary artery of [place] heart without angina pectoris LIPID PANEL Routine [...] GEMUSE QTc 414 ms GEMUSE P Wave [place] 68 degrees GEMUSE R [place] 73 degrees GEMUSE T [place] -26 degrees GEMUSE ECG Interpretation Normal sinus [...] mg/dL Blood Venous blood specimen / Unknown us Historical Provider LAB BLOOD ORDERABLES Marylou l Result * Annual BMP Blood Test (06/06/2022) Annual BMP Blood Test Abstracted us Historical Provider HEALTH MAINTENANCE Final Result from Last 3 Months or Most Recently Relevant to Health Maintenance Insurance [facility] MEDICARE Member Subscriber Plan / Payer (Ef fective 2023-Present) Name:Jaya Byrd Relation to Subscriber:Self Name:Jaya Byrd Payer ID:[id number] Group ID:[id number] Type:Not on file Address: [place] [address] [address] Care Teams [employer] Internship Relationship Specialty Start Date End Date Mony Pardo PA [address] [place] [address] PCP - General Primary Care 05/22/24
--- OUTSIDE RECORDS SUMMARY | 2024-07-31 12:16 | XMS_ITS | Clinical Summary ---
Author Organization [facility], Address [address] [place] [address] Phone Care Team Providers Care Director Print Name Role Phone Unavailable Primary Care Provider [...] of 1 - PCV) 2020 Influenza Vaccine (Season Ended) 2024 Hepatitis B Vaccine Aged Out No longe r eligible based on patient's age to complete this topic Insurance JENNY PERKINS
== END 2024-07-31 11:27 | disposition home or self-care (01) ==
PROVIDERS: PCP Physician Assistant; Visit Provider Internal Medicine
DX: M96.1 Postlaminectomy syndrome, not elsewhere classified (principal); G89.4 Chronic pain syndrome
CPT/HCPCS: 99213

== ENCOUNTER → 2024-07-31 10:42 | Outpatient (BNVA) | payer OTHER, SELFPAY | PROVIDERS: PCP Physician Assistant; Visit Provider Internal Medicine | DX: M96.1 Postlaminectomy syndrome, not elsewhere classified (principal); G89.4 Chronic pain syndrome | CPT/HCPCS: 99212 ==

== ENCOUNTER 2025-03-19 11:15 | Outpatient (AMB) | payer OTHER, SELFPAY ==
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
--- NOTE | 2025-03-19 11:16 | MHC.OFFVIS ---
Vital Signs 03/19/25 11:18 Height 5 ft 9 in Weight 203 lb BMI 30.0 BP 110/60 Blood Pressure Location Lt brachial Position Sitting Respiration 16 Pulse 70 Pulse Source Pulse Oximeter Pulse Oximetry (%) 94 Oxygen Delivery Method Room Air Intake Visit Reasons: discuss medications Boring Machine Feeder Required: No Allergies environmental allergies Allergy (Intermediate, Verified 03/19/25 11:19) SOB, watery eyes cyclobenzaprine Adverse Reaction (Intermediate, Verified 03/19/25 11:19) palpatations HPI HPI discuss medications: Details: History of Present Illness The patient is a 69-year-old individual presenting with post-laminectomy syndrome and neuropathic pain. The patient reports persistent pain since the surgery, which has not improved despite previous interventions. The patient describes the pain as constant, affecting both legs, and interfering with daily activities and sleep. The patient has sought a second opinion and is currently in the process of scheduling another spinal cord stimulator trial with a different provider. Previous imaging revealed bulging intervertebral discs, but no tumors were identified. The patient has been advised to increase the dosage of gabapentin and is awaiting further instructions regarding the trial. Pain Description - Onset: Persistent since post-laminectomy - Quality: Constant, neuropathic - Location: Bilateral legs - Exacerbating factors: None specified - Relieving factors: None specified - Interference: Affects daily activities and sleep Results - Imaging: MRI of thoracic spine showed bulging intervertebral discs, no tumors detected Pain Management - Affect: Pain is impacting daily activities and sleep - Analgesia: Gabapentin prescribed, dosage increased to 800 mg - Adverse Effects: None reported - Activities of Daily Living: Pain interferes with daily activities and sleep - Aberrant Drug Related Behaviors: None reported PFSH Medical History Mild heartburn Hiatal hernia CAD (coronary artery disease) Depression Anxiety AAA (abdominal aortic aneurysm) without rupture Heart attack Hx of hydrocele Cervical spondylosis with myelopathy Cervical spondylosis Lumbar spondylosis Asthma COPD (chronic obstructive pulmonary disease) HTN (hypertension) Heart disease Surgical History Hx of cardiac catheterization History of lumbar spinal fusion (~03/12/23) Hx of tonsillectomy Hx of colonoscopy Hx of vasectomy Hx of cervical spine surgery H/O surgical amputation of finger History of testicular surgery Hx of lumbosacral spine surgery Family History Mother COVID PONV (postoperative nausea and vomiting) Sister No problems noted. Sister No problems noted. Sister No problems noted. Brother Pulmonary fibrosis PONV (postoperative nausea and vomiting) Brother Pulmonary fibrosis PONV (postoperative nausea and vomiting) Daughter PONV (postoperative nausea and vomiting) Father PONV (postoperative nausea and vomiting) Other Dementia Diabetes mellitus, type II Disorder of thyroid Social History Household Members: None Housing: House Are you a primary care support representative to a significant other at home: No Do you presently have visiting nurse or other home services: No Alcohol intake: never Comment: refused bed alarm Patient Tobacco Use Status: Former Tobacco user Tobacco use type: Cigarette Years Smoked: 30 Second Hand Smoke Exposure: No Substance Use Type: Marijuana Advance Directives Date on File: 03/13/23 service: No Physical Exam Vital Signs: Last Vital Signs Pulse 70 03/19/25 11:18 Resp 16 03/19/25 11:18 BP 110/60 03/19/25 11:18 Pulse Ox 94 03/19/25 11:18 Oxygen Delivery Method Room Air 03/19/25 11:18 BMI result Body Mass Index 30.0 Assessment & Plan Assessment & Plan (1) Post laminectomy syndrome: Code(s): M96.1 - Postlaminectomy syndrome, not elsewhere classified Category: Medical Plan Plan Patient was informed and verbally consented to the use of an ambient scribe for clinic note documentation during this visit. 1. Post-Laminectomy Syndrome - Plan to increase gabapentin dosage to 800 mg. - Awaiting scheduling of spinal cord stimulator trial with a different provider. 2. Neuropathic Pain - Continue with increased gabapentin dosage. - Monitor response to medication adjustment and trial outcomes. Discussion Notes I discussed with the patient the current management plan, including the increase in gabapentin dosage to 800 mg and the scheduling of a spinal cord stimulator trial with another provider. I advised the patient to monitor the response to the medication adjustment and to inform us if the trial with the other provider does not proceed as planned. We also discussed the importance of timely follow-up to ensure continuity of care. Patient Instructions - Take gabapentin as prescribed, with the increased dosage of 800 mg. - Monitor your response to the medication and report any changes or concerns. - Follow up with the other provider regarding the spinal cord stimulator trial. - Contact us if the trial does not proceed or if you have any questions. Medications: New gabapentin 800 mg PO TID 90 tabs 3RF Discontinued gabapentin Discontinued Reason: Duplicate 600 mg PO TID 30 days 90 tabs 6RF pain M47.812 - Spondylosis without myelopathy or radiculopathy, cervical region, M47.816 - Spondylosis without myelopathy or radiculopathy, lumbar region, M54.16 - Radiculopathy, lumbar region, M96.1 - Postlaminectomy syndrome, not elsewhere classified Coding Level of Care Code Est Pt Level 3 (66121) Diagnoses Post laminectomy syndrome M96.1
[2025-03-19 11:18] VITALS: BP 110/60; PULSE 70; RESP 16; O2SAT 94
--- OUTSIDE RECORDS SUMMARY | 2025-03-19 12:05 | XMS_ITS | Encounter Summary ---
Author Organization [employer] Address [address] [place] [address] Care Team Providers Care Director University Name Role Phone Mony Pardo Primary Care Provider + Reason for Visit * Reason Onset Date Comments Medication Problem 03/10/2025 Encounter Details Date Type Department Care Team ([facility] st Contact Info) Description 03/10/2025 Telephone Internal Medicine - [place] [address] [facility] [address] [place] [address] Mony Pardo PA [address] [place] [address] Social History Tobacco Use Types Packs/Day Years Used Date Smoking Tobacco: Former Cigarettes 0 Q uit: 04/29/2015 Smokeless Tobacco: Never Alcohol Use Standard Drinks/Week Comments Yes 0 (1 standard drink = 0.6 oz pur e alcohol) occasional Sex and Gender Information Value Date Recorded Sex Assigned at Not on file Legal Sex Male 6:51 PM EST Gender Identity Not on file Sexual Orientation Not on file documented as of this encounter Progress Notes * Valerie Rdz MA - 03/15/2025 2:53 PM EST Spoke to [facility] and they will contact the cardiology * NEHAL Martines - 03/11/2025 8:57 AM EST I do not recall, you could check with cardiology as he is on Repatha and Vascepa from them for his high cholesterol. * Sherita Saucedo MA - 03/10/2025 2:01 PM EST what the intolerance with statin medication is? * Katherin Stewart - 03/10/2025 9:53 AM EST [facility] called and requested a call back because they would like to know what the intolerance with statin medication is. Please advise # [phone] documented in this encounter Plan of Treatment Upcoming Encounters Date Type Department Care Team (Late st Contact Info) Description 05/25/2025 10:40 AM EST Office Visit [facility] Cardiology [facility] - [facility] [address] [facility] 102 [place] [phone] Lindsey Saldaña NP [address] [place] [address] [address] [place] [address] 06/03/2025 9:45 AM EST Office Visit Pulmonology - [place] [address] [facility] [address] [place] [address] Connor Merino MD [address] [place] [phone] 09/21/2025 7:00 AM EDT Ancillary Procedure [facility] Cardiology [facility] - [facility] 101 300 [facility] 101 [place] [phone] 11/01/2025 10:30 AM EDT Office Visit Vascular Surgery - [place] [address] [facility] [address] [place] [phone] Rafa Lawson MD [address] [place] [phone] documented as of this encounter Visit Diagnoses Not on filedocumented in this encounter Care Teams Director University Relationship Specialty Start Date End Date Mony Pardo PA [address] [place] [address] PCP - General Primary Care 05/22/24 documented as of this encounter
--- OUTSIDE RECORDS SUMMARY | 2025-03-19 12:05 | XMS_ITS | Clinical Summary ---
Author Organization [facility], Address [address] [place] [address] Phone Care Team Providers Care Telesales Consultant Name Role Phone Unavailable Primary Care Provider [...] Colorectal Cancer Screening: Sigmoidoscopy 2004 Pneumococcal Vaccine: 50+ Ye ars (1 of 1 - PCV) 2005 Influenza Vaccine (#1) 2024 Hepatitis B Vaccine Aged Out No longe r eligible based on patient's age to complete this topic Insurance Mart Montiel
--- OUTSIDE RECORDS SUMMARY | 2025-03-19 12:05 | XMS_ITS | Encounter Summary ---
Author Organization [facility] Address [address] [place] [address] Care Team Providers Care Account Liaison Hospice Name Role Phone Mony Pardo Primary Care Provider + Encounter Details Date Type Department Care Team (Late Contact Info) Description 03/08/2025 Results Follow-Up [facility] Cardiology [facility] [address] 300 [facility] 154 [place] [phone] Lindsey Saldaña NP [address] [place] [address] [address] [place] [phone] Social History Tobacco Use Types Packs/Day Years [...] on file documented as of this encounter Plan of Treatment Upcoming Encounters Date Type Department Care Team (Late Contact Info) Description 05/25/2025 10:40 AM EST Office Visit [facility] Cardiology [facility] - [facility] 102 300 [facility] 102 [place] [phone] Lindsey Saldaña NP [address] [place] [address] [address] [place] [phone] 06/03/2025 9:45 AM EST Office Visit Pulmonology - [place] [address] [place] [phone] Connor Merino MD [address] [place] [phone] 09/21/2025 7:00 AM EDT Ancillary Procedure [facility] - [facility] [address] [place] [address] 11/01/2025 10:30 AM EDT Office Visit Vascular Surgery - [place] [address] [place] [phone] Rafa Lawson MD [address] [place] [phone] documented as of this encounter Visit Diagnoses Not on filedocumented in this encounter Care Teams Account Liaison Hospice Relationship Specialty Start Date End Date Mony Pardo PA [address] [place] [address] PCP - General Primary Care 05/22/24 documented as of this encounter
--- OUTSIDE RECORDS SUMMARY | 2025-03-19 12:05 | XMS_ITS | Encounter Summary ---
Author Organization [facility] Address [address] [place] [address] Care Team Providers Care Site Head Name Role Phone Mony Pardo Primary Care Provider + Reason for Visit * Reason Onset Date Comments Referral 10/26/2024 Encounter Details Date Type Department Care Team ([facility] st Contact Info) Description 10/26/2024 Telephone Internal Medicine - [place] [address] [facility] [address] [place] [address] Mony Pardo PA [address] [place] [address] Social History Tobacco Use Types Packs/Day Years [...] as of this encounter Progress Notes * Sherita Saucedo MA - 12/11/2024 10:57 AM EDT Faxed over report. * Katherin Stewart - 12/11/2024 8:54 AM EDT Pt called and stated [facility] still has not received this MRI report and is requesting a call back because they are not receiving it and pt would like for our office to call [facility] neurology to send it over again and make sure it is there. Please advise Cb# [phone] * Shaista Sanz - 12/10/2024 11:00 AM EDT Pt called and stated [facility] still has not received this MRI report. Pt requested to be faxed to # [phone]. The fax number provided below was incorrect. Re-faxing MRI report to # [phone]. * Alex Gutierrez MA - 12/07/2024 2:41 PM EDT Faxed referral and MRI report to number provided. * Katherin Stewart - 12/07/2024 1:07 PM EDT Pt called and requested for the MRI results be faxed over along with the referral because [facility] never received it. * NEHAL Martines - 10/27/2024 10:25 AM EDT There is already an order/referral to neuro in the chart * Viry Brown - 10/26/2024 10:23 AM EDT Patient was just in office re: referral to Neurology - was informed order was placed [facility] neurology never received the request -[facility] [address] [place] [address] Fax order please per request of patient Has been waiting for appt. Please let him know when referral is faxed so he can scheduled appt Thank YOU documented in this encounter Plan of Treatment Upcoming Encounters Date Type Department Care Team (Late st Contact Info) Description 05/25/2025 10:40 AM EST Office Visit [facility] Cardiology [facility] - [facility] [address] [facility] 102 [place] [address] Lindsey Saldaña NP [address] [place] [address] [address] [place] [address] 06/03/2025 9:45 AM EST Office Visit Pulmonology - [place] [address] [facility] [address] [place] [address] Connor Merino MD 230 [place] [phone] 09/21/2025 7:00 AM EDT Ancillary Procedure [facility] - [facility] [address] [facility] 101 [place] [address] 11/01/2025 10:30 AM EDT Office Visit Vascular Surgery - [place] [address] [place] [phone] Rafa Lawson MD [address] [place] [phone] documented as of this encounter Visit Diagnoses Not on filedocumented in this encounter Care Teams Site Head Relationship Specialty Start Date End Date Mony Pardo PA [address] [place] [address] PCP - General Primary Care 05/22/24 documented as of this encounter
--- OUTSIDE RECORDS SUMMARY | 2025-03-19 12:05 | XMS_ITS | Encounter Summary ---
Author Organization [facility] Address [address] [place] [address] Care Team Providers Care Cook Fruit Name Role Phone Mony Pardo Primary Care Provider + Encounter Details Date Type Department Care Team (Late Contact Info) Description 11/25/2024 Lab Requisition [facility] - Main Lab [address] [facility] [place] [address] Gisell Oliver NP 3640 [facility] 103 [place] [address] Benign prostatic hyperplasia with lower urinary tract symptoms Social History Tobacco Use Types Packs/Day Years [...] Description 05/25/2025 10:40 AM EST Office Visit [facility] - [facility] 102 300 [facility] 102 [place] [phone] Lindsey Saldaña NP [address] [place] [address] [address] [place] [phone] 06/03/2025 9:45 AM EST Office Visit Pulmonology - [place] [address] [facility] [address] [place] [address] Connor Merino MD [address] [place] [phone] 09/21/2025 7:00 AM EDT Ancillary Procedure [facility] - [facility] [address] [place] [address] 11/01/2025 10:30 AM EDT Office Visit Vascular Surgery - [place] [address] [place] [address] Rafa Lawson MD [address] [place] [phone] documented as of this encounter Procedures Procedure Name Priority Date/Time Associated Diagnosis Comments PROSTATE SPECIFIC ANTIGEN DIAGNOSTIC Routine 11/25/2024 10:57 AM EDT Benign prostatic hyperplasia with lower urinary tract symptoms documented in this encounter Results * Prostate specific antigen diagnostic (11/25/2024 10:57 AM EDT) PSA 2.38 0.00 - 4.00 ng/mL LAB CHEMISTRY METHOD 11/25/2024 2:04 PM EDT [facility] Blood Venous blood specimen / Unknown 11/25/2024 10:57 AM EDT 11/25/2024 1:21 PM EDT Narrative [facility] - 11/25/2024 2:04 PM EDT The Siemens Advia Centaur Chemiluminescent Immunoassay is used. Results obtained with different assay methods or kits cannot be used interchangeably. Results cannot be interpreted as absolute evidence of the presence or absence of malignant disease. us Gisell Oliver NP LAB BLOOD ORDERABLES Marylou rodriguez Result [facility] [address] [place] [address], [place] [phone] documented in this encounter Visit Diagnoses Diagnosis Benign prostatic hyperplasia with lower urinary tract symptoms documented in this encounter Care Teams Cook Fruit Relationship Specialty Start Date End Date Mony Pardo PA [address] [place] [address] PCP - General Primary Care 05/22/24 documented as of this encounter
--- OUTSIDE RECORDS SUMMARY | 2025-03-19 12:05 | XMS_ITS | Encounter Summary ---
Author Organization [facility] Address [address] [place] [address] Care Team Providers Care Needle Maker Name Role Phone Mony Pardo Primary Care Provider + Encounter Details Date Type Department Care Team (Late st Contact Info) Description 02/18/2025 Telephone Internal Medicine - [place] [address] [facility] [address] [place] [address] Mony Pardo PA [address] [place] [address] Social History Tobacco Use Types Packs/Day Years [...] as of this encounter Progress Notes * NEHAL Martines - 02/19/2025 8:48 AM EDT Noted. * Bethany Ma RN - 02/18/2025 1:22 PM EDT TERESA Sykes [facility] will send us a fax to add a diagnosis code for the pt that he can't have statins, needs to be faxed back. They will check back in a couple weeks if they don't receive it. Will be faxed to us this week, just giving a heads up Call to CAMERON Woodard # [phone], spoke w/ her. Per search of pt chart, pt has history of elevated CPK levels and therefor can't have any statin medications For his insurance, they need a diagnosis code that he is not able to take statin. They need this written into his last office note (back in September w/ Mony) She also says the diagnosis code needs to be noted yearly, for his insurance She will find the diagnosis code and send it in a fax to us with a return fax # listed * Nichole London - 02/18/2025 12:34 PM EDT aYmilet w/ CAMERON, Asking for history of statin-medications? CB# [phone], ask for Yamilet Please advise? Ty documented in this encounter Plan of Treatment Upcoming Encounters Date Type Department Care Team (Late st Contact Info) Description 05/25/2025 10:40 AM EST Office Visit [facility] - [facility] 102 300 [facility] 102 [place] [address] Lindsey Saldaña NP [address] [place] [address] [address] [place] [phone] 06/03/2025 9:45 AM EST Office Visit Pulmonology - [place] [address] [facility] [address] [place] [address] Connor Merino MD [address] [place] [phone] 09/21/2025 7:00 AM EDT Ancillary Procedure [facility] [place] [place] [address] [facility] 101 [place] [phone] 11/01/2025 10:30 AM EDT Office Visit Vascular Surgery - [place] [address] [place] [address] Rafa Lawson MD [address] [place] [phone] documented as of this encounter Visit Diagnoses Not on filedocumented in this encounter Care Teams Needle Maker Relationship Specialty Start Date End Date Mony Pardo PA [facility] [place] [address] PCP - General Primary Care 05/22/24 documented as of this encounter
--- OUTSIDE RECORDS SUMMARY | 2025-03-19 12:05 | XMS_ITS | Clinical Summary ---
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 022 Active albuterol 2.5 mg /3 mL (0.083 %) nebulizer solution TAKE 1 VIAL BY NEBULIZATION EVERY 4 HOURS NEEDED FOR WHEEZING, SHORTNESS OF BREATH OR COUGH 022 Active fluticasone propionate (FLONASE) 50 mcg/actuation nasal spray SPRAY 2 SPRAYS INTO EACH NOSTRIL EVERY DAY 021 Active aspirin 81 mg EC tablet Take 81 mg by mouth daily. 017 Active tamsulosin (FLOMAX) 0.4 mg 24 hr capsule Take 0.4 mg by mouth. 014 Active tiZANidine (ZANAFLEX) 2 mg capsule Take 1 capsule (2 mg total) by mouth 3 (three) times a day. Active Vascepa 1 gram capsule TAKE 2 CAPSULES BY MOUTH TWICE A DAY 360 capsule 2 025 Active omeprazole OTC (PriLOSEC OTC) 20 mg EC tabletIndications :Chest pain, unspecified type,Gastroesopha geal reflux disease, unspecified whether esophagitis present Take 1 tablet (20 mg total) by mouth 1 (one) time each day. Do not crush, chew, or split. 30 tablet 2 025 2025 Active baclofen (LIORESAL) 10 mg tabletIndications :Osteoarthritis of spine with radiculopathy, lumbosacral region Take 1 tab 5 times daily prn 025 Active metoprolol succinate (TOPROL-XL) 25 mg 24 hr tablet TAKE 1 TABLET BY MOUTH EVERY DAY 90 tablet 3 025 Active escitalopram (LEXAPRO) 10 mg tabletIndications :Anxiety disorder, unspecified TAKE 1 TABLET BY MOUTH 1 TIME EACH DAY. 90 tablet 1 025 Active fluticasone furoate-vilantero L (Breo Ellipta) 100-25 mcg/dose inhaler Inhale 1 puff by mouth 1 (one) time each day. 60 each 025 2025 Active omeprazole (PriLOSEC) [address] capsule Take 1 capsule (20 mg total) by mouth 1 (one) time each day. Active oxyCODONE (ROXICODONE) 5 mg immediate release tablet Take 1 tablet (5 mg total) by mouth every 6 (six) hours if needed. Max Daily Amount: 20 mg 025 Active fluticasone propionate (FLONASE) 50 mcg/actuation nasal spray Administer 2 sprays into each nostril 1 (one) time each day. Shake gently. Before first use, prime pump. After use, clean tip and replace cap. 1 mL 3 Active budesonide-formot Heather (SYMBICORT) 160-4.5 mcg/actuation inhaler Inhale 2 puffs by mouth 2 (two) times a day. 30.6 g 11 Active montelukast (SINGULAIR) 10 mg tablet Take 1 tablet (10 mg total) by mouth at bedtime. 30 tablet 11 025 Active tadalafiL (CIALIS) 5 mg tablet Take 1 tablet (5 mg total) by mouth 1 (one) time each day. 025 Active umeclidinium (Incruse Ellipta) 62.5 mcg/actuation inhalation Inhale 1 puff by mouth 1 (one) time each day. 1 each 11 025 Active hydrOXYzine HCL (ATARAX) 25 mg tabletIndications :Insomnia due to other mental disorder (CODE) TAKE 2 TABLETS (50 MG TOTAL) BY MOUTH AT BEDTIME NEEDED FOR ITCHING OR ANXIETY. 180 tablet 1 025 Active evolocumab (Repatha SureClick) 140 mg/mL pen injector injectionIndicati ons:Hyperlipidemi a, unspecified hyperlipidemia type INJECT 1 ML INTO THE ABDOMEN,THIGH, OR UPPER ARM EVERY 14 DAYS. 6 mL 1 025 Active umeclidinium (Incruse Ellipta) 62.5 mcg/actuation inhalation INHALE 1 PUFF BY INHALATION ROUTE EVERY DAY AT THE SAME TIME EACH DAY 023 2024 Discontinued(R eorder) hydrOXYzine HCL (ATARAX) 25 mg tabletIndications :Insomnia due to other mental disorder (CODE) Take 2 tablets (50 mg total) by mouth at bedtime as needed for itching or anxiety. 180 tablet 1 025 2024 Discontinued Repatha SureClick 140 mg/mL pen injector injectionIndicati ons:Hyperlipidemi a, unspecified hyperlipidemia type INJECT 1 ML INTO THE ABDOMEN,THIGH, OR UPPER ARM EVERY 14 DAYS. 6 mL 025 2024 Discontinued Active Problems Problem Noted Date Diagnosed Date Chest pain 08/13/2024 Assessment & Plan (08/14/2024 11:38 AM EDT): We will update ischemic evaluation in the form of a nuclear stress test. Instructed to call 911 or go to the emergency room should the patient begin to experience chest pain or pressure lasting greater than 10 minutes does not resolve with rest. Orders: ECG 12 lead omeprazole OTC (PriLOSEC OTC) 20 mg EC tablet; Take 1 tablet (20 mg total) by mouth 1 (one) time each day. Do not crush, chew, or split. Nuclear stress test with myocardial perfusion; Future SOB (shortness of breath) 08/13/2024 Chronic back pain 02/25/2023 Chronic obstructive pulmonar y disease (CMS/HCC V24, CMS/HCC V28) 02/25/2023 Myocardial infarction ([facility] V24, [facility] V28) 02/25/2023 AAA (abdominal aortic aneury sm) without rupture ([facility] V24) 02/04/2023 Assessment & Plan (05/22/2024 10:12 AM EST): Orders: ECG 12 lead Prediabetes 06/13/2022 Vitamin D insufficiency 06/10/2022 Anxiety and depression 09/15/2021 Hypertension 10/28/2017 Overview (04/06/2024): Last Assessment & Plan: Blood pressure well controlled on current medical regimen of beta-jose. Continue to follow. Assessment & Plan (08/14/2024 11:38 AM EDT): His blood pressure is elevated during today's exam with a reading of 150/80. The patient does attribute this to whitecoat component as well as being nervous about his symptoms and his ongoing back pain. We discussed diet and lifestyle modification. We discussed the potential for introducing an antihypertensive agent to further reduce blood pressure in the setting of coronary disease and abdominal aortic aneurysm. Will monitor his blood pressure during his subsequent visits. Patient denies any headache, blurred vision or tinnitus. Educated on the importance of diet lifestyle to help further assist in reducing blood pressure. The patient was encouraged to follow low-salt low-fat diet, make purposeful strides towards weight loss, and engage in routine aerobic exercise as tolerated. Assessment & Plan (05/22/2024 10:12 AM EST): [...] has any changes in his current condition. Assessment & Plan (08/14/2024 11:38 AM EDT): He does endorse increased shortness of breath and chest discomfort as outlined above. He will continue on cardioprotective medical therapy of aspirin, Repatha and metoprolol. Instructed to call 911 or go to the emergency room should the patient begin to experience chest pain or pressure lasting greater than 10 minutes does not resolve with rest. Orders: Nuclear stress test with myocardial perfusion; Future ED (erectile dysfunction) 09/07/2016 Asthma 02/03/2016 Allergic rhinitis 02/01/2014 Lumbosacral spondylosis 05/05/2009 Overview (04/06/2024): And cervical DDD (degenerative disc disease), cervical 2009 Overview (04/06/2024): And lumbar Benign prostate hyperplasia Encounters Date Type Department Care Team Description 03/10/2025 Telephone Internal Medicine - [address] [place] [phone] Mony Pardo PA 03/09/2025 8:26 AM EST - 03/09/2025 11:59 PM EST Hospital Encounter CT Scan - [address] [phone] Pulmonary nodule Discharge Disposition: Home or Self Care 03/08/2025 8:10 AM EST Lab Draw Station - [address] [place] [address] [address] [place] [phone] Hyperlipidemia, unspecified hyperlipidemia type; Primary hypertension; Osteoarthritis of spine with radiculopathy, lumbosacral region; Prediabetes; Mixed hyperlipidemia 03/08/2025 Results Follow-Up [facility] Cardiology [facility] [address] [facility] [address] [place] [phone] Lindsey Saldaña NP 03/02/2025 Telephone [facility] Cardiology [facility] [address] [facility] [address] [place] [address] Joe Shaw MD 02/22/2025 11:00 AM EDT Office Visit Pulmonology - [address] [place] [phone] Connor Merino MD Pulmonary nodule (Primary Dx); Morbid obesity due to excess calories (CMS/HCC V24, CMS/HCC V28); Chronic obstructive pulmonary disease with emphysema, unspecified emphysema type (CMS/HCC V24, CMS/HCC V28); Seasonal allergic rhinitis due to pollen 02/18/2025 Telephone Internal Medicine - [place] 175 [facility] [address] [place] [phone] Mony Pardo PA 01/12/2025 Telephone Internal Medicine - [place] [address] [facility] [address] [place] [phone] Mony Pardo PA from Last 3 Months Immunizations Immunization Administration Dates Next Due Influenza Quadravalent, MDCK , 0.5ml, preservative free (Flucelvax) 6mo and older 03/11/2020 Influenza trivalent, 0.5mL (Fluad) 65yo and olde r 02/12/2023,03/17/2021 Pfizer SARS-CoV-2 COVID-19, mRNA, LNP-S, preservative free 09/06/2020,08/16/2020 Pneumococcal conjugate 13 va lent (Prevnar 13, PCV13) 2mo and older 03/11/2020 Surgical History Surgery Date Site/Laterality Comments OTHER SURGICAL HISTORY 09/25/2018 Right PROCEDURE: RI EXC HYDROCELE SPRMATIC CORD UNI SPX; COMMENT: Dr. Tan NECK SURGERY PROCEDURE: HISTORICAL NECK SURGERY; COMMENT: fusion C3-4 and C6-7 BACK SURGERY PROCEDURE: HISTORICAL BACK SURGERY; COMMENT: lumbar discectomy 1992 x2, lumbar x 3 [id number], lumbar fusion 2015 Medical History Medical History [...] insufficiency DX:Vitam in D insufficiency Prediabetes DX:Prediabetes Benign prostate hyperplasia Family History Medical History Relation Name Comments [...] Mass Index 29.53 02/22/2025 11:08 AM EDT Plan of Treatment Upcoming Encounters Date Type Department Care Team (Late st Contact Info) Description 05/25/2025 10:40 AM EST Office Visit [facility] Cardiology [facility] [address] [facility] [address] [place] [phone] Lindsey Saldaña, PEG [address] [place] [address] [address] [place] [address] 06/03/2025 9:45 AM EST Office Visit Pulmonology - [place] [address] [facility] [address] [place] [phone] Connor Merino MD [address] [place] [address] 09/21/2025 7:00 AM EDT Ancillary Procedure [facility] Cardiology [facility] [address] [place] [phone] 11/01/2025 10:30 AM EDT Office Visit Vascular Surgery - [place] [address] [facility] [address] [place] [phone] Rafa Lawson MD [address] [place] [phone] Health Maintenance Due Date Last Done Comments Colorectal Cancer Screening: Colonoscopy 1955 DTaP,Tdap,and Td Vaccines (1 - Tdap) 1974 RSV Immunization Adult Patients (1 - Risk 50-74 years 1-dose series) 2005 Falls Risk Assessment 04/07/2022 Hepatitis C Screening 04/07/2022 Medicare Annual Wellness Visit 04/07/2022 Social Influencers of Health Screening 04/07/2022 Depression Screening 04/29/2024 COVID-19 Vaccine ( season) 2024 05/22/2024, 03/05/2022, 03/29/2021, Additional history exists Influenza Vaccine (#1) 2024 , 02/12/2023, 03/05/2022, Additional history exists Hypertension/CHF/CAD Annual BMP Blood Test 03/08/2026 03/08/2025, 06/06/2022 Cholesterol Screening (Lipid Panel) 03/08/2030 03/08/2025, 12/09/2023, 12/09/2023 Zoster Vaccines Completed 08/24/2021, 03/29/2021 Abdominal Aortic Aneurysm (AAA) Screen Discontinued 06/19/2022 Pneumococcal Vaccine: 50+ Years Completed 05/22/2024, 03/11/2020, 06/13/2011 HIB Vaccines Aged Out No longer eligi [...] age to complete this topic Meningococcal B Vaccine Aged Out No l onger eligible based on patient's age to complete this topic RSV Immunization Patients Under 20 months Aged Out No longer eligible based on patient's age to complete this topic Varicella Vaccines Aged Out No longer eligible based on patient's age to complete this topic Procedures Procedure Name Priority Date/Time Associated Diagnosis Comments CT CHEST WO CONTRAST Routine 03/09/2025 8:42 AM EST Pulmonary nodule CBC WITH AUTO DIFFERENTIAL Routine 03/08/2025 8:07 AM EST Osteoarthritis of spine with radiculopathy, lumbosacral region COMPREHENSIVE METABOLIC PANEL Routine 03/08/2025 8:07 AM EST Primary hypertension Mixed hyperlipidemia MAGNESIUM Routine 03/08/2025 8:07 AM EST Primary hypertension MICROALBUMIN CREATININE URINE RATIO Routine 03/08/2025 8:07 AM EST Primary hypertension HEMOGLOBIN A1C Routine 03/08/2025 8:07 AM EST Prediabetes FERRITIN Routine 03/08/2025 8:07 AM EST Osteoarthritis of spine with radiculopathy, lumbosacral region IRON Routine 03/08/2025 8:07 AM EST Osteoarthritis of spine with radiculopathy, lumbosacral region CBC AND DIFFERENTIAL Routine 03/08/2025 8:07 AM EST Osteoarthritis of spine with radiculopathy, lumbosacral region VITAMIN B12 Routine 03/08/2025 8:07 AM EST Osteoarthritis of spine with radiculopathy, lumbosacral region VITAMIN D 25 HYDROXY Routine 03/08/2025 8:07 AM EST Osteoarthritis of spine with radiculopathy, lumbosacral region THYROID STIMULATING HORMONE Routine 03/08/2025 8:07 AM EST Primary hypertension LIPID PANEL WITH REFLEX TO DIRECT LDL Routine 03/08/2025 8:07 AM EST Hyperlipidemia, unspecified hyperlipidemia type HM ABDOMINAL AORTIC ANEURYSM SCRREN Routine 06/19/2022 from Last 3 Months or Most Recently Relevant to Health Maintenance Results * CT Chest wo Contrast (03/09/2025 [...] this report will be provided to the [facility]. -------- FINAL REPORT -------- Dictated By: Taylor Suarez Dictated Date: 03/09/2025 19:38 ET Assigned Physician: Taylor Suarez Reviewed and Electronically Signed By: Taylor Suarez Signed Date: 03/11/2025 09:28 ET Workstation ID: [id number] Transcribed By: Self Edit Transcribed Date: 03/09/2025 [...] this report will be provided to the [facility]. -------- FINAL REPORT -------- Dictated By: Taylor Suarez Dictated Date: 03/09/2025 19:38 ET Assigned Physician: Taylor Suarez Reviewed and Electronically Signed By: Taylor Suarez Signed Date: 03/11/2025 09:28 ET Workstation ID: [id number] Transcribed By: Self Edit Transcribed Date: 03/09/2025 19:39 ET us Connor Merino MD IMG CT PROCEDURES Final Resu lt * (ABNORMAL) Lipid panel with reflex to direct LDL (03/08/2025 8:07 AM EST) Cholesterol 131 0 - 200 mg/dL LAB CHEMISTRY METHOD 03/08/2025 10:17 AM [facility] Triglycerides 167(H) 0 - 150 mg/dL LAB CHEMISTRY METHOD 03/08/2025 10:17 AM [facility] HDL 51 >=40 mg/dL LAB CHEMISTRY METHOD 03/08/2025 10:17 AM [facility] LDL Calculated 47 0 - 100 mg/dL LAB CHEMISTRY METHOD 03/08/2025 10:17 AM [facility] Comment:Estimated LDL Calcul ated using equation: Total cholesterol - HDL cholesterol - (Triglycerides/5) VLDL Cholesterol Shayne 33.4 mg/dL LAB CHEMISTRY METHOD 03/08/2025 10:17 AM [facility] Non HDL Chol. (LDL+VLDL) 80 <145 mg/dL LAB CHEMISTRY METHOD 03/08/2025 10:17 AM [facility] Chol/HDL Ratio 2.6 0.0 - 4.4 LAB CHEMISTRY METHOD 03/08/2025 10:17 AM [facility] Blood Venous blood specimen / Unknown Venipuncture / Unknown 03/08/2025 8:07 AM EST 03/08/2025 8:07 AM EST us Joe Shaw MD LAB BLOOD ORDERABLES Marylou l Result [facility] [address] [place] [address], [place] [phone] * (ABNORMAL) CBC auto differential (03/08/2025 8:07 AM EST) WBC 9.8 4.8 - 10.8 K/mcL LAB HEMETOLOGY METHOD 03/08/2025 10:04 AM [facility] RBC 4.40(L) 4.50 - 5.50 M/mcL LAB HEMETOLOGY METHOD 03/08/2025 10:04 AM [facility] Hemoglobin 13.6 13.5 - 17.5 g/dL LAB HEMETOLOGY METHOD 03/08/2025 10:04 AM [facility] Hematocrit 41.1(L) 42.0 - 54.0 % LAB HEMETOLOGY METHOD 03/08/2025 10:04 AM [facility] MCV 93.8 79.0 - 98.0 FL LAB HEMETOLOGY METHOD 03/08/2025 10:04 AM [facility] MCH 31.1 27.0 - 32.0 pcg LAB HEMETOLOGY METHOD 03/08/2025 10:04 AM [facility] MCHC 33.1 32.0 - 37.0 g/dL LAB HEMETOLOGY METHOD 03/08/2025 10:04 AM [facility] RDW 15.3(H) 11.0 - 15.0 % LAB HEMETOLOGY METHOD 03/08/2025 10:04 AM [facility] Platelets 274 130 - 400 K/mcL LAB HEMETOLOGY METHOD 03/08/2025 10:04 AM [facility] MPV 9.0 7.0 - 11.0 FL LAB HEMETOLOGY METHOD 03/08/2025 10:04 AM [facility] NRBC 0.0 <1.0 % LAB HEMETOLOGY METHOD 03/08/2025 10:04 AM [facility] NRBC Absolute 0.00 <0.10 K/mcL LAB HEMETOLOGY METHOD 03/08/2025 10:04 AM [facility] Neutrophils Relative 55.9 % LAB HEMETOLOGY METHOD 03/08/2025 10:04 AM [facility] Lymphocytes Relative 28.7 % LAB HEMETOLOGY METHOD 03/08/2025 10:04 AM [facility] Monocytes Relative 11.1 % LAB HEMETOLOGY METHOD 03/08/2025 10:04 AM [facility] Eosinophils Relative 3.4 % LAB HEMETOLOGY METHOD 03/08/2025 10:04 AM [facility] Basophils Relative 0.5 % LAB HEMETOLOGY METHOD 03/08/2025 10:04 AM [facility] Immature Granulocytes Relative 0.4 % LAB HEMETOLOGY METHOD 03/08/2025 10:04 AM [facility] Neutrophils Absolute 5.50 1.50 - 7.00 K/mcL LAB HEMETOLOGY METHOD 03/08/2025 10:04 AM [facility] Lymphocytes Absolute 2.82 1.00 - 5.00 K/mcL LAB HEMETOLOGY METHOD 03/08/2025 10:04 AM [facility] Monocytes Absolute 1.09(H) 0.20 - 1.00 K/mcL LAB HEMETOLOGY METHOD 03/08/2025 10:04 AM [facility] Eosinophils Absolute 0.33 0.00 - 0.50 K/mcL LAB HEMETOLOGY METHOD 03/08/2025 10:04 AM [facility] Basophils Absolute 0.05 0.00 - 0.20 K/mcL LAB HEMETOLOGY METHOD 03/08/2025 10:04 AM [facility] Immature Granulocytes Absolute 0.04(H) 0.00 - 0.03 K/mcL LAB HEMETOLOGY METHOD 03/08/2025 10:04 AM [facility] Blood Venous blood specimen / Unknown Venipuncture / Unknown 03/08/2025 8:07 AM EST 03/08/2025 8:07 AM EST Mony CALVERT LAB BLOOD ORDERABLES Fin al Result Performing Organization Address [facility]/ZIP Co de Phone Number [facility] [address] [place] [address], [place] [phone] * Microalbumin creatinine urine ratio (03/08/2025 8:07 AM EST) Creatinine, Urine 124.0 mg/dL LAB CHEMISTRY METHOD 03/08/2025 10:56 AM EST [facility] Microalb, Ur 15.2 0.0 - 29.0 mg/L LAB CHEMISTRY METHOD 03/08/2025 10:56 AM EST [facility] Microalb/Creat Ratio 12 <30 mg/g creat LAB CHEMISTRY METHOD 03/08/2025 10:56 AM [facility] Urine Urine specimen obtained by clean catch procedure / Unknown Non-blood Collection / Unknown 03/08/2025 8:07 AM EST 03/08/2025 8:07 AM EST Mony CALVERT LAB URINE ORDERABLES Fin al Result Performing Organization Address [facility] de Phone Number [facility] [address] [place] [address], [place] [phone] * Vitamin D 25 hydroxy (03/08/2025 8:07 AM EST) Vit D, 25-Hydroxy 36.1 30.0 - 80.0 ng/mL LAB CHEMISTRY METHOD 03/08/2025 12:10 PM EST [facility] Blood Venous blood specimen / Unknown Venipuncture / Unknown 03/08/2025 8:07 AM EST 03/08/2025 8:07 AM EST Mony CALVERT LAB BLOOD ORDERABLES Fin al Result Performing Organization Address City/[facility]/ZIP Co de Phone Number [facility] [address] [place] [address], [place] [phone] * Thyroid stimulating hormone (03/08/2025 8:07 AM EST) TSH 0.58 0.40 - 4.00 mcIU/mL LAB CHEMISTRY METHOD 03/08/2025 3:09 PM EST [facility] Blood Venous blood specimen / Unknown Venipuncture / Unknown 03/08/2025 8:07 AM EST 03/08/2025 8:07 AM EST Mony CALVERT LAB BLOOD ORDERABLES Fin al Result [facility] [address] [place] [address], [place] [phone] * Magnesium (03/08/2025 8:07 AM EST) Pathologist [facility] Magnesium 1.9 1.9 - 2.6 mg/dL LAB CHEMISTRY METHOD 03/08/2025 10:17 AM EST [facility] Blood Venous blood specimen / Unknown Venipuncture / Unknown 03/08/2025 8:07 AM EST 03/08/2025 8:07 AM EST Mony CALVERT LAB BLOOD ORDERABLES Fin al Result [facility] [address] [place] [address], [place] [phone] * Iron (03/08/2025 8:07 AM EST) Iron 101 50 - 160 mcg/dL LAB CHEMISTRY METHOD 03/08/2025 10:17 AM EST [facility] Blood Venous blood specimen / Unknown Venipuncture / Unknown 03/08/2025 8:07 AM EST 03/08/2025 8:07 AM EST Mony CALVERT LAB BLOOD ORDERABLES Fin al Result Performing Organization Address City/[facility]/ZIP Co de Phone Number [facility] [address] [place] [address], [place] [phone] * Hemoglobin A1c (03/08/2025 8:07 AM EST) [facility] Hemoglobin A1C 5.8 <6.5 % LAB CHEMISTRY METHOD 03/08/2025 11:32 AM EST [facility] Mean Bld Glu Estim. 120 mg/dL LAB CHEMISTRY METHOD 03/08/2025 11:32 AM EST [facility] Blood Venous blood specimen / Unknown Venipuncture / Unknown 03/08/2025 8:07 AM EST 03/08/2025 8:07 AM EST us Mony CALVERT LAB BLOOD ORDERABLES Fin al Result Performing Organization Address City/[facility]/ZIP Co de Phone Number [facility] [address] [place] [address], [place] [phone] * Ferritin (03/08/2025 8:07 AM EST) [facility] Ferritin 88 26 - 388 ng/mL LAB CHEMISTRY METHOD 03/08/2025 10:38 AM EST [facility] Blood Venous blood specimen / Unknown Venipuncture / Unknown 03/08/2025 8:07 AM EST 03/08/2025 8:07 AM EST us Mony CALVERT LAB BLOOD ORDERABLES Fin al Result Performing Organization Address City/[facility]/ZIP Co de Phone Number [facility] [address] [place] [address], [place] [phone] * Vitamin B12 (03/08/2025 8:07 AM EST) [facility] Vitamin B-12 485 250 - 900 pcg/mL LAB CHEMISTRY METHOD 03/08/2025 10:38 AM [facility] Blood Venous blood specimen / Unknown Venipuncture / Unknown 03/08/2025 8:07 AM EST 03/08/2025 8:07 AM EST Mony CALVERT LAB BLOOD ORDERABLES Fin al Result [facility] [address] [place] [address], [place] [phone] * Comprehensive metabolic panel (03/08/2025 8:07 AM EST) Sodium 137 133 - 145 mmol/L LAB CHEMISTRY METHOD 03/08/2025 10:17 AM [facility] Potassium 4.4 3.5 - 5.5 mmol/L LAB CHEMISTRY METHOD 03/08/2025 10:17 AM [facility] Chloride 106 96 - 110 mmol/L LAB CHEMISTRY METHOD 03/08/2025 10:17 AM [facility] CO2 27 21 - 32 mmol/L LAB CHEMISTRY METHOD 03/08/2025 10:17 AM [facility] Anion Gap 4 3 - 11 LAB CHEMISTRY METHOD 03/08/2025 10:17 AM [facility] Glucose 95 70 - 100 mg/dL LAB CHEMISTRY METHOD 03/08/2025 10:17 AM [facility] BUN 23 5 - 25 mg/dL LAB CHEMISTRY METHOD 03/08/2025 10:17 AM [facility] Creatinine 0.98 0.70 - 1.30 mg/dL LAB CHEMISTRY METHOD 03/08/2025 10:17 AM [facility] eGFR 83 >=60 mL/min/1. 73m2 LAB CHEMISTRY METHOD 03/08/2025 10:17 AM [facility] Comment:Calculation based on the Chronic Kidney Disease Epidemiology Collaboration (CKD-EPI) equation refit without adjustment for race. BUN/Creatinine Ratio 23.5 LAB CHEMISTRY METHOD 03/08/2025 10:17 AM [facility] Calcium 8.9 8.5 - 10.5 mg/dL LAB CHEMISTRY METHOD 03/08/2025 10:17 AM [facility] AST (SGOT) 34 10 - 42 unit/L LAB CHEMISTRY METHOD 03/08/2025 10:17 AM [facility] ALT (SGPT) 48 10 - 60 unit/L LAB CHEMISTRY METHOD 03/08/2025 10:17 AM [facility] Alkaline Phosphatase 83 42 - 121 unit/L LAB CHEMISTRY METHOD 03/08/2025 10:17 AM [facility] Total Protein 6.2 6.0 - 8.0 g/dL LAB CHEMISTRY METHOD 03/08/2025 10:17 AM [facility] Albumin 3.9 3.2 - 5.0 g/dL LAB CHEMISTRY METHOD 03/08/2025 10:17 AM [facility] Total Bilirubin 0.2 0.0 - 1.4 mg/dL LAB CHEMISTRY METHOD 03/08/2025 10:17 AM [facility] Blood Venous blood specimen / Unknown Venipuncture / Unknown 03/08/2025 8:07 AM EST 03/08/2025 8:07 AM EST us Mony CALVERT LAB BLOOD ORDERABLES Fin al Result [facility] [address] [place] [address], * Abdominal Aortic Aneurysm Screen (06/19/2022) Abdominal Aortic Aneurysm (AAA) Screening Abstracted Anatomical Region Laterality Modality Other us Historical Provider HEALTH MAINTENANCE Final Result from Last 3 Months or Most Recently Relevant to Health Maintenance Insurance [facility] Member Subscriber Plan / Payer (Ef fective 2023-Present) Name:Jaya Byrd Relation to Subscriber:Self Name:Jaya Byrd Payer ID:[id number] Group ID:[id number] Type:Not on file Address: [place] [address] [address] [id number] Care Teams [place] Relationship Specialty Start Date End Date Mony Pardo PA [address] [place] [address] PCP - General Primary Care 05/22/24
== END 2025-03-19 11:45 | disposition home or self-care (01) ==
PROVIDERS: PCP Physician Assistant; Visit Provider Internal Medicine
DX: M96.1 Postlaminectomy syndrome, not elsewhere classified (principal)
CPT/HCPCS: 99214

== ENCOUNTER → 2025-03-19 11:15 | Outpatient (BNVA) | payer OTHER, SELFPAY | PROVIDERS: PCP Physician Assistant; Visit Provider Internal Medicine | DX: M96.1 Postlaminectomy syndrome, not elsewhere classified (principal) | CPT/HCPCS: 99212 ==